=== PATIENT | male | born 1960 | race Caucasian/White ===

== ENCOUNTER 2019-07-23 13:27 | Outpatient (RCR) | payer OTHER, SELFPAY ==
[2019-04-24 11:05] LABS: INR 1.7; Prothrombin Time 19.6 Seconds (11.1-14.7)
[2019-05-30 12:41] LABS: INR 1.6; Prothrombin Time 18.6 Seconds (11.1-14.7)
[2019-06-26 16:49] LABS: INR 1.8
[2019-07-23 14:00] LABS: INR 1.6; Prothrombin Time 18.6 Seconds (11.1-14.7)
== END 2019-07-23 23:59 | disposition home or self-care (01) ==
LOC: ANHLAB 13:27
PROVIDERS: PCP Family Medicine; Visit Provider Internal Medicine Cardiovascular Disease
DX: I50.22 Chronic systolic (congestive) heart failure (principal); I35.9 Nonrheumatic aortic valve disorder, unspecified; R00.0 Tachycardia, unspecified; Z79.01 Long term (current) use of anticoagulants
CPT/HCPCS: 36415; 85610

== ENCOUNTER 2019-09-23 10:47 | Outpatient (RCR) | payer OTHER, SELFPAY ==
[2019-08-28 11:54] LABS: INR 1.9; Prothrombin Time 20.9 Seconds (11.1-14.7)
[2019-09-23 11:34] LABS: Prothrombin Time 22.1 Seconds (11.1-14.7)
== END 2019-11-26 23:59 | disposition home or self-care (01) ==
LOC: ANHLAB 10:47
PROVIDERS: PCP Family Medicine; Visit Provider Internal Medicine Cardiovascular Disease
DX: I50.22 Chronic systolic (congestive) heart failure (principal); I35.9 Nonrheumatic aortic valve disorder, unspecified; R00.0 Tachycardia, unspecified; Z79.01 Long term (current) use of anticoagulants
CPT/HCPCS: 36415; 85610

== ENCOUNTER 2019-11-24 14:33 | Outpatient (RCR) | payer OTHER, SELFPAY ==
[2019-10-22 15:15] LABS: INR 1.9; Prothrombin Time 21.6 Seconds (11.1-14.7)
[2019-11-24 14:59] LABS: INR 1.9; Prothrombin Time 21.4 Seconds (11.1-14.7)
== END 2020-01-20 23:59 | disposition home or self-care (01) ==
LOC: ANHLAB 14:33
PROVIDERS: PCP Family Medicine; Visit Provider Internal Medicine Cardiovascular Disease
DX: Z51.81 Encounter for therapeutic drug level monitoring (principal); Z95.2 Presence of prosthetic heart valve; Z79.01 Long term (current) use of anticoagulants
CPT/HCPCS: 36415; 85610

== ENCOUNTER 2019-12-12 01:58 | Outpatient (CLI) | payer OTHER, SELFPAY ==
[2019-12-14 11:26] LABS: SARS-CoV-2 RNA PCR Negative
== END 2019-12-12 01:59 | disposition home or self-care (01) ==
LOC: ANHCOVIDDT 01:58
PROVIDERS: PCP Family Medicine; Visit Provider Internal Medicine Cardiovascular Disease
DX: Z01.812 Encounter for preprocedural laboratory examination (principal); Z11.59 Encounter for screening for other viral diseases
CPT/HCPCS: 87635; C9803; U0003

== ENCOUNTER 2019-12-15 07:20 | Day surgery (SDC) | payer OTHER, SELFPAY ==
[2019-12-15] VITALS (19 sets, daily range): BP systolic 112–155; BP diastolic 62–80; PULSE 59–74; RESP 15–29; TEMP 37.6; O2SAT 94–100; BMI 36.3
[2019-12-15 08:27] LABS: INR 2.4; Prothrombin Time 25.3 Seconds (11.1-14.7)
--- NOTE | 2019-12-15 08:44 | WPDMODSED ---
Moderate Sedation Note-Pt Data Patient Data Diagnosis: Mechanical aortic valve malfunction, shortness of breath Present Complaint: fatigue history and physical update: Patient is a very pleasant 59-year-old male with a history of mitral valve repair with number 30 Jose-Choudhary physio 2 annuloplasty ring, 23 mm On X mechanical aortic valve replacement 03/14/2017, history of mild nonobstructive disease, fatty liver disease, obesity, obstructive sleep apnea on CPAP, GERD with complaints of progressive fatigue, tired more easily with recent surface echo which indicate increased velocities and mean gradient 30 mm Hg and a valve area 1.1 centimeters sq through the aortic valve referred for transesophageal echocardiogram for further clarification of mechanical prosthetic valve function. impression/plan: Mechanical aortic valve dysfunction fatigue and shortness of breath CAD SATHISH on CPAP HTN history of mitral valve repair recommendation: Transesophageal echocardiogram for further evaluation of structural integrity of mechanical aortic valve, function given symptoms and increase in aortic valve gradients. Further recommendations to follow. Procedure to be performed/Plan: transesophageal echocardiogram Allergies Allergy/AdvReac Type Severity Reaction Status Date / Time No Known Allergies Allergy Verified 11/26/16 09:41 Home Medications Medication Instructions Recorded Confirmed Type pantoprazole 40 mg tablet,delayed 40 mg PO QAM #90 tablet 03/25/19 12/15/19 Rx release bumetanide 2 mg PO DAILY 12/15/19 12/15/19 History diltiazem HCl [DILT-XR] 120 mg PO DAILY 12/15/19 12/15/19 History potassium chloride 10 meq PO DAILY 12/15/19 12/15/19 History warfarin 7.5 mg PO DAILY 12/15/19 12/15/19 History Current Medications: see medication list Sedation/Anesthesia: No previous sedation/anesthesia problems (including family history). COUNT INCLUDES THE [facility] Past Medical History Medical History CAD (coronary artery disease) Hypertension SATHISH (obstructive sleep apnea) Surgical History Surgical History H/O mechanical aortic valve replacement H/O mitral valve repair Family History Family History Sibling Family history of malignant neoplasm of breast Father Family history of congestive heart failure Hypertension Family history of cardiovascular disease Family history of coronary artery disease Other Asthma Cerebrovascular accident Diabetes mellitus Family history of mental disorder Social History Social History Smoking status: Never smoker Second hand tobacco smoke exposure: No Alcohol intake: never Mod Sed Physical Exam Physical Exam Pre Procedural Exam: Normal: Appearance, Eyes, Ears, Nose, Neck ( supple, normal range of motion), Throat ( posterior hypopharynx clear, nonerythematous), Airway ( normal anatomy, no obstruction), Lungs ( clear to auscultation bilaterally), Heart Size, Heart Rate, Heart Rhythm ( regular rate and rhythm, crisp mechanical S2), Neuro Exam, Abdomen ( obese), Liver, Kidneys and Skin and Variation: Extremities ( Trace bilateral lower extremity edema; healed median sternotomy scar) Hours since solid foods: 12 Hours since liquid intake: 12 Internal Medicine - PN: Obj Da Vital Signs Vital Signs: Vital Signs - 24 hr 12/15/19 07:34 12/15/19 07:45 12/15/19 08:30 Temperature 37.6 C Pulse Rate 66 66 67 Respiratory Rate 17 17 20 Blood Pressure 143/69 H 143/69 H 132/73 Pulse Oximetry 95 95 98 Labs Labs: Laboratory Results - last 24 hr 12/15/19 07:44 PT 25.3 H INR 2.4 ASA Classification/Sedation ASA Classification/Sedation ASA Class: III Emergent: No Risks: Risks, benefits and alternatives explained and patient/family accepted pl
--- NOTE | 2019-12-15 08:47 | WPDHPUPDATE1 ---
History and Physical Update Update Date/Time: 12/15/19 08:47 History and Physical has been reviewed, including an updated exam of the patient. There are NO changes in the patient's condition. Risks, benefits, and alternatives have been discussed and questions answered. Patient agrees to proceed with procedure.
--- NOTE | 2019-12-15 10:13 | WPDTEECHO ---
ABDIFATAH TransEsophageal Echocardiogram Date of procedure: 12/15/19 Procedure Type: Transesophageal echocardiogram Diagnosis: mechanical aortic valve dysfunction Indications: and chemical aortic valve dysfunction Image Quality: good Findings: Brief history present illness: Patient is a pleasant 59-year-old male with a history of mechanical mitral valve repair number 30 Jose-Choudhary physio 2 annuloplasty ring, 23 mm on X mechanical aortic valve replacement June 14, 2016, nonobstructive CAD, fatty liver disease, obstructive sleep apnea on CPAP, GERD, obesity with progressive fatigue, dyspnea found to have progressive mechanical aortic valve prosthetic stenosis with increasing gradients peak velocity 3.9 m/sec, mean gradient 30 mm Hg valve area 1.1 centimeters squared referred for transesophageal echocardiogram. By 2D echo mitral valve area 1.7 cm2 Mean gradient 11 mm Hg. Procedure in detail: After verbal and written informed consent was obtained the patient risks, benefits, and alternatives explained in detail the patient agreed to proceed with the plan of care as outlined above. The patient was evaluated at bedside in the [facility] procedure room. The posterior oropharynx, neck, and jaw angle all within normal limits on examination. Lungs were clear to auscultation. See pre-sedation note for further details The patient was then placed in the appropriate 30 to 45 degree angle supine position at a slight left lateral decubitus position. Patient was monitored throughout the study with telemetry, oxygen saturation, end-tidal CO2 monitoring, blood pressure, heart rate, and respirations. The posterior hypopharynx was then locally anesthetized using repeated administration of Hurricaine spray as well as gargled viscous lidocaine. After local anesthetic of the posterior hypopharynx was achieved and the oral bite block placed, moderate sedation was administered. After confirmation of adequate moderate sedation, the transesophageal echocardiogram probe was advanced through the oral bite block into the posterior hypopharynx and into the esophagus easily and without complication. Multiple, multiplanar echocardiographic images were obtained in multiple standard re- projections. Pulsed wave, continuous-wave, and color-flow Doppler were utilized in conjunction with this study. At the conclusion of the study, the transesophageal echocardiogram probe was removed easily and without complication. The patient tolerated the procedure well without difficulty. Patient was in sinus rhythm throughout the study. Moderate Sedation/Anesthesia administration: Patient reports no prior problems with sedation/anesthesia. Please see pre-sedation noted for physical examination documentation. As noted above, after adequate local anesthesia of the posterior hypopharynx was achieved, a total of 4.5 mg intravenous Versed and a total of 100 mcg intravenous Fentanyl in multiple divided doses was administered for moderate sedation. Sedation start time was 0858 and end time was 0932 for a total intra-service/procedure face-face time of 34 minutes. Sedation was administered by a qualified/certified observer Raudel Ramirez RN under my supervision with intra-procedure [id number] observation and management throughout the entirety of the procedure. There were no other issues or complications and patient tolerated the procedure well. See post-anesthesia documentation. Findings: Left ventricular size and systolic function within normal limits with ejection fraction of 60% with paradoxical septal wall motion. Unable to clearly visualize LV apex well so regional wall motion abnormalities limited, however, focal wall motion abnormalities could not be appreciated. Mild to moderate concentric left ventricular hypertrophy. Right ventricular size and systolic function within normal limits. [id number] left atrial enlargement normal right atrial size. Interatrial septum is anatomi
== END 2019-12-15 11:31 | disposition home or self-care (01) ==
PROVIDERS: PCP Family Medicine; Visit Provider Internal Medicine Cardiovascular Disease
PROC: (CPT 93312; principal; 2019-12-15 08:30)
DX: T82.09XA Other mechanical complication of heart valve prosthesis, initial encounter (principal); I35.0 Nonrheumatic aortic (valve) stenosis; Y83.8 Other surgical procedures as the cause of abnormal reaction of the patient, or of later complication, without mention of misadventure at the time of the procedure; Q21.1 Atrial septal defect; I25.10 Atherosclerotic heart disease of native coronary artery without angina pectoris; K76.0 Fatty (change of) liver, not elsewhere classified; G47.33 Obstructive sleep apnea (adult) (pediatric); K21.9 Gastro-esophageal reflux disease without esophagitis; E66.9 Obesity, unspecified; Z68.36 Body mass index [BMI] 36.0-36.9, adult
CPT/HCPCS: 36415; 85610; 93312; 93320; 93325; J2250; J3010; J7040

== ENCOUNTER 2019-12-25 02:59 | Outpatient (CLI) | payer OTHER, SELFPAY ==
[2019-12-26 13:48] LABS: SARS-CoV-2 RNA PCR Negative
== END 2019-12-25 03:00 | disposition home or self-care (01) ==
LOC: ANHCOVIDDT 02:59
PROVIDERS: PCP Family Medicine; Visit Provider Specialist
DX: Z01.812 Encounter for preprocedural laboratory examination (principal); Z11.59 Encounter for screening for other viral diseases
CPT/HCPCS: 87635; C9803; U0003

== ENCOUNTER 2019-12-28 05:21 | Day surgery (SDC) | payer OTHER, SELFPAY ==
[2019-12-25 14:39] VITALS: BMI 34.8
[2019-12-28] VITALS (9 sets, daily range): BP systolic 106–122; BP diastolic 64–73; PULSE 62–71; RESP 14–18; TEMP 37.4–37.7; O2SAT 93–95; BMI 34.8
[2019-12-28 07:41] LABS: Basophils Percent Auto 0.9 % (0.2-1.2); Eosinophils Absolute Auto 0.1 K/mm3 (0-0.3); Eosinophils Percent Auto 3.4 % (0-4.4); Hematocrit 39.5 % (42.0-52.0); Hemoglobin 12.8 g/dL (14.0-18.0); Immature Granulocyte Absolute 0.02 K/mm3 (0.00-0.031); Immature Granulocyte Percent A 0.6 % (0-0.5); Lymphocytes Absolute Auto 0.78 K/mm3 (0.9-3.2); Lymphocytes Percent Auto 24.1 % (18.3-44.2); Mean Corpuscular HGB Conc 32.4 g/dl (32-36); Mean Corpuscular Hemoglobin 26.4 pg (26-34); Mean Corpuscular Volume 81.6 fl (80-100); Mean Platelet Volume 10.3 fl (7.4-10.4); Monocytes Absolute Auto 0.4 K/mm3 (0.1-0.6); Monocytes Percent Auto 12.4 % (2.6-8.5); Neutrophils Absolute Auto 1.9 K/mm3 (1.3-6.7); Neutrophils Percent Auto 58.6 % (45.5-73.1); Platelet Count Result 91 k/mm3 (150-375); Red Blood Count 4.84 M/mm3 (4.6-6.20); Red Cell Distribution Width 15.9 % (11.5-14.5); White Blood Count 3.2 K/mm3 (4.5-10.0)
[2019-12-28 07:50] LABS: INR 1.5; Prothrombin Time 17.9 Seconds (11.1-14.7)
[2019-12-28 07:56] LABS: Anion Gap 7 mmol/L (8-16); Blood Urea Nitrogen 14 mg/dL (9-20); Calcium 9.1 mg/dL (8.4-10.2); Carbon Dioxide 24 mmol/L (22-30); Chloride 107 mmol/L (98-107); Estimated CRCL calculation 142 ml/min; Estimated Glomerular Filt Rate > 60; Glucose 117 mg/dL (75-110); Potassium 3.8 mmol/L (3.4-5.0); Sodium 138 mmol/L (137-145)
--- NOTE | 2019-12-28 09:19 | WPDMODSED ---
Moderate Sedation Note-Pt Data Patient Data Diagnosis: 59-year-old patient with a history of mechanical aortic valve replacement and mitral valve ring annuloplasty in 2017. Patient is reporting symptoms of exertional dyspnea and has a nuclear stress test demonstrating an ischemic defect. Previously coronary angiograms were remarkable for no significant coronary lesions. Present Complaint: Exertional dyspnea Procedure to be performed/Plan: coronary angiography Allergies Allergy/AdvReac Type Severity Reaction Status Date / Time No Known Allergies Allergy Verified 11/26/16 09:41 Home Medications Medication Instructions Recorded Confirmed Type pantoprazole 40 mg tablet,delayed 40 mg PO QAM #90 tablet 03/25/19 12/25/19 Rx release bumetanide 3 mg PO DAILY 12/15/19 12/25/19 History diltiazem HCl [DILT-XR] 120 mg PO DAILY 12/15/19 12/25/19 History potassium chloride 100 meq PO DAILY 12/15/19 12/28/19 History warfarin 7.5 mg PO DAILY 12/15/19 12/25/19 History fexofenadine [Danae Allergy] 180 mg PO DAILY 12/25/19 12/25/19 History fluticasone propionate [Flonase 1 spray INTRANASAL DAILY 12/25/19 12/25/19 History Allergy Relief] Current Medications: Active Medications Sodium Chloride (Normal Saline Iv) 500 mls @ 100 mls/hr IV CONT .Q5H SHARDA Sedation/Anesthesia: No previous sedation/anesthesia problems (including family history). [facility] Social History Social History Smoking status: Never smoker Second hand tobacco smoke exposure: No Alcohol intake: never Substance use: never Living arrangements: with family Spiritual care concerns: No Mod Sed Physical Exam Physical Exam Pre Procedural Exam: Normal: Appearance, Neck, Throat, Airway, Lungs, Heart Size ( normal crisp aortic valve closure sound noted), Heart Rate, Heart Rhythm, Neuro Exam and Extremities Hours since solid foods: 12 Hours since liquid intake: 12 Internal Medicine - PN: Obj Da Vital Signs Vital Signs: Vital Signs - 24 hr 12/28/19 08:00 Temperature 37.7 C H Pulse Rate 65 Blood Pressure 116/69 Pulse Oximetry 94 Meds/Results Medications: Active Medications Generic Name Dose Route Start Last Admin Trade Name Freq PRN Reason Stop Dose Admin Sodium Chloride 500 mls @ 100 mls/hr 12/28/19 07:00 Normal Saline Iv IV CONT .Q5H SHARDA Labs CBC & Chem 7: 12/28/19 07:25 12/28/19 07:25 Labs: Laboratory Results - last 24 hr 12/28/19 12/28/19 12/28/19 07:25 07:25 07:25 WBC 3.2 L RBC 4.84 Hgb 12.8 L Hct 39.5 L MCV 81.6 MCH 26.4 MCHC 32.4 RDW 15.9 H Plt Count 91 L MPV 10.3 Immature Gran % (Auto) 0.6 H Neut % (Auto) 58.6 Lymph % (Auto) 24.1 Parke % (Auto) 12.4 H Eos % (Auto) 3.4 Baso % (Auto) 0.9 Lymph # (Auto) 0.78 L Parke # (Auto) 0.4 Eos # (Auto) 0.1 Baso # (Auto) 0.0 Abs Immat Gran (auto) 0.02 Absolute Neuts (auto) 1.9 Absolute Nucleated RBC 0.0 Nucleated RBC % 0.0 PT 17.9 H INR 1.5 Sodium 138 Potassium 3.8 Chloride 107 Carbon Dioxide 24 Anion Gap 7 L BUN 14 Creatinine 0.60 L Estim Creat Clear Calc 142 Estimated GFR > 60 Glucose 117 H Calcium 9.1 ASA Classification/Sedation ASA Classification/Sedation ASA Class: III Emergent: No Risks: Risks, benefits and alternatives explained and patient/family accepted plan for sedation. Patient re-evaluated immediately prior to sedation.
--- NOTE | 2019-12-28 10:01 | P.PCNCC_ITS ---
Cardiac Cath Procedure Note Date of procedure:: 12/28/19 Performing physician:: Servando Yancey MD Indication:: history of aortic valve replacement, evidence of prosthetic subvalvular stenosis abnormal nuclear stress test raising concern regarding CAD. Coronary is were not diseased at the time of valve surgery Brief clinical history:: 59-year-old man with history of aortic valve disease who underwent an aortic valve replacement with a mechanical prosthesis in 2017. The operation also involved the mitral valve ring annuloplasty. Did not have any coronary disease at that time. Patient is reporting symptoms of dyspnea and has echocardiographic findings and recent ABDIFATAH indicating evidence of a subvalvular stenosis with pannus accumulation. In after this a Lexiscan nuclear study was done as an outpatient which was abnormal prompting recommendation for another coronary angiogram. The patient was taken off of Coumadin for this procedure last dose was 4 days ago and INR this morning is 1.5 Procedure Procedure performed:: diagnostic coronary angiography Angio-Seal to right femoral artery Sedation/Medication given:: fentanyl 50 mg Versed 2 mg case start time 9:44 a.m. case end time 9:56 a.m. sedation provided by Travis Chavez RN, trained observer Access site:: right femoral artery Estimated blood loss:: 15-20 cc Procedure note:: patient was brought to the catheterization lab in the postabsorptive state the right femoral triangle was prepared and draped in the usual fashion. Anesthesia was provided by 1% lidocaine infiltrated locally. Using modified Seldinger technique a 5 [place] vascular sheath was placed into the right common femoral artery. After this I have used a 5 [place] FL4 catheter to engage inject the left coronary artery in multiple projections. I then withdrew this catheter used a 5 [place] JR4 catheter to engage inject the right coronary artery in orthogonal projections. After this the cineangiograms were reviewed and the case was terminated. An angiogram was done of the femoral artery through the sheath after which an Angio-Seal device was deployed at the site of the arterial access with good hemostatic result. 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 Findings:: Central aortic pressure is 138/82 left main coronary artery is short but widely patent the left anterior descending is a moderate caliber artery with minimal luminal irregularities it is no significant disease and is patent down to the apex with AFTAB 3 flow. The circumflex is a moderate caliber artery giving rise to the marginal branches and a posterior branch. The circumflex system is non diseased angiographically right coronary artery is large in caliber dominant to the posterior circulation the RCA is angiographically unremarkable Conclusion:: 1. right coronary dominant circulation with no significant coronary disease angiographically 2. Angio-Seal to the right femoral artery for hemostasis with good result Servando Yancey MD [facility]
--- NOTE | 2019-12-28 13:59 | SUR.PHASEII ---
Discharge education reviewed with pt. and . Pt. and verbalize understanding. No new drainage noted to R groin site upon discharge. Site noted to be soft and nontender. Pt. transported to vehicle via wheelchair to be driven home by spouse.
== END 2019-12-28 14:03 | disposition home or self-care (01) ==
PROVIDERS: PCP Family Medicine; Visit Provider Specialist
PROC: (CPT 93454; 2019-12-28 08:30)
DX: R94.39 Abnormal result of other cardiovascular function study (principal); R06.09 Other forms of dyspnea; Z95.2 Presence of prosthetic heart valve; Z79.01 Long term (current) use of anticoagulants
CPT/HCPCS: 36415; 80048; 85025; 85610; 93454; C1760; C1887; C1894; G0269; J1644; J2250; J3010; J7040

== ENCOUNTER 2020-02-01 12:47 | Outpatient (CLI) | payer OTHER, SELFPAY ==
--- NOTE | 2020-02-02 13:05 | WPDPFTINT ---
PFT Interpretation PFT Interpretation: DOS: 02/01/2020 REQUESTING: Dr. Campos REASON FOR TESTING: shortness of breath with exertion PULMONARY FUNCTION TESTS Results are not reliable and reproducible. Patient was not able to exhale for 6 seconds. Spirometry: FEV1 97%, 3.23 L. FVC is 80%. The slow vital capacity is 94%, much higher than FVC, and this is consistent with dynamic air trapping. Normal FEV1%. No bronchodilator was given. Lung volumes: Total lung capacity 118%. Slow vital capacity is normal 94%. Increased residual volume 149% consistent with moderate air trapping. Increased RV/TLC ratio. Normal airway resistance. Diffusion: DLCO normal 81%. Flow volume loop: There is one normal flow volume loop; a patient should be able to reproduce this 3 times. IMPRESSION: Results are not reproducible; normal spirometry, moderate air trapping consistent with an obstructive process, slow vital capacity significantly higher than forced vital capacity which suggests dynamic air trapping. No bronchodilator was given. This patient May have reversible obstructive lung disease. Consider a trial of bronchodilator therapy. Zulema Figueroa MD
== END 2020-02-01 12:48 | disposition home or self-care (01) ==
PROVIDERS: PCP Family Medicine; Visit Provider Internal Medicine Cardiovascular Disease
DX: R06.00 Dyspnea, unspecified (principal); R94.2 Abnormal results of pulmonary function studies
CPT/HCPCS: 94375; 94726; 94729

== ENCOUNTER 2020-02-25 09:09 | Outpatient (CLI) | payer OTHER, SELFPAY ==
--- NOTE | ~2020-02-25 | XR_ITS ---
EXAMINATION: XR chest 2V EXAM DATE: 02/25/2020 09:32 INDICATION: Dyspnea. TECHNIQUE: Frontal and lateral projections of the chest obtained and reviewed. Comparison is made to prior examination from 09/23/2015. FINDINGS: Sternotomy wires are present without findings to suggest sternal dehiscence. Cardiac valve replacements. The lungs are clear. There are no pleural effusions. The cardiomediastinal silhouett e is upper limits of normal. There is no pneumothorax suspected. The bones and soft tissues are unr emarkable. There are cholecystectomy clips. IMPRESSION: No acute cardiopulmonary findings. Reviewed, dictated and finalized at location B.
== END 2020-02-25 09:10 | disposition home or self-care (01) ==
LOC: ANHIMG 09:18
PROVIDERS: PCP Family Medicine; Visit Provider Nurse Practitioner Family
DX: R06.00 Dyspnea, unspecified (principal)
CPT/HCPCS: 36415; 71046; 85610

== ENCOUNTER 2020-03-02 09:29 | Outpatient (CLI) | payer OTHER, SELFPAY ==
[2020-03-02 10:13] LABS: Alanine Aminotransferase 27 U/L (4-50); Albumin Level 4.1 g/dL (3.5-5.1); Alkaline Phosphatase 89 U/L (38-126); Anion Gap 8 mmol/L (8-16); Aspartate Amino Transferase 41 U/L (17-59); Bilirubin,Total 3.5 mg/dL (0.2-1.3); Blood Urea Nitrogen 12 mg/dL (9-20); Calcium 9.3 mg/dL (8.4-10.2); Carbon Dioxide 28 mmol/L (22-30); Chloride 105 mmol/L (98-107); Cholesterol 139 mg/dL (0-200); Estimated Glomerular Filt Rate > 60; Glucose 115 mg/dL (75-110); HDL Direct 35 mg/dL; Sodium 141 mmol/L (137-145); Triglycerides 51 mg/dL (<150)
[2020-03-02 10:19] LABS: LDL Cholesterol Direct 94 mg/dL
[2020-03-02 10:24] LABS: Potassium 4.1 mmol/L (3.4-5.0)
[2020-03-02 10:39] LABS: Prostate Specific Antigen 0.3 ng/mL (< OR = 4.0)
[2020-03-02 11:27] LABS: Vitamin D 25 Hydroxy 31.7 ng/mL
== END 2020-03-02 09:30 | disposition home or self-care (01) ==
PROVIDERS: PCP Family Medicine; Visit Provider Nurse Practitioner Family
DX: E80.4 Gilbert syndrome (principal); Z12.5 Encounter for screening for malignant neoplasm of prostate; Z13.220 Encounter for screening for lipoid disorders; I25.10 Atherosclerotic heart disease of native coronary artery without angina pectoris; Z13.29 Encounter for screening for other suspected endocrine disorder; R53.82 Chronic fatigue, unspecified
CPT/HCPCS: 36415; 80053; 80061; 82306; 84153; 84443; G0103

== ENCOUNTER 2020-03-23 09:00 | Outpatient (CLI) | payer OTHER, SELFPAY ==
--- NOTE | ~2020-03-23 | US_ITS ---
EXAMINATION: US abdomen complete EXAM DATE: 03/23/2020 09:39 INDICATION: E80.4 - Gilbert syndrome . TECHNIQUE: Multiple grayscale and Doppler images of the complete abdomen were obtained (by a technolo gist who performed the scan) and subsequently reviewed. Comparison is made to prior examination from 06/06/2017. FINDINGS: The abdominal aorta is normal in caliber. Visualized portion IVC is patent. The pancreatic head a nd body are normal in appearance. The pancreatic tail is not visualized. Liver has a normal contour. There is mildly heterogeneous liver echogenicity, a nonspecific finding. There is an 8 mm liver cyst. There is no evidence of intrahepatic biliary duct dilation. Portal ve nous flow was seen in the hepatopedal, normal direction and has normal Doppler waveform. Common bile duct measures 5 mm, which is normal. The gallbladder fossa is unremarkable. Right kidney: There is normal contour and echogenicity. It measures 11.7 x 5.8 x 6.5 centimeters. There are no focal renal lesions identified. There is no hydronephrosis. Left kidney: There is normal contour and echogenicity. It measures 12.6 x 4.9 x 5.8 centimeters. T here are no focal renal lesions identified. There is no hydronephrosis. The spleen measures 15.5 cm, mildly enlarged. There is homogeneous splenic echogenicity. IMPRESSION: 1. Mild clinically. 2. Mildly heterogeneous liver echogenicity, nonspecific finding. Reviewed, dictated and finalized at location B. 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
[2020-03-23 10:55] LABS: Glucose 111 mg/dL (75-110)
== END 2020-03-23 09:01 | disposition home or self-care (01) ==
LOC: ANHIMG 10:08
PROVIDERS: PCP Family Medicine; Visit Provider Nurse Practitioner Family
DX: R73.01 Impaired fasting glucose (principal); E80.4 Gilbert syndrome
CPT/HCPCS: 36415; 76700; 82947

== ENCOUNTER 2020-04-26 11:02 | Outpatient (RCR) | payer OTHER, SELFPAY ==
[2020-01-27 12:29] LABS: INR 2.1; Prothrombin Time 22.8 Seconds (11.1-14.7)
[2020-02-25 10:51] LABS: Prothrombin Time 21.9 Seconds (11.1-14.7)
[2020-03-23 11:10] LABS: INR 2.1
[2020-04-26 11:27] LABS: Prothrombin Time 23.4 Seconds (11.1-14.7)
== END 2020-04-26 23:59 | disposition home or self-care (01) ==
LOC: ANHLAB 11:02
PROVIDERS: PCP Family Medicine; Visit Provider Internal Medicine Cardiovascular Disease
DX: Z51.81 Encounter for therapeutic drug level monitoring (principal); Z95.2 Presence of prosthetic heart valve; Z79.01 Long term (current) use of anticoagulants
CPT/HCPCS: 36415; 85610

== ENCOUNTER 2020-08-17 14:30 | Outpatient (RCR) | payer OTHER, SELFPAY ==
[2020-05-26 12:19] LABS: INR 1.9; Prothrombin Time 22.3 Seconds (11.1-14.7)
[2020-06-30 10:30] LABS: INR 1.8; Prothrombin Time 21.7 Seconds (11.1-14.7)
[2020-07-20 12:22] LABS: INR 1.9; Prothrombin Time 22.1 Seconds (11.1-14.7)
[2020-08-17 15:11] LABS: INR 1.8; Prothrombin Time 21.5 Seconds (11.1-14.7)
== END 2020-08-24 23:59 | disposition home or self-care (01) ==
LOC: ANHLAB 14:30
PROVIDERS: PCP Family Medicine; Visit Provider Internal Medicine Cardiovascular Disease
DX: Z51.81 Encounter for therapeutic drug level monitoring (principal); Z95.2 Presence of prosthetic heart valve; Z79.01 Long term (current) use of anticoagulants
CPT/HCPCS: 36415; 85610

== ENCOUNTER 2020-09-23 08:00 | Outpatient (CLI) | payer OTHER, SELFPAY ==
[2020-09-23 08:42] LABS: Cholesterol 133 mg/dL (0-200); HDL Direct 38 mg/dL; Triglycerides 50 mg/dL (<150)
[2020-09-23 08:53] LABS: LDL Cholesterol Direct 82 mg/dL
[2020-09-23 09:12] LABS: Prostate Specific Antigen 0.2 ng/mL (< OR = 4.0)
== END 2020-09-23 08:01 | disposition home or self-care (01) ==
PROVIDERS: PCP Family Medicine; Visit Provider Nurse Practitioner Family
DX: E80.4 Gilbert syndrome (principal); Z12.5 Encounter for screening for malignant neoplasm of prostate
CPT/HCPCS: 36415; 80061; 84153; 85610; G0103

== ENCOUNTER 2020-11-23 14:18 | Outpatient (RCR) | payer OTHER, SELFPAY ==
[2020-09-02 15:02] LABS: INR 2.1
[2020-09-23 08:41] LABS: INR 2.1; Prothrombin Time 24.2 Seconds (11.1-14.7)
[2020-10-24 13:31] LABS: INR 2.4; Prothrombin Time 26.4 Seconds (11.1-14.7)
[2020-11-23 15:29] LABS: INR 2.2; Prothrombin Time 23.8 Seconds (11.1-14.7)
== END 2020-12-01 23:59 | disposition home or self-care (01) ==
LOC: ANHLAB 14:18
PROVIDERS: PCP Family Medicine; Visit Provider Internal Medicine Cardiovascular Disease
DX: Z51.81 Encounter for therapeutic drug level monitoring (principal); Z95.2 Presence of prosthetic heart valve; Z98.890 Other specified postprocedural states; Z79.01 Long term (current) use of anticoagulants
CPT/HCPCS: 36415; 85610

== ENCOUNTER 2020-12-17 05:20 | Observation (INO) | payer OTHER, SELFPAY ==
[2020-12-17] VITALS (35 sets, daily range): BP systolic 106–164; BP diastolic 58–100; PULSE 54–116; RESP 13–33; TEMP 36.1–36.8; O2SAT 92–100; BMI 36.6; BMI 36.8
--- NOTE | ~2020-12-17 | XR_ITS ---
EXAMINATION: XR chest 2V DATE: 12/17/2020 06:37 INDICATION: Shortness of breath TECHNIQUE: frontal view of the chest was obtained. COMPARISON: Chest radiograph dated 02/25/2020 FINDINGS: Mild increased interstitial pattern as well as a few scattered streaky/linear opacities in the bilate ral lower lung zones most likely combination of mild pulmonary edema and atelectasis. Small right ple ural effusion. No pneumothorax. Cardiomegaly. Median sternotomy wires and mediastinal surgical clips are seen, likely from prior coronary artery by pass grafting. Prosthetic aortic and mitral valves. Retained epicardial pacemaker leads. Cholecystect triston clips in the upper abdomen. IMPRESSION: 1. Mild interstitial and streaky opacities in the bilateral lower lung zones likely combination of mi ld pulmonary edema and atelectasis. 2. Small right pleural effusion. 3. Cardiomegaly. Reviewed, dictated and finalized at location A. IMPRESSION: 1. Mild interstitial and streaky opacities in the bilateral lower lung zones li linda combination of mild pulmonary edema and atelectasis. 2. Small right pleural effusion. 3. Cardiomegaly.
--- NOTE | 2020-12-17 05:24 | ECG_ITS ---
Measurements Intervals [place] Rate: 114 P: [place]: 0 QRS: 6 QRSD: 105 T: 75 QT: 345 QTc: 476 Interpretive Statements ATRIAL FLUTTER/TACHYCARDIA WITH RAPID VENTRICULAR RESPONSE INCOMPLETE RIGHT BUNDLE BRANCH BLOCK ABNORMAL ECG Electronically Signed On 12-17-2020 7:44:03 CDT by Bernardino Austin D.O.
[2020-12-17] MEDS: ASPIRIN 81 MG CHEWABLE TABLET 324 MG PO (05:32)
--- NOTE | 2020-12-17 05:37 | ED.CHESTPAIN ---
HPI - Chest Pain General Chief Complaint: Chest Pain Stated Complaint: chest pain Time Seen by Provider: 12/17/20 05:35 History of Present Illness HPI narrative: Intermittent chest pain since 11 AM yesterday. Moderate severity. Pressure in quality. No radiation. Associated with SOB. He has had similar pain in the past, but usually passes. He has h/o aortic valve replacement. he is on warfarin. Related Data Home Medications Medication Instructions Recorded Confirmed bumetanide 3 mg PO DAILY 12/15/19 09/19/20 diltiazem HCl [DILT-XR] 120 mg PO DAILY 12/15/19 09/19/20 potassium chloride 100 meq PO DAILY 12/15/19 09/19/20 warfarin 7.5 mg PO DAILY 12/15/19 09/19/20 fexofenadine [Danae Allergy] 180 mg PO DAILY 12/25/19 09/19/20 fluticasone propionate [Flonase 1 spray INTRANASAL DAILY 12/25/19 09/19/20 Allergy Relief] Allergies Allergy/AdvReac Type Severity Reaction Status Date / Time No Known Allergies Allergy Verified 09/19/20 10:31 Review of Systems Review of Systems: All systems reviewed & are unremarkable except as noted in HPI and below Constitutional: Constitutional: Denies chills and Denies fever(s) ENT: Denies sore throat Cardiovascular: Cardiovascular: Reports chest pain and Reports rapid heart rate Respiratory: Respiratory: Reports dyspnea Gastrointestinal: Gastrointestinal: Denies nausea Genitourinary: Genitourinary: Reports no additional male genitourinary complaints Musculoskeletal: Musculoskeletal: Denies back pain Neurologic: Denies weakness [facility] Past Medical History Medical History CAD (coronary artery disease) GERD (gastroesophageal reflux disease) Gilbert syndrome Hypertension SATHISH (obstructive sleep apnea) PONV (postoperative nausea and vomiting) PSVT (paroxysmal supraventricular tachycardia) Syncope Surgical History Surgical History H/O mechanical aortic valve replacement H/O mitral valve repair History of appendectomy History of cholecystectomy History of sinus surgery History of tonsillectomy Family History Family History Sibling Breast cancer Father Family history of congestive heart failure Hypertension Family history of cardiovascular disease Family history of coronary artery disease Mother Heart disease Son Heart disease Asthma Autism Other Cerebrovascular accident Diabetes mellitus Family history of mental disorder Social History Social History Smoking status: Never smoker Second hand tobacco smoke exposure: No Alcohol intake: never Substance use: never Spiritual care concerns: No Exam Const: General: healthy appearing, no acute distress and alert Orientation/consciousness: patient oriented x3 HENMT: Head: normal to inspection Neck: Neck: normal visual inspection and no lymphadenopathy Chest: Chest palpation & inspection: no tenderness Resp: Effort & Inspection: normal respiratory effort Auscultation: clear to auscultation bilaterally, no rales, no rhonchi and no wheezes Cardio: Jugular venous distension: no JVD Rate: tachycardic Rhythm: regular rhythm GI: Inspection: non-distended GI Palp: Yes Soft to palpation and No Tenderness to palpation present (GI) Skin: General skin exam: normal color Neuro: General: patient oriented x3 and moves all extremities Speech: normal speech Extrem: General: no edema Psych: Appearance: well kempt Affect: normal affect Course Vital Signs Vital signs: Vital Signs Pulse Rate 114 H 12/17/20 05:27 Respiratory Rate 22 H 12/17/20 05:27 Blood Pressure 164/100 H 12/17/20 05:27 Pulse Oximetry 100 12/17/20 05:27 Pulse Rate 105 H 12/17/20 06:08 Respiratory Rate 22 H 12/17/20 06:08 Blood Pressure 127/91 H 12/17/20 06:08 Pulse Oximetry
[2020-12-17 05:45] LABS: Eosinophils Absolute Auto 0.3 K/mm3 (0-0.3); Eosinophils Percent Auto 6.1 % (0-4.4); Hematocrit 38.7 % (42.0-52.0); Immature Granulocyte Absolute 0.02 K/mm3 (0.00-0.031); Immature Granulocyte Percent A 0.5 % (0-0.5); Lymphocytes Absolute Auto 0.99 K/mm3 (0.9-3.2); Lymphocytes Percent Auto 24.1 % (18.3-44.2); Mean Corpuscular Hemoglobin 24.8 pg (26-34); Mean Platelet Volume 9.4 fl (7.4-10.4); Monocytes Absolute Auto 0.5 K/mm3 (0.1-0.6); Monocytes Percent Auto 11.4 % (2.6-8.5); Neutrophils Absolute Auto 2.3 K/mm3 (1.3-6.7); Neutrophils Percent Auto 56.9 % (45.5-73.1); Platelet Count Result 87 k/mm3 (150-375); Red Blood Count 4.84 M/mm3 (4.6-6.20); Red Cell Distribution Width 16.1 % (11.5-14.5); White Blood Count 4.1 K/mm3 (4.5-10.0)
[2020-12-17 05:53] LABS: Anion Gap 10 mmol/L (8-16); Blood Urea Nitrogen 15 mg/dL (9-20); Calcium 9.1 mg/dL (8.4-10.2); Carbon Dioxide 23 mmol/L (22-30); Chloride 109 mmol/L (98-107); Estimated CRCL calculation 126 ml/min; Estimated Glomerular Filt Rate > 60; Glucose 119 mg/dL (65-110); Potassium 3.9 mmol/L (3.4-5.0); Sodium 142 mmol/L (137-145)
[2020-12-17] MEDS: dilTIAZem HCl INJ 25 MG/5 ML VIAL 10 MG IV PUSH (05:55)
[2020-12-17] MEDS: NITROGLYCERIN SL 0.4 MG TABLET SUBLINGUAL (05:55)
[2020-12-17 06:05] LABS: Troponin I < 0.012 ng/mL (0.000-0.034)
[2020-12-17 06:14] LABS: Prothrombin Time 22.4 Seconds (11.1-14.7)
[2020-12-17 06:15] LABS: Partial Thromboplastin Time 39.7 SECONDS (22.3-36.8)
[2020-12-17] MEDS: MORPHINE SULFATE (*CRX) 4 MG/ML INJ IV PUSH (07:10)
--- NOTE | 2020-12-17 07:57 | ADMGEN ---
This patient, Abelino Vargas, was admitted to IMU Room 201-01. Patient/family oriented to hospital policies and general routines including ID bracelet, bed and alarms, visiting hours, pain management, procedures, bathroom and other care routines, personal items, smoking policy, room service/diet, and visiting hours. Information on how to activate the Rapid Response Team has been discussed. Patient/Family are encouraged to report perceived risks to care and to ask questions if they do not understand what they are told or what they should do.
[2020-12-17 09:07] LABS: Troponin I < 0.012 ng/mL (0.000-0.034)
--- NOTE | 2020-12-17 09:36 | PM.IMHP ---
H&P: HPI History of Present Illness Date/Time: 12/17/20 09:36 Chief Complaint: chest pain Narrative: this is a very pleasant 60-year-old man with a history of valvular heart disease who follows with my partner, Dr. Campos. he came to the emergency room here at [facility] last evening because of some chest pain that started Saturday morning. He states that the pain began with normal household activities he was not exerting himself at all he describes it as a dull central aching sensation in the chest without any radiation or other associated symptomatology. He states that having some chest pain on occasion is not not unusual for him he will have episodes of some discomfort like this that seem to come and go in an unpredictable fashion but they typically only lasts 5-15 minutes at a time and when this lasted most of the day he became more concerned and appropriately came into the emergency room to be evaluated last evening. In the emergency department he was noted to be tachycardic his electrocardiogram demonstrated an atrial tachyarrhythmia with heart rate of about 140 beats per minute. My review of the ECG is most consistent with atypical atrial flutter. He was treated in the emergency room of course with intravenous diltiazem with improvement in his heart rate and he was admitted to the IMU for further evaluation and management. His ECG did not show any evidence of acute myocardial injury and his troponin levels x3 sets are negative. He appears to be relatively comfortable this morning in his room and offers no other complaints. His cardiac history is rather complicated regarding his valvular disease. He was found to have aortic stenosis and underwent aortic valve replacement in May of 2016 receiving a Number 23 Amilcar mechanical aortic valve as well as a mitral valve repair with a ring annuloplasty at [facility] by Dr. Harris. The patient at the time of surgery this was found to have no evidence of coronary artery disease and has been followed by Dr. lancaster and his surgeon since then. Since his operation he has had a variety of complaints and has been unhappy with the results mostly because he is still complaining of fatigue and shortness of breath. Extensive workup of this has been done and there has been some suggestive of pannus development around the sewing ring of his aortic valve prosthesis possibly resulting in a gradient. He has been referred to the cardiothoracic surgery department at [place] for further evaluation of this. That evaluation is underway he has an appointment with this physician there on Saturday of this week and plans are made according to the chart for a transesophageal echo at that institution to evaluate this. Because of the symptoms he did have another coronary angiogram here at this hospital last year which was performed at Dr. Campos's request by myself which to once again demonstrated that he does not have ischemic heart disease. He has had occasional episodes of in the office where he is complaining of tachypalpitations. Outpatient Holter and event monitors have not demonstrated any significant arrhythmias. Of course he is anticoagulated with warfarin because of his mechanical aortic valve his INR on admission is therapeutic at 2.0. 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 In any event he did have a upper endoscopy at [place] within the last couple of weeks that demonstrated the presence of some esophageal varices which he states have never bled. This exam was done because of the suspicion of the presence of varices prior to an esophageal echocardiogram. Review of Systems Constitutional: Constitutional: Reports fatigue and Reports lethargy Eyes: Eyes: Reports no additional eye complaints ENT: Reports system reviewed and
[2020-12-17] MEDS: BUMETANIDE 1 MG TABLET 3 MG PO (10:51)
[2020-12-17] MEDS: METOPROLOL SUCCINATE EXT REL 50 MG TABCR PO (10:51)
[2020-12-17] MEDS: PANTOPRAZOLE 40 MG TABLET PO (10:52)
[2020-12-17] MEDS: LORATADINE 10 MG TABLET PO (10:52)
[2020-12-17] MEDS: FLUTICASONE PROPIONATE 0.05% NA SPR 16 GM BTL (*BKC) 1 SPRAY NASAL (10:53)
[2020-12-17 12:02] LABS: Troponin I < 0.012 ng/mL (0.000-0.034)
[2020-12-17] MEDS: POTASSIUM CHLORIDE 20 MEQ TABLET.ER PO (12:46)
[2020-12-17] MEDS: POTASSIUM CHLORIDE 20 MEQ TABLET.ER 40 MEQ PO (18:23)
[2020-12-17] MEDS: WARFARIN (*PBKC) 7.5 MG TABLET PO (18:23)
--- NOTE | 2020-12-17 18:34 | ECG_ITS ---
Measurements Intervals [place] Rate: 73 P: 88 [place]: 249 QRS: 23 QRSD: 99 T: 82 QT: 457 QTc: 506 Interpretive Statements SINUS RHYTHM WITH FIRST DEGREE AV BLOCK INCOMPLETE RIGHT BUNDLE BRANCH BLOCK PROLONGED QT INTERVAL ABNORMAL ECG Electronically Signed On 12-18-2020 7:03:55 CDT by Bernardino Austin D.O.
[2020-12-17] MEDS: IBUPROFEN 400 MG TABLET PO (19:51)
[2020-12-18] VITALS (8 sets, daily range): BP systolic 110–120; BP diastolic 72–73; PULSE 54–89; RESP 16; TEMP 36.3–36.6; O2SAT 95
[2020-12-18 05:46] LABS: INR 2.3; Prothrombin Time 24.7 Seconds (11.1-14.7)
--- NOTE | 2020-12-18 08:26 | PM.DS ---
DS: Admitting Diagnosis Admitting Diagnosis atrial flutter DS: Summary Hospital Course Reason for hospitalization: atrial flutter Hospital Course: this 60-year-old man with a history of valvular heart disease. He underwent an aortic valve replacement with a mechanical prosthesis in the recent past and since then has been ext elects. Young symptoms of exertional dyspnea that are undergoing workup both here and at [facility] in [place]. The patient follows in our office here at [place] with Dr. Campos. he came to the emergency room with symptoms of chest pain which were atypical and noncardiac in nature. He is known not to have any coronary artery disease by virtue of 2- coronary angiograms in the last couple of years. As expected he ruled out for acute coronary syndrome but he was in atrial flutter with rapid ventricular response with heart rate was about 140. He was treated with diltiazem in the emergency room which improved his heart rate. He had recently been started on a low-dose of carvedilol by the his medical cost consultant at [facility]. I transitioned him from carvedilol to metoprolol and he converted to sinus rhythm and became asymptomatic. He already is systemically anticoagulated with warfarin because of his aortic valve prosthesis. Today he is stable asymptomatic and appears to be a good candidate for discharge. He has an appointment tomorrow at [facility] where he will be seen in follow-up and according to the records there are plans for an esophageal echocardiogram for further evaluation of his dyspnea and valvular heart disease. The patient was given a copy of his electrocardiogram to take to [facility] to present to his physician at the time of that appointment. Status at Discharge Functional status at discharge: independent ambulation Time Spent with Patient Time attestation: Total time spent providing and/or coordinating discharge services: Time spent: Less than 30 minutes Exam Const: General: comfortable and no acute distress Eyes: Sclera: sclerae normal Pupils: Equal, round and reactive pupils present Neck: Neck: supple and no JVD Resp: Effort & Inspection: normal respiratory effort Auscultation: clear to auscultation bilaterally Cardio: Rate: regular rate Rhythm: regular rhythm Other: Normal crisp aortic valve closure sound noted GI: GI Palp: Yes Soft to palpation Auscultation: normal bowel sounds Skin: General skin exam: normal color Extrem: General: normal to inspection DS: Data Data Completed and Pending Labs on day of discharge: Labs from last 24 hours 12/18/20 12/17/20 12/17/20 04:23 11:28 08:31 PT 24.7 H INR 2.3 Troponin I < 0.012 < 0.012 Discharge Plan Discharge Attending physician on discharge: Servando Yancey Discharging Clinician: Servando Yancey Anticipated Discharge Date/Time: 12/18/20 08:31 Patient Disposition: Home, Self-Care Activity: as tolerated Diet: heart healthy Patient Instructions: Antibiotic Form Stand Alone Forms: General Discharge Information Follow-up/Referrals: Stephan Love MD [Primary Care Provider] - Discharge Medications: New metoprolol succinate 50 mg Tablet Extended Release 24 Hr 50 mg PO QAM Qty: 30 RF: 5 Continued albuterol sulfate 90 mcg/actuation HFA aerosol inhaler 2 inhalation INHALATION Q4-6H PRN (Reason: shortness of breath or wheezing) Qty: 8.5 RF: 1 bumetanide 2 mg tablet 3 mg PO DAILY RF: 0 potassium chloride 10 mEq tablet extended release 100 meq PO DAILY RF: 0 warfarin 5 mg tablet 7.5 mg PO DAILY RF: 0 Hold Instructions: Resume on 12/30/19. Restart warfarin on December 30, 2019 diltiazem HCl [DILT-XR] 120 mg capsule,ext.rel 24h degradable 120 mg PO DAILY RF: 0 fexofenadine [Danae Allergy] 180 mg Tablet 180 mg PO DAILY RF: 0 fluticasone propionate [Flonase Allergy Relief] 50 mcg/actuation [place],Suspension 1 spray INTRANASAL BELLE
[2020-12-18] MEDS: POTASSIUM CHLORIDE 20 MEQ TABLET.ER 40 MEQ PO (08:51)
[2020-12-18] MEDS: BUMETANIDE 1 MG TABLET 3 MG PO (08:51)
[2020-12-18] MEDS: METOPROLOL SUCCINATE EXT REL 50 MG TABCR PO (08:52)
[2020-12-18] MEDS: PANTOPRAZOLE 40 MG TABLET PO (08:53)
--- NOTE | 2020-12-18 11:31 | PC.NURSE ---
Patient discharged to home today. Education was provided on new meds and follow-up visits. Patient had no further questions at this time.
== END 2020-12-18 10:30 | disposition home or self-care (01) ==
LOC: ANHED 06:55 → ANHIMU 12-18 08:32
PROVIDERS: Admitting Provider Internal Medicine Cardiovascular Disease; Emergency Provider Emergency Medicine; PCP Family Medicine; Visit Provider Specialist
DX: I48.92 Unspecified atrial flutter (principal); R07.9 Chest pain, unspecified; Z79.01 Long term (current) use of anticoagulants; I10 Essential (primary) hypertension; G47.33 Obstructive sleep apnea (adult) (pediatric); Z95.4 Presence of other heart-valve replacement
CPT/HCPCS: 36415; 71046; 80048; 84484; 85025; 85610; 85730; 93005; 96374; 96375; 99285; A9270; G0378; J2270

== ENCOUNTER 2021-01-11 16:24 | Outpatient (CLI) | payer OTHER, SELFPAY ==
[2021-01-11 17:31] LABS: Alanine Aminotransferase 23 U/L (4-50); Albumin Level 4.1 g/dL (3.5-5.1); Alkaline Phosphatase 98 U/L (38-126); Anion Gap 9 mmol/L (8-16); Aspartate Amino Transferase 43 U/L (17-59); Bilirubin,Total 3.7 mg/dL (0.2-1.3); Blood Urea Nitrogen 13 mg/dL (9-20); Calcium 9.1 mg/dL (8.4-10.2); Carbon Dioxide 25 mmol/L (22-30); Chloride 106 mmol/L (98-107); Estimated Glomerular Filt Rate > 60; Glucose 101 mg/dL (65-110); Magnesium 1.7 mg/dL (1.6-2.3); Potassium 3.8 mmol/L (3.4-5.0); Sodium 140 mmol/L (137-145)
== END 2021-01-11 16:25 | disposition home or self-care (01) ==
PROVIDERS: PCP Family Medicine; Visit Provider Internal Medicine Cardiovascular Disease
DX: R94.31 Abnormal electrocardiogram [ECG] [EKG] (principal)
CPT/HCPCS: 36415; 80053; 83735

== ENCOUNTER 2021-03-09 17:10 | Outpatient (RCR) | payer OTHER, SELFPAY ==
[2021-01-03 15:11] LABS: INR 2.4; Prothrombin Time 25.3 Seconds (11.1-14.7)
[2021-02-09 18:16] LABS: INR 2.6; Prothrombin Time 27.3 Seconds (11.1-14.7)
[2021-03-09 17:38] LABS: INR 2.6; Prothrombin Time 27.2 Seconds (11.1-14.7)
== END 2021-04-03 23:59 | disposition home or self-care (01) ==
LOC: ANHLAB 17:10
PROVIDERS: PCP Family Medicine; Visit Provider Internal Medicine Cardiovascular Disease
DX: Z51.81 Encounter for therapeutic drug level monitoring (principal); Z95.2 Presence of prosthetic heart valve; Z79.01 Long term (current) use of anticoagulants
CPT/HCPCS: 36415; 85610

== ENCOUNTER 2021-04-03 00:36 | Day surgery (SDC) | payer OTHER, SELFPAY ==
[2021-03-20 14:59] VITALS: BMI 35.6
--- NOTE | 2021-04-03 08:50 | WPDANESEPPF ---
Anes - Initial Pre Proc Eval Procedure: Operation Date: 04/03/21 11:30 Proposed Procedures p Screening Colonoscopy - Ryan Taylor MD Date/Time: 04/03/21 08:50 Surgeon: Ryan Taylor MD Pre Op Diagnosis: neoplasm screening Patient Data Age: 61 Gender: M Height: 1.8 m Weight: 116 kg Allergies Allergy/AdvReac Type Severity Reaction Status Date / Time No Known Allergies Allergy Verified 04/03/21 10:30 Home Medications Medication Instructions Recorded Confirmed Type bumetanide 3 mg PO DAILY 12/15/19 03/27/21 History diltiazem HCl [DILT-XR] 120 mg PO DAILY 12/15/19 03/27/21 History potassium chloride 100 meq PO DAILY 12/15/19 03/27/21 History warfarin 7.5 mg PO DAILY 12/15/19 03/27/21 History fexofenadine [Danae Allergy] 180 mg PO DAILY 12/25/19 03/27/21 History fluticasone propionate [Flonase 1 spray INTRANASAL DAILY 12/25/19 03/27/21 History Allergy Relief] albuterol sulfate 90 mcg/actuation 2 inhalation INHALATION Q4-6H PRN 02/17/20 03/27/21 Rx aerosol inhaler #8.5 gm metoprolol succinate 50 mg PO QAM #30 tablet 12/18/20 03/27/21 Rx pantoprazole 40 mg tablet,delayed 40 mg PO QAM #90 tablet 12/26/20 03/27/21 Rx release Patient hx anesthesia problems: none Family hx anesthesia problems: none Results Review: All pre-operative results and documents have been reviewed as part of the pre-operative evaluation. [facility] Past Medical History Medical History (Updated 04/03/21 @ 10:29 by Ryan Taylor MD) Arthritis of knee Atrial fibrillation CAD (coronary artery disease) BALBUENA (dyspnea on exertion) GERD (gastroesophageal reflux disease) Gilbert syndrome Hypertension Obesity (BMI 30-39.9) SATHISH (obstructive sleep apnea) PONV (postoperative nausea and vomiting) PSVT (paroxysmal supraventricular tachycardia) Pulmonary hypertension Syncope Surgical History Surgical History H/O mechanical aortic valve replacement H/O mitral valve repair History of appendectomy History of cholecystectomy History of sinus surgery History of tonsillectomy Family History Family History Sibling Breast cancer Father Family history of congestive heart failure Hypertension Family history of cardiovascular disease Family history of coronary artery disease Mother Heart disease Son Heart disease Asthma Autism Other Cerebrovascular accident Diabetes mellitus Family history of mental disorder Social History Social History Second hand tobacco smoke exposure: No Alcohol intake: never Substance use: never Living arrangements: alone Spiritual care concerns: No Anes - Eval Final PreProcedure Day of Procedure 04/03/21 08:50 Patient weight: obese Heart: regular rate and rhythm Lungs: clear to auscultation and normal air movement Airway: Mallampati scale Neurological: alert and oriented Last oral intake: >/= 8 hours ASA classification: IV Emergent: no Anesthetic plan: proceed Anesthesia type and monitoring: general GIVS Results Review: All pre-operative results and documents have been reviewed as part of the pre-operative evaluation. Informed Consent: The patient's anesthetic plan and its attendant risks and benefits were discussed with the patient/family/POA. Questions were solicited and answers provided to the satisfaction of the patient/family/POA.
[2021-04-03] MEDS: LACTATED RINGERS 1,000 ML 150 ML IV CONT (10:25)
--- NOTE | 2021-04-03 10:27 | WPDGICN ---
Assessment and Plan Assessment and plan (1) Screening for colon cancer: Code(s): Z12.11 - Encounter for screening for malignant neoplasm of colon Status: Acute Assessment and Plan: Patient presents for screening colonoscopy. Further recommendations will be given after endoscopy. (2) H/O mitral valve repair: Code(s): Z98.890 - Other specified postprocedural states Status: Chronic Assessment and Plan: Patient has a history of mitral valve repair. Appears to be stable after previous cardiac surgery 5 years ago. (3) Esophageal varices: Code(s): I85.00 - Esophageal varices without bleeding Status: Acute Assessment and Plan: Patient identified with esophageal varices several years ago. No known bleeding or complications. Apparently found incidentally. [place] to have cirrhosis of liver on uncertain etiology. Currently followed at [facility] where his workup continues he will follow up with general operator there. GI Consult Note Consult date/time: 04/03/21 10:27 HPI: Abelino Vargas is a 61 year old male Presents for screening colonoscopy. Patient has a distant history of a mucosal polyp 9 or 10 years ago. He states his current weight appetite bowel movements are normal. He presents today for screening colonoscopy. He denies any weight loss pain or bleeding. Family history is noncontributory. Patient's past medical history is significant that 5 years ago was required a heart valve replacement. He also reports that an EGD done prior to ABDIFATAH 3 years ago confirm the had grade 2 esophageal varices. He currently is being evaluated at [facility] for underlying cryptogenic cirrhosis. The etiology is unclear. Patient denies any bleeding or known consequences of cirrhosis. Review of Systems Review of Systems: All systems reviewed & are unremarkable except as noted in HPI and below [facility] Past Medical History Medical History (Updated 04/03/21 @ 10:29 by Ryan Taylor MD) Arthritis of knee Atrial fibrillation CAD (coronary artery disease) BALBUENA (dyspnea on exertion) GERD (gastroesophageal reflux disease) Gilbert syndrome Hypertension Obesity (BMI 30-39.9) SATHISH (obstructive sleep apnea) PONV (postoperative nausea and vomiting) PSVT (paroxysmal supraventricular tachycardia) Pulmonary hypertension Syncope Surgical History Surgical History H/O mechanical aortic valve replacement H/O mitral valve repair History of appendectomy History of cholecystectomy History of sinus surgery History of tonsillectomy Family History Family History Sibling Breast cancer Father Family history of congestive heart failure Hypertension Family history of cardiovascular disease Family history of coronary artery disease Mother Heart disease Son Heart disease Asthma Autism Other Cerebrovascular accident Diabetes mellitus Family history of mental disorder Social History Social History Second hand tobacco smoke exposure: No Alcohol intake: never Substance use: never Living arrangements: alone Spiritual care concerns: No Meds Home Medications and Allergies Home Medications Medication Instructions Recorded Confirmed Type bumetanide 3 mg PO DAILY 12/15/19 03/27/21 History diltiazem HCl [DILT-XR] 120 mg PO DAILY 12/15/19 03/27/21 History potassium chloride 100 meq PO DAILY 12/15/19 03/27/21 History warfarin 7.5 mg PO DAILY 12/15/19 03/27/21 History fexofenadine [Danae Allergy] 180 mg PO DAILY 12/25/19 03/27/21 History fluticasone propionate [Flonase 1 spray INTRANASAL DAILY 12/25/19 03/27/21 History Allergy Relief] albuterol sulfate 90 mcg/actuation 2 inhalation INHALATION Q4-6H PRN 02/17/20 03/27/21 Rx aerosol inhaler #8.5 gm metoprolol succinate 50 mg PO QAM #30 tablet 12/18/20 03/27/21 Rx p
[2021-04-03] MEDS: GENTAMICIN 80MG/SOD CHL 50 ML 80 MG/50 ML BAG 100 MG IVPB (10:29)
[2021-04-03 10:31] VITALS: BP 130/87; PULSE 61; RESP 22; TEMP 37.4; O2SAT 96; BMI 34.6
[2021-04-03 10:40] LABS: INR 1.7; Prothrombin Time 19.2 Seconds (11.1-14.7)
[2021-04-03] MEDS: AMPICILLIN 2 GM/NS 100 ML 2 GM/100 ML BAG IVPB (10:48)
[2021-04-03 11:07] VITALS: BP 123/92; PULSE 117; RESP 12; O2SAT 97
--- NOTE | 2021-04-03 11:08 | SUR.OPER ---
Dr. Taylor notified that specimen was not retrieved. Sophia Echeverria and Светлана Morales also in room when doctor was notified.
[2021-04-03 11:17] VITALS: BP 121/73; PULSE 109; RESP 12; O2SAT 95
[2021-04-03 11:27] VITALS: BP 114/84; PULSE 122; RESP 20; O2SAT 94
== END 2021-04-03 11:51 | disposition home or self-care (01) ==
PROVIDERS: PCP Family Medicine; Visit Provider Internal Medicine Gastroenterology
PROC: 0DJD8ZZ Inspection of Lower Intestinal Tract, Via Natural or Artificial Opening Endoscopic (ICD-10-PCS; CPT 45378; principal; 2021-04-03 11:30)
DX: Z12.11 Encounter for screening for malignant neoplasm of colon (principal); K62.1 Rectal polyp; K64.8 Other hemorrhoids; I85.00 Esophageal varices without bleeding; I48.91 Unspecified atrial fibrillation; I25.10 Atherosclerotic heart disease of native coronary artery without angina pectoris; K21.9 Gastro-esophageal reflux disease without esophagitis; E80.4 Gilbert syndrome; I10 Essential (primary) hypertension; G47.33 Obstructive sleep apnea (adult) (pediatric); I47.1 Supraventricular tachycardia; I27.20 Pulmonary hypertension, unspecified; E66.9 Obesity, unspecified; Z68.34 Body mass index [BMI] 34.0-34.9, adult; Z95.2 Presence of prosthetic heart valve; Z79.01 Long term (current) use of anticoagulants; Z79.51 Long term (current) use of inhaled steroids
CPT/HCPCS: 45385; 36415; 85610; J0290; J1580; J2001; J2704; J7120

== ENCOUNTER 2021-05-04 02:57 | Day surgery (SDC) | payer OTHER, SELFPAY ==
[2021-05-04] VITALS (12 sets, daily range): BP systolic 98–135; BP diastolic 59–89; PULSE 60–115; RESP 18–24; TEMP 36.9–37.2; O2SAT 93–98; BMI 34.8
--- NOTE | 2021-05-04 07:00 | ECG_ITS ---
Measurements Intervals [place] Rate: 65 P: 36 CO: 163 QRS: -3 QRSD: 102 T: 68 QT: 439 QTc: 457 Interpretive Statements SINUS RHYTHM ATRIAL PREMATURE COMPLEX NONSPECIFIC ST & T-WAVE ABNORMALITY- ANTERIOR LEADS BORDERLINE ECG Electronically Signed On 05-04-2021 12:04:18 AIRCRAFT CLEANING SUPERVISOR by Bernardino Austin D.O.
--- NOTE | 2021-05-04 07:00 | ECG_ITS ---
Measurements Intervals [place] Rate: 95 P: IA: 0 QRS: 12 QRSD: 96 T: 77 QT: 367 QTc: 463 Interpretive Statements ATRIAL FIBRILLATION ABNORMAL ECG Electronically Signed On 05-04-2021 10:57:45 PROMOTION PRODUCER by Bernardino Austin D.O.
--- NOTE | 2021-05-04 10:00 | WPDANESEPPF ---
Anes - Initial Pre Proc Eval Procedure: Operation Date: 05/04/21 11:00 Proposed Procedures p Trans Esophageal Echo - Tone Campos MD s Electrical Cardioversion - Tone Campos MD Date/Time: 05/04/21 10:00 Surgeon: Tone Campos MD Pre Op Diagnosis: atrial flutter Patient Data Age: 61 Gender: M Height: Weight: Allergies Allergy/AdvReac Type Severity Reaction Status Date / Time No Known Allergies Allergy Verified 05/04/21 10:01 Home Medications Medication Instructions Recorded Confirmed Type bumetanide 3 mg PO DAILY 12/15/19 05/04/21 History diltiazem HCl [DILT-XR] 120 mg PO DAILY 12/15/19 05/04/21 History potassium chloride 100 meq PO DAILY 12/15/19 05/04/21 History warfarin 7.5 mg PO HS 12/15/19 05/04/21 History fexofenadine [Danae Allergy] 180 mg PO DAILY 12/25/19 05/04/21 History fluticasone propionate [Flonase 1 spray INTRANASAL DAILY 12/25/19 05/04/21 History Allergy Relief] albuterol sulfate 90 mcg/actuation 2 inhalation INHALATION Q4-6H PRN 02/17/20 05/04/21 Rx aerosol inhaler #8.5 gm metoprolol succinate 50 mg PO QAM #30 tablet 12/18/20 05/04/21 Rx pantoprazole 40 mg tablet,delayed 40 mg PO QAM #90 tablet 12/26/20 05/04/21 Rx release Patient hx anesthesia problems: none Family hx anesthesia problems: none Results Review: All pre-operative results and documents have been reviewed as part of the pre-operative evaluation. [facility] Past Medical History Medical History Arthritis of knee Atrial fibrillation CAD (coronary artery disease) Chest pain Chronic fatigue BALBUENA (dyspnea on exertion) Elevated fasting glucose Esophageal varices GERD (gastroesophageal reflux disease) Gilbert syndrome Hypertension Left knee DJD Obesity (BMI 30-39.9) SATHISH (obstructive sleep apnea) PONV (postoperative nausea and vomiting) PSVT (paroxysmal supraventricular tachycardia) Pulmonary hypertension Right knee DJD Screening cholesterol level Screening for colon cancer Screening for malignant neoplasm of prostate Screening for prostate cancer Screening for thyroid disorder Syncope Surgical History Surgical History H/O mechanical aortic valve replacement H/O mitral valve repair History of appendectomy History of cholecystectomy History of sinus surgery History of tonsillectomy Family History Family History Sibling Breast cancer Father Family history of congestive heart failure Hypertension Family history of cardiovascular disease Family history of coronary artery disease Mother Heart disease Son Heart disease Asthma Autism Other Cerebrovascular accident Diabetes mellitus Family history of mental disorder Social History Social History Smoking status: Never smoker Second hand tobacco smoke exposure: No Alcohol intake: never Substance use: never Spiritual care concerns: No Anes - Eval Final PreProcedure Day of Procedure 05/04/21 10:00 Patient weight: obese Heart: regular rate and rhythm Lungs: clear to auscultation and normal air movement Airway: Mallampati scale class II Neurological: alert and oriented Last oral intake: >/= 8 hours ASA classification: IV Emergent: no Anesthetic plan: proceed Anesthesia type and monitoring: general GIVS and standard monitoring Results Review: All pre-operative results and documents have been reviewed as part of the pre-operative evaluation. Informed Consent: The patient's anesthetic plan and its attendant risks and benefits were discussed with the patient/family/POA. Questions were solicited and answers provided to the satisfaction of the patient/family/POA.
[2021-05-04 10:49] LABS: INR 2.7; Prothrombin Time 27.8 Seconds (11.1-14.7)
--- NOTE | 2021-05-04 10:49 | WPDHPUPDATE1 ---
History and Physical Update Update Date/Time: 05/04/21 10:49 History and Physical has been reviewed, including an updated exam of the patient. There are NO changes in the patient's condition. Risks, benefits, and alternatives have been discussed and questions answered. Patient agrees to proceed with procedure.
[2021-05-04 10:50] LABS: Anion Gap 6 mmol/L (8-16); Blood Urea Nitrogen 12 mg/dL (9-20); Calcium 9.2 mg/dL (8.4-10.2); Carbon Dioxide 21 mmol/L (22-30); Chloride 111 mmol/L (98-107); Estimated CRCL calculation 139 ml/min; Estimated Glomerular Filt Rate > 60; Glucose 106 mg/dL (65-110); Magnesium 1.7 mg/dL (1.6-2.3); Potassium 3.8 mmol/L (3.4-5.0); Sodium 138 mmol/L (137-145)
--- NOTE | 2021-05-04 10:50 | WPDTECDV ---
ABDIFATAH with Cardioversion Date of procedure: 05/04/21 Procedure Type: Transesophageal echocardiogram guided elective electrical cardioversion Diagnosis: Persistent atrial fibrillation Indications: Persistent atrial fibrillation Description of Procedure: Brief history present illness: Patient is a pleasant yet complicated 61-year-old male with a history of mitral valve repair with 30 mm Jose-Choudhary physio 2 annuloplasty ring, 23 mm On X mechanical aortic valve 06/14/2016, history of mild nonobstructive CAD, fatty liver disease and cirrhosis, obstructive sleep apnea on CPAP, GERD, paroxysmal atrial fibrillation, obesity, heart failure with preserved ejection fraction, history of atrial flutter intermittently control with medical therapy without need for cardioversion with more recent notation of persistent atrial fibrillation in which patient is symptomatic with complaints of worsening dyspnea and fatigue impacting quality of life referred for transesophageal echocardiogram-guided elective electrical cardioversion in attempt to restore sinus rhythm. Procedure in detail: After verbal and written informed consent was obtained the patient risks, benefits, and alternatives explained in detail the patient agreed to proceed with the plan of care as outlined above. Patient was evaluated at bedside in the endoscopy procedure room. On examination, neck was supple with normal range of motion, no restrictions to opening of the oral cavity, jaw angle and posterior hypopharynx was clear. Lungs were clear to auscultation. Patient was placed in appropriate 30 to 45 degree angle in a supine, slight left lateral decubitus position. Patient was monitored throughout the study with telemetry, oxygen saturation, end-tidal CO2 monitoring, blood pressure, heart rate, and respirations. Anterior and posterior defibrillator pads placed in the appropriate positions. The posterior hypopharynx was then locally anesthetized using repeated administration of Hurricaine spray as well as gargled viscous lidocaine. After local anesthetic of the posterior hypopharynx was achieved and the oral bite block placed. After adequate sedation administered by Anesthesiology the transesophageal echocardiogram probe was advanced through the oral bite block, into the posterior hypopharynx and into the esophagus easily and without complication. Multiple, multiplanar echocardiographic images were obtained in multiple standard re-projections. Pulsed wave, continuous-wave, and color-flow Doppler were utilized in conjunction with this study. At the conclusion of the study, the transesophageal echocardiogram probe was removed easily and without complication. Patient tolerated the procedure well without difficulty. Patient was in atrial fibrillation throughout the study. Sedation: Moderate Sedation/Anesthesia administration: Patient denied previous intolerance or complications with anesthesia/sedation. Please see Anesthesiology documentation for sedation administration detail and protocols. Findings: FINDINGS: LEFT VENTRICLE: Size and systolic function were within normal limits without wall motion abnormalities with ejection fraction of 55-60% with paradoxical septal wall motion. Mild left ventricular hypertrophy RIGHT VENTRICLE: Size and systolic function within normal limits. LEFT ATRIUM: Mild to moderate left atrial large. RIGHT ATRIUM: Severe right atrial enlargement. INTERATRIAL SEPTUM: Interatrial septum is anatomically normal with evidence of shunt with injection of agitated saline probable intracardiac with and without Valsalva at approximately 7 beats. MITRAL VALVE: Echogenicity of the mitral annulus consistent with mitral valve annuloplasty ring [id number] mitral regurgitation with at least 3 separate regurgitant jets identified with 1 smaller eccentric jet can not exclude perivalvular. Annuloplasty ring well seated without independent motion or mobile echodensities. AORTIC VALVE: Me
--- NOTE | 2021-05-04 11:36 | SUR.PHASEII ---
BEGIN PHASE II RECOVERY. REMAINS IN ENDO ROOM 3 POST SUCCESSFUL ABDIFATAH W/ CARDIOVERSION W/ DR. MANNING. WILL REMAIN HERE X 30 MINUTES POST LAST SEDATION GIVEN BY CASE MAKING MACHINE OPERATOR, GIVEN APPROX 1130 FOR MONITORING, THEN MOVED VIA BED TO [facility] 7 TO COMPLETE PHASE II RECOVERY. WILL CONTINUE TO MONITOR.
--- NOTE | 2021-05-04 11:40 | SUR.PHASEII ---
POST ABDIFATAH/CV EKG COMPLETED. SHOWS SR 65 W/ OCC PAC'S.
--- NOTE | 2021-05-04 12:05 | SUR.PHASEII ---
RETURNED TO [facility] VIA BED FROM ENDO ROOM 3 AT THIS TIME. FULLY AWAKE AND ALERT. DENIES PAIN OR SOB. DR. MANNING HAS SPOKEN TO IN ROOM. WILL CONTINUE TO MONITOR.
--- NOTE | 2021-05-04 12:40 | SUR.PHASEII ---
TAKING ICE CHIPS AND SIPS WITHOUT DIFFICULTY. REMAINS FULLY AWAKE AND ALERT. VSS.
--- NOTE | 2021-05-04 13:15 | SUR.PHASEII ---
VSS. REMAINS SR ON MONITOR. DENIES CP OR SOB. IV SITE DISCONTINUED. UP IN ROOM, VOIDED; DRESSING FOR DISCHARGE HOME. HAS TAKEN ORANGE JUICE WITHOUT DIFFICULTY. SWALLOWING WELL.
--- NOTE | 2021-05-04 13:25 | SUR.PHASEII ---
REVIEWED DISCHARGE INSTRUCTIONS W/ PT AND . QUESTIONS ANSWERED. VOICES UNDERSTANDING OF ALL. DISCHARGED HOME, OUT VIA WC TO 'S WAITING CAR, WITH ALL PERSONAL BELONGINGS AND DISCHARGE PACKET. VOICES NO C/O. NO DISTRESS NOTED.
== END 2021-05-04 13:25 | disposition home or self-care (01) ==
PROVIDERS: PCP Family Medicine; Visit Provider Internal Medicine Cardiovascular Disease
PROC: 5A2204Z Restoration of Cardiac Rhythm, Single (ICD-10-PCS; 2021-05-04 11:00)
PROC: (CPT 93312; 2021-05-04 11:00)
DX: I48.19 Other persistent atrial fibrillation (principal); I34.0 Nonrheumatic mitral (valve) insufficiency; I27.20 Pulmonary hypertension, unspecified; I25.10 Atherosclerotic heart disease of native coronary artery without angina pectoris; K76.0 Fatty (change of) liver, not elsewhere classified; Z95.2 Presence of prosthetic heart valve; K74.60 Unspecified cirrhosis of liver; G47.33 Obstructive sleep apnea (adult) (pediatric); K21.9 Gastro-esophageal reflux disease without esophagitis; I11.0 Hypertensive heart disease with heart failure; I50.32 Chronic diastolic (congestive) heart failure; E80.4 Gilbert syndrome; I47.1 Supraventricular tachycardia; Z79.01 Long term (current) use of anticoagulants; Z79.51 Long term (current) use of inhaled steroids
CPT/HCPCS: 36415; 80048; 83735; 85610; 92960; 93312; 93320; 93325; J2704; J7040

== ENCOUNTER 2021-06-13 08:55 | Outpatient (CLI) | payer OTHER, SELFPAY ==
--- NOTE | ~2021-06-13 | US_ITS ---
US abdomen limited INDICATION: Cirrhosis of the liver without ascites PROCEDURE: Realtime right upper abdominal ultrasound. COMPARISON: No prior studies for comparison. FINDINGS: The pancreas is normal without focal mass or pancreatic ductal dilation. Liver echotexture is increased, consistent with fatty infiltration. There is a 6 mm cyst of the left hepatic lobe. Th ere is normal directional flow in the portal vein. Gallbladder is surgically absent. Common bile duct measures 5 mm. No sonographic Corbett's sign. IMPRESSION: 1: Fatty infiltration of the liver. Reviewed, dictated and finalized at location B. ARIAL TECHNICIAN
== END 2021-06-13 08:56 | disposition home or self-care (01) ==
PROVIDERS: PCP Family Medicine; Visit Provider Internal Medicine Gastroenterology
DX: K76.0 Fatty (change of) liver, not elsewhere classified (principal)
CPT/HCPCS: 36415; 76705; 85610

== ENCOUNTER 2021-07-08 07:52 | Outpatient (RCR) | payer OTHER, SELFPAY ==
[2021-04-18 12:40] LABS: INR 2.9; Prothrombin Time 29.6 Seconds (11.1-14.7)
[2021-04-25 16:22] LABS: INR 2.6; Prothrombin Time 27.5 Seconds (11.1-14.7)
[2021-05-17 16:57] LABS: INR 2.7
[2021-06-13 09:58] LABS: Prothrombin Time 30.1 Seconds (11.1-14.7)
[2021-07-08 08:27] LABS: INR 2.7
[2021-07-10 11:19] LABS: Free T4 Free Thyroxine 1.34 ng/mL (0.78-2.19)
== END 2021-07-17 23:59 | disposition home or self-care (01) ==
LOC: ANHLAB 07:52
PROVIDERS: PCP Family Medicine; Visit Provider Internal Medicine Cardiovascular Disease
DX: Z51.81 Encounter for therapeutic drug level monitoring (principal); I48.92 Unspecified atrial flutter; I35.1 Nonrheumatic aortic (valve) insufficiency; Z95.2 Presence of prosthetic heart valve; Z79.01 Long term (current) use of anticoagulants
CPT/HCPCS: 36415; 84439; 84443; 85610

== ENCOUNTER 2021-07-08 07:55 | Outpatient (CLI) | payer OTHER, SELFPAY ==
[2021-07-08 08:19] LABS: Basophils Percent Auto 0.7 % (0.2-1.2); Eosinophils Absolute Auto 0.2 K/mm3 (0-0.3); Eosinophils Percent Auto 7.6 % (0-4.4); Hemoglobin 12.1 g/dL (14.0-18.0); Immature Granulocyte Absolute 0.01 K/mm3 (0.00-0.031); Immature Granulocyte Percent A 0.3 % (0-0.5); Lymphocytes Absolute Auto 0.79 K/mm3 (0.9-3.2); Lymphocytes Percent Auto 27.1 % (18.3-44.2); Mean Corpuscular HGB Conc 31.8 g/dl (32-36); Mean Corpuscular Hemoglobin 27.4 pg (26-34); Mean Platelet Volume 9.5 fl (7.4-10.4); Monocytes Absolute Auto 0.4 K/mm3 (0.1-0.6); Monocytes Percent Auto 14.1 % (2.6-8.5); Neutrophils Absolute Auto 1.5 K/mm3 (1.3-6.7); Neutrophils Percent Auto 50.2 % (45.5-73.1); Platelet Count Result 60 k/mm3 (150-375); Red Blood Count 4.42 M/mm3 (4.6-6.20); White Blood Count 2.9 K/mm3 (4.5-10.0)
[2021-07-08 10:49] LABS: Iron 57 ug/dL (49-181)
[2021-07-08 11:01] LABS: Percent Iron Saturation 15 % (20-50)
== END 2021-07-08 07:56 | disposition home or self-care (01) ==
LOC: ANHLAB 07:57
PROVIDERS: PCP Family Medicine; Visit Provider Nurse Practitioner Family
DX: R53.83 Other fatigue (principal); R06.02 Shortness of breath
CPT/HCPCS: 36415; 82607; 82728; 82746; 83540; 83550; 84439; 84443; 85025; 85610

== ENCOUNTER 2021-08-14 14:29 | Outpatient (CLI) | payer OTHER, SELFPAY ==
--- NOTE | 2021-08-14 15:54 | WPDPFTINT ---
PFT Procedure Performed PFT Procedure Performed Spirometry with Pre/Post Bronchodilator Plethysmography (Lung Vol) Diffusing Cap (DLCO) Flow Vol Loop PFT Interpretation This is a pulmonary function test with pre and post-bronchodilator spirometry, plethysmography and diffusing capacity. The test was performed and results interpreted in accordance with the 2019 and 2005 ATS/ERS Task Force guidelines respectively using the Global Lung Function Initiative-2012 reference equations. Patient demonstrated good effort and cooperation. Reproducibility criteria were met. The quality of the pre bronchodilator spirometry maneuver was Grade A and post bronchodilator spirometry maneuver was Grade A. Findings: Spirometry: The contour the inspiratory and expiratory flow tracing are normal. The pre bronchodilator FVC is 3.77 L, 86% predicted. The pre bronchodilator FEV1 is 3.23 L, 95% predicted. The FEV1: FVC ratio was 86%. The post bronchodilator FVC is 4.26 L, representing a 13% increase. The post bronchodilator FEV1 is 3.44 L, representing a 6% increase. The FEV1: FVC ratio is 81%. Plethysmography: The total lung capacity is 7.41 L, 109% predicted. Functional residual capacity is 4.06 L, 115% predicted. The residual volume is 3.33 L, 150% predicted. Diffusing capacity: The diffusing capacity unadjusted for hemoglobin and carboxyhemoglobin is 23.0, 83% predicted. The diffusing capacity adjusted for alveolar volume is 3.43, 81% predicted. In comparison to previous pulmonary function testing on 02/01/2020 in which only pre bronchodilator spirometry was performed the pre bronchodilator FVC is unchanged from 3.78 L to 3.77 L. The pre bronchodilator FEV1 is unchanged from 3.23 L to 3.23 L. The total lung capacity is unchanged from 8.10 L to 7.41 L. The functional residual capacity is unchanged from 4.24 L to 4.06 L. The residual volume is unchanged from 3.65 L to 3.33 L. The diffusing capacity unadjusted for hemoglobin and carboxyhemoglobin is unchanged from 23.1 to 23.0. The diffusing capacity adjusted for alveolar volume is unchanged from 3.60 to 3.43. Impression: The spirometry is normal without evidence of an obstructive abnormality. There is significant improvement after inhaling a single dose of albuterol. The total lung capacity is normal with an increased residual volume. This is an abnormal but nonspecific lung volume pattern. The diffusing capacity is normal. In comparison to previous pulmonary function test on 02/01/2020 there has been no change in the FVC, FEV1, total lung capacity, residual volume, functional residual capacity, or diffusing capacity. Clinical correlation is recommended. There are no prior studies for comparison
== END 2021-08-14 14:30 | disposition home or self-care (01) ==
PROVIDERS: PCP Family Medicine; Visit Provider Nurse Practitioner Family
DX: R06.02 Shortness of breath (principal)
CPT/HCPCS: 94060; 94726; 94729

== ENCOUNTER 2021-09-14 16:01 | Emergency (ER) | payer OTHER, SELFPAY ==
--- NOTE | ~2021-09-14 | US_ITS ---
EXAMINATION: US venous doppler LE RT DATE: 09/14/2021 18:42 INDICATION: Right lower limb pain and swelling TECHNIQUE: Durand scale images without and with compression and Doppler images of the right lower extre mity veins were obtained. COMPARISON: None FINDINGS: The right common femoral vein, profunda femoral vein, femoral vein, popliteal vein, peronea l trunk, posterior tibial veins, and greater saphenous vein are patent. IMPRESSION: 1. Patent right lower extremity veins. No evidence of deep venous thrombosis. Reviewed, dictated and finalized at location F.
[2021-09-14 16:38] VITALS: BP 123/73; PULSE 66; RESP 18; TEMP 37.3; O2SAT 95
[2021-09-14 18:11] LABS: Basophils Percent Auto 0.5 % (0.2-1.2); Eosinophils Absolute Auto 0.1 K/mm3 (0-0.3); Eosinophils Percent Auto 0.8 % (0-4.4); Hematocrit 38.8 % (42.0-52.0); Hemoglobin 12.8 g/dL (14.0-18.0); Immature Granulocyte Absolute 0.04 K/mm3 (0.00-0.031); Immature Granulocyte Percent A 0.5 % (0-0.5); Lymphocytes Absolute Auto 1.39 K/mm3 (0.9-3.2); Lymphocytes Percent Auto 17.4 % (18.3-44.2); Mean Corpuscular Hemoglobin 26.8 pg (26-34); Mean Corpuscular Volume 81.3 fl (80-100); Mean Platelet Volume 10.8 fl (7.4-10.4); Monocytes Absolute Auto 1.1 K/mm3 (0.1-0.6); Monocytes Percent Auto 13.8 % (2.6-8.5); Neutrophils Absolute Auto 5.4 K/mm3 (1.3-6.7); Platelet Count Result 84 k/mm3 (150-375); Red Blood Count 4.77 M/mm3 (4.6-6.20); Red Cell Distribution Width 15.5 % (11.5-14.5)
[2021-09-14 18:22] LABS: INR 1.8; Prothrombin Time 20.6 Seconds (11.1-14.7)
[2021-09-14 18:33] LABS: Anion Gap 10 mmol/L (8-16); Blood Urea Nitrogen 16 mg/dL (9-20); Calcium 8.7 mg/dL (8.4-10.2); Carbon Dioxide 20 mmol/L (22-30); Chloride 106 mmol/L (98-107); Estimated CRCL calculation 107 ml/min; Estimated Glomerular Filt Rate > 60; Glucose 114 mg/dL (65-110); Potassium 3.9 mmol/L (3.4-5.0); Sodium 136 mmol/L (137-145)
--- NOTE | 2021-09-14 19:10 | ED.LOWEXIN ---
HPI - Extremity Injury (Lower) General Chief Complaint: Extremity Injury, Lower Stated Complaint: swelling, discoloration and pain to leg Time Seen by Provider: 09/14/21 17:52 History of Present Illness HPI Narrative: Patient is a 61-year-old male who presents ER with swelling of his right leg. There is redness of the calf as well. Mild discomfort. Ongoing over the last 2 days. Endorses subjective fevers and chills. No chest pain or chest pressure or difficulty breathing. Takes Coumadin due to mechanical valve. Due to have his INR checked tomorrow and see his health plan specialist tomorrow as well. Related Data Home Medications Medication Instructions Recorded Confirmed bumetanide 3 mg PO DAILY 12/15/19 07/05/21 diltiazem HCl [DILT-XR] 120 mg PO DAILY 12/15/19 07/05/21 potassium chloride 100 meq PO DAILY 12/15/19 07/05/21 warfarin 7.5 mg PO HS 12/15/19 07/05/21 fexofenadine [Danae Allergy] 180 mg PO DAILY 12/25/19 07/05/21 fluticasone propionate [Flonase 1 spray INTRANASAL DAILY 12/25/19 07/05/21 Allergy Relief] Allergies Allergy/AdvReac Type Severity Reaction Status Date / Time No Known Allergies Allergy Verified 09/14/21 17:50 Review of Systems Review of Systems: All systems reviewed & are unremarkable except as noted in HPI and below Constitutional: Constitutional: Denies chills, Denies fever(s) and Denies weakness Cardiovascular: Cardiovascular: Denies chest pain, Denies rapid heart rate and Denies radiating jaw, neck or arm pain Respiratory: Respiratory: Denies cough, Denies dyspnea and Denies wheezing Gastrointestinal: Gastrointestinal: Denies abdominal pain, Denies nausea and Denies vomiting Musculoskeletal: Musculoskeletal: Denies arthralgias and Denies joint swelling Integumentary/Breasts: Skin/Breast: Denies pruritus, Reports rash and Denies skin ulcer PMFSH Past Medical History Medical History Arthritis of knee Atrial fibrillation CAD (coronary artery disease) Chest pain Chronic fatigue BALBUENA (dyspnea on exertion) Elevated fasting glucose Esophageal varices GERD (gastroesophageal reflux disease) Gilbert syndrome Hypertension Left knee DJD Obesity (BMI 30-39.9) SATHISH (obstructive sleep apnea) PONV (postoperative nausea and vomiting) PSVT (paroxysmal supraventricular tachycardia) Pulmonary hypertension Right knee DJD Screening cholesterol level Screening for colon cancer Screening for malignant neoplasm of prostate Screening for prostate cancer Screening for thyroid disorder Syncope Surgical History Surgical History H/O mechanical aortic valve replacement H/O mitral valve repair History of appendectomy History of cholecystectomy History of sinus surgery History of tonsillectomy Family History Family History Sibling Breast cancer Father Family history of congestive heart failure Hypertension Family history of cardiovascular disease Family history of coronary artery disease Mother Heart disease Son Heart disease Asthma Autism Other Cerebrovascular accident Diabetes mellitus Family history of mental disorder Social History Social History Smoking status: Never smoker Second hand tobacco smoke exposure: No Alcohol intake: never Substance use: never Spiritual care concerns: No Exam Narrative: GENERAL: Well-appearing, well-nourished, and in no acute distress. HEAD: Normocephalic, atraumatic. EYES: PERRL and EOMI. CHEST: Clear to auscultation. No respiratory distress. HEART: Regular rate and rhythm. Normal peripheral pulses. ABDOMEN: Soft, nontender, nondistended. EXTREMITIES: Normal range of motion. Edema of the right lower extremity. Negative Homans' sign. SKIN: Warm, dry, erythema of the right calf and petechia of the calf as well. NE
[2021-09-14 19:23] VITALS: BP 110/67; PULSE 62; RESP 18; O2SAT 97
[2021-09-14] MEDS: CEPHALEXIN 500 MG CAPSULE PO (19:26)
[2021-09-14] MEDS: ENOXAPARIN 120 MG/0.8 ML SYRINGE 115 MG SUB-Q (19:27)
== END 2021-09-14 19:41 | disposition home or self-care (01) ==
PROVIDERS: Emergency Provider Emergency Medicine; PCP Family Medicine
DX: L03.115 Cellulitis of right lower limb (principal); R79.1 Abnormal coagulation profile; I48.91 Unspecified atrial fibrillation; I25.10 Atherosclerotic heart disease of native coronary artery without angina pectoris; I10 Essential (primary) hypertension; K21.9 Gastro-esophageal reflux disease without esophagitis; E66.9 Obesity, unspecified; Z68.35 Body mass index [BMI] 35.0-35.9, adult; G47.33 Obstructive sleep apnea (adult) (pediatric); I27.20 Pulmonary hypertension, unspecified; M17.11 Unilateral primary osteoarthritis, right knee; Z95.2 Presence of prosthetic heart valve; Z79.01 Long term (current) use of anticoagulants
CPT/HCPCS: 36415; 80048; 85025; 85610; 85730; 93971; 96372; 99284; A9270; J1650

== ENCOUNTER 2021-11-08 16:38 | Outpatient (RCR) | payer OTHER, SELFPAY ==
[2021-08-14 14:58] LABS: INR 2.7; Prothrombin Time 27.7 Seconds (11.1-14.7)
[2021-09-15 12:04] LABS: INR 1.8; Prothrombin Time 20.4 Seconds (11.1-14.7)
[2021-09-23 11:43] LABS: INR 2.7; Prothrombin Time 27.8 Seconds (11.1-14.7)
[2021-10-17 16:19] LABS: INR 2.8; Prothrombin Time 28.7 Seconds (11.1-14.7)
[2021-11-08 17:28] LABS: INR 2.8
== END 2021-11-12 23:59 | disposition home or self-care (01) ==
LOC: ANHLAB 16:38
PROVIDERS: PCP Family Medicine; Visit Provider Internal Medicine Cardiovascular Disease
DX: Z51.81 Encounter for therapeutic drug level monitoring (principal); I48.91 Unspecified atrial fibrillation; I35.1 Nonrheumatic aortic (valve) insufficiency; Z95.2 Presence of prosthetic heart valve; Z79.01 Long term (current) use of anticoagulants
CPT/HCPCS: 36415; 85610

== ENCOUNTER 2021-11-08 16:40 | Outpatient (CLI) | payer OTHER, SELFPAY ==
[2021-11-08 17:48] LABS: Prostate Specific Antigen 0.2 ng/mL (< OR = 4.0)
== END 2021-11-08 16:41 | disposition home or self-care (01) ==
PROVIDERS: PCP Family Medicine; Referring Provider Internal Medicine Cardiovascular Disease; Visit Provider Nurse Practitioner Family
DX: Z12.5 Encounter for screening for malignant neoplasm of prostate (principal)
CPT/HCPCS: 36415; 84153; 85610; G0103

== ENCOUNTER → 2021-12-18 08:03 | Outpatient (CLI) | payer OTHER, SELFPAY ==
--- NOTE | ~2021-12-18 | US_ITS ---
US abdomen limited INDICATION: Cirrhosis PROCEDURE: Realtime right upper abdominal ultrasound. COMPARISON: No prior studies for comparison. FINDINGS: The pancreas is normal without focal mass or pancreatic ductal dilation. Liver echotexture is increased, consistent with fatty infiltration. There is a cyst in the left hepatic lobe measuring 9 mm. There is normal directional flow in the portal vein. Gallbladder is surgically absent. Common bile duct measures 6 mm. IMPRESSION: 1: Hepatic steatosis. Reviewed, dictated and finalized at location A. IMPRESSION: 1: Hepatic steatosis.
== END ==
PROVIDERS: PCP Internal Medicine Gastroenterology; Visit Provider Internal Medicine Gastroenterology
DX: K74.60 Unspecified cirrhosis of liver (principal); K76.0 Fatty (change of) liver, not elsewhere classified
CPT/HCPCS: 76705

== ENCOUNTER 2022-02-22 17:21 | Outpatient (RCR) | payer OTHER, SELFPAY ==
[2021-12-18 18:59] LABS: INR 2.9; Prothrombin Time 29.3 Seconds (11.1-14.7)
[2022-02-22 17:43] LABS: INR 3.1; Prothrombin Time 30.8 Seconds (11.1-14.7)
== END 2022-03-18 23:59 | disposition home or self-care (01) ==
LOC: ANHGOSHLAB 17:21
PROVIDERS: PCP Internal Medicine Gastroenterology; Visit Provider Internal Medicine Cardiovascular Disease
DX: Z51.81 Encounter for therapeutic drug level monitoring (principal); I48.92 Unspecified atrial flutter; I35.1 Nonrheumatic aortic (valve) insufficiency; Z95.2 Presence of prosthetic heart valve; Z79.01 Long term (current) use of anticoagulants
CPT/HCPCS: 36415; 85610

== ENCOUNTER 2022-03-14 11:47 | Outpatient (CLI) | payer OTHER, SELFPAY ==
[2022-03-14 12:28] LABS: Anion Gap 16 mmol/L (8-16); Blood Urea Nitrogen 18 mg/dL (9-20); Calcium 8.3 mg/dL (8.4-10.2); Carbon Dioxide 26 mmol/L (22-30); Chloride 101 mmol/L (98-107); Estimated Glomerular Filt Rate > 60; Glucose 185 mg/dL (65-110); Potassium 3.5 mmol/L (3.4-5.0); Sodium 143 mmol/L (137-145)
== END 2022-03-14 11:48 | disposition home or self-care (01) ==
LOC: ANHLAB 11:50
PROVIDERS: PCP Internal Medicine Gastroenterology; Visit Provider Internal Medicine Cardiovascular Disease
DX: I50.32 Chronic diastolic (congestive) heart failure (principal)
CPT/HCPCS: 36415; 80048

== ENCOUNTER 2022-03-27 11:44 | Outpatient (CLI) | payer OTHER, SELFPAY ==
[2022-03-27 12:12] LABS: Basophils Percent Auto 0.9 % (0.2-1.2); Eosinophils Absolute Auto 0.3 K/mm3 (0-0.3); Eosinophils Percent Auto 6.3 % (0-4.4); Hematocrit 39.7 % (42.0-52.0); Hemoglobin 12.9 g/dL (14.0-18.0); Immature Granulocyte Absolute 0.01 K/mm3 (0.00-0.031); Immature Granulocyte Percent A 0.2 % (0-0.5); Immature Platelet Fraction Pct 4.7 % (0.9-11.2); Lymphocytes Absolute Auto 1.15 K/mm3 (0.9-3.2); Lymphocytes Percent Auto 26.1 % (18.3-44.2); Mean Corpuscular HGB Conc 32.5 g/dl (32-36); Mean Corpuscular Hemoglobin 27.2 pg (26-34); Mean Corpuscular Volume 83.6 fl (80-100); Mean Platelet Volume 9.5 fl (7.4-10.4); Monocytes Absolute Auto 0.5 K/mm3 (0.1-0.6); Monocytes Percent Auto 10.2 % (2.6-8.5); Neutrophils Absolute Auto 2.5 K/mm3 (1.3-6.7); Neutrophils Percent Auto 56.3 % (45.5-73.1); Platelet Count Result 86 k/mm3 (150-375); Red Blood Count 4.75 M/mm3 (4.6-6.20); Red Cell Distribution Width 15.2 % (11.5-14.5); White Blood Count 4.4 K/mm3 (4.5-10.0)
[2022-03-27 12:20] LABS: INR 2.2; Prothrombin Time 23.9 Seconds (11.1-14.7)
[2022-03-27 12:21] LABS: Alanine Aminotransferase 29 U/L (6-50); Albumin Level 4.2 g/dL (3.5-5.1); Alkaline Phosphatase 108 U/L (38-126); Anion Gap 10 mmol/L (8-16); Aspartate Amino Transferase 44 U/L (17-59); Bilirubin,Total 4.4 mg/dL (0.2-1.3); Blood Urea Nitrogen 13 mg/dL (9-20); Calcium 8.4 mg/dL (8.4-10.2); Carbon Dioxide 27 mmol/L (22-30); Chloride 101 mmol/L (98-107); Estimated Glomerular Filt Rate > 60; Glucose 163 mg/dL (65-110); Potassium 3.2 mmol/L (3.4-5.0); Sodium 138 mmol/L (137-145)
[2022-03-27 12:31] LABS: NT Pro B Type Natriuretic Pept 233 pg/mL (5-100)
== END 2022-03-27 11:45 | disposition home or self-care (01) ==
PROVIDERS: PCP Internal Medicine Gastroenterology; Referring Provider Internal Medicine Cardiovascular Disease
DX: I27.20 Pulmonary hypertension, unspecified (principal)
CPT/HCPCS: 36415; 80053; 83880; 85025; 85055; 85610

== ENCOUNTER 2022-04-20 16:02 | Outpatient (CLI) | payer OTHER, SELFPAY ==
[2022-04-20 16:40] LABS: INR 2.8; Prothrombin Time 28.4 Seconds (11.1-14.7)
[2022-04-20 16:41] LABS: Anion Gap 10 mmol/L (8-16); Blood Urea Nitrogen 16 mg/dL (9-20); Calcium 8.9 mg/dL (8.4-10.2); Carbon Dioxide 25 mmol/L (22-30); Chloride 104 mmol/L (98-107); Estimated Glomerular Filt Rate > 60; Glucose 244 mg/dL (65-110); Magnesium 1.8 mg/dL (1.6-2.3); Potassium 3.5 mmol/L (3.4-5.0); Sodium 139 mmol/L (137-145)
== END 2022-04-20 16:03 | disposition home or self-care (01) ==
LOC: ANHLAB 16:05
PROVIDERS: PCP Internal Medicine Gastroenterology; Visit Provider Internal Medicine Cardiovascular Disease
DX: I50.32 Chronic diastolic (congestive) heart failure (principal); Z79.01 Long term (current) use of anticoagulants
CPT/HCPCS: 36415; 80048; 83735; 85610

== ENCOUNTER 2022-05-08 16:47 | Emergency (ER) | payer OTHER, SELFPAY ==
--- NOTE | ~2022-05-08 | XR_ITS ---
Clinical Indication: Cough PA and lateral views of the chest: Comparison: 12/17/2020 Findings: Small bilateral pleural effusions are present with minimal bibasilar pulmonary edema. Card iomediastinal silhouette is stable, status post median sternotomy and mitral valve replacement. Bones and soft tissues are unremarkable. Impression: Small bilateral pleural effusions with minimal bibasilar pulmonary edema. Stable cardiomegaly, status post mitral valve replacement. Reviewed, dictated and finalized at location . MENT DESIGN SPECIALIST Impression: Small bilateral pleural effusions with minimal bibasilar pulmonary edema. Stable cardiomegaly, status post mitral valve replacement.
[2022-05-08 17:01] VITALS: BP 136/58; PULSE 77; RESP 16; TEMP 37.6; O2SAT 96
--- NOTE | 2022-05-08 17:49 | ED.GENADULT ---
HPI - General Adult General Chief complaint: Upper Respiratory Infection Stated complaint: cough, congestion, headache,eye brusing Source: patient Mode of arrival: ambulatory Limitations: no limitations History of Present Illness HPI narrative: Patient presents for evaluation of bruising around both eyes and worsening shortness of breath. He has a history of pulmonary hypertension, nonalcoholic cirrhosis of the liver, SATHISH< congestive heart failure, thrombocytopenia and is currently anticoagulated with 7.5 mg of Coumadin daily. He states his last INR was a few weeks ago and was 2.8. Over the last week he has noted worsening shortness of breath from his baseline. He reports a productive cough of clear/ yellow sputum and slightly worse than baseline swelling in his lower extremities. He states that he feels extremely fatigued but denies any fever, chills, nausea, vomiting, diarrhea, chest pain. He underwent cardiac catheterization on 04/02/2022 and states he was told that he needs a liver transplant. He states pulmonology is adjusting his medications for pulmonary hypertension. He has a telemedicine visit with his net trainer tomorrow. He indicates he contacted them today regarding some bruising that he visualized beneath his eyes. He was advised to go to urgent care for further evaluation. Last night he had problems tolerating his CPAP. He states his bumex dose was increased sometime last month. His was experiencing respiratory symptoms last week. He had COVID in January of this year. He has received COVID vaccination and a flu shot this year. Related Data Home Medications Medication Instructions Recorded Confirmed diltiazem HCl 120 mg 120 mg PO DAILY 12/15/19 05/08/22 capsule,extended release 24 hr, controlled (DILT-XR) potassium chloride 10 mEq 100 meq PO DAILY 12/15/19 05/08/22 tablet,extended release warfarin 5 mg tablet 7.5 mg PO HS 12/15/19 05/08/22 fexofenadine 180 mg tablet 180 mg PO DAILY 12/25/19 05/08/22 (Danae Allergy) fluticasone propionate 50 1 spray intranasal DAILY 12/25/19 05/08/22 mcg/actuation nasal spray,suspension (Flonase Allergy Relief) atorvastatin 10 mg tablet 10 mg PO DAILY 10/10/21 05/08/22 bumetanide 2 mg tablet 5 mg PO DAILY 05/03/22 05/08/22 macitentan 10 mg tablet (Opsumit) 10 mg PO DAILY 05/03/22 05/08/22 sildenafil (pulm.hypertension) 20 20 mg PO TID 05/03/22 05/08/22 mg tablet Allergies Allergy/AdvReac Type Severity Reaction Status Date / Time No Known Allergies Allergy Verified 05/03/22 13:17 Review of Systems Review of Systems: CONSTITUTIONAL: reports fatigue. Denies fever, chills, or sweats. EYES: Denies visual changes, redness, or discharge. ENT: Denies rhinorrhea, congestion, sore throat, or otalgia. CARDIOVASCULAR: Reports chronic edema bilateral lower extremities, worse as of late. Denies chest pain or palpitations RESPIRATORY: Reports productive cough of clear/ yellow sputum with shortness of breath. Reports BALBUENA. GASTROINTESTINAL: Denies abdominal pain, nausea, vomiting, or diarrhea. GENITOURINARY: Denies dysuria or hematuria. SKIN: Reports bruising beneath both eyes. Denies rash or itching. MUSCULOSKELETAL: Denies back pain, joint pain, or myalgia. NEUROLOGIC: Denies headache, numbness, dizziness, or weakness. PSYCHIATRIC: Denies anxiety or depression. [facility] Past Medical History Medical History Arthritis of knee Atrial fibrillation CAD (coronary artery disease) Chest pain Chronic fatigue BALBUENA (dyspnea on exertion) Elevated fasting glucose Esophageal varices GERD (gastroesophageal reflux disease) Gilbert syndrome Hypertension Left knee DJD Obesity (BMI 30-39.9) SATHISH (obstructive sleep apnea) PONV (postoperative nausea and vomiting) PSVT (paroxysmal supraventricular tachycardia) Pulmonary hypertension Right knee DJD Screening cholesterol level Screening for colon ca
[2022-05-08 17:55] VITALS: PULSE 65; O2SAT 92
== END 2022-05-08 17:55 | disposition short-term general hospital (02) ==
PROVIDERS: Emergency Provider Nurse Practitioner; PCP Family Medicine
DX: R06.02 Shortness of breath (principal); I25.10 Atherosclerotic heart disease of native coronary artery without angina pectoris; K74.60 Unspecified cirrhosis of liver; I48.91 Unspecified atrial fibrillation; I27.20 Pulmonary hypertension, unspecified; I11.0 Hypertensive heart disease with heart failure; I50.9 Heart failure, unspecified; Z79.01 Long term (current) use of anticoagulants; Z20.822 Contact with and (suspected) exposure to COVID-19
CPT/HCPCS: 71046; 87426; 87804; 99213; C9803; G0463

== ENCOUNTER 2022-05-08 18:11 | Emergency (ER) | payer OTHER, SELFPAY ==
--- NOTE | 2022-05-08 18:16 | ECG_ITS ---
Measurements Intervals [place] Rate: 78 P: CA: 0 QRS: 7 QRSD: 121 T: 79 QT: 354 QTc: 403 Interpretive Statements SINUS RHYTHM WITH PREMATURE ATRIAL COMPLEXES NONSPECIFIC ST & T-WAVE ABNORMALITY ABNORMAL RHYTHM ECG COMPARED TO ECG 05/04/2021 11:40:13 NO SIGNIFICANT CHANGES Electronically Signed On 05-09-2022 17:50:55 DIETARY CLERK by Fady Hudson M.D.
[2022-05-08 18:38] LABS: Basophils Percent Auto 0.8 % (0.2-1.2); Eosinophils Absolute Auto 0.3 K/mm3 (0-0.3); Eosinophils Percent Auto 5.5 % (0-4.4); Hematocrit 36.3 % (42.0-52.0); Hemoglobin 11.8 g/dL (14.0-18.0); Immature Granulocyte Absolute 0.02 K/mm3 (0.00-0.031); Immature Granulocyte Percent A 0.4 % (0-0.5); Lymphocytes Absolute Auto 1.21 K/mm3 (0.9-3.2); Lymphocytes Percent Auto 24.5 % (18.3-44.2); Mean Corpuscular HGB Conc 32.5 g/dl (32-36); Mean Corpuscular Hemoglobin 27.3 pg (26-34); Mean Platelet Volume 10.1 fl (7.4-10.4); Monocytes Absolute Auto 0.7 K/mm3 (0.1-0.6); Monocytes Percent Auto 13.4 % (2.6-8.5); Neutrophils Absolute Auto 2.7 K/mm3 (1.3-6.7); Neutrophils Percent Auto 55.4 % (45.5-73.1); Platelet Count Result 103 k/mm3 (150-375); Red Blood Count 4.32 M/mm3 (4.6-6.20); Red Cell Distribution Width 16.1 % (11.5-14.5); White Blood Count 4.9 K/mm3 (4.5-10.0)
[2022-05-08 18:43] VITALS: BP 135/52; PULSE 102; RESP 20; TEMP 37.4; O2SAT 95
[2022-05-08 18:48] LABS: Alanine Aminotransferase 23 U/L (6-50); Alkaline Phosphatase 95 U/L (38-126); Anion Gap 10 mmol/L (8-16); Aspartate Amino Transferase 42 U/L (17-59); Bilirubin,Total 6.3 mg/dL (0.2-1.3); Blood Urea Nitrogen 15 mg/dL (9-20); Calcium 8.6 mg/dL (8.4-10.2); Carbon Dioxide 22 mmol/L (22-30); Chloride 102 mmol/L (98-107); Estimated CRCL calculation 97 ml/min; Estimated Glomerular Filt Rate > 60; Glucose 117 mg/dL (65-110); Potassium 3.1 mmol/L (3.4-5.0); Sodium 134 mmol/L (137-145)
[2022-05-08 19:11] LABS: INR 3.4; Prothrombin Time 33.3 Seconds (11.1-14.7)
[2022-05-08 19:12] LABS: Partial Thromboplastin Time 47.4 SECONDS (22.3-36.8)
[2022-05-08 19:59] LABS: NT Pro B Type Natriuretic Pept 759 pg/mL (5-100); Troponin I 0.017 ng/mL (0.000-0.034)
--- NOTE | 2022-05-08 20:32 | PC.NURSE ---
Pt came up to intake desk and stated that he wished to sign out at this time. Pt ambulatory out of ED lobby with at this time.
== END 2022-05-08 21:55 | disposition left against medical advice (07) ==
PROVIDERS: Emergency Medicine; Emergency Provider Emergency Medicine; PCP Family Medicine
DX: R05.9 Cough, unspecified (principal)
CPT/HCPCS: 36415; 80053; 83880; 84484; 85025; 85610; 85730; 93005; 99199

== ENCOUNTER 2022-05-18 12:19 | Inpatient (IN) | payer OTHER, SELFPAY ==
[2022-05-18] VITALS (28 sets, daily range): BP systolic 106–149; BP diastolic 49–92; PULSE 70–104; RESP 14–32; TEMP 37.1–37.5; O2SAT 91–98; BMI 36.3
--- NOTE | ~2022-05-18 | XR_ITS ---
Clinical Indication: Chest pain PA and lateral views of the chest: Comparison: 05/08/2022 Findings: Probable minimal pleural effusions are present. There is mild bibasilar pulmonary edema claudy aiden chronic interstitial disease. Cardiomediastinal silhouette is stable, status post valve replacem ent. Bones and soft tissues are unremarkable. Impression: Mild bibasilar pulmonary edema versus chronic interstitial disease. Minimal pleural effusions. Reviewed, dictated and finalized at location . [facility]WER Impression: Mild bibasilar pulmonary edema versus chronic interstitial disease. Minimal pleural effusions.
--- NOTE | ~2022-05-18 | XR_ITS ---
EXAMINATION: XR chest 1V portable DATE: 05/20/2022 08:18 INDICATION: Shortness of breath. TECHNIQUE: A single frontal view of the chest was obtained. COMPARISON: Chest 2 views 05/18/2022, CT abdomen 12/17/2017 FINDINGS: There are interstitial opacities in the lower lung zones. There are small pleural effusions . No pneumothorax. Cardiomegaly is noted. There are changes of heart valve replacements. IMPRESSION: 1. Interstitial opacities in the lower lung zones, consistent with mild atelectasis versus mild pulmo nary edema. 2. Small pleural effusions. 3. Cardiomegaly. Reviewed, dictated and finalized at location A. H UP PERSON IMPRESSION: 1. Interstitial opacities in the lower lung zones, consistent with mild atelect asis versus mild pulmonary edema. 2. Small pleural effusions. 3. Cardiomegaly.
--- NOTE | ~2022-05-18 | CT_ITS ---
EXAMINATION: CT chest abdomen pelvis wo con DATE: 05/20/2022 11:33 INDICATION: Shortness of breath. Abdominal distention. TECHNIQUE: Computed tomography (CT) of the chest, abdomen, and pelvis was performed without intraveno us contrast. Automated exposure control and iterative reconstruction technique were employed. The dos e-length product was 1768.82 mGy-cm. COMPARISON: CT abdomen 12/17/2017 FINDINGS: CHEST CT: There are small pleural effusions. There is dependent atelectasis bilaterally. There is a small groun dglass opacity in right upper lobe. There is septal thickening in the inferior lungs. A calcified lef t lung nodule and calcified left hilar and mediastinal lymph nodes are consistent with old granulomat ous disease. The central pulmonary arteries are enlarged, consistent with pulmonary arterial hyperten alexey. There is left atrial enlargement of the heart. There are aortic and mitral valve replacements. There are coronary artery calcifications. No pericardial effusion. There is mild mediastinal lymphade nopathy, likely reactive. There is mild thoracic spondylosis. ABDOMEN/PELVIS CT: The liver demonstrates surface nodularity, consistent with cirrhosis. There is an 8 mm cyst in the li claudy. There are changes of cholecystectomy. Calcifications in the spleen are consistent with old granu lomatous disease. There is moderate splenomegaly. There are periumbilical and splenorenal portocaval shunts. There is a right inguinal hernia containing fat. The appendix is normal. There is wall thicke wilton of the distal transverse colon and descending and sigmoid colon, likely interstitial edema. Ther e is an umbilical hernia containing fat. There are no pathologically enlarged lymph nodes. There is n o free intraperitoneal fluid. There is severe lumbar spondylosis. IMPRESSION: 1. Mild pulmonary edema. 2. Small pleural effusions. 3. Cirrhosis of the liver with portal venous hypertension. Reviewed, dictated and finalized at location A. ICER INSTALLER
--- NOTE | 2022-05-18 12:30 | ECG_ITS ---
Measurements Intervals [place] Rate: 90 P: [place]: 0 QRS: 14 QRSD: 110 T: 76 QT: 399 QTc: 490 Interpretive Statements SINUS RHYTHM WITH PACS INCOMPLETE RIGHT BUNDLE BRANCH BLOCK [90+ ms QRS DURATION, TERMINAL R IN V1/V2, 40+ ms S IN I/aVL/V4/V5/V6] PROLONGED QT INTERVAL ABNORMAL RHYTHM ECG COMPARED TO ECG 05/08/2022 18:28:17 NO SIGNIFICANT DIFFERENCE Electronically Signed On 05-18-2022 15:02:49 TRANSPORTATION DISPATCHER by Servando Yancey M.D.
[2022-05-18 12:41] LABS: Basophils Percent Auto 0.7 % (0.2-1.2); Eosinophils Absolute Auto 0.2 K/mm3 (0-0.3); Eosinophils Percent Auto 3.9 % (0-4.4); Hematocrit 32.9 % (42.0-52.0); Hemoglobin 10.9 g/dL (14.0-18.0); Immature Granulocyte Absolute 0.04 K/mm3 (0.00-0.031); Immature Granulocyte Percent A 0.9 % (0-0.5); Lymphocytes Absolute Auto 0.99 K/mm3 (0.9-3.2); Lymphocytes Percent Auto 21.7 % (18.3-44.2); Mean Corpuscular HGB Conc 33.1 g/dl (32-36); Mean Corpuscular Volume 81.6 fl (80-100); Monocytes Absolute Auto 0.7 K/mm3 (0.1-0.6); Monocytes Percent Auto 14.7 % (2.6-8.5); Neutrophils Absolute Auto 2.7 K/mm3 (1.3-6.7); Neutrophils Percent Auto 58.1 % (45.5-73.1); Platelet Count Result 103 k/mm3 (150-375); Red Blood Count 4.03 M/mm3 (4.6-6.20); Red Cell Distribution Width 15.5 % (11.5-14.5); White Blood Count 4.6 K/mm3 (4.5-10.0)
[2022-05-18 12:51] LABS: Partial Thromboplastin Time 40.5 SECONDS (22.3-36.8)
[2022-05-18 12:59] LABS: Alanine Aminotransferase 33 U/L (6-50); Albumin Level 3.7 g/dL (3.5-5.1); Alkaline Phosphatase 90 U/L (38-126); Anion Gap 6 mmol/L (8-16); Aspartate Amino Transferase 48 U/L (17-59); Bilirubin,Total 6.3 mg/dL (0.2-1.3); Blood Urea Nitrogen 17 mg/dL (9-20); Calcium 7.8 mg/dL (8.4-10.2); Carbon Dioxide 28 mmol/L (22-30); Chloride 102 mmol/L (98-107); Estimated CRCL calculation 121 ml/min; Estimated Glomerular Filt Rate > 60; Glucose 126 mg/dL (65-110); Lipase 257 U/L (23-300); Potassium 2.8 mmol/L (3.4-5.0); Sodium 136 mmol/L (137-145)
[2022-05-18 13:02] LABS: Troponin I 0.023 ng/mL (0.000-0.034)
--- NOTE | 2022-05-18 14:12 | ED.CHESTPAIN ---
HPI - Chest Pain General Chief Complaint: Chest Pain <Bell Ayon PA-C - Last Filed: 05/18/22 16:57> Stated Complaint: cp/afib <Bell Ayon PA-C - Last Filed: 05/18/22 16:57> Time Seen by Provider: 05/18/22 13:56 <Bell Ayon PA-C - Last Filed: 05/18/22 16:57> History of Present Illness HPI narrative: Patient is a 61-year-old male with history of atrial fibrillation, mechanical heart valve on Coumadin, CHF, DAUGHERTY on liver transplant list, gilbert's, here for evaluation of chest pain and shortness of breath over the past 10 days. Patient states that he has been working with his nursing techn adjusting his diuretic regimen for CHF given his complaints. He recently had chlorthalidone and bumetanide added, states that this improved his symptoms briefly but they returned about 2 days ago. Chest pain is new. Called his nursing techn today who recommended ED eval. His chest pain is described as a tightness in the center of his chest, not associate with exertion. Shortness of breath is worse on exertion and while he is lying down flat. Also notes leg swelling and a 10 pound weight gain over the past several days. No fevers, cough, congestion, sick contacts. Received 3 COVID shots. <Bell yAon PA-C - Last Filed: 05/18/22 16:57> Related Data Home Medications: Home Medications Medication Instructions Recorded Confirmed diltiazem HCl 120 mg 120 mg PO DAILY 12/15/19 05/08/22 capsule,extended release 24 hr, controlled (DILT-XR) potassium chloride 10 mEq 100 meq PO DAILY 12/15/19 05/08/22 tablet,extended release warfarin 5 mg tablet 7.5 mg PO HS 12/15/19 05/08/22 fexofenadine 180 mg tablet 180 mg PO DAILY 12/25/19 05/08/22 (Danae Allergy) fluticasone propionate 50 1 spray intranasal DAILY 12/25/19 05/08/22 mcg/actuation nasal spray,suspension (Flonase Allergy Relief) atorvastatin 10 mg tablet 10 mg PO DAILY 10/10/21 05/08/22 bumetanide 2 mg tablet 5 mg PO DAILY 05/03/22 05/08/22 macitentan 10 mg tablet (Opsumit) 10 mg PO DAILY 05/03/22 05/08/22 sildenafil (pulm.hypertension) 20 20 mg PO TID 05/03/22 05/08/22 mg tablet <Bell Ayon PA-C - Last Filed: 05/18/22 16:57> Allergies/Adverse Reactions: Allergies Allergy/AdvReac Type Severity Reaction Status Date / Time No Known Allergies Allergy Verified 05/03/22 13:17 <URSZULA Moreno Last Filed: 05/18/22 16:57> Review of Systems Review of Systems: Gen.: Denies fevers or chills Eyes: Denies eye pain or visual change ENT: Denies congestion Respiratory: Reports shortness of breath CV: Reports chest pain GI: Denies abdominal pain nausea, emesis or diarrhea denies burning, urgency, frequency or hematuria Musculoskeletal: Denies back pain or muscle pain Neuro: Denies numbness, tingling, weakness or focal weakness Skin: Denies rash Except as documented, all other systems reviewed and negative <URSZULA Moreno Last Filed: 05/18/22 16:57> [facility] Past Medical History Medical History: Medical History Arthritis of knee Atrial fibrillation CAD (coronary artery disease) Chest pain Chronic fatigue BALBUENA (dyspnea on exertion) Elevated fasting glucose Esophageal varices GERD (gastroesophageal reflux disease) Gilbert syndrome Hypertension Left knee DJD Obesity (BMI 30-39.9) SATHISH (obstructive sleep apnea) PONV (postoperative nausea and vomiting) PSVT (paroxysmal supraventricular tachycardia) Pulmonary hypertension Right knee DJD Screening cholesterol level Screening for colon cancer Screening for malignant neoplasm of prostate Screening for prostate cancer Screening for thyroid disorder Syncope <URSZULA Moreno Last Filed: 05/18/22 16:57> Surgical History Surgical History: Surgical History H/O mechanical aort
[2022-05-18 14:38] LABS: Magnesium 1.6 mg/dL (1.6-2.3)
[2022-05-18] MEDS: ASPIRIN 81 MG CHEWABLE TABLET 324 MG PO (14:45)
[2022-05-18] MEDS: POTASSIUM CHLORIDE 20 MEQ TABLET 40 MEQ PO (14:45)
[2022-05-18] MEDS: POTASSIUM CHLORIDE INJ 40 MEQ in SODIUM CHLORIDE 0.9% IV 500 ML 130 MEQ IVPB (14:47)
[2022-05-18 14:48] LABS: NT Pro B Type Natriuretic Pept 669 pg/mL (5-100)
[2022-05-18 15:09] LABS: Influenza A QL RT-PCR Negative (Negative); Influenza B QL RT-PCR Negative (Negative); SARS-CoV-2 RNA PCR Positive
[2022-05-18 16:19] LABS: Troponin I 0.025 ng/mL (0.000-0.034)
[2022-05-18 20:18] LABS: Troponin I 0.023 ng/mL (0.000-0.034)
--- NOTE | 2022-05-18 20:36 | PM.IMHP ---
H&P: HPI History of Present Illness Date/Time: 05/18/22 20:36 Chief Complaint: Chest pain Narrative: This is a 62-year-old male patient who has a history of atrial fibrillation and mitral valve replacement who is on Coumadin chronically. He also has CHF and DAUGHERTY disease listed on a liver transplant list. The patient came in with chest pain shortness breast for the last 10 days. The patient stated that his junior marketing associate has been working with changing his diuretic regimen for CHF complaints. The patient recently had chlorthalidone and Bumex added. He stated this did help improve his symptoms but he still continues to have this chest discomfort. Shortness of breath is worse with exertion and while lying flat. He notes that his leg swelling and a 10 lb weight gain over the last 10 days. H&H is 10.9 and 32.9. Platelets 103. Sodium 136 potassium 2.8. Troponins are nonreactive. The patient is found to be positive for COVID. Patient is not a candidate for antivirals. The patient is on room air. The patient was given an aspirin, potassium tablet and potassium supplement. Patient's magnesium was borderline at 1.6. Chest x-ray was read as mild bibasilar pulmonary edema versus chronic interstitial disease. Minimal pleural effusions. The patient is being admitted to observation status on the date of service of 05/18/2022 Review of Systems Review of Systems: See HPI All systems reviewed & are unremarkable except as noted in HPI and below Constitutional: Constitutional: Reports as per HPI and Reports no additional constitutional complaints Eyes: Eyes: Reports as per HPI and Reports no additional eye complaints ENT: Reports system reviewed and no additional complaints, except as documented and Reports Normal hearing present Cardiovascular: Cardiovascular: Reports no additional cardiovascular complaints Respiratory: Respiratory: Reports no additional respiratory complaints and Reports no additional respiratory complaints Gastrointestinal: Gastrointestinal: Reports as per HPI and Reports no additional gastrointestinal complaints Musculoskeletal: Musculoskeletal: Reports no additional musculoskeletal complaints Integumentary/Breasts: Skin/Breast: Reports system reviewed and no additional complaints, except as docu and Reports as per HPI Neurologic: Reports system reviewed and no additional complaints, except as documented, Reports as per HPI and Reports Normal hearing present Psychiatric: Psychiatric: Reports no additional psychiatric complaints and Reports as per HPI Endocrine: Endocrine: Reports no additional endocrine complaints Hematologic/Lymphatic: Hematologic/Lymphatic: Reports no additional hematologic/lymphatic complaints Allergic/Immunologic: Allergic/Immunologic: Reports no additional allergic/immunologic complaints [facility] Past Medical History Medical History (Updated 05/19/22 @ 00:03 by Sofia Brito NP) Arthritis of knee Atrial fibrillation CAD (coronary artery disease) Chest pain CHF (congestive heart failure), NYHA class I Chronic fatigue BALBUENA (dyspnea on exertion) Elevated fasting glucose Esophageal varices GERD (gastroesophageal reflux disease) Gilbert syndrome Hyperlipidemia Hypertension Left knee DJD Obesity (BMI 30-39.9) SATHISH (obstructive sleep apnea) PONV (postoperative nausea and vomiting) PSVT (paroxysmal supraventricular tachycardia) Pulmonary hypertension Right knee DJD Screening cholesterol level Screening for colon cancer Screening for malignant neoplasm of prostate Screening for prostate cancer Screening for thyroid disorder Syncope Surgical History Surgical History H/O mechanical aortic valve replacement H/O mitral valve repair History of cholecystectomy History of sinus surgery History of tonsillectomy Family History Family History Sibling Heart disease Breast cancer P
--- NOTE | 2022-05-18 22:45 | ADMGEN ---
This patient, Abelino Vargas, was admitted to [id number]. Patient/family oriented to hospital policies and general routines including ID bracelet, bed and alarms, visiting hours, pain management, procedures, bathroom and other care routines, personal items, smoking policy, room service/diet, and visiting hours. Information on how to activate the Rapid Response Team has been discussed. Patient/Family are encouraged to report perceived risks to care and to ask questions if they do not understand what they are told or what they should do.
[2022-05-18] MEDS: WARFARIN (*PBKC) 7.5 MG TABLET PO (23:42)
[2022-05-18] MEDS: AMOXICILLIN/CLAVULANATE K 875-125 MG TAB 1 TABLET PO (23:43)
[2022-05-18] MEDS: METOPROLOL SUCCINATE EXT REL 25 MG, METOPROLOL SUCCINATE EXT REL 50 MG 75 MG PO (23:43)
[2022-05-19] VITALS (10 sets, daily range): BP systolic 105–127; BP diastolic 54–58; PULSE 73–103; RESP 17–20; TEMP 36.8–37.2; O2SAT 90–98
[2022-05-19] MEDS: MAGNESIUM SULF 2 GM/WATER 50ML 2 GM/50 ML BAG IVPB (01:02)
[2022-05-19 06:02] LABS: Basophils Percent Auto 0.8 % (0.2-1.2); Eosinophils Absolute Auto 0.1 K/mm3 (0-0.3); Eosinophils Percent Auto 3.5 % (0-4.4); Hematocrit 29.8 % (42.0-52.0); Hemoglobin 9.8 g/dL (14.0-18.0); Immature Granulocyte Absolute 0.03 K/mm3 (0.00-0.031); Immature Granulocyte Percent A 0.8 % (0-0.5); Immature Platelet Fraction Pct 2.7 % (0.9-11.2); Lymphocytes Percent Auto 24.3 % (18.3-44.2); Mean Corpuscular HGB Conc 32.9 g/dl (32-36); Mean Corpuscular Hemoglobin 26.6 pg (26-34); Mean Corpuscular Volume 80.8 fl (80-100); Mean Platelet Volume 10.3 fl (7.4-10.4); Monocytes Absolute Auto 0.5 K/mm3 (0.1-0.6); Monocytes Percent Auto 14.3 % (2.6-8.5); Neutrophils Absolute Auto 2.1 K/mm3 (1.3-6.7); Neutrophils Percent Auto 56.3 % (45.5-73.1); Platelet Count Result 81 k/mm3 (150-375); Red Blood Count 3.69 M/mm3 (4.6-6.20); Red Cell Distribution Width 15.8 % (11.5-14.5); White Blood Count 3.7 K/mm3 (4.5-10.0)
[2022-05-19 06:07] LABS: Alanine Aminotransferase 29 U/L (6-50); Albumin Level 3.3 g/dL (3.5-5.1); Alkaline Phosphatase 75 U/L (38-126); Anion Gap 6 mmol/L (8-16); Aspartate Amino Transferase 41 U/L (17-59); Bilirubin,Total 5.9 mg/dL (0.2-1.3); Blood Urea Nitrogen 15 mg/dL (9-20); Calcium 7.9 mg/dL (8.4-10.2); Carbon Dioxide 27 mmol/L (22-30); Chloride 103 mmol/L (98-107); Estimated CRCL calculation 122 ml/min; Estimated Glomerular Filt Rate > 60; Glucose 138 mg/dL (65-110); Magnesium 2.1 mg/dL (1.6-2.3); Potassium 2.9 mmol/L (3.4-5.0); Sodium 136 mmol/L (137-145)
[2022-05-19 06:09] LABS: INR 2.8; Prothrombin Time 28.8 Seconds (11.1-14.7)
[2022-05-19] MEDS: BUMETANIDE 1 MG TABLET 3 MG PO (08:03)
[2022-05-19] MEDS: METOPROLOL SUCCINATE EXT REL 25 MG TABCR 75 MG PO (08:04)
[2022-05-19] MEDS: AMOXICILLIN/CLAVULANATE K 875-125 MG TAB 1 TABLET PO (08:04)
[2022-05-19] MEDS: PANTOPRAZOLE 40 MG TABLET PO (08:05)
[2022-05-19] MEDS: SILDENAFIL CITRATE 20 MG TABLET PO ×3 (08:06→18:27)
[2022-05-19] MEDS: ATORVASTATIN 10 MG TABLET PO (08:06)
[2022-05-19] MEDS: POTASSIUM CHLORIDE 20 MEQ TABLET 40 MEQ PO (10:36)
[2022-05-19] MEDS: POTASSIUM CHLORIDE 10 MEQ TABLET.ER 40 MEQ PO ×2 (13:20→18:27)
--- NOTE | 2022-05-19 14:43 | PM.IMPN ---
Progress Note: A&P Assessment and Plan (1) COVID-19: Code(s): U07.1 - COVID-19 Status: Acute Assessment and Plan: -the patient is not a candidate for any antivirals. -the patient stated that he had COVID back in January and was able to get through without difficulty. -the patient has been vaccinated for COVID. -continue with albuterol inhaler. Droplet and contact isolation has been initiated. -supportive care. (2) Acute hypokalemia: Code(s): E87.6 - Hypokalemia Status: Acute Assessment and Plan: -his potassium had been replaced. Increase potassium supplementation to 180 mg per day used to be on 120 mg pretty Magnesium replaced (3) Pulmonary hypertension: Code(s): I27.20 - Pulmonary hypertension, unspecified Status: Acute Assessment and Plan: -continue with sildenafil (4) Atrial fibrillation: Code(s): I48.91 - Unspecified atrial fibrillation Status: Acute Assessment and Plan: -the patient is currently in sinus rhythm with PACs. -the patient is on Coumadin for valve replacement which is therapeutic. -daily PT INR. -continue with metoprolol. 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 -the patient is not a candidate for any COVID antiviral treatment -the patient is on Opsumit which may be non formulary in the patient may need to bring his own. (6) SATHISH (obstructive sleep apnea): Code(s): G47.33 - Obstructive sleep apnea (adult) (pediatric) Status: Chronic Assessment and Plan: -the patient brought his own CPAP machine and he may use his own. (7) Hypertension: Code(s): I10 - Essential (primary) hypertension Status: Chronic Assessment and Plan: -the patient is on metoprolol -he is on diltiazem (8) H/O mechanical aortic valve replacement: Code(s): Z95.2 - Presence of prosthetic heart valve Status: Chronic Assessment and Plan: -the patient's INR is 3.0. The patient stated that his conveyor line bakery worker wants him to be between 2.5 and 3.5. -continue with daily PT INR. (9) Hyperlipidemia: Code(s): E78.5 - Hyperlipidemia, unspecified Status: Acute Assessment and Plan: -continue with atorvastatin (10) CHF (congestive heart failure), NYHA class I: Code(s): I50.9 - Heart failure, unspecified Status: Acute Assessment and Plan: Acute on chronic diastolic heart failure Oral Bumex is not working Will change to IV Bumex -patient's last echo was on 10/17/2021 which reads as a agreed to diastolic dysfunction. Ejection fraction 64%. Patient is taking sildenafil for pulmonary hypertension. Plan Known chronic anemia no signs of bleeding Recent sinusitis: Patient has 2 more doses of Augmentin for sinus infection. Which he will complete here Subjective Date/time seen: 05/19/22 14:43 Interval history: This is a 62-year-old male patient who has a history of atrial fibrillation and mitral valve replacement who is on Coumadin chronically.? He also has CHF and DAUGHERTY disease listed on a liver transplant list.? The patient came in with chest pain shortness breast for the last 10 days.? The patient stated that his conveyor line bakery worker has been working with changing his diuretic regimen for CHF complaints.? The patient recently had chlorthalidone and Bumex added.? He stated this did help improve his symptoms but he still continues to have this chest discomfort.? Shortness of breath is worse with exertion and while lying flat.? He notes that his leg swelling and a 10 lb weight gain over the last 10 days.? H&H is 10.9 and 32.9.? Platelets 103.? Sodium 136 potassium 2.8.? Troponins are nonreactive.? The patient is found to be positive for COVID.? Patient is not a candidate for antivirals.? The patient is on room air.? The patient was
[2022-05-19] MEDS: BUMETANIDE INJ 2.5 MG/10 ML VIAL 2 MG IV PUSH (16:20)
--- NOTE | 2022-05-19 17:09 | PHAR ---
HOME MED: Macitentan [Opsumit] 10 mg tablet; ONLY 1 TABLET BROUGHT IN. VERIFIED BY PHARMACY
[2022-05-19] MEDS: WARFARIN (*PBKC) 7.5 MG TABLET PO (21:48)
[2022-05-20] VITALS (10 sets, daily range): BP systolic 109–129; BP diastolic 60–65; PULSE 74–93; RESP 16–22; TEMP 36.7–36.9; O2SAT 90–96
[2022-05-20] MEDS: POTASSIUM CHLORIDE 10 MEQ TABLET.ER 40 MEQ PO ×5 (00:11→23:03)
[2022-05-20 05:41] LABS: INR 3.2; Prothrombin Time 31.6 Seconds (11.1-14.7)
[2022-05-20 05:46] LABS: Basophils Percent Auto 0.8 % (0.2-1.2); Eosinophils Absolute Auto 0.1 K/mm3 (0-0.3); Eosinophils Percent Auto 2.6 % (0-4.4); Hemoglobin 9.9 g/dL (14.0-18.0); Immature Granulocyte Absolute 0.03 K/mm3 (0.00-0.031); Immature Granulocyte Percent A 0.8 % (0-0.5); Immature Platelet Fraction Pct 2.7 % (0.9-11.2); Lymphocytes Absolute Auto 0.83 K/mm3 (0.9-3.2); Lymphocytes Percent Auto 21.8 % (18.3-44.2); Mean Corpuscular HGB Conc 31.9 g/dl (32-36); Mean Corpuscular Hemoglobin 26.8 pg (26-34); Mean Platelet Volume 10.6 fl (7.4-10.4); Monocytes Absolute Auto 0.5 K/mm3 (0.1-0.6); Monocytes Percent Auto 13.7 % (2.6-8.5); Neutrophils Absolute Auto 2.3 K/mm3 (1.3-6.7); Neutrophils Percent Auto 60.3 % (45.5-73.1); Platelet Count Result 86 k/mm3 (150-375); Red Blood Count 3.69 M/mm3 (4.6-6.20); Red Cell Distribution Width 16.2 % (11.5-14.5); White Blood Count 3.8 K/mm3 (4.5-10.0)
[2022-05-20 05:59] LABS: Alanine Aminotransferase 27 U/L (6-50); Blood Urea Nitrogen 13 mg/dL (9-20); Carbon Dioxide 25 mmol/L (22-30); Chloride 102 mmol/L (98-107); Estimated CRCL calculation 122 ml/min; Estimated Glomerular Filt Rate > 60
[2022-05-20 07:15] LABS: Albumin Level 3.3 g/dL (3.5-5.1); Alkaline Phosphatase 75 U/L (38-126); Anion Gap 5 mmol/L (8-16); Aspartate Amino Transferase 42 U/L (17-59); Bilirubin,Total 5.1 mg/dL (0.2-1.3); Calcium 7.7 mg/dL (8.4-10.2); Glucose 119 mg/dL (65-110); Magnesium 1.7 mg/dL (1.6-2.3); Potassium 3.4 mmol/L (3.4-5.0); Sodium 132 mmol/L (137-145)
[2022-05-20] MEDS: ATORVASTATIN 10 MG TABLET PO (07:47)
[2022-05-20] MEDS: BUMETANIDE INJ 2.5 MG/10 ML VIAL 2 MG IV PUSH ×2 (07:47→17:21)
[2022-05-20] MEDS: PANTOPRAZOLE 40 MG TABLET PO (07:48)
[2022-05-20] MEDS: FLUTICASONE PROPIONATE 0.05% NA SPR 16 GM BTL (*BKC) 1 SPRAY NASAL (07:48)
[2022-05-20] MEDS: SILDENAFIL CITRATE 20 MG TABLET PO ×3 (07:48→17:21)
[2022-05-20 08:37] LABS: Alveolar/Arterial O2 Gradient 165.9 mmHg; Fractional Inspired Oxygen 36 %; HCO3 ABG 22.1 mEq/l (22.0-26.0); Oxygen Content ABG 14.2 %vol (16.0-22.0); Oxygen Saturation ABG 93.1 % (95.0-100.0); Oxyhemoglobin 90.2 % THb (90.0-100.0); PCO2 ABG 28.1 mmHg (35.0-45.0); PO2 ABG 58.2 mmHg (80.0-100.0); PO2 FiO2 Ratio Arterial Blood 1.62 %; Total Hemoglobin 11.2 g/dL (12.0-18.0)
[2022-05-20 08:45] LABS: Device NASAL CANNULA; Modified Allen's Test Pass; Site Drawn RIGHT RADIAL; pH ABG 7.514 (7.350-7.450)
--- NOTE | 2022-05-20 09:10 | PC.NURSE ---
075 Patient found on RA after returning from bathroom, sat 80% placed on 4 liters and sat then came up to 90%. SOB with any exertion. Placed on cont pulse ox on tele and told pt to use oxygen when going to bathroom. Dr Walker notified of change in patient.
--- NOTE | 2022-05-20 10:42 | PM.IMPN ---
Progress Note: A&P Assessment and Plan (1) COVID-19: Code(s): U07.1 - COVID-19 Status: Acute Assessment and Plan: -the patient is not a candidate for any antivirals. -the patient stated that he had COVID back in January and was able to get through without difficulty. -the patient has been vaccinated for COVID. -continue with albuterol inhaler. Droplet and contact isolation has been initiated. -supportive care. Now hypoxic. Will start Decadron. (2) Acute hypokalemia: Code(s): E87.6 - Hypokalemia Status: Acute Assessment and Plan: -his potassium had been replaced. Increase potassium supplementation to 180 mg per day used to be on 120 mg pretty Magnesium replaced potassium level better today (3) Pulmonary hypertension: Code(s): I27.20 - Pulmonary hypertension, unspecified Status: Acute Assessment and Plan: -continue with sildenafil (4) Atrial fibrillation: Code(s): I48.91 - Unspecified atrial fibrillation Status: Acute Assessment and Plan: -the patient is currently in sinus rhythm with PACs. -the patient is on Coumadin for valve replacement which is therapeutic. -daily PT INR. -continue with metoprolol. 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 -the patient is not a candidate for any COVID antiviral treatment -the patient is on Opsumit which may be non formulary in the patient may need to bring his own. he brought this his own supply from home and has been restarted (6) SATHISH (obstructive sleep apnea): Code(s): G47.33 - Obstructive sleep apnea (adult) (pediatric) Status: Chronic Assessment and Plan: -the patient brought his own CPAP machine and he may use his own. (7) Hypertension: Code(s): I10 - Essential (primary) hypertension Status: Chronic Assessment and Plan: -the patient is on metoprolol -he is on diltiazem (8) H/O mechanical aortic valve replacement: Code(s): Z95.2 - Presence of prosthetic heart valve Status: Chronic Assessment and Plan: -the patient's INR is 3.0. The patient stated that his obstetrics and gynecology professor wants him to be between 2.5 and 3.5. -continue with daily PT INR. (9) Hyperlipidemia: Code(s): E78.5 - Hyperlipidemia, unspecified Status: Acute Assessment and Plan: -continue with atorvastatin (10) CHF (congestive heart failure), NYHA class I: Code(s): I50.9 - Heart failure, unspecified Status: Acute Assessment and Plan: Acute on chronic diastolic heart failure Oral Bumex is not working Will change to IV Bumex -patient's last echo was on 10/17/2021 which reads as a agreed to diastolic dysfunction. Ejection fraction 64%. Patient is taking sildenafil for pulmonary hypertension. If diuresis not achieved adequately might need to add metolazone Will also consult Cardiology for further help Since fully anticoagulated date unlikely to be PE related shortness of breath Will further evaluate with CT chest as well as abdomen to rule out ascites Plan Known chronic anemia no signs of bleeding Recent sinusitis: Patient has 2 more doses of Augmentin for sinus infection. Which he will complete here Subjective Date/time seen: 05/20/22 10:42 Interval history: This is a 62-year-old male patient who has a history of atrial fibrillation and mitral valve replacement who is on Coumadin chronically.? He also has CHF and DAUGHERTY disease listed on a liver transplant list.? The patient came in with chest pain shortness breast for the last 10 days.? The patient stated that his obstetrics and gynecology professor has been working with changing his diuretic regimen for CHF complaints.? The patient recently had chlorthalidone and Bumex added.? He stated this did help improve his symptoms but he still continues to have t
--- NOTE | 2022-05-20 13:04 | PM.CNCAR ---
Assessment and Plan Assessment and plan (1) H/O mechanical aortic valve replacement: Code(s): Z95.2 - Presence of prosthetic heart valve Status: Chronic (2) H/O mitral valve repair: Code(s): Z98.890 - Other specified postprocedural states Status: Chronic (3) Pulmonary hypertension: Code(s): I27.20 - Pulmonary hypertension, unspecified Status: Acute Plan this is an unfortunate 62-year-old man with severe pulmonary hypertension group 1. With portal pulmonary hypertension based on recent right/left heart catheterization data identified in the laboratory chemical assistant at [facility] in March. Does not have left heart failure his aortic and mitral valves are working well and his left-sided filling pressures were normal. he is on appropriate medical therapy for this. Complicating all of this is now he has a COVID infection. While he is on 4 L of nasal cannula oxygen he is saturating well. In summary this patient does not have congestive heart failure as we would generally think of it he has group 1 portal pulmonary hypertension with normal In fact high cardiac output and normal left-sided filling pressures. at this point there is no other cardiac workup to be done his workup has been extensively completed at [facility] a couple of months ago as I summarized above. I have left his cardiac catheterization notes on the patient's chart for review whether she may be interested in this data. He is on appropriate medical therapy for this he may require home oxygen supplementation given his severe pulmonary hypertension, hypoxemia and lack of pulmonary congestion. I do not believe aggressive diuresis is going to help his oxygenation in this situation. Obviously patient's prognosis for the long-term is very serious given the fact that like we will have to be considered a liver transplant recipient candidate Servando Yancey MD [facility] History of Present Illness History of Present Illness Consult date/time: 05/20/22 13:04 Reason For Visit: Hypokalemia/COVID/SOB Narrative: This is a 62-year-old man I am seeing at the request of the hospitalist with the stated reason for consultation is congestive heart failure. The patient has an exceedingly complex history and a long time was spent reviewing my partner's notes who no M well as well as notes from evaluation that has to been done recently at [facility]. The patient came to this hospital at the request of our office staff he says on Saturday of last week because he was experiencing more difficulty being short of breath and was directed to the emergency room. He was evaluated there and admitted. His chest x-ray does not really show any impressive amount of pulmonary congestion in my view he does have some very small bilateral pleural effusions that do not look any worse than they have on previous x-rays again by my estimation. He has a history of valvular heart disease and a history of atrial fibrillation which has been managed by my partner, Dr. Campos he also has a history of chronic liver disease with hepatic cirrhosis and a history of sleep apnea with CPAP being prescribed in the past as well. The patient for the last couple of years has been progressively having more difficulty being short of breath modest activity and workup in our office has not been able to pinpoint a diagnosis for this. His workup at [facility] which includes a right and left heart catheterization procedure that was done in March of 2022 leads to the diagnosis of portal pulmonary hypertension with normal left-sided filling pressures, high cardiac output but severe pulmonary hypertension and portal hypertension. He has been prescribed sildenafil as well as macitentan , has follow-up scheduled in the Heart failure/ Pulmonary hypertension Clinic at [facility] and is scheduled to see a physician in the liver transplant service later this month. The likelihood of liver transplantation if he is going to be able to survive this is the opi
--- NOTE | 2022-05-20 14:49 | PHAR ---
SPOKE WITH DR. ORTIZ ABOUT COUMADIN DOSE - ENTERED 7.5MG TABLET AND IN COMMENTS TAKE 1.5 TABLETS DAILY EXCEPT ON WEDNESDAYS TAKE 5MG - VERIFIED WITH EXTERNAL MED HISTORY THAT THIS SHOULD BE 7.5MG DAILY EXCEPT ON WEDNESDAYS PATIENT TAKES 5MG. DR. ORTIZ ADVISED TO LEAVE THE ORDER IS AT 7.5MG DAILY BECAUSE THE INR IS THERAPEUTIC WITH MECHANICAL HEART VALVE AND HE WILL DISCUSS WITH PATIENT AND CHANGE IF NECESSARY GOING FORWARD.
--- NOTE | 2022-05-20 17:11 | PHAR ---
HOME MED VERIFIED BY PHARMACY: OPSUMIT (MACITENTAN) TABLETS 10MG BROUGHT IN MORE TABLETS - VERIFIED BY PHARMACY
[2022-05-20] MEDS: WARFARIN (*PBKC) 7.5 MG TABLET PO (17:22)
[2022-05-20] MEDS: METOPROLOL SUCCINATE EXT REL 25 MG, METOPROLOL SUCCINATE EXT REL 50 MG 75 MG PO (17:23)
[2022-05-20] MEDS: traZODone HCL 50 MG TABLET PO (20:32)
[2022-05-21] VITALS (11 sets, daily range): BP systolic 108–126; BP diastolic 56–68; PULSE 65–77; RESP 16–20; TEMP 36.7–37.2; O2SAT 94–96
[2022-05-21] MEDS: POTASSIUM CHLORIDE 10 MEQ TABLET.ER 40 MEQ PO ×2 (05:26→23:23)
[2022-05-21 05:43] LABS: Alanine Aminotransferase 26 U/L (6-50); Albumin Level 3.4 g/dL (3.5-5.1); Alkaline Phosphatase 76 U/L (38-126); Anion Gap 7 mmol/L (8-16); Aspartate Amino Transferase 38 U/L (17-59); Bilirubin,Total 4.5 mg/dL (0.2-1.3); Blood Urea Nitrogen 15 mg/dL (9-20); Calcium 7.8 mg/dL (8.4-10.2); Carbon Dioxide 22 mmol/L (22-30); Chloride 106 mmol/L (98-107); Estimated CRCL calculation 108 ml/min; Estimated Glomerular Filt Rate > 60; Glucose 152 mg/dL (65-110); INR 3.5; Magnesium 1.8 mg/dL (1.6-2.3); Potassium 4.5 mmol/L (3.4-5.0); Prothrombin Time 34.3 Seconds (11.1-14.7); Sodium 135 mmol/L (137-145)
[2022-05-21 05:48] LABS: Basophils Percent Auto 0.2 % (0.2-1.2); Hematocrit 29.9 % (42.0-52.0); Hemoglobin 9.8 g/dL (14.0-18.0); Immature Granulocyte Absolute 0.04 K/mm3 (0.00-0.031); Immature Platelet Fraction Pct 3.7 % (0.9-11.2); Lymphocytes Absolute Auto 0.51 K/mm3 (0.9-3.2); Lymphocytes Percent Auto 12.1 % (18.3-44.2); Mean Corpuscular HGB Conc 32.8 g/dl (32-36); Mean Corpuscular Hemoglobin 27.6 pg (26-34); Mean Corpuscular Volume 84.2 fl (80-100); Mean Platelet Volume 10.3 fl (7.4-10.4); Monocytes Absolute Auto 0.4 K/mm3 (0.1-0.6); Monocytes Percent Auto 9.5 % (2.6-8.5); Neutrophils Absolute Auto 3.2 K/mm3 (1.3-6.7); Neutrophils Percent Auto 77.2 % (45.5-73.1); Platelet Count Result 83 k/mm3 (150-375); Red Blood Count 3.55 M/mm3 (4.6-6.20); Red Cell Distribution Width 15.8 % (11.5-14.5); White Blood Count 4.2 K/mm3 (4.5-10.0)
[2022-05-21 07:11] LABS: Platelet Estimate Decreased (Adequate); Poikilocytosis 1+ (NORMAL)
[2022-05-21 07:12] LABS: Anisocytosis 1+ (NORMAL); Burr Cells 1+ (NORMAL); Ovalocytes 1+ (NORMAL); Schistocytes Rare (NORMAL)
[2022-05-21] MEDS: ATORVASTATIN 10 MG TABLET PO (09:09)
[2022-05-21] MEDS: BUMETANIDE INJ 2.5 MG/10 ML VIAL 2 MG IV PUSH (09:10)
[2022-05-21] MEDS: PANTOPRAZOLE 40 MG TABLET PO (09:11)
[2022-05-21] MEDS: FLUTICASONE PROPIONATE 0.05% NA SPR 16 GM BTL (*BKC) 1 SPRAY NASAL (09:11)
[2022-05-21] MEDS: SILDENAFIL CITRATE 20 MG TABLET PO ×3 (09:12→17:17)
--- NOTE | 2022-05-21 13:33 | PM.PNCARD ---
Progress Note: A&P Assessment and Plan (1) Pulmonary hypertension: Code(s): I27.20 - Pulmonary hypertension, unspecified Status: Acute (2) H/O mechanical aortic valve replacement: Code(s): Z95.2 - Presence of prosthetic heart valve Status: Chronic (3) H/O mitral valve repair: Code(s): Z98.890 - Other specified postprocedural states Status: Chronic Plan 62-year-old man with valvular heart disease aortic valve replacement and mitral valve repair. Prior history of atrial fibrillation as well, currently in sinus rhythm. He has been having problematic edema that now has been completely evaluated in this related to his chronic cirrhotic liver disease and with portal pulmonary hypertension. This type of edema will respond poorly to loop diuretics in general as his LV filling pressures were normal as well as his cardiac output. I will go ahead and advanced his Bumex to 3 mg starting with this evening's dose. That may prompt more of a diuresis but other than that there is not much else to offer in terms of treatment of this edema as it is related to his chronic hepatic cirrhosis more than anything else. Servando Yancey MD [facility] Subjective Date/time seen: Date of service:05/21/22 13:33 Interval history: Follow-up visit in this 62-year-old man with: Portal pulmonary hypertension with significant edema and shortness of breath. Patient's cardiac history includes history of aortic valve replacement, mitral valve repair and prior history of atrial fibrillation. 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 Patient is anticipating appointment with transplant team to consider him as a candidate for liver transplantation in this setting. states that he is feeling better today he slept better last night. He does not think the Bumex is working to get much fluid off. Exam Const: General: comfortable and no acute distress HENMT: Mouth: Yes moist mucous membranes Eyes: Sclera: sclerae normal Neck: Neck: supple Other: Patient has about 2 cm of JVD Resp: Effort & Inspection: normal respiratory effort Auscultation: clear to auscultation bilaterally Cardio: Rate: regular rate Rhythm: regular rhythm GI: GI Palp: Yes Soft to palpation Auscultation: normal bowel sounds Skin: General skin exam: normal color Neuro: Other: alert and oriented x3 Extrem: Other: moderate bipedal edema slightly reduced from yesterday's exam Objective Data Vital Signs Vital Signs: Vital Signs - 24 hr 05/20/22 14:00 05/20/22 16:00 05/20/22 17:23 Temperature 36.7 C Pulse Rate 89 90 90 Respiratory Rate 18 Blood Pressure 129/65 Pulse Oximetry 96 Oxygen Delivery Oxygen Flow Rate 05/20/22 20:42 05/20/22 20:00 05/21/22 00:00 Temperature 36.9 C Pulse Rate 86 90 67 Respiratory Rate 16 Blood Pressure 109/63 Pulse Oximetry 93 Oxygen Delivery Oxygen Flow Rate 05/21/22 04:00 05/21/22 06:18 05/21/22 08:00 Temperature 36.7 C Pulse Rate 65 69 65 Respiratory Rate 16 Blood Pressure 108/60 Pulse Oximetry 94 Oxygen Delivery Oxygen Flow Rate 05/21/22 08:00 05/21/22 13:14 Temperature Pulse Rate Respiratory Rate Blood Pressure 126/65 Pulse Oximetry 94 Oxygen Delivery Nasal Cannula Oxygen Flow Rate 4 Intake/Output Intake/Output: Intake & Output 05/18/22 05/19/22 05/20/22 05/21/22 23:59 23:59 23:59 23:59 Intake Total 520 3040 1790 1030 Output Total 800 1700 1300 Balance 520 2240 90 -270 Meds/Results Medications: Active Medications Generic Name Dose Route Start Last Admin Trade Name Freq PRN Reason Stop Dose Admin Albuterol 2 puff 05/18/22 23:49 Albuterol Sulfate (*Sp) Aerosol 1 Puff INHALATION Q4-6H PRN SOB/wheezing Atorvastatin Calcium 10 mg 05/19/22 09:00 05/21/22 09:09
--- NOTE | 2022-05-21 14:59 | PM.IMPN ---
Progress Note: A&P Assessment and Plan (1) COVID-19: Code(s): U07.1 - COVID-19 Status: Acute Assessment and Plan: -the patient is not a candidate for any antivirals. -the patient stated that he had COVID back in January and was able to get through without difficulty. -the patient has been vaccinated for COVID. -continue with albuterol inhaler. Droplet and contact isolation has been initiated. -supportive care. Now hypoxic. started on decadron. not a candidate for remdesivir due to potential hepatotoxicity (2) Acute hypokalemia: Code(s): E87.6 - Hypokalemia Status: Acute Assessment and Plan: -his potassium had been replaced. Increase potassium supplementation to 180 mg per day used to be on 120 mg pretty Magnesium replaced potassium level better (3) Pulmonary hypertension: Code(s): I27.20 - Pulmonary hypertension, unspecified Status: Acute Assessment and Plan: -continue with sildenafil (4) Atrial fibrillation: Code(s): I48.91 - Unspecified atrial fibrillation Status: Acute Assessment and Plan: -the patient is currently in sinus rhythm with PACs. -the patient is on Coumadin for valve replacement which is therapeutic. -daily PT INR. -continue with metoprolol. 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 -the patient is not a candidate for any COVID antiviral treatment -the patient is on Opsumit which may be non formulary in the patient may need to bring his own. he brought this his own supply from home and has been restarted (6) SATHISH (obstructive sleep apnea): Code(s): G47.33 - Obstructive sleep apnea (adult) (pediatric) Status: Chronic Assessment and Plan: -the patient brought his own CPAP machine and he may use his own. (7) Hypertension: Code(s): I10 - Essential (primary) hypertension Status: Chronic Assessment and Plan: -the patient is on metoprolol -he is on diltiazem (8) H/O mechanical aortic valve replacement: Code(s): Z95.2 - Presence of prosthetic heart valve Status: Chronic Assessment and Plan: -the patient's INR is 3.0. The patient stated that his biology teacher wants him to be between 2.5 and 3.5. -continue with daily PT INR. (9) Hyperlipidemia: Code(s): E78.5 - Hyperlipidemia, unspecified Status: Acute Assessment and Plan: -continue with atorvastatin (10) CHF (congestive heart failure), NYHA class I: Code(s): I50.9 - Heart failure, unspecified Status: Acute Assessment and Plan: Acute on chronic diastolic heart failure Oral Bumex is not working Will change to IV Bumex -patient's last echo was on 10/17/2021 which reads as a agreed to diastolic dysfunction. Ejection fraction 64%. Patient is taking sildenafil for pulmonary hypertension. If diuresis not achieved adequately might need to add metolazone Will also consult Cardiology for further help Since fully anticoagulated date unlikely to be PE related shortness of breath ct chest with pulmonary edema, no ascites noted. acute hpyoxic resp failure needing oxygen supplementation. increased diuresis to 3 mg bumex twice daily Plan Known chronic anemia no signs of bleeding Recent sinusitis: Patient has 2 more doses of Augmentin for sinus infection. Which he will complete here Subjective Date/time seen: 05/21/22 14:59 Interval history: This is a 62-year-old male patient who has a history of atrial fibrillation and mitral valve replacement who is on Coumadin chronically.? He also has CHF and DAUGHERTY disease listed on a liver transplant list.? The patient came in with chest pain shortness breast for the last 10 days.? The patient stated that his biology teacher has been working with changing his diuretic regimen for CHF complaint
[2022-05-21] MEDS: BUMETANIDE INJ 2.5 MG/10 ML VIAL 3 MG IV PUSH (17:15)
[2022-05-21] MEDS: METOPROLOL SUCCINATE EXT REL 25 MG, METOPROLOL SUCCINATE EXT REL 50 MG 75 MG PO (17:16)
[2022-05-21] MEDS: WARFARIN (*PBKC) 7.5 MG TABLET PO (17:16)
[2022-05-21] MEDS: traZODone HCL 50 MG TABLET PO (20:35)
[2022-05-22] VITALS (10 sets, daily range): BP systolic 110–120; BP diastolic 56–61; PULSE 54–100; RESP 20–22; TEMP 36.4–36.8; O2SAT 94–98
[2022-05-22] MEDS: POTASSIUM CHLORIDE 10 MEQ TABLET.ER 40 MEQ PO ×4 (05:13→23:12)
[2022-05-22 05:46] LABS: INR 4.7
[2022-05-22 07:54] LABS: Basophils Percent Auto 0.1 % (0.2-1.2); Hematocrit 32.3 % (42.0-52.0); Hemoglobin 10.2 g/dL (14.0-18.0); Immature Granulocyte Absolute 0.06 K/mm3 (0.00-0.031); Immature Granulocyte Percent A 0.9 % (0-0.5); Immature Platelet Fraction Pct 4.1 % (0.9-11.2); Lymphocytes Absolute Auto 0.62 K/mm3 (0.9-3.2); Lymphocytes Percent Auto 9.2 % (18.3-44.2); Mean Corpuscular HGB Conc 31.6 g/dl (32-36); Mean Corpuscular Hemoglobin 27.2 pg (26-34); Mean Corpuscular Volume 86.1 fl (80-100); Mean Platelet Volume 10.2 fl (7.4-10.4); Monocytes Absolute Auto 0.5 K/mm3 (0.1-0.6); Monocytes Percent Auto 7.9 % (2.6-8.5); Neutrophils Absolute Auto 5.5 K/mm3 (1.3-6.7); Neutrophils Percent Auto 81.9 % (45.5-73.1); Platelet Count Result 100 k/mm3 (150-375); Red Blood Count 3.75 M/mm3 (4.6-6.20); Red Cell Distribution Width 16.2 % (11.5-14.5); White Blood Count 6.7 K/mm3 (4.5-10.0)
[2022-05-22] MEDS: BUMETANIDE INJ 2.5 MG/10 ML VIAL 3 MG IV PUSH ×2 (09:19→17:54)
[2022-05-22] MEDS: ATORVASTATIN 10 MG TABLET PO (09:19)
[2022-05-22] MEDS: SILDENAFIL CITRATE 20 MG TABLET PO ×3 (09:20→17:54)
[2022-05-22] MEDS: FLUTICASONE PROPIONATE 0.05% NA SPR 16 GM BTL (*BKC) 1 SPRAY NASAL (09:20)
[2022-05-22] MEDS: PANTOPRAZOLE 40 MG TABLET PO (09:20)
--- NOTE | 2022-05-22 11:57 | PC.NURSE ---
call to lab to inquire about pending chemistry panel from this morning, they will look in to it
[2022-05-22 12:19] LABS: Alanine Aminotransferase 27 U/L (6-50); Albumin Level 3.6 g/dL (3.5-5.1); Alkaline Phosphatase 71 U/L (38-126); Anion Gap 7 mmol/L (8-16); Aspartate Amino Transferase 36 U/L (17-59); Bilirubin,Total 3.3 mg/dL (0.2-1.3); Blood Urea Nitrogen 21 mg/dL (9-20); Calcium 8.3 mg/dL (8.4-10.2); Carbon Dioxide 23 mmol/L (22-30); Chloride 106 mmol/L (98-107); Estimated CRCL calculation 96 ml/min; Estimated Glomerular Filt Rate > 60; Glucose 159 mg/dL (65-110); Potassium 4.3 mmol/L (3.4-5.0); Sodium 136 mmol/L (137-145)
--- NOTE | 2022-05-22 13:16 | PM.PNCARD ---
Progress Note: A&P Assessment and Plan (1) Pulmonary hypertension: Code(s): I27.20 - Pulmonary hypertension, unspecified Status: Acute (2) H/O mechanical aortic valve replacement: Code(s): Z95.2 - Presence of prosthetic heart valve Status: Chronic (3) H/O mitral valve repair: Code(s): Z98.890 - Other specified postprocedural states Status: Chronic Plan 62-year-old man with valvular heart disease aortic valve replacement and mitral valve repair. Prior history of atrial fibrillation as well. He has been having problematic edema that now has been completely evaluated in this related to his chronic cirrhotic liver disease and with portal pulmonary hypertension. His edema is related to his chronic hepatic cirrhosis more than anything else. Bumex was increased to 3mg BID yesterday. Would continue with current dose. Subjective Date/time seen: 05/22/22 13:16 Interval history: Follow-up visit in this 62-year-old man with: Portal pulmonary hypertension with significant edema and shortness of breath. Patient's cardiac history includes history of aortic valve replacement, mitral valve repair and prior history of atrial fibrillation. 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 Patient is anticipating appointment with transplant team to consider him as a candidate for liver transplantation in this setting. Today he is feeling better. Able to lay flat without shortness of breath. Lower extremity edema improving. Review of Systems Review of Systems: 8-point ROS obtained. Negative, unless stated in HPI. Exam Const: General: comfortable and no acute distress HENMT: Mouth: Yes moist mucous membranes Eyes: Sclera: sclerae normal Neck: Neck: supple Other: Patient has about 2 cm of JVD Resp: Effort & Inspection: normal respiratory effort Auscultation: clear to auscultation bilaterally Cardio: Rate: regular rate Rhythm: regular rhythm GI: GI Palp: Yes Soft to palpation Auscultation: normal bowel sounds Skin: General skin exam: normal color Neuro: Other: alert and oriented x3 Extrem: Other: moderate bipedal edema slightly reduced from yesterday's exam Psych: Mental Status: mental status grossly normal Affect: normal affect Objective Data Vital Signs Vital Signs: Vital Signs - 24 hr 05/21/22 15:58 05/21/22 17:16 05/21/22 16:47 Temperature 37.2 C Pulse Rate 73 75 76 Respiratory Rate 18 Blood Pressure 121/56 L Pulse Oximetry 94 Oxygen Delivery Oxygen Flow Rate 05/21/22 20:23 05/21/22 21:55 05/21/22 20:00 Temperature 37.0 C Pulse Rate 69 77 Respiratory Rate 20 Blood Pressure 124/68 Pulse Oximetry 96 Oxygen Delivery CPAP Oxygen Flow Rate 05/22/22 00:00 05/22/22 04:00 05/22/22 04:29 Temperature 36.4 C Pulse Rate 60 56 L 100 Respiratory Rate 20 Blood Pressure 110/58 L Pulse Oximetry 94 Oxygen Delivery Oxygen Flow Rate 05/22/22 08:00 Temperature Pulse Rate 100 Respiratory Rate 20 Blood Pressure Pulse Oximetry 94 Oxygen Delivery Nasal Cannula Oxygen Flow Rate 3 Intake/Output Intake/Output: Intake & Output 05/19/22 05/20/22 05/21/22 05/22/22 23:59 23:59 23:59 23:59 Intake Total 3040 1790 2770 1420 Output Total 800 1700 1400 1450 Balance 2240 90 1370 -30 Meds/Results Medications: Active Medications Generic Name Dose Route Start Last Admin Trade Name Freq PRN Reason Stop Dose Admin Albuterol 2 puff 05/18/22 23:49 Albuterol Sulfate (*Sp) Aerosol 1 Puff INHALATION Q4-6H PRN SOB/wheezing Atorvastatin Calcium 10 mg 05/19/22 09:00 05/22/22 09:19 Atorvastatin 10 Mg Tablet PO 10 mg DAILY SHARDA Administration Bumetanide 3 mg 05/21/22 17:00 05/22/22 09:19 Bumetanide Inj 2.5 Mg/10 Ml Vial IV PUSH 3 mg BID SHARDA Administration Dexamethasone
--- NOTE | 2022-05-22 13:44 | PM.IMPN ---
Progress Note: A&P Assessment and Plan (1) COVID-19: Code(s): U07.1 - COVID-19 Status: Acute Assessment and Plan: -the patient is not a candidate for any antivirals. -the patient stated that he had COVID back in January and was able to get through without difficulty. -the patient has been vaccinated for COVID. -continue with albuterol inhaler. Droplet and contact isolation has been initiated. -supportive care. Now hypoxic. started on decadron. Continue on Decadron for COVID infection with hypoxia not a candidate for remdesivir due to potential hepatotoxicity (2) Acute hypokalemia: Code(s): E87.6 - Hypokalemia Status: Acute Assessment and Plan: -his potassium had been replaced. Increase potassium supplementation to 180 mg per day used to be on 120 mg per day Magnesium replaced potassium level better (3) Pulmonary hypertension: Code(s): I27.20 - Pulmonary hypertension, unspecified Status: Acute Assessment and Plan: -continue with sildenafil Recent right heart left heart catheterization findings reviewed. His left heart pressures were normal with elevated right heart pressure suspected portal pulmonary hypertension related to his liver cirrhosis. His liver cirrhosis is related to his DAUGHERTY (4) Atrial fibrillation: Code(s): I48.91 - Unspecified atrial fibrillation Status: Acute Assessment and Plan: -the patient is currently in sinus rhythm with PACs. -the patient is on Coumadin for valve replacement which is therapeutic. -daily PT INR. -continue with metoprolol. -continue with diltiazem Remains on sinus rhythm during the hospital stay. INR is elevated today at 4.7. Will hold his Coumadin. Recheck INR in a.m. for further dosing. 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 -the patient is not a candidate for any COVID antiviral treatment -the patient is on Opsumit which may be non formulary in the patient may need to bring his own. he brought this his own supply from home and has been restarted (6) SATHISH (obstructive sleep apnea): Code(s): G47.33 - Obstructive sleep apnea (adult) (pediatric) Status: Chronic Assessment and Plan: -the patient brought his own CPAP machine and he may use his own. (7) Hypertension: Code(s): I10 - Essential (primary) hypertension Status: Chronic Assessment and Plan: -the patient is on metoprolol -he is on diltiazem (8) H/O mechanical aortic valve replacement: Code(s): Z95.2 - Presence of prosthetic heart valve Status: Chronic Assessment and Plan: -the patient's INR is 3.0. 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 -continue with daily PT INR. (9) Hyperlipidemia: Code(s): E78.5 - Hyperlipidemia, unspecified Status: Acute Assessment and Plan: -continue with atorvastatin (10) CHF (congestive heart failure), NYHA class I: Code(s): I50.9 - Heart failure, unspecified Status: Acute Assessment and Plan: Acute on chronic diastolic heart failure Oral Bumex is not working Will change to IV Bumex -patient's last echo was on 10/17/2021 which reads as a agreed to diastolic dysfunction. Ejection fraction 64%. Patient is taking sildenafil for pulmonary hypertension. If diuresis not achieved adequately might need to add metolazone Will also consult Cardiology for further help Since fully anticoagulated date unlikely to be PE related shortness of breath ct chest with pulmonary edema, no ascites noted. acute hpyoxic resp failure needing oxygen supplementation. increased diuresis to 3 mg bumex twice daily with better urine output. Will also add spironolactone as tolerated Plan Known chronic anem
[2022-05-22] MEDS: SPIRONOLACTONE 25 MG TABLET PO (17:54)
[2022-05-22] MEDS: METOPROLOL SUCCINATE EXT REL 25 MG, METOPROLOL SUCCINATE EXT REL 50 MG 75 MG PO (17:55)
[2022-05-22] MEDS: traZODone HCL 50 MG TABLET PO (19:43)
[2022-05-22] MEDS: BENZONATATE 100 MG CAPSULE 200 MG PO (19:43)
[2022-05-23] VITALS (10 sets, daily range): BP systolic 105–140; BP diastolic 61–64; PULSE 55–72; RESP 18–20; TEMP 36.5–36.7; O2SAT 95–96
[2022-05-23] MEDS: POTASSIUM CHLORIDE 10 MEQ TABLET.ER 40 MEQ PO ×4 (05:06→23:53)
[2022-05-23 05:51] LABS: Basophils Percent Auto 0.2 % (0.2-1.2); Immature Granulocyte Absolute 0.04 K/mm3 (0.00-0.031); Immature Granulocyte Percent A 0.7 % (0-0.5); Immature Platelet Fraction Pct 3.2 % (0.9-11.2); Lymphocytes Absolute Auto 0.47 K/mm3 (0.9-3.2); Lymphocytes Percent Auto 7.7 % (18.3-44.2); Mean Corpuscular HGB Conc 32.3 g/dl (32-36); Mean Corpuscular Hemoglobin 26.9 pg (26-34); Mean Corpuscular Volume 83.3 fl (80-100); Mean Platelet Volume 9.8 fl (7.4-10.4); Monocytes Absolute Auto 0.4 K/mm3 (0.1-0.6); Neutrophils Absolute Auto 5.2 K/mm3 (1.3-6.7); Neutrophils Percent Auto 84.4 % (45.5-73.1); Platelet Count Result 92 k/mm3 (150-375); Red Blood Count 3.72 M/mm3 (4.6-6.20); White Blood Count 6.1 K/mm3 (4.5-10.0)
[2022-05-23 05:53] LABS: Prothrombin Time 46.4 Seconds (11.1-14.7)
[2022-05-23 05:54] LABS: Alanine Aminotransferase 29 U/L (6-50); Albumin Level 3.6 g/dL (3.5-5.1); Alkaline Phosphatase 74 U/L (38-126); Anion Gap 8 mmol/L (8-16); Aspartate Amino Transferase 35 U/L (17-59); Bilirubin,Total 3.2 mg/dL (0.2-1.3); Blood Urea Nitrogen 25 mg/dL (9-20); Calcium 8.3 mg/dL (8.4-10.2); Carbon Dioxide 22 mmol/L (22-30); Chloride 103 mmol/L (98-107); Estimated CRCL calculation 96 ml/min; Estimated Glomerular Filt Rate > 60; Glucose 153 mg/dL (65-110); Magnesium 1.9 mg/dL (1.6-2.3); Potassium 4.5 mmol/L (3.4-5.0); Sodium 133 mmol/L (137-145)
[2022-05-23 06:18] LABS: INR 5.2
[2022-05-23] MEDS: BENZONATATE 100 MG CAPSULE 200 MG PO ×3 (08:29→17:43)
[2022-05-23] MEDS: BUMETANIDE INJ 2.5 MG/10 ML VIAL 3 MG IV PUSH ×2 (08:29→17:43)
[2022-05-23] MEDS: ATORVASTATIN 10 MG TABLET PO (08:30)
[2022-05-23] MEDS: FLUTICASONE PROPIONATE 0.05% NA SPR 16 GM BTL (*BKC) 1 SPRAY NASAL (08:30)
[2022-05-23] MEDS: SILDENAFIL CITRATE 20 MG TABLET PO ×3 (08:30→17:45)
[2022-05-23] MEDS: PANTOPRAZOLE 40 MG TABLET PO (08:30)
[2022-05-23] MEDS: SPIRONOLACTONE 25 MG TABLET PO ×2 (08:31→17:45)
--- NOTE | 2022-05-23 14:40 | PM.IMPN ---
Progress Note: A&P Assessment and Plan (1) COVID-19: Code(s): U07.1 - COVID-19 Status: Acute Assessment and Plan: -the patient is not a candidate for any antivirals. -the patient stated that he had COVID back in January and was able to get through without difficulty. -the patient has been vaccinated for COVID. -continue with albuterol inhaler. Droplet and contact isolation has been initiated. -supportive care. Now hypoxic. started on decadron. Continue on Decadron for COVID infection with hypoxia not a candidate for remdesivir due to potential hepatotoxicity 05/23/2022 interval history patient states he does get short winded going to the bathroom and required oxygen, most likely multifactorial due to COVID-19 patient is on dexamethasone unable to give remdesivir due to DAUGHERTY, will continue diurese the patient and monitor as his symptoms improved will wean the patient off oxygen and plan for discharge (2) Acute hypokalemia: Code(s): E87.6 - Hypokalemia Status: Acute Assessment and Plan: -his potassium had been replaced. Increase potassium supplementation to 180 mg per day used to be on 120 mg per day Magnesium replaced potassium level better (3) Pulmonary hypertension: Code(s): I27.20 - Pulmonary hypertension, unspecified Status: Acute Assessment and Plan: -continue with sildenafil Recent right heart left heart catheterization findings reviewed. His left heart pressures were normal with elevated right heart pressure suspected portal pulmonary hypertension related to his liver cirrhosis. His liver cirrhosis is related to his DAUGHERTY (4) Atrial fibrillation: Code(s): I48.91 - Unspecified atrial fibrillation Status: Acute Assessment and Plan: -the patient is currently in sinus rhythm with PACs. -the patient is on Coumadin for valve replacement which is therapeutic. -daily PT INR. -continue with metoprolol. -continue with diltiazem Remains on sinus rhythm during the hospital stay. INR is elevated today at 4.7. Will hold his Coumadin. Recheck INR in a.m. for further dosing. 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 -the patient is not a candidate for any COVID antiviral treatment -the patient is on Opsumit which may be non formulary in the patient may need to bring his own. he brought this his own supply from home and has been restarted (6) SATHISH (obstructive sleep apnea): Code(s): G47.33 - Obstructive sleep apnea (adult) (pediatric) Status: Chronic Assessment and Plan: -the patient brought his own CPAP machine and he may use his own. (7) Hypertension: Code(s): I10 - Essential (primary) hypertension Status: Chronic Assessment and Plan: -the patient is on metoprolol -he is on diltiazem (8) H/O mechanical aortic valve replacement: Code(s): Z95.2 - Presence of prosthetic heart valve Status: Chronic Assessment and Plan: -the patient's INR is 3.0. The patient stated that his auto servicer wants him to be between 2.5 and 3.5. -continue with daily PT INR. (9) Hyperlipidemia: Code(s): E78.5 - Hyperlipidemia, unspecified Status: Acute Assessment and Plan: -continue with atorvastatin (10) CHF (congestive heart failure), NYHA class I: Code(s): I50.9 - Heart failure, unspecified Status: Acute Assessment and Plan: Acute on chronic diastolic heart failure Oral Bumex is not working Will change to IV Bumex -patient's last echo was on 10/17/2021 which reads as a agreed to diastolic dysfunction. Ejection fraction 64%. Patient is taking sildenafil for pulmonary hypertension. If diuresis not achieved adequately might need to add metolazone Will also consult Cardio
[2022-05-23] MEDS: METOPROLOL SUCCINATE EXT REL 25 MG, METOPROLOL SUCCINATE EXT REL 50 MG 75 MG PO (17:45)
[2022-05-23] MEDS: traZODone HCL 50 MG TABLET PO (20:38)
[2022-05-24] VITALS (7 sets, daily range): BP systolic 115; BP diastolic 62; PULSE 55–66; RESP 18; TEMP 37.1; O2SAT 94–95
[2022-05-24 05:54] LABS: INR 4.1; Prothrombin Time 38.4 Seconds (11.1-14.7)
[2022-05-24 05:59] LABS: Magnesium 1.9 mg/dL (1.6-2.3)
[2022-05-24] MEDS: POTASSIUM CHLORIDE 10 MEQ TABLET.ER 40 MEQ PO ×2 (07:21→12:31)
[2022-05-24] MEDS: BENZONATATE 100 MG CAPSULE 200 MG PO ×2 (09:05→12:31)
[2022-05-24] MEDS: BUMETANIDE INJ 2.5 MG/10 ML VIAL 3 MG IV PUSH (09:05)
[2022-05-24] MEDS: SILDENAFIL CITRATE 20 MG TABLET PO ×2 (09:05→12:31)
[2022-05-24] MEDS: ATORVASTATIN 10 MG TABLET PO (09:06)
[2022-05-24] MEDS: FLUTICASONE PROPIONATE 0.05% NA SPR 16 GM BTL (*BKC) 1 SPRAY NASAL (09:06)
[2022-05-24] MEDS: SPIRONOLACTONE 25 MG TABLET PO (09:06)
[2022-05-24] MEDS: PANTOPRAZOLE 40 MG TABLET PO (09:06)
--- NOTE | 2022-05-24 12:53 | PM.DS ---
DS: Admitting Diagnosis Discharge Date 05/24/2022 Admitting Diagnosis chest pain DS: Discharge Diagnosis Discharge Diagnosis (1) COVID-19: Code(s): U07.1 - COVID-19 Status: Acute Assessment and Plan: -the patient is not a candidate for any antivirals. -the patient stated that he had COVID back in January and was able to get through without difficulty. -the patient has been vaccinated for COVID. -continue with albuterol inhaler. Droplet and contact isolation has been initiated. -supportive care. Now hypoxic. started on decadron. Continue on Decadron for COVID infection with hypoxia not a candidate for remdesivir due to potential hepatotoxicity 05/23/2022 interval history patient states he does get short winded going to the bathroom and required oxygen, most likely multifactorial due to COVID-19 patient is on dexamethasone unable to give remdesivir due to DAUGHERTY, will continue diurese the patient and monitor as his symptoms improved will wean the patient off oxygen and plan for discharge (2) Acute hypokalemia: Code(s): E87.6 - Hypokalemia Status: Acute Assessment and Plan: -his potassium had been replaced. Increase potassium supplementation to 180 mg per day used to be on 120 mg per day Magnesium replaced potassium level better (3) Pulmonary hypertension: Code(s): I27.20 - Pulmonary hypertension, unspecified Status: Acute Assessment and Plan: -continue with sildenafil Recent right heart left heart catheterization findings reviewed. His left heart pressures were normal with elevated right heart pressure suspected portal pulmonary hypertension related to his liver cirrhosis. His liver cirrhosis is related to his DAUGHERTY (4) Atrial fibrillation: Code(s): I48.91 - Unspecified atrial fibrillation Status: Acute Assessment and Plan: -the patient is currently in sinus rhythm with PACs. -the patient is on Coumadin for valve replacement which is therapeutic. -daily PT INR. -continue with metoprolol. -continue with diltiazem Remains on sinus rhythm during the hospital stay. INR is elevated today at 4.7. Will hold his Coumadin. Recheck INR in a.m. for further dosing. 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 -the patient is not a candidate for any COVID antiviral treatment -the patient is on Opsumit which may be non formulary in the patient may need to bring his own. he brought this his own supply from home and has been restarted (6) SATHISH (obstructive sleep apnea): Code(s): G47.33 - Obstructive sleep apnea (adult) (pediatric) Status: Chronic Assessment and Plan: -the patient brought his own CPAP machine and he may use his own. (7) Hypertension: Code(s): I10 - Essential (primary) hypertension Status: Chronic Assessment and Plan: -the patient is on metoprolol -he is on diltiazem (8) H/O mechanical aortic valve replacement: Code(s): Z95.2 - Presence of prosthetic heart valve Status: Chronic Assessment and Plan: -the patient's INR is 3.0. 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 -continue with daily PT INR. (9) Hyperlipidemia: Code(s): E78.5 - Hyperlipidemia, unspecified Status: Acute Assessment and Plan: -continue with atorvastatin (10) CHF (congestive heart failure), NYHA class I: Code(s): I50.9 - Heart failure, unspecified Status: Acute Assessment and Plan: Acute on chronic diastolic heart failure Oral Bumex is not working Will change to IV Bumex -patient's last echo was on 10/17/2021 which reads as a agreed to diastolic dysfunction. Ejection fraction 64%. Patient is taking sildenafil for pulmonary hypertension
== END 2022-05-24 13:25 | disposition home or self-care (01) | DRG 177 ==
LOC: ANHED 16:33 → ANH3MEDSUR 18:30 → ANH2MED 21:31
PROVIDERS: Internal Medicine; Nurse Practitioner; Physician Assistant; Admitting Provider Chiropractor; Emergency Provider Family Medicine; PCP Family Medicine; Visit Provider Family Medicine
DX: U07.1 COVID-19 (principal); I50.33 Acute on chronic diastolic (congestive) heart failure; J96.01 Acute respiratory failure with hypoxia; I85.00 Esophageal varices without bleeding; D64.9 Anemia, unspecified; E66.01 Morbid (severe) obesity due to excess calories; E78.5 Hyperlipidemia, unspecified; E80.4 Gilbert syndrome; E87.6 Hypokalemia; G47.33 Obstructive sleep apnea (adult) (pediatric); I27.20 Pulmonary hypertension, unspecified; I25.10 Atherosclerotic heart disease of native coronary artery without angina pectoris; I48.91 Unspecified atrial fibrillation; I11.0 Hypertensive heart disease with heart failure; K21.9 Gastro-esophageal reflux disease without esophagitis; K75.81 Nonalcoholic steatohepatitis (NASH); M17.0 Bilateral primary osteoarthritis of knee; Z95.2 Presence of prosthetic heart valve; Z79.01 Long term (current) use of anticoagulants; Z68.36 Body mass index [BMI] 36.0-36.9, adult; Z99.89 Dependence on other enabling machines and devices; Z90.49 Acquired absence of other specified parts of digestive tract
CPT/HCPCS: 36415; 36600; 71045; 71046; 71250; 74176; 80053; 82805; 83690; 83735; 83880; 84484; 85025; 85055; 85610; 85730; 87636; 93005; 96365; 96366; 96374; 96375; 99285; A9270; G0378; J1100; J3475; J3480; J7040

== ENCOUNTER 2022-05-26 12:33 | Outpatient (CLI) | payer OTHER, SELFPAY ==
[2022-05-26 13:10] LABS: Alanine Aminotransferase 46 U/L (6-50); Albumin Level 3.8 g/dL (3.5-5.1); Alkaline Phosphatase 113 U/L (38-126); Anion Gap 7 mmol/L (8-16); Aspartate Amino Transferase 49 U/L (17-59); Bilirubin,Total 5.2 mg/dL (0.2-1.3); Blood Urea Nitrogen 25 mg/dL (9-20); Calcium 8.5 mg/dL (8.4-10.2); Carbon Dioxide 30 mmol/L (22-30); Chloride 100 mmol/L (98-107); Estimated Glomerular Filt Rate > 60; Glucose 189 mg/dL (65-110); Potassium 3.9 mmol/L (3.4-5.0); Sodium 137 mmol/L (137-145)
[2022-05-26 13:18] LABS: NT Pro B Type Natriuretic Pept 908 pg/mL (5-100)
== END 2022-05-26 12:34 | disposition home or self-care (01) ==
PROVIDERS: PCP Internal Medicine Cardiovascular Disease
DX: I27.20 Pulmonary hypertension, unspecified (principal)
CPT/HCPCS: 36415; 80053; 83880

== ENCOUNTER 2022-05-29 16:30 | Outpatient (RCR) | payer OTHER, SELFPAY ==
[2022-05-29 17:08] LABS: INR 3.2; Prothrombin Time 31.4 Seconds (11.1-14.7)
== END 2022-08-27 23:59 | disposition home or self-care (01) ==
LOC: ANHLAB 16:30
PROVIDERS: PCP Internal Medicine Cardiovascular Disease; Visit Provider Internal Medicine Cardiovascular Disease
DX: Z51.81 Encounter for therapeutic drug level monitoring (principal); I47.1 Supraventricular tachycardia; Z95.2 Presence of prosthetic heart valve; Z98.890 Other specified postprocedural states; Z79.01 Long term (current) use of anticoagulants
CPT/HCPCS: 36415; 85610

== ENCOUNTER 2022-06-04 11:41 | Outpatient (CLI) | payer OTHER, SELFPAY ==
[2022-06-04 12:20] LABS: Anion Gap 4 mmol/L (8-16); Blood Urea Nitrogen 28 mg/dL (9-20); Carbon Dioxide 32 mmol/L (22-30); Chloride 96 mmol/L (98-107); Estimated Glomerular Filt Rate > 60; Glucose 193 mg/dL (65-110); Potassium 3.1 mmol/L (3.4-5.0); Sodium 132 mmol/L (137-145)
[2022-06-04 12:57] LABS: NT Pro B Type Natriuretic Pept 313 pg/mL (19.9-100)
== END 2022-06-04 11:42 | disposition home or self-care (01) ==
LOC: ANHLAB 11:45
PROVIDERS: PCP Internal Medicine Cardiovascular Disease
DX: I27.20 Pulmonary hypertension, unspecified (principal)
CPT/HCPCS: 36415; 80048; 83880

== ENCOUNTER 2022-06-12 07:53 | Inpatient (IN) | payer OTHER, SELFPAY ==
[2022-06-12] VITALS (30 sets, daily range): BP systolic 102–139; BP diastolic 56–90; PULSE 67–108; RESP 14–36; TEMP 36.9–38.1; O2SAT 89–98; BMI 35.9
--- NOTE | ~2022-06-12 | CT_ITS ---
Noncontrast CT scan of the lumbar spine CLINICAL HISTORY: Back pain TECHNIQUE: Axial noncontrast imaging of the lumbar spine was performed. Sagittal and coronal reformat elham images were constructed. Dose reduction technique was used on this scan by utilizing automated ex posure control and iterative reconstruction technique. FINDINGS: There is minimal dextroscoliosis of lumbar spine. There is mild compression deformity invol ving the superior endplate of L1, probably acute. No other fracture identified. Minimal grade 1 retro listhesis of L2 over L3 present. There is advanced degenerative disc change at L2-L3, L3-L4, and L4-L 5. At L1-L2, there is central disc osteophyte complex. Probable mild central canal stenosis. No definite neural foraminal narrowing. At L2-L3, there is probable disc bulge and facet arthropathy, with probable mild to moderate central canal stenosis. There is mild to moderate bilateral neural foraminal narrowing. At L3-L4, there is central disc osteophyte complex/disc protrusion, which conjunction with mild facet arthropathy, contribute to probable at least moderate central canal stenosis/thecal sac compression. There is moderate to severe bilateral neural foraminal narrowing. At L4-L5, disc osteophyte complex and facet arthropathy result in severe right lateral recess stenosi s and probable moderate central canal stenosis overall. There is severe right neural foraminal narrow ing. Left neural foramen preserved. At L5-S1, there is no disc bulge or herniation. No spinal canal stenosis or neural foraminal narrowin g. Paravertebral soft tissues are unremarkable. IMPRESSION: Probable acute, mild compression deformity at the inferior endplate region of L1. Moderate degenerative spondylosis. There is multilevel thecal sac compression/central canal stenosis and neural foraminal narrowing, as detailed above. Findings are worst at L3-L4 and L4-L5. Reviewed, dictated and finalized at location . ATION SPECIALIST IMPRESSION: Probable acute, mild compression deformity at the inferior endplate region of L 1. Moderate degenerative spondylosis. There is multilevel thecal sac compression/c entral canal stenosis and neural foraminal narrowing, as detailed above. Findin gs are worst at L3-L4 and L4-L5.
--- NOTE | ~2022-06-12 | XR_ITS ---
Clinical Indication: Shortness of breath PA and lateral views of the chest: Comparison: 05/20/2022 Findings: There is patchy bibasilar pulmonary disease, right worse than left, with probable small rig ht pleural effusion. Cardiomediastinal silhouette is stable, status post probable mitral and aortic valve replacement. Bones and soft tissues are unremarkable. Impression: Small right pleural effusion with bibasilar pulmonary edema/atelectasis, versus possibly pneumonia. C orrelate clinically. Status post probable mitral and aortic valve replacement. Reviewed, dictated and finalized at location . [facility] NURSE Impression: Small right pleural effusion with bibasilar pulmonary edema/atelectasis, versus possibly pneumonia. Correlate clinically. Status post probable mitral and aortic valve replacement.
--- NOTE | ~2022-06-12 | US_ITS ---
EXAMINATION: US venous doppler [facility] DATE: 06/13/2022 12:29 INDICATION: Lower limb swelling and left lower limb pain TECHNIQUE: Grayscale ultrasound images without and with compression and Doppler ultrasound images of the bilateral lower extremity veins were obtained. COMPARISON: None. FINDINGS: The visualized portions of right common femoral vein, profunda (deep) femoral vein, femoral vein, pop liteal vein, posterior tibial veins, peroneal veins, gastrocnemius vein and greater saphenous vein ou tflow are patent. The visualized portions of left common femoral vein, profunda femoral vein, femoral vein, popliteal v ein, posterior tibial veins, peroneal veins, gastrocnemius vein and greater saphenous vein outflow ar e patent. IMPRESSION: 1. No deep venous thrombosis in either lower limb. Reviewed, dictated and finalized at location B. L MOLD DRESSER
--- NOTE | ~2022-06-12 | CT_ITS ---
Clinical Indication: Shortness of breath, hypoxia CT Scan of the Chest with Contrast: Technique: Contiguous sections were acquired throughout the chest after intravenous administration of 100 cc of Omnipaque 350. Dose reduction technique was used on this scan by utilizing automated expos ure control and iterative reconstruction technique. The dose-length product (DLP) was 870.47 mGy-cm. COMPARISON: 05/20/2022 Findings: Mildly enlarged superior mediastinal and right paratracheal stripe lymph nodes are stable from prior exam. Coronary artery calcifications are present. There is no filling defect in the pulmonary arteria l tree to suggest pulmonary embolus. There is no evidence of aortic dissection or aneurysm. No perica rdial effusion. Moderate right pleural effusion is present, with partial right lower lobe atelectasis. Small layering left pleural effusion is present. No suspicious pulmonary nodule. Images through the upper abdomen reveal no abnormalities. Impression: No evidence of pulmonary embolus, aortic dissection, or aortic aneurysm. Moderate right pleural effusion with partial right lower lobe atelectasis. Small left pleural effusion. Mildly prominent mediastinal lymph nodes are unchanged. Reviewed, dictated and finalized at [facility]. FIXER Impression: No evidence of pulmonary embolus, aortic dissection, or aortic aneurysm. Moderate right pleural effusion with partial right lower lobe atelectasis. Small left pleural effusion. Mildly prominent mediastinal lymph nodes are unchanged.
--- NOTE | 2022-06-12 07:59 | ECG_ITS ---
Measurements Intervals [place] Rate: 100 P: OR: 0 QRS: 24 QRSD: 97 T: 82 QT: 365 QTc: 473 Interpretive Statements SINUS OR ECTOPIC ATRIAL TACHYCARDIA ATRIAL PREMATURE COMPLEXES BORDERLINE ST-T WAVE ABNORMALITY- ANTEROLAT/HIGH LAT LEADS BASELINE ARTIFACT- I, II, III, AVL ABNORMAL ECG COMPARED TO ECG 05/18/2022 12:28:13 SINUS OR ECTOPIC ATRIAL TACHYCARDIA NOW PRESSENT ST (T WAVE) DEVIATION NOW PRESENT Electronically Signed On 06-12-2022 8:23:26 SERVICE TECH by Bernardino Austin D.O.
[2022-06-12 08:27] LABS: Basophils Percent Auto 0.6 % (0.2-1.2); Eosinophils Absolute Auto 0.2 K/mm3 (0-0.3); Eosinophils Percent Auto 4.2 % (0-4.4); Hematocrit 29.8 % (42.0-52.0); Hemoglobin 9.4 g/dL (14.0-18.0); Immature Granulocyte Absolute 0.02 K/mm3 (0.00-0.031); Immature Granulocyte Percent A 0.4 % (0-0.5); Lymphocytes Absolute Auto 0.68 K/mm3 (0.9-3.2); Lymphocytes Percent Auto 13.7 % (18.3-44.2); Mean Corpuscular HGB Conc 31.5 g/dl (32-36); Mean Corpuscular Hemoglobin 26.3 pg (26-34); Mean Corpuscular Volume 83.5 fl (80-100); Mean Platelet Volume 9.4 fl (7.4-10.4); Monocytes Absolute Auto 0.5 K/mm3 (0.1-0.6); Monocytes Percent Auto 9.9 % (2.6-8.5); Neutrophils Absolute Auto 3.5 K/mm3 (1.3-6.7); Neutrophils Percent Auto 71.2 % (45.5-73.1); Platelet Count Result 104 k/mm3 (150-375); Red Blood Count 3.57 M/mm3 (4.6-6.20); Red Cell Distribution Width 17.1 % (11.5-14.5)
[2022-06-12 08:36] LABS: Alanine Aminotransferase 25 U/L (6-50); Albumin Level 3.6 g/dL (3.5-5.1); Alkaline Phosphatase 115 U/L (38-126); Anion Gap 7 mmol/L (8-16); Aspartate Amino Transferase 38 U/L (17-59); Bilirubin,Total 4.5 mg/dL (0.2-1.3); Blood Urea Nitrogen 19 mg/dL (9-20); Calcium 8.4 mg/dL (8.4-10.2); Carbon Dioxide 22 mmol/L (22-30); Chloride 104 mmol/L (98-107); Estimated CRCL calculation 86 ml/min; Estimated Glomerular Filt Rate > 60; Glucose 185 mg/dL (65-110); Potassium 3.6 mmol/L (3.4-5.0); Sodium 133 mmol/L (137-145)
--- NOTE | 2022-06-12 09:56 | ED.SOB ---
HPI - SOB/Dyspnea General Chief Complaint: Shortness of Breath/Dyspnea <URSZULA Genao Last Filed: 06/12/22 17:24> Stated Complaint: SOB <URSZULA Genao Last Filed: 06/12/22 17:24> Time Seen by Provider: 06/12/22 08:57 <URSZULA Genao Last Filed: 06/12/22 17:24> Source: patient and old records reviewed <URSZULA Genao Last Filed: 06/12/22 17:24> Mode of arrival: ambulatory <URSZULA Genao Filed: 06/12/22 17:24> Limitations: no limitations <URSZULA Genao Filed: 06/12/22 17:24> History of Present Illness HPI Narrative: Patient is a 62-year-old male, with a past medical history of atrial fibrillation and mechanical heart valve replacement on warfarin (goal 2.5-3.5), pulmonary hypertension, liver cirrhosis 2/2 DAUGHERTY, who presents to the ED with c/o SOB. Per patient's records, he was admitted here from 05/18-05/24 for COVID 19, hypoxia, acute hypokalemia. Patient was placed on oxygen while inpatient, but at the time of discharge, was not requiring oxygen. He does not have oxygen at home. He has been doing well since then, but reported feeling increasingly short of breath yesterday into last night. Worse with any type of movement or exertion. He does see a fireproof door assembler, Dr. Zuniga, with [facility], and was scheduled to have a pulmonary function testing on to determine if he needed oxygen full-time. Patient also reports having a dry cough since COVID and lower extremity edema, denies fevers, congestion, chest pain, lower extremity pain. Patient reports he picked up a heavy box a few weeks ago and tweaked his lower back. He has been taking muscle relaxers for this with minimal relief. He denies any bowel or bladder incontinence, saddle anesthesia, lower extremity weakness or numbness. <URSZULA Genao Last Filed: 06/12/22 17:24> Related Data Home Medications: Home Medications Medication Instructions Recorded Confirmed diltiazem HCl 120 mg 120 mg PO DAILY 12/15/19 06/12/22 capsule,extended release 24 hr, controlled (DILT-XR) potassium chloride 10 mEq 140 meq PO DAILY 12/15/19 06/12/22 tablet,extended release warfarin 5 mg tablet 7.5 mg PO HS 12/15/19 06/12/22 fexofenadine 180 mg tablet 180 mg PO DAILY 12/25/19 06/12/22 (Danae Allergy) fluticasone propionate 50 1 spray intranasal BID 12/25/19 06/12/22 mcg/actuation nasal spray,suspension (Flonase Allergy Relief) atorvastatin 10 mg tablet 10 mg PO DAILY 10/10/21 06/12/22 macitentan 10 mg tablet (Opsumit) 10 mg PO DAILY 05/03/22 06/12/22 sildenafil (pulm.hypertension) 20 10 mg PO TID 05/03/22 06/12/22 mg tablet triamcinolone acetonide 0.025 % 2 applic topical WEEKLY PRN leg 05/18/22 06/12/22 topical ointment itching and dryness benzonatate 100 mg capsule 200 mg PO TID PRN Cough 06/12/22 06/12/22 <URSZULA Genao Last Filed: 06/12/22 17:24> Allergies/Adverse Reactions: Allergies Allergy/AdvReac Type Severity Reaction Status Date / Time No Known Allergies Allergy Verified 06/12/22 13:39 <URSZULA Genao Last Filed: 06/12/22 17:24> Review of Systems Review of Systems: CONSTITUTIONAL: Denies fever, chills, or sweats. ENT: Denies rhinorrhea, congestion, sore throat. CARDIOVASCULAR: See HPI. RESPIRATORY: See HPI. GASTROINTESTINAL: Denies abdominal pain, nausea, vomiting, or diarrhea. MUSCULOSKELETAL: See HPI. NEUROLOGIC: Denies headache, saddle anesthesia, numbness, or weakness. <URSZULA Genao Last Filed: 06/12/22 17:24> All systems reviewed & are unremarkable except as noted in HPI and below <URSZULA Genao Last Filed: 06/12/22 17:24> [facility] Past Medical History Medical History: Medical History Arthritis of knee Atrial fibrillation CAD (coronary artery disease) Chest pa
[2022-06-12 10:20] LABS: INR 3.2; Prothrombin Time 31.9 Seconds (11.1-14.7)
[2022-06-12 10:21] LABS: Partial Thromboplastin Time 46.1 SECONDS (22.3-36.8)
[2022-06-12 10:24] LABS: NT Pro B Type Natriuretic Pept 746 pg/mL (19.9-100); Troponin I < 0.012 ng/mL (0.000-0.034)
[2022-06-12 10:35] LABS: Alveolar/Arterial O2 Gradient 143.7 mmHg; Base Excess ABG -2.1 mEq/l (+/-2.0); Carboxyhemoglobin 0.9 % THb (0-2.0); Fractional Inspired Oxygen 32 %; HCO3 ABG 19.9 mEq/l (22.0-26.0); Methemoglobin ABG 0.2 %THb (0-1.5); Oxygen Content ABG 12.1 %vol (16.0-22.0); Oxygen Saturation ABG 91.8 % (95.0-100.0); PCO2 ABG 25.6 mmHg (35.0-45.0); PO2 ABG 54.5 mmHg (80.0-100.0); Reduced Hemoglobin 12.3 %THb (0-5.0); Total Hemoglobin 9.9 g/dL (12.0-18.0)
[2022-06-12 10:37] LABS: Modified Allen's Test Pass; Oxyhemoglobin 86.6 % THb (90.0-100.0); Site Drawn RIGHT RADIAL; pH ABG 7.509 (7.350-7.450)
[2022-06-12 10:38] LABS: Device NASAL CANNULA
[2022-06-12 11:43] LABS: Influenza A QL RT-PCR Negative (Negative); Influenza B QL RT-PCR Negative (Negative); SARS-CoV-2 RNA PCR Negative
[2022-06-12] MEDS: ONDANSETRON INJ 4 MG/2 ML VIAL IV PUSH (11:52)
[2022-06-12] MEDS: MORPHINE SULFATE (*CRX) 4 MG/ML INJ IV PUSH ×3 (11:52→21:06)
--- NOTE | 2022-06-12 13:38 | ADMGEN ---
This patient, Abelino Vargas, was admitted to [address] [place] [address] Room 314-02 on 06/12/22 @ 1315. Patient/family oriented to hospital policies and general/ routines including ID bracelet, bed and alarms, visiting hours, pain management, procedures, bathroom and other care routines,/ personal items, smoking policy, room service/diet, and visiting hours. Information on how to activate the Rapid Response Team has been discussed. Patient/Family are encouraged to report perceived risks to care and to ask questions if they do not understand what they are told or what they should do.
--- NOTE | 2022-06-12 16:34 | PM.IMHP ---
H&P: HPI History of Present Illness Date/Time: 06/12/22 16:34 Chief Complaint: Shortness of breath Narrative: This is a 62-year-old male patient with a history of atrial fibrillation and mechanical valve replacement and is on warfarin. He also has cirrhosis of the liver secondary to DAUGHERTY and is on a transplant list for liver. The patient was recently admitted here from 05 18-05 24 for COVID-19 hypoxia and hypokalemia. The patient was on oxygen while inpatient but was weaned off and does not use oxygen at home. The patient was doing well until last night. The patient had dyspnea upon exertion. The patient follows with Dr. Zuniga, retail product demo specialist and has been scheduled for pulmonary function test this next . The patient does have some edema to his lower extremities but stated this has improved from previous days. The patient stated that he was told that 1 of his medications for his liver [employer] was causing his edema. His retail product demo specialist can be paged at [phone] if there are any questions about medication. His hemoglobin is 9.4 with a baseline of 9.8-10.2. Hematocrit 29.8 with a baseline 29.8-36.3. The patient stated that he picked up a heavy box a few weeks ago while bending over to picker/puller the box read he has had muscle spasms since then. The patient has been taking muscle relaxers for this without any relief. The patient is not incontinent of bowel or bladder. He has no saddle anesthesia is he has no lower extremity weakness or numbness. Lumbar spine was read as probable acute cook, mild compression deformity at the inferior edge plate region of L1. Moderate degenerative spondylosis. There are multiple level thecal sac compression/central canal stenosis and neural foraminal narrowing. Findings are worse at L3-L4 and L4-L5. Neurosurgery has been consulted. Chest CTA was read as no evidence of pulmonary embolus aortic dissection or uterine aneurysm. Moderate right pleural effusion with partial right lower lobe atelectasis. Small left pleural effusion. Mildly prominent mediastinal lymph nodes are unchanged. Chest x-ray was read as small right pleural effusions with bibasilar pulmonary edema/atelectasis versus possibly pneumonia. Status post probable mitral and aortic valve replacement. The patient was given morphine and Zofran in the emergency room. The patient is being admitted to observation status on the date of service 06/12/2022. Review of Systems Review of Systems: See HPI All systems reviewed & are unremarkable except as noted in HPI and below Constitutional: Constitutional: Reports as per HPI and Reports no additional constitutional complaints Eyes: Eyes: Reports as per HPI and Reports no additional eye complaints ENT: Reports system reviewed and no additional complaints, except as documented and Reports Normal hearing present Cardiovascular: Cardiovascular: Reports no additional cardiovascular complaints Respiratory: Respiratory: Reports no additional respiratory complaints and Reports no additional respiratory complaints Gastrointestinal: Gastrointestinal: Reports as per HPI and Reports no additional gastrointestinal complaints Musculoskeletal: Musculoskeletal: Reports no additional musculoskeletal complaints Integumentary/Breasts: Skin/Breast: Reports system reviewed and no additional complaints, except as docu and Reports as per HPI Neurologic: Reports system reviewed and no additional complaints, except as documented, Reports as per HPI and Reports Normal hearing present Psychiatric: Psychiatric: Reports no additional psychiatric complaints and Reports as per HPI Endocrine: Endocrine: Reports no additional endocrine complaints Hematologic/Lymphatic: Hematologic/Lymphatic: Reports no additional hematologic/lymphatic complaints Allergic/Immunologic: Allergic/Immunologic: Reports no additional allergic/immunologic complaints [facility] Past Medical History Medical History (Updated 06/12/22 @ 20:26 by Sofia Dunn
[2022-06-12] MEDS: traZODone HCL 50 MG TABLET PO (21:05)
[2022-06-12] MEDS: METOPROLOL SUCCINATE EXT REL 25 MG TABCR 75 MG PO (21:06)
[2022-06-12] MEDS: WARFARIN (*PBKC) 7.5 MG TABLET PO (21:06)
--- NOTE | 2022-06-13 | ECHO_ITS ---
Patient Info Name: Abelino Vargas Age: 62 years : 1960 Gender: Male Ht: 71 in Wt: 257 lbs BSA: 2.46 m2 HR: 103 bpm BP: 123 / 62 mmHg Heart Rhythm: Atrial Fibrillation Technical Quality: Fair Exam Date: 06/13/2022 10:25 AM Exam Location: [facility] Patient Status: Outpatient Admit Date: 06/12/2022 Staff Ordering Physician: Sofia Brito NP Tube Winder Hand: Greta Riley RDCS Attending Provider: Sarah Forbes MD Referring Physician: Daryl RICHTER; Exam Type: CA echo dop color flow w con Study Info Indications - edema Complete two-dimensional, color flow and Doppler transthoracic echocardiogram is performed with contrast to opacify the left ventricle and to improve the deliniation of the left ventricle endocardial borders. Contrast/Agitated Saline Contrast/Ag. Saline: Definity Amount: 3.00 ml Administered By: Greta Riley RDCS Existing IV Access: Yes IV Access Condition: patent with no signs of infiltration Summary 1. Left ventricular chamber dimension is mildly enlarged. 2. There is mildly increased left ventricular wall thickness. 3. Left ventricular systolic function is hyperdynamic, estimated at >70%. 4. Right ventricular chamber dimension is mildly enlarged. 5. Right ventricular systolic function is reduced. 6. Left atrial chamber dimension is moderately enlarged. 7. Right atrial chamber dimension is moderately enlarged. 8. The prosthetic aortic valve is not well visualized. Aortic valve mean gradient of 20mmHg. ZACHARY 1.85cm2. 9. Annular region is thickened from prior annuloplasty. 10. The mitral valve has thickened leaflets. 11. There is mild mitral valve regurgitation. 12. There is moderate tricuspid valve regurgitation. 13. Dilated inferior vena cava with >50% collapse upon inspiration consistent with elevated right atrial pressure, 8 mmHg. Left Ventricle Left ventricular chamber dimension is mildly enlarged. Left ventricular systolic function is hyperdynamic, estimated at >70%. There is mildly increased left ventricular wall thickness. Right Ventricle Right ventricular chamber dimension is mildly enlarged. Right ventricular systolic function is reduced. Left Atria Left atrial chamber dimension is moderately enlarged. Right Atria Right atrial chamber dimension is moderately enlarged. Atrial Septum Intact interatrial septum visualized by color flow imaging. Aortic Valve The prosthetic aortic valve is not well visualized. Aortic valve mean gradient of 20mmHg. ZACHARY 1.85cm2. Pulmonic Valve The pulmonic valve is not well visualized. Mitral Valve Annular region is thickened from prior annuloplasty. The mitral valve has thickened leaflets. There is mild mitral valve regurgitation. Tricuspid Valve There is moderate tricuspid valve regurgitation. Pericardium/Pleural There is no pericardial effusion. Inferior Vena Cava Dilated inferior vena cava with >50% collapse upon inspiration consistent with elevated right atrial pressure, 8 mmHg. Aorta The aortic root size at the sinus of Valsalva is normal. Left Ventricular Outflow Tract Name Value Normal LVOT 2D LVOT Diameter 2.17 cm
[2022-06-13] MEDS: MORPHINE SULFATE (*CRX) 4 MG/ML INJ IV PUSH ×2 (01:37→16:29)
[2022-06-13] MEDS: CYCLOBENZAPRINE HCL 10 MG TABLET PO ×2 (05:24→20:47)
[2022-06-13] MEDS: traMADol HCL (*CRX) 25 MG TABLET PO ×3 (05:24→20:46)
[2022-06-13 06:25] LABS: Basophils Percent Auto 0.6 % (0.2-1.2); Eosinophils Absolute Auto 0.2 K/mm3 (0-0.3); Eosinophils Percent Auto 2.3 % (0-4.4); Hematocrit 28.7 % (42.0-52.0); Hemoglobin 8.9 g/dL (14.0-18.0); Immature Granulocyte Absolute 0.05 K/mm3 (0.00-0.031); Immature Granulocyte Percent A 0.8 % (0-0.5); Lymphocytes Absolute Auto 0.94 K/mm3 (0.9-3.2); Lymphocytes Percent Auto 14.1 % (18.3-44.2); Mean Corpuscular Hemoglobin 25.4 pg (26-34); Mean Corpuscular Volume 81.8 fl (80-100); Mean Platelet Volume 9.2 fl (7.4-10.4); Monocytes Absolute Auto 0.8 K/mm3 (0.1-0.6); Monocytes Percent Auto 11.4 % (2.6-8.5); Neutrophils Absolute Auto 4.7 K/mm3 (1.3-6.7); Neutrophils Percent Auto 70.8 % (45.5-73.1); Platelet Count Result 120 k/mm3 (150-375); Red Blood Count 3.51 M/mm3 (4.6-6.20); Red Cell Distribution Width 17.1 % (11.5-14.5); White Blood Count 6.7 K/mm3 (4.5-10.0)
[2022-06-13 06:29] VITALS: BP 123/62; PULSE 103; RESP 18; TEMP 36.6; O2SAT 92
[2022-06-13 06:32] LABS: Lactic Acid Reflex 2.1 mmol/L (0.7-2.0)
[2022-06-13 06:33] LABS: INR 3.1; Prothrombin Time 31.3 Seconds (11.1-14.7)
[2022-06-13 06:38] LABS: Alanine Aminotransferase 23 U/L (6-50); Albumin Level 3.3 g/dL (3.5-5.1); Alkaline Phosphatase 99 U/L (38-126); Anion Gap 8 mmol/L (8-16); Aspartate Amino Transferase 31 U/L (17-59); Bilirubin,Total 4.5 mg/dL (0.2-1.3); Blood Urea Nitrogen 16 mg/dL (9-20); Calcium 8.2 mg/dL (8.4-10.2); Carbon Dioxide 22 mmol/L (22-30); Chloride 104 mmol/L (98-107); Estimated CRCL calculation 87 ml/min; Estimated Glomerular Filt Rate > 60; Glucose 146 mg/dL (65-110); Magnesium 1.8 mg/dL (1.6-2.3); Phosphorus 3.6 mg/dL (2.5-4.5); Potassium 3.8 mmol/L (3.4-5.0); Sodium 134 mmol/L (137-145)
[2022-06-13 08:00] VITALS: O2SAT 92
[2022-06-13] MEDS: BUMETANIDE 1 MG TABLET 3 MG PO (08:18)
[2022-06-13] MEDS: ATORVASTATIN 10 MG TABLET PO (08:19)
[2022-06-13] MEDS: FLUTICASONE PROPIONATE 0.05% NA SPR 16 GM BTL (*BKC) 1 SPRAY NASAL ×2 (08:19→16:29)
[2022-06-13] MEDS: PANTOPRAZOLE 40 MG TABLET PO (08:19)
[2022-06-13] MEDS: POTASSIUM CHLORIDE 10 MEQ TABLET.ER 60 MEQ PO (08:19)
[2022-06-13] MEDS: LIDOCAINE 5% PATCH 1 PATCH TRANSDERM (08:19)
[2022-06-13] MEDS: LORATADINE 10 MG TABLET PO (09:08)
[2022-06-13 09:19] LABS: Reflex Lactic Acid Yes or No Add Lactic
[2022-06-13 09:49] LABS: Lactic Acid 1.4 mmol/L (0.7-2.0)
--- NOTE | 2022-06-13 10:23 | PM.IMPN ---
Progress Note: A&P Assessment and Plan (1) Acute on chronic respiratory failure with hypoxia: Code(s): J96.21 - Acute and chronic respiratory failure with hypoxia Status: Acute Assessment and Plan: Patient requiring 4 L supplemental oxygen and no prior home oxygen needs. Secondary to bilateral pleural effusions noted on chest CTA Thoracentesis ordered but pending at INR at 1.5. Current INR 3 and warfarin is on hold. Continue diuresis. Change oral Bumex to 3 mg IV Bumex t.i.d. ABG shows paO2 54, pH 7.5, paCO2 25- respiratory alkalosis with hypoxemia Monitor strict I's and O's Daily weights continue patient's sildenafil and diltiazem. Holding Opsumit per his Soup Person's recommendation, given his hypervolemia picture. I did discuss the patient's case with his supply and distribution manager Dr. Dawkins, who was in a in agreement with current plan. Patient's is pending a transfer bed at [facility] where his supply and distribution manager is (2) Pleural effusion, right: Code(s): J90 - Pleural effusion, not elsewhere classified Status: Acute Assessment and Plan: As above. Patient is pending a thoracentesis until INR is within range. Continue diuresis. Consider adding metolazone and or spironolactone if patient is recalcitrant to current diuretic therapy. Monitor respiratory status. Will repeat chest x-ray in 24-48 hours Transthoracic echocardiogram ordered and pending (3) Compression fracture of L1 vertebra: Qualifiers: Encounter type: initial encounter Qualified Code(s): S32.010A - Wedge compression fracture of first lumbar vertebra, initial encounter for closed fracture Code(s): S32.010A - Wedge compression fracture of first lumbar vertebra, initial encounter for closed fracture Status: Acute Assessment and Plan: Compression fractures noted on lumbar CT. Patient reports PICC picking up a heavy box and feeling a strain to his lower back. He reports persistent lower back spasms that are worse after lying flat. No saddle anesthesia, lower extremity paresthesia, or incontinence. He does endorse difficulty walking after onset of lower back spasms Neurosurgery consulted and appreciate recommendations Consult PT OT for evaluation Continue muscle relaxants, p.r.n. analgesics, and daily Lidoderm patch (4) CHF (congestive heart failure), NYHA class I: Code(s): I50.9 - Heart failure, unspecified Status: Chronic Assessment and Plan: Chronic, diastolic dysfunction with acute exacerbation as noted by increased shortness of breath, hypoxia, and bilateral pleural effusions. Effusions may also be secondary to liver cirrhosis, however Previous echocardiogram from September 2021 shows normal LV systolic function with EF 64% and pseudonormal diastolic dysfunction grade 2. BNP 748 Echocardiogram pending Continue diuresis as above continue diltiazem and metoprolol Monitor intake and output and daily weights (5) Pulmonary hypertension: Code(s): I27.20 - Pulmonary hypertension, unspecified Status: Chronic Assessment and Plan: Chronic, severe a pulmonary atrial hypertension. Continue diltiazem and sildenafil Hold opsumit due to pleural effusions (6) Atrial fibrillation: Code(s): I48.91 - Unspecified atrial fibrillation Status: Chronic Assessment and Plan: chronic paroxysmal atrial fibrillation. Continue metoprolol and diltiazem with hold parameters. Hold warfarin due to upcoming thoracentesis. Daily PT/INR (7) SATHISH (obstructive sleep apnea): Code(s): G47.33 - Obstructive sleep apnea (adult) (pediatric) Status: Chronic Assessment and Plan: Chronic, continue with home settings for CPAP. (8) Hypertension: Code(s): I10 - Essential (primary) hypertension Status: Chronic Assessment and Plan: Chronic, monitor with diuresis On diltiazem, metoprolol and bumex (9) CAD (coronary artery disease): Code(s): I25.10 - A
[2022-06-13] MEDS: PERFLUTREN LIPID MICROSPHERES 1.5 ML VIAL DILUTED TO 10 ML TOTAL VOLUME IV PUSH (11:18)
--- NOTE | 2022-06-13 11:18 | IVDEFINITY ---
Prior to administration of IV Definity the patient was educated on the risks and benefits of the imaging enhancing agent including potential adverse side effects. The patient verbalized understanding. Allergies were verified. No exclusion criteria were identified and at least one of the following inclusion criteria were met: 1) physician request, 2) patient technically difficult to image (per the [place] [employer]ch[employer] guidelines of two or more segments not discernable within the apical view), or 3) questionable left ventricular function. ?
--- NOTE | 2022-06-13 11:35 | PCPTNOTE ---
Attempted to see for physical therapy evaluation, per chart review pt is waiting for a neuro consult. Will wait for this prior to seeing for PT. Will continue to follow.
--- NOTE | 2022-06-13 11:37 | PCOTNOTE ---
Attempted to see for occupational therapy evaluation, per chart review pt is waiting for a neuro consult. Will wait for this prior to seeing for OT. Will continue to follow.
[2022-06-13] MEDS: POTASSIUM CHLORIDE 20 MEQ TABLET.ER 40 MEQ PO (12:05)
[2022-06-13] MEDS: BUMETANIDE INJ 2.5 MG/10 ML VIAL 3 MG IV PUSH ×2 (12:56→17:25)
[2022-06-13 17:24] VITALS: PULSE 54
[2022-06-13] MEDS: METOPROLOL SUCCINATE EXT REL 25 MG TABCR 75 MG PO (17:24)
[2022-06-13 20:00] VITALS: O2SAT 92
[2022-06-13] MEDS: POTASSIUM CHLORIDE 10 MEQ TABLET.ER 50 MEQ PO (20:45)
[2022-06-13] MEDS: traZODone HCL 50 MG TABLET PO (20:47)
--- NOTE | 2022-06-13 21:48 | WPDNEUROSGCN ---
Assessment and Plan Assessment and plan (1) Compression fracture: Status: Acute Plan Abelino is a 62-year-old gentleman within new inferior endplate L1 compression deformity which is mild. The mechanism of the injury is the most concerning. He does not appear to have suffered trauma. Perhaps his bone quality should be studied at some point. This, however, is not urgent and for now and will obtain a brace and treat him symptomatically until he can leave the hospital. If he fails to improve spontaneously in the short term we can arrange for him to see a pain medicine physician for consideration of a vertebroplasty. He may enjoy out of bed activity safely. Review of Systems Constitutional: Constitutional: Reports as per HPI, Reports body ache(s), Reports fatigue, Reports lethargy and Reports weakness Eyes: Eyes: Reports no additional eye complaints ENT: Reports Normal hearing present Cardiovascular: Cardiovascular: Reports leg edema Respiratory: Respiratory: Reports dyspnea Gastrointestinal: Gastrointestinal: Reports no additional gastrointestinal complaints Genitourinary: Genitourinary: Reports no additional male genitourinary complaints Musculoskeletal: Musculoskeletal: Reports back pain, Reports myalgias and Reports arthralgias Integumentary/Breasts: Skin/Breast: Reports system reviewed and no additional complaints, except as docu Neurologic: Reports system reviewed and no additional complaints, except as documented Psychiatric: Psychiatric: Reports no additional psychiatric complaints PMFSH Past Medical History Medical History Arthritis of knee Atrial fibrillation CAD (coronary artery disease) Chest pain CHF (congestive heart failure), NYHA class I Chronic fatigue Chronic liver failure BALBUENA (dyspnea on exertion) Elevated fasting glucose Esophageal varices GERD (gastroesophageal reflux disease) Gilbert syndrome Hyperlipidemia Hypertension Left knee DJD Obesity (BMI 30-39.9) SATHISH (obstructive sleep apnea) PONV (postoperative nausea and vomiting) PSVT (paroxysmal supraventricular tachycardia) Pulmonary hypertension Right knee DJD Screening cholesterol level Screening for colon cancer Screening for malignant neoplasm of prostate Screening for prostate cancer Screening for thyroid disorder Syncope Surgical History Surgical History H/O mechanical aortic valve replacement H/O mitral valve repair History of cholecystectomy History of sinus surgery History of tonsillectomy Family History Family History Sibling Heart disease Breast cancer Pacemaker Father Family history of cardiovascular disease Family history of coronary artery disease Family history of congestive heart failure Hypertension Cerebrovascular accident COPD (chronic obstructive pulmonary disease) Macular degeneration Mother Diabetes mellitus Heart failure Depression Heart disease Son Autism Heart disease Asthma Other Family history of mental disorder Social History Social History Social History: The patient lives with his and he has 2 children. He works for the [employer]. His is the durable power workers compensation attorney for healthcare. Code status full code Smoking status: Never smoker Second hand tobacco smoke exposure: No Alcohol intake: never Substance use: never Substance use type: does not use Lack of Transportation: No Lack of Food: Never True Current Housing: I Have Housing Concerned About Future Housing: No Difficulty Paying Gas/Electric Bills: No Difficulty Paying for Meds: No Currently Unemployed: No Education: Bachelor's Degree Difficulty w/ Childcare or Family Care: No Living arrangements: with
[2022-06-13 22:16] VITALS: BP 100/70; PULSE 100; RESP 18; TEMP 36.8; O2SAT 92
[2022-06-13 23:30] VITALS: PULSE 99; O2SAT 93
[2022-06-14 06:15] LABS: Basophils Percent Auto 0.8 % (0.2-1.2); Eosinophils Absolute Auto 0.2 K/mm3 (0-0.3); Eosinophils Percent Auto 4.3 % (0-4.4); Hematocrit 26.8 % (42.0-52.0); Hemoglobin 8.4 g/dL (14.0-18.0); Immature Granulocyte Absolute 0.01 K/mm3 (0.00-0.031); Immature Granulocyte Percent A 0.3 % (0-0.5); Immature Platelet Fraction Pct 2.5 % (0.9-11.2); Lymphocytes Absolute Auto 0.59 K/mm3 (0.9-3.2); Lymphocytes Percent Auto 15.1 % (18.3-44.2); Mean Corpuscular HGB Conc 31.3 g/dl (32-36); Mean Platelet Volume 9.2 fl (7.4-10.4); Monocytes Absolute Auto 0.5 K/mm3 (0.1-0.6); Monocytes Percent Auto 12.2 % (2.6-8.5); Neutrophils Absolute Auto 2.6 K/mm3 (1.3-6.7); Neutrophils Percent Auto 67.3 % (45.5-73.1); Platelet Count Result 103 k/mm3 (150-375); Red Blood Count 3.23 M/mm3 (4.6-6.20); Red Cell Distribution Width 16.7 % (11.5-14.5); White Blood Count 3.9 K/mm3 (4.5-10.0)
[2022-06-14 06:19] LABS: INR 3.6
[2022-06-14 06:20] LABS: Partial Thromboplastin Time 59.8 SECONDS (22.3-36.8)
[2022-06-14 06:26] LABS: Iron 16 ug/dL (49-181)
[2022-06-14 06:36] LABS: Percent Iron Saturation 4 % (20-50)
[2022-06-14 06:37] LABS: Alanine Aminotransferase 21 U/L (6-50); Albumin Level 3.1 g/dL (3.5-5.1); Alkaline Phosphatase 91 U/L (38-126); Anion Gap 8 mmol/L (8-16); Aspartate Amino Transferase 29 U/L (17-59); Bilirubin,Total 4.7 mg/dL (0.2-1.3); Blood Urea Nitrogen 15 mg/dL (9-20); Calcium 7.6 mg/dL (8.4-10.2); Carbon Dioxide 23 mmol/L (22-30); Chloride 102 mmol/L (98-107); Estimated CRCL calculation 107 ml/min; Estimated Glomerular Filt Rate > 60; Glucose 129 mg/dL (65-110); Magnesium 1.6 mg/dL (1.6-2.3); Potassium 3.7 mmol/L (3.4-5.0); Sodium 133 mmol/L (137-145)
[2022-06-14] MEDS: FLUTICASONE PROPIONATE 0.05% NA SPR 16 GM BTL (*BKC) 1 SPRAY NASAL ×2 (08:23→18:06)
[2022-06-14] MEDS: PANTOPRAZOLE 40 MG TABLET PO (08:23)
[2022-06-14] MEDS: ATORVASTATIN 10 MG TABLET PO (08:23)
[2022-06-14] MEDS: POTASSIUM CHLORIDE 10 MEQ TABLET.ER 50 MEQ PO ×2 (08:24→20:20)
[2022-06-14 08:25] VITALS: O2SAT 95
--- NOTE | 2022-06-14 08:27 | PCOTNOTE ---
Spoke with nurse, who is following up with neurosurgeon regarding ordering of brace. Will follow up with nurse when brace order clarified. Following.
[2022-06-14 08:44] LABS: Folic Acid 12.5 ng/mL (2.76->20)
[2022-06-14] MEDS: BUMETANIDE INJ 2.5 MG/10 ML VIAL 3 MG IV PUSH ×3 (10:41→18:06)
--- NOTE | 2022-06-14 10:41 | PCPTNOTE ---
Waiting on brace arrival to attempt PT evaluation, RN aware.
[2022-06-14] MEDS: CYCLOBENZAPRINE HCL 10 MG TABLET PO ×2 (10:43→23:36)
[2022-06-14] MEDS: MORPHINE SULFATE (*CRX) 4 MG/ML INJ 2 MG IV PUSH (10:43)
[2022-06-14] MEDS: LORATADINE 10 MG TABLET PO (11:46)
[2022-06-14] MEDS: POTASSIUM CHLORIDE 20 MEQ TABLET.ER 40 MEQ PO (11:47)
[2022-06-14] MEDS: traMADol HCL (*CRX) 25 MG TABLET PO (11:48)
--- NOTE | 2022-06-14 13:15 | P.PNIM_ITS ---
Progress Note: A&P Assessment and Plan (1) Acute on chronic respiratory failure with hypoxia: Code(s): J96.21 - Acute and chronic respiratory failure with hypoxia Status: Acute Assessment and Plan: Patient requiring 4 L supplemental oxygen and no prior home oxygen needs. Secondary to bilateral pleural effusions noted on chest CTA * Thoracentesis ordered but pending at INR at 1.5. Current INR 3.6 and warfarin is on hold since 06/13/22. * Continue diuresis with Bumex 3 mg IV t.i.d. * ABG shows paO2 54, pH 7.5, paCO2 25- respiratory alkalosis with hypoxemia * Monitor strict I's and O's * Daily weights * continue patient's sildenafil and diltiazem. Holding Opsumit per his Blanching Machine Operator's recommendation, given his hypervolemia picture. * 06/13/22 discussed the patient's case with his pump installation and servicer Dr. Dawkins, who was in a in agreement with current plan. Patient's is pending a transfer bed at [facility] where his pump installation and servicer is (2) Pleural effusion, right: Code(s): J90 - Pleural effusion, not elsewhere classified Status: Acute Assessment and Plan: As above. Patient is pending a thoracentesis until INR is within range. May be secondary to cirrhosis, CHF or both * Continue diuresis. Consider adding metolazone and or spironolactone if patient is recalcitrant to current diuretic therapy. * Monitor respiratory status. * Will repeat chest x-ray in 24-48 hours * Transthoracic echocardiogram shows reduced RV systolic function, mildly enlarged RV, RA/LA enlargement, hyperdynamic LVSF EF70%, and elevated right atrial pressure 8 mmHg (3) Compression fracture of L1 vertebra: Qualifiers: Encounter type: initial encounter Qualified Code(s): S32.010A - Wedge compression fracture of first lumbar vertebra, initial encounter for closed fracture Code(s): S32.010A - Wedge compression fracture of first lumbar vertebra, initial encounter for closed fracture Status: Acute Assessment and Plan: Compression fractures noted on lumbar CT. Patient reports picking up a heavy box and feeling a strain to his lower back. He reports persistent lower back spasms that are worse after lying flat. No saddle anesthesia, lower extremity paresthesia, or incontinence. He does endorse difficulty walking after onset of lower back spasms * Neurosurgery consulted and appreciate recommendations. Awaiting back brace. * Consult PT OT for evaluation * Continue muscle relaxants, p.r.n. analgesics, and daily Lidoderm patch. Increase tramadol 50 mg Q4 hours PRN. (4) CHF (congestive heart failure), NYHA class I: Code(s): I50.9 - Heart failure, unspecified Status: Chronic Assessment and Plan: Chronic, diastolic dysfunction with acute exacerbation as noted by increased shortness of breath, hypoxia, and bilateral pleural effusions. Previous echocardiogram from September 2021 shows normal LV systolic function with EF 64% and pseudonormal diastolic dysfunction grade 2. * BNP 748 on admission. * Echocardiogram as above showing right-sided heart failure * Continue diuresis as above * continue diltiazem and metoprolol * Monitor intake and output and daily weights - current weight unchanged 116 kg, I/O +2 pounds and appears inaccurate. Will add fluid restriction. (5) Pulmonary hypertension: Code(s): I27.20 - Pulmonary hypertension, unspecified Status: Chronic Assessment and Plan: Chronic, severe a pulmonary atrial hypertension. Continue diltiazem and sildenafil Hold opsumit due to pleural effusions (6) Atrial fibrillation: Code(s): I48.91 - Unspecified atrial fib
--- NOTE | 2022-06-14 13:15 | PM.IMPN ---
Progress Note: A&P Assessment and Plan (1) Acute on chronic respiratory failure with hypoxia: Code(s): J96.21 - Acute and chronic respiratory failure with hypoxia Status: Acute Assessment and Plan: Patient requiring 4 L supplemental oxygen and no prior home oxygen needs. Secondary to bilateral pleural effusions noted on chest CTA Thoracentesis ordered but pending at INR at 1.5. Current INR 3.6 and warfarin is on hold since 06/13/22. Continue diuresis with Bumex 3 mg IV t.i.d. ABG shows paO2 54, pH 7.5, paCO2 25- respiratory alkalosis with hypoxemia Monitor strict I's and O's Daily weights continue patient's sildenafil and diltiazem. Holding Opsumit per his Stockroom Clerk's recommendation, given his hypervolemia picture. 06/13/22 discussed the patient's case with his computer information systems professor Dr. Dawkins, who was in a in agreement with current plan. Patient's is pending a transfer bed at [facility] where his computer information systems professor is (2) Pleural effusion, right: Code(s): J90 - Pleural effusion, not elsewhere classified Status: Acute Assessment and Plan: As above. Patient is pending a thoracentesis until INR is within range. May be secondary to cirrhosis, CHF or both Continue diuresis. Consider adding metolazone and or spironolactone if patient is recalcitrant to current diuretic therapy. Monitor respiratory status. Will repeat chest x-ray in 24-48 hours Transthoracic echocardiogram shows reduced RV systolic function, mildly enlarged RV, RA/LA enlargement, hyperdynamic LVSF EF70%, and elevated right atrial pressure 8 mmHg (3) Compression fracture of L1 vertebra: Qualifiers: Encounter type: initial encounter Qualified Code(s): S32.010A - Wedge compression fracture of first lumbar vertebra, initial encounter for closed fracture Code(s): S32.010A - Wedge compression fracture of first lumbar vertebra, initial encounter for closed fracture Status: Acute Assessment and Plan: Compression fractures noted on lumbar CT. Patient reports picking up a heavy box and feeling a strain to his lower back. He reports persistent lower back spasms that are worse after lying flat. No saddle anesthesia, lower extremity paresthesia, or incontinence. He does endorse difficulty walking after onset of lower back spasms Neurosurgery consulted and appreciate recommendations. Awaiting back brace. Consult PT OT for evaluation Continue muscle relaxants, p.r.n. analgesics, and daily Lidoderm patch. Increase tramadol 50 mg Q4 hours PRN. (4) CHF (congestive heart failure), NYHA class I: Code(s): I50.9 - Heart failure, unspecified Status: Chronic Assessment and Plan: Chronic, diastolic dysfunction with acute exacerbation as noted by increased shortness of breath, hypoxia, and bilateral pleural effusions. Previous echocardiogram from September 2021 shows normal LV systolic function with EF 64% and pseudonormal diastolic dysfunction grade 2. BNP 748 on admission. Echocardiogram as above showing right-sided heart failure Continue diuresis as above continue diltiazem and metoprolol Monitor intake and output and daily weights - current weight unchanged 116 kg, I/O +2 pounds and appears inaccurate. Will add fluid restriction. (5) Pulmonary hypertension: Code(s): I27.20 - Pulmonary hypertension, unspecified Status: Chronic Assessment and Plan: Chronic, severe a pulmonary atrial hypertension. Continue diltiazem and sildenafil Hold opsumit due to pleural effusions (6) Atrial fibrillation: Code(s): I48.91 - Unspecified atrial fibrillation Status: Chronic Assessment and Plan: chronic paroxysmal atrial fibrillation. Continue metoprolol and diltiazem with hold parameters. Hold warfarin due to upcoming thoracentesis. Daily PT/INR (7) SATHISH (obstructive sleep apnea): Code(s): G47.33 - Obstructive sleep apnea (adult) (pediatric) Status: Chronic
[2022-06-14 14:06] VITALS: BP 111/68; PULSE 86; RESP 20; TEMP 36.5; O2SAT 94
[2022-06-14] MEDS: traMADol HCL (*CRX) 50 MG TABLET PO ×2 (16:32→23:36)
[2022-06-14 18:07] VITALS: PULSE 94
[2022-06-14] MEDS: SPIRONOLACTONE 12.5 MG TABLET PO (18:07)
[2022-06-14] MEDS: METOPROLOL SUCCINATE EXT REL 25 MG TABCR 75 MG PO (18:07)
--- NOTE | 2022-06-14 18:59 | PC.NURSE ---
inr 3.6, reported to LINDSAY Brito warfarin scheduled 7.5 mg, held, N.o given 7.0 mg tonight. Pt hx aortic valve repair and afib.
--- NOTE | 2022-06-14 19:39 | PC.NURSE ---
Jen ECHEVARRIA reported warfarin on hold, Pricila Mojica note states warfarin supposed to be on hold since 06/13/22, warfarin held this shift.
--- NOTE | 2022-06-14 19:41 | PC.NURSE ---
pt awaiting transport to [place]
[2022-06-14 20:00] VITALS: O2SAT 94
[2022-06-14 22:00] VITALS: BP 111/68; PULSE 75; RESP 19; TEMP 36.7; O2SAT 96
--- NOTE | 2022-06-14 22:21 | PC.NURSE ---
pt still awaiting transport to [place]
[2022-06-14 22:58] VITALS: O2SAT 92
--- NOTE | 2022-06-14 23:51 | PC.NURSE ---
informed Yeyo Fall at [place] pt in route soon, tramadol 50 mg prn q4hrs and flexirl prior to be transportd via [facility].
--- NOTE | 2022-06-15 17:46 | P.TS_ITS ---
Transfer Discharge Sum: Prov Provider Date of admission: 06/13/22 14:38 Primary care physician: Stephan Love MD Admitting clinician: Sarah Forbes MD Consults: 06/12/22 13:30 Consult to Physician Routine Comment: spoke to office @[phone] (,us) Consulting Provider: Fer Acevedo Reason for consultation: L1 compression fx Has provider been notified: Yes Attending physician on discharge: Bettina Garcia Discharging clinician: Pricila Sun Anticipated date of transfer: 05/15/22 Receiving physician/facility: [facility] DS: Admitting Diagnosis Discharge Date 06/15/22 0011 Admitting Diagnosis Acute on chronic respiratory failure with hypoxia Pleural effusion, right Compression fracture of L1 vertebra CHF (congestive heart failure), NYHA class I Pulmonary hypertension Atrial fibrillation H/O mechanical aortic valve replacement Chronic liver failure DS: Discharge Diagnosis Discharge Diagnosis (1) Acute on chronic respiratory failure with hypoxia: Code(s): J96.21 - Acute and chronic respiratory failure with hypoxia Status: Acute Assessment and Plan: Patient requiring 4 L supplemental oxygen and no prior home oxygen needs. Secondary to bilateral pleural effusions noted on chest CTA * Thoracentesis ordered but pending until at INR at 1.5. Current INR 3.6 and warfarin is on hold since last dose 06/12/22. * Continue diuresis with Bumex 3 mg IV t.i.d. * 06/14/22 added low dose spironolactone 12.5 mg BID * ABG shows paO2 54, pH 7.5, paCO2 25- acute respiratory alkalosis from hyperventilation with hypoxemia * Monitor strict I's and O's * Daily weights * continue patient's sildenafil and diltiazem. * Holding Opsumit per his Marine Farmer's recommendation, given his hypervolemia picture. 06/13/22 discussed the patient's case with his pipeline integrity engineer Dr. Dawkins, who was in a in agreement with current plan. Patient's is pending a transfer bed at [facility] where he can be evaluated by his pipeline integrity engineer (2) Pleural effusion, right: Code(s): J90 - Pleural effusion, not elsewhere classified Status: Acute Assessment and Plan: As above. Patient is pending a thoracentesis until INR is within range. May be secondary to cirrhosis, CHF or both * Continue diuresis as above. * Monitor respiratory status. * Will repeat chest x-ray in 24-48 hours * Transthoracic echocardiogram shows reduced RV systolic function, mildly enlarged RV, RA/LA enlargement, hyperdynamic LVSF EF70%, and elevated right atrial pressure 8 mmHg (3) Compression fracture of L1 vertebra: Qualifiers: Encounter type: initial encounter Qualified Code(s): S32.010A - Wedge compression fracture of first lumbar vertebra, initial encounter for closed fracture Code(s): S32.010A - Wedge compression fracture of first lumbar vertebra, initial encounter for closed fracture Status: Acute Assessment and Plan: Compression fractures noted on lumbar CT. Patient reports picking up a heavy box and feeling a strain to his lower back. He reports persistent lower back spasms that are worse after lying flat. No saddle anesthesia, lower extremity paresthesia, or incontinence. He does endorse difficulty walking after onset of lower back spasms * Neurosurgery consulted and appreciate recommendations. Awaiting back brace. * Consult PT OT for evaluation * Continue muscle relaxants, p.r.n. analgesics, and daily Lidoderm patch. Increased tramadol 50 mg
--- NOTE | 2022-06-15 17:46 | PM.TDS ---
Transfer Discharge Sum: Prov Provider Date of admission: 06/13/22 14:38 Primary care physician: Stephan Love MD Admitting clinician: Sarah Forbes MD Consults: 06/12/22 13:30 Consult to Physician Routine Comment: spoke to office @[phone] (,[place]) Consulting Provider: Fer Acevedo Reason for consultation: L1 compression fx Has provider been notified: Yes Attending physician on discharge: Bettina Garcia Discharging clinician: Pricila Sun Anticipated date of transfer: 05/15/22 Receiving physician/facility: [facility] DS: Admitting Diagnosis Discharge Date 06/15/22 0011 Admitting Diagnosis Acute on chronic respiratory failure with hypoxia Pleural effusion, right Compression fracture of L1 vertebra CHF (congestive heart failure), NYHA class I Pulmonary hypertension Atrial fibrillation H/O mechanical aortic valve replacement Chronic liver failure DS: Discharge Diagnosis Discharge Diagnosis (1) Acute on chronic respiratory failure with hypoxia: Code(s): J96.21 - Acute and chronic respiratory failure with hypoxia Status: Acute Assessment and Plan: Patient requiring 4 L supplemental oxygen and no prior home oxygen needs. Secondary to bilateral pleural effusions noted on chest CTA Thoracentesis ordered but pending until at INR at 1.5. Current INR 3.6 and warfarin is on hold since last dose 06/12/22. Continue diuresis with Bumex 3 mg IV t.i.d. 06/14/22 added low dose spironolactone 12.5 mg BID ABG shows paO2 54, pH 7.5, paCO2 25- acute respiratory alkalosis from hyperventilation with hypoxemia Monitor strict I's and O's Daily weights continue patient's sildenafil and diltiazem. Holding Opsumit per his Riverboat Captain's recommendation, given his hypervolemia picture. 06/13/22 discussed the patient's case with his bakelite molder Dr. Dawkins, who was in a in agreement with current plan. Patient's is pending a transfer bed at [facility] where he can be evaluated by his bakelite molder (2) Pleural effusion, right: Code(s): J90 - Pleural effusion, not elsewhere classified Status: Acute Assessment and Plan: As above. Patient is pending a thoracentesis until INR is within range. May be secondary to cirrhosis, CHF or both Continue diuresis as above. Monitor respiratory status. Will repeat chest x-ray in 24-48 hours Transthoracic echocardiogram shows reduced RV systolic function, mildly enlarged RV, RA/LA enlargement, hyperdynamic LVSF EF70%, and elevated right atrial pressure 8 mmHg (3) Compression fracture of L1 vertebra: Qualifiers: Encounter type: initial encounter Qualified Code(s): S32.010A - Wedge compression fracture of first lumbar vertebra, initial encounter for closed fracture Code(s): S32.010A - Wedge compression fracture of first lumbar vertebra, initial encounter for closed fracture Status: Acute Assessment and Plan: Compression fractures noted on lumbar CT. Patient reports picking up a heavy box and feeling a strain to his lower back. He reports persistent lower back spasms that are worse after lying flat. No saddle anesthesia, lower extremity paresthesia, or incontinence. He does endorse difficulty walking after onset of lower back spasms Neurosurgery consulted and appreciate recommendations. Awaiting back brace. Consult PT OT for evaluation Continue muscle relaxants, p.r.n. analgesics, and daily Lidoderm patch. Increased tramadol 50 mg Q4 hours PRN- monitor neuro status given liver disease. (4) CHF (congestive heart failure), NYHA class I: Code(s): I50.9 - Heart failure, unspecified Status: Chronic Assessment and Plan: Chronic, diastolic dysfunction with acute exacerbation as noted by increased shortness of breath, hypoxia, and bilateral pleural effusions. Previous echocardiogram from September 2021 shows normal LV systolic function with EF 64% and pseudonormal diastolic dysf
== END 2022-06-15 00:12 | disposition short-term general hospital (02) | DRG 189 ==
LOC: ANHED 11:13 → ANH3MEDSUR 12:58
PROVIDERS: Nurse Practitioner; Physician Assistant; Admitting Provider Family Medicine; Emergency Provider Emergency Medicine; PCP Family Medicine; Visit Provider Nurse Practitioner Family
DX: J96.21 Acute and chronic respiratory failure with hypoxia (principal); I50.33 Acute on chronic diastolic (congestive) heart failure; S32.010A Wedge compression fracture of first lumbar vertebra, initial encounter for closed fracture; J90 Pleural effusion, not elsewhere classified; I11.0 Hypertensive heart disease with heart failure; I27.20 Pulmonary hypertension, unspecified; I48.0 Paroxysmal atrial fibrillation; K75.81 Nonalcoholic steatohepatitis (NASH); K74.69 Other cirrhosis of liver; Z20.822 Contact with and (suspected) exposure to COVID-19; I25.10 Atherosclerotic heart disease of native coronary artery without angina pectoris; K21.9 Gastro-esophageal reflux disease without esophagitis; D50.9 Iron deficiency anemia, unspecified; K72.10 Chronic hepatic failure without coma; E78.5 Hyperlipidemia, unspecified; E80.4 Gilbert syndrome; E66.9 Obesity, unspecified; G47.33 Obstructive sleep apnea (adult) (pediatric); M17.0 Bilateral primary osteoarthritis of knee; Z95.2 Presence of prosthetic heart valve; Z86.16 Personal history of COVID-19; Z79.01 Long term (current) use of anticoagulants; Z68.35 Body mass index [BMI] 35.0-35.9, adult; Z90.49 Acquired absence of other specified parts of digestive tract
CPT/HCPCS: 36415; 36600; 71046; 71275; 72131; 80053; 82375; 82607; 82728; 82746; 82805; 83050; 83540; 83550; 83605; 83735; 83880; 84100; 84443; 84484; 85025; 85055; 85610; 85730; 87636; 93005; 93970; 96374; 96375; 96376; 99285; A9270; C8929; G0378; J2270; J2405; Q9957; Q9967

== ENCOUNTER 2022-07-10 08:55 | Inpatient (IN) | payer OTHER, SELFPAY ==
[2022-07-10] VITALS (29 sets, daily range): BP systolic 97–128; BP diastolic 47–114; PULSE 67–85; RESP 14–26; TEMP 36.4–36.7; O2SAT 94–100; BMI 30.5
--- NOTE | ~2022-07-10 | XR_ITS ---
Portable chest x-ray Comparison: 06/12/2022 Clinical History: Dyspnea Findings: Lungs are clear, without focal consolidation or pleural effusion. Cardiomediastinal silho uette is stable. Bones and soft tissues are unremarkable. Impression: Clear lungs. Reviewed, dictated and finalized at location . [facility] CHILD NURSE Impression: Clear lungs.
--- NOTE | 2022-07-10 09:26 | ECG_ITS ---
Measurements Intervals [place] Rate: 72 P: 84 PA: 155 QRS: 2 QRSD: 110 T: 77 QT: 425 QTc: 465 Interpretive Statements SINUS RHYTHM WITH MARKED SINUS ARRHYTHMIA INCOMPLETE RIGHT BUNDLE BRANCH BLOCK [90+ ms QRS DURATION, TERMINAL R IN V1/V2, 40+ ms S IN I/aVL/V4/V5/V6] NONSPECIFIC ST & T-WAVE ABNORMALITY ABNORMAL ECG COMPARED TO ECG 06/12/2022 08:14:54 SINUS RHYTHM NOW PRESENT SINUS ARRHYTHMIA NOW PRESENT INCOMPLETE RIGHT BUNDLE-BRANCH BLOCK NOW PRESENT T-WAVE ABNORMALITY NOW PRESENT Electronically Signed On 07-10-2022 14:14:14 FERMENTER OPERATOR by Baldo Holliday M.D.
[2022-07-10 09:51] LABS: Basophils Percent Auto 0.7 % (0.2-1.2); Eosinophils Absolute Auto 0.1 K/mm3 (0-0.3); Eosinophils Percent Auto 1.4 % (0-4.4); Hematocrit 28.2 % (42.0-52.0); Hemoglobin 8.9 g/dL (14.0-18.0); Immature Granulocyte Absolute 0.03 K/mm3 (0.00-0.031); Immature Granulocyte Percent A 0.7 % (0-0.5); Lymphocytes Absolute Auto 0.64 K/mm3 (0.9-3.2); Mean Corpuscular HGB Conc 31.6 g/dl (32-36); Mean Corpuscular Hemoglobin 23.8 pg (26-34); Mean Corpuscular Volume 75.4 fl (80-100); Mean Platelet Volume 8.7 fl (7.4-10.4); Monocytes Absolute Auto 0.6 K/mm3 (0.1-0.6); Neutrophils Absolute Auto 2.9 K/mm3 (1.3-6.7); Neutrophils Percent Auto 67.2 % (45.5-73.1); Platelet Count Result 112 k/mm3 (150-375); Red Blood Count 3.74 M/mm3 (4.6-6.20); Red Cell Distribution Width 16.3 % (11.5-14.5); White Blood Count 4.3 K/mm3 (4.5-10.0)
[2022-07-10 10:02] LABS: Alanine Aminotransferase 20 U/L (6-50); Albumin Level 3.9 g/dL (3.5-5.1); Alkaline Phosphatase 96 U/L (38-126); Anion Gap 13 mmol/L (8-16); Aspartate Amino Transferase 32 U/L (17-59); Bilirubin,Total 2.6 mg/dL (0.2-1.3); Blood Urea Nitrogen 47 mg/dL (9-20); Carbon Dioxide 27 mmol/L (22-30); Chloride 94 mmol/L (98-107); Estimated CRCL calculation 35 ml/min; Estimated Glomerular Filt Rate 32; Glucose 136 mg/dL (65-110); Potassium 3.6 mmol/L (3.4-5.0); Sodium 134 mmol/L (137-145)
[2022-07-10 10:11] LABS: Prothrombin Time 70.6 Seconds (11.1-14.7)
[2022-07-10] MEDS: SODIUM CHLORIDE 0.9% IV 1,000 ML 999 ML IV CONT (10:22)
[2022-07-10 10:25] LABS: INR 8.9
[2022-07-10 10:50] LABS: NT Pro B Type Natriuretic Pept 591 pg/mL (19.9-100)
--- NOTE | 2022-07-10 10:51 | ED.GENADULT ---
HPI - General Adult General Chief complaint: Recheck/Abnormal Lab/Rx Stated complaint: INR is elevated Time Seen by Provider: 07/10/22 09:08 History of Present Illness HPI narrative: This is a 62-year-old male with PMH of pulmonary hypertension, aortic mechanical valve, A-fib who presents for lab recheck of elevated INR. He had labs drawn yesterday that showed an INR of 8.2. When asked about bleeding he reports epistaxis episode that resolved yesterday evening on its own. He also notes some questionable bloody stools as his stools have been purple. Related Data Home Medications Medication Instructions Recorded Confirmed potassium chloride 10 mEq 40 meq PO BID 12/15/19 07/10/22 tablet,extended release warfarin 5 mg tablet 7.5 mg PO DAILY 12/15/19 07/10/22 fexofenadine 180 mg tablet 180 mg PO DAILY 12/25/19 07/10/22 (Danae Allergy) fluticasone propionate 50 2 spray intranasal DAILY 12/25/19 07/10/22 mcg/actuation nasal spray,suspension (Flonase Allergy Relief) atorvastatin 10 mg tablet 10 mg PO DAILY 10/10/21 07/10/22 sildenafil (pulm.hypertension) 20 40 mg PO TID 05/03/22 07/10/22 mg tablet albuterol sulfate 90 mcg/actuation 2 inhalation inhalation Q4H PRN 07/10/22 07/10/22 aerosol inhaler shortness of breath or wheezing bumetanide 2 mg tablet 2 mg PO BID 07/10/22 07/10/22 cyclobenzaprine 10 mg tablet 10 mg PO BID PRN Muscle Spasm 07/10/22 07/10/22 ergocalciferol (vitamin D2) 25,000 50,000 unit PO WEEKLY 07/10/22 07/10/22 unit capsule metolazone 2.5 mg tablet 2.5 mg PO 3XW 07/10/22 07/10/22 midodrine 10 mg tablet 10 mg PO TID 07/10/22 07/10/22 spironolactone 50 mg tablet 50 mg PO DAILY 07/10/22 07/10/22 Allergies Allergy/AdvReac Type Severity Reaction Status Date / Time No Known Allergies Allergy Verified 07/10/22 09:02 Review of Systems Review of Systems: CONSTITUTIONAL: Denies fever, chills, or sweats. EYES: Denies visual changes, redness, or discharge. ENT: Denies rhinorrhea, congestion, sore throat, or otalgia. Resolved epistaxis reported. CARDIOVASCULAR: Denies chest pain, palpitations, or edema. RESPIRATORY: Denies cough or dyspnea. GASTROINTESTINAL: Denies abdominal pain, nausea, vomiting, or diarrhea. Reports bloody stools. GENITOURINARY: Denies dysuria or hematuria. SKIN: Denies rash or itching. MUSCULOSKELETAL: Denies back pain, joint pain, or myalgia. NEUROLOGIC: Denies headache, numbness, dizziness, or weakness. Denies lightheadedness. PSYCHIATRIC: Denies anxiety or depression. [facility] Past Medical History Medical History Arthritis Chronic fatigue Compression fracture of L1 vertebra (05/2022) Status post vertebroplasty on 06/22/2022. Congestive heart failure Echo on 06/13/2022: Hyperdynamic LV systolic function with an estimated EF > 70%, mildly enlarged RV chamber with reduced RV systolic function, moderate biatrial enlargement, PASP 70 mmHg. 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 Duffy at [place]. Obstructive sleep apnea Paroxysmal atrial fibrillation Pulmonary hypertension Patient of Dr. Shruthi Zuniga at [place]. Syncope Surgical History Surgical History History of arthroscopy of both knees (2012) History of cholecystectomy (06/2011) History of mechanical aortic valve replacement (05/2016) On-X valve, done at [facility]. History of mitral valve repair (05/2016) History of sinus surgery (2013) History of tonsillectomy History of vertebroplasty (06/2022) Family History Family History Sibling Heart disease Breast cancer Pacemaker Father Family history of cardiovascular disease Family history of co
--- NOTE | 2022-07-10 11:28 | PC.NURSE ---
1st encounter, pt report received from Keli RN, pt resting comfortably on stretcher, no acute distress or SOB, airway patent, breathing even/unlabored. pt A&Ox4. pt has no complaints at this time. pt awaiting re-eval from and kelly.
[2022-07-10 12:35] LABS: Influenza A QL RT-PCR Negative (Negative); Influenza B QL RT-PCR Negative (Negative); SARS-CoV-2 RNA PCR Negative
--- NOTE | 2022-07-10 13:32 | ADMGEN ---
This patient, Abelino Vargas, was admitted to 2 Medical Room 259-. Patient/family oriented to hospital policies and general routines including ID bracelet, bed and alarms, visiting hours, pain management, procedures, bathroom and other care routines, personal items, smoking policy, room service/diet, and visiting hours. Information on how to activate the Rapid Response Team has been discussed. Patient/Family are encouraged to report perceived risks to care and to ask questions if they do not understand what they are told or what they should do.
--- NOTE | 2022-07-10 15:02 | PM.CNCAR ---
Assessment and Plan Assessment and plan (1) Supratherapeutic INR: Code(s): R79.1 - Abnormal coagulation profile Status: Acute Assessment and Plan: INR 8.9 on admission. Hold Warfarin. Obtain daily INRs. (2) Guaiac + stool: Code(s): R19.5 - Other fecal abnormalities Status: Acute (3) Acute kidney injury: Code(s): N17.9 - Acute kidney failure, unspecified Status: Acute Assessment and Plan: His Scr today is 2.10. He had a BMP done 07/09/2022 which showed SCr was 1.9. Two weeks ago, his Scr was 1.67. Holding diuretics. (4) Congestive heart failure: Code(s): I50.9 - Heart failure, unspecified Status: Acute Assessment and Plan: EF preserved, reduced RVSF Holding all diuretics for now. Of note, he was contacted by Dr. Zuniga at [place] earlier today, and due to his weight loss, he was instructed to hold diuretics today and tomorrow, and then change Bumex to 0.5mg BID and decrease Spironolactone to 25mg QD. Continue to hold all Metolazone doses. (5) Pulmonary hypertension: Code(s): I27.20 - Pulmonary hypertension, unspecified Status: Chronic Assessment and Plan: Continue Sildenafil. Of note, he was contacted by Dr. Zuniga at [place] earlier today, and due to his weight loss, he was instructed to hold diuretics today and tomorrow, and then change Bumex to 0.5mg BID and decrease Spironolactone to 25mg QD. Continue to hold all Metolazone doses. (6) H/O mechanical aortic valve replacement: Code(s): Z95.2 - Presence of prosthetic heart valve Status: Chronic Assessment and Plan: Holding Warfarin due to supratherapeutic INR. (7) Atrial fibrillation: Code(s): I48.91 - Unspecified atrial fibrillation Status: Chronic Assessment and Plan: Holding Warfarin due to supratherapeutic INR. Continue Metoprolol History of Present Illness History of Present Illness Consult date/time: 07/10/22 15:02 Requesting physician: Leonel Lynn PA-C Consult reason: Other (Elevated INR) Reason For Visit: Acute Kidney Injury/Elevated Inr/Guaiac + Stool Narrative: We are consulted for elevated INR. This is a 62-year-old male who is known to us. He has a history of DAUGHERTY cirrhosis, history of COVID, mechanical aortic valve replacement, mitral valve repair, pulmonary hypertension, atrial fibrillation, Gilbert's who presented to the ER for elevated INR. Patient was recently discharged from [place] on 06/23/2022 after being admitted with acute hypoxic respiratory failure. He was discharged on: Bumex 2mg BID Metolazone 2.5mg MWF Spironolactone 25mg QD Sildenafil 40mg TID Midodrine 10mg TID Potassium 40mEq BID Metoprolol 75mg QD He has been on Warfarin 7.5mg QD, which has been his dose for a while now. However, patient has lost a significant amount of weight recently. He was contacted by Dr. Zuniga at [place] earlier today, and due to his weight loss, he was instructed to hold diuretics today and tomorrow, and then change Bumex to 0.5mg BID and decrease Spironolactone to 25mg QD. Continue to hold all Metolazone doses. Labs today show acute on chronic anemia. INR of 8.9. His Scr today is 2.10. He had a BMP done yesterday which showed SCr was 1.9. Two weeks ago, his Scr was 1.67. Review of Systems Review of Systems: 12 point ROS obtained. Negative, unless stated in HPI. [facility] Past Medical History Medical History Arthritis Chronic fatigue Compression fracture of L1 vertebra (05/2022) Status post vertebroplasty on 06/22/2022. Congestive heart failure Echo on 06/13/2022: Hyperdynamic LV systolic function with an estimated EF > 70%, mildly enlarged RV chamber with reduced RV systolic function, moderate biatrial enlargement, PASP 70 mmHg. Coronary artery disease Esophageal varices Gastroesophageal reflux disease Gilbert syndrome Hyperlipidemia Hypertension Insomnia Liver
--- NOTE | 2022-07-10 15:30 | PM.IMHP ---
H&P: HPI History of Present Illness Date/Time: 07/10/22 15:30 Chief Complaint: Elevated INR. Narrative: This is a very pleasant 62-year-old male with valvular heart disease status post On-X mechanical aortic valve replacement and mitral valve repair in 2017 on chronic warfarin anticoagulation, pulmonary hypertension, right-sided heart failure with preserved ejection fraction, paroxysmal atrial fibrillation, hyperlipidemia, sleep apnea, DAUGHERTY cirrhosis, and Gilbert's disease who presented to the emergency department for evaluation of an elevated INR. Patient provides the following history. He was recently hospitalized at this facility 06/12/2022 through 06/15/2022 for hypoxia and right-sided pleural effusion after presenting with shortness of breath. He was transferred to [place] for consultation with his specialists given his complex medical history. It is my understanding that he was started on macitentan and sildenafil in 04/2022 and he has gained quite a bit of weight since that time. There were concerns that the pleural effusion may be related to the initiation of the macitentan with a differential to include hepatic hydrothorax and decompensated heart failure. Macitentan was discontinued he was aggressively diuresed to a dry rate of 243 lb per discharge summary. He was discharged home with a diuresis regimen to include Bumex 2 mg b.i.d., metolazone 2.5 mg 3 times weekly, and spironolactone 50 mg daily with 80 mEq KCL supplementation. His sildenafil was increased to 40 mg t.i.d. with midodrine 10 mg t.i.d.. Also of note he had vertebroplasty for an L1 compression fracture done during that stay and he continues to have some mild back discomfort. In any event he had a routine lab draw yesterday to check his INR and was told that it was significantly elevated and he was directed to the emergency department. His INR today was 8.9 and he attributes this to poor oral intake which he blames on altered taste since he had COVID in late 04/2022. Labs done today were also significant for an acute kidney injury with a BUN and creatinine of 47 and 2.10 respectively. With further questioning he has experienced some nose bleeds and reports having pretty significant epistaxis last evening. He has not noticed any blood in the stools though he reports that they appeared dark yesterday when he had loose stools after taking a laxative. He has not noticed any significant change in urine output. Review of Systems Review of Systems: Twelve systems were reviewed. He reports being fatigued. He has chills frequently which he blames on anticoagulation. No fever or sweats. No cold or flu symptoms. Occasional nonproductive cough which is unchanged. No orthopnea. No calf pain. He has not had any chest pain or pleuritic pain. No syncope or near syncope. He denies nausea and vomiting. He has not noticed any significant change in urine output. Except as documented, all other systems were reviewed and are negative. [facility] Past Medical History Medical History Arthritis Chronic fatigue Compression fracture of L1 vertebra (05/2022) Status post vertebroplasty on 06/22/2022. Congestive heart failure Echo on 06/13/2022: Hyperdynamic LV systolic function with an estimated EF > 70%, mildly enlarged RV chamber with reduced RV systolic function, moderate biatrial enlargement, PASP 70 mmHg. 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 Duffy at [place]. Obstructive sleep apnea Paroxysmal atrial fibrillation Pulmonary hypertension Patient of Dr. Shruthi Zuniga at [place]. Syncope Surgical History Surgical History History of arthroscopy of both knees (2012) History of cholecystectomy (06/2011) History of mechan
[2022-07-10 15:41] LABS: Hematocrit 27.4 % (42.0-52.0); Hemoglobin 8.7 g/dL (14.0-18.0); Immature Reticulocyte Fraction 24.8 % (3.0-15.9); Reticulocyte Hemoglobin Conten 23.7 pg (28.2-35.7); Reticulocyte Percent 2.32 % (0.7-4.3); Reticulocytes Absolute 0.08 B/L (32.2-175.7)
[2022-07-10 17:35] LABS: Iron 16 ug/dL (49-181)
[2022-07-10 17:37] LABS: Anion Gap 10 mmol/L (8-16); Blood Urea Nitrogen 43 mg/dL (9-20); Calcium 8.7 mg/dL (8.4-10.2); Carbon Dioxide 27 mmol/L (22-30); Chloride 98 mmol/L (98-107); Creatine Kinase 27 U/L (55-170); Estimated CRCL calculation 46 ml/min; Estimated Glomerular Filt Rate 38; Glucose 201 mg/dL (65-110); Magnesium 1.5 mg/dL (1.6-2.3); Potassium 3.5 mmol/L (3.4-5.0); Sodium 135 mmol/L (137-145)
[2022-07-10 17:45] LABS: Percent Iron Saturation 4 % (20-50)
[2022-07-10] MEDS: MIDODRINE HCL 10 MG TABLET PO (17:56)
[2022-07-10] MEDS: SILDENAFIL CITRATE 20 MG TABLET 40 MG PO (17:56)
[2022-07-10 18:44] LABS: Folic Acid 12.5 ng/mL (2.76->20)
[2022-07-10] MEDS: CYCLOBENZAPRINE HCL 10 MG TABLET PO (20:49)
[2022-07-10] MEDS: MAGNESIUM SULF 2 GM/WATER 50ML 2 GM/50 ML BAG IVPB (22:11)
[2022-07-11] VITALS (13 sets, daily range): BP systolic 96–110; BP diastolic 53–64; PULSE 67–92; RESP 14–18; TEMP 36.6–36.9; O2SAT 96–99; BMI 31.4
[2022-07-11 02:02] LABS: IFOB Positive Control Positive; Immunochemical Fecal Occult Bl Positive (N)
[2022-07-11 06:01] LABS: Hematocrit 23.3 % (42.0-52.0); Hemoglobin 7.3 g/dL (14.0-18.0); Immature Platelet Fraction Pct 1.4 % (0.9-11.2); Mean Corpuscular HGB Conc 31.3 g/dl (32-36); Mean Corpuscular Hemoglobin 23.6 pg (26-34); Mean Corpuscular Volume 75.4 fl (80-100); Mean Platelet Volume 8.8 fl (7.4-10.4); Platelet Count Result 101 k/mm3 (150-375); Red Blood Count 3.09 M/mm3 (4.6-6.20); Red Cell Distribution Width 16.1 % (11.5-14.5); White Blood Count 3.3 K/mm3 (4.5-10.0)
[2022-07-11 06:07] LABS: Hemoglobin A1C 6.5 % (<5.7)
[2022-07-11 06:11] LABS: Alanine Aminotransferase 18 U/L (6-50); Albumin Level 3.2 g/dL (3.5-5.1); Alkaline Phosphatase 90 U/L (38-126); Anion Gap 4 mmol/L (8-16); Aspartate Amino Transferase 29 U/L (17-59); Blood Urea Nitrogen 34 mg/dL (9-20); Calcium 8.5 mg/dL (8.4-10.2); Carbon Dioxide 28 mmol/L (22-30); Chloride 99 mmol/L (98-107); Estimated CRCL calculation 63 ml/min; Estimated Glomerular Filt Rate 56; Glucose 111 mg/dL (65-110); Magnesium 1.9 mg/dL (1.6-2.3); Potassium 3.7 mmol/L (3.4-5.0); Sodium 131 mmol/L (137-145)
[2022-07-11] MEDS: LORATADINE 10 MG TABLET PO (08:24)
[2022-07-11] MEDS: ATORVASTATIN 10 MG TABLET PO (08:24)
[2022-07-11] MEDS: MIDODRINE HCL 10 MG TABLET PO ×3 (08:25→17:15)
[2022-07-11] MEDS: PANTOPRAZOLE 40 MG TABLET PO (08:25)
[2022-07-11] MEDS: SILDENAFIL CITRATE 20 MG TABLET 40 MG PO ×3 (08:25→17:16)
[2022-07-11] MEDS: METOPROLOL SUCCINATE EXT REL 25 MG TABCR 75 MG PO (08:26)
[2022-07-11 08:39] LABS: Partial Thromboplastin Time 55.7 SECONDS (22.3-36.8); Prothrombin Time 78.8 Seconds (11.1-14.7)
[2022-07-11 10:01] LABS: INR 10.2
[2022-07-11] MEDS: CYCLOBENZAPRINE HCL 10 MG TABLET PO ×2 (10:20→20:41)
[2022-07-11] MEDS: PHYTONADIONE ADULT INJ 10 MG in DEXTROSE 5% IN WATER 50 ML 100 MG IVPB (10:33)
--- NOTE | 2022-07-11 10:45 | P.PNIM_ITS ---
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 * GI consulted * Occult blood positive * INR up to 10.2 * Continue trend labs * Transfuse if hemoglobin less than 7 (3) Supratherapeutic INR: Code(s): R79.1 - Abnormal coagulation profile Status: Acute Assessment and Plan: * INR trending up 10.2 * Vitamin K ordered at this time * Could be related to diet changes * Continue to trend labs * Stop warafarin for now * INR goal 2.5-3.5 (4) Pulmonary hypertension: Code(s): I27.20 - Pulmonary hypertension, unspecified Status: Chronic Assessment and Plan: * Continue sildenafil * Echo from 06/13/22 showed EF of >70% with a a PA pressure of 8, and some degree of diastolic dysfunction (5) Paroxysmal atrial fibrillation: Code(s): I48.0 - Paroxysmal atrial fibrillation Status: Acute Assessment and Plan: * HR controlled at 67 * Warfarin on hold as detailed above * Continue metoprolol. * Trend HR (6) Hyperglycemia: Code(s): R73.9 - Hyperglycemia, unspecified Status: Acute Assessment and Plan: * Glucose 111 * A1c 6.5 * ISS * Hold oral antidiabetic * trend labs * Hypoglycemia protocol * adjust therapy as indicated (7) Obstructive sleep apnea: Code(s): G47.33 - Obstructive sleep apnea (adult) (pediatric) Status: Acute Assessment and Plan: * CPAP from home * trend respiratory status (8) GI bleed: Code(s): K92.2 - Gastrointestinal hemorrhage, unspecified Status: Acute Assessment and Plan: * Patient reports bloody stools * H&H trending down currently 7.3/23.3 * Anemia labs indicated iron deficiency anemia along with acute blood loss anemia * Continue to trend H&H frequently, however, will need to be cautious since his INR is supertherapeutic * GI consulted * Not sure that invasive procedures are able to be done since INR is >10 * Start Protonix BID Time Spent With Patient Time: 56 minutes Time with patient: Greater than 35 minutes Subjective Date/time seen: 07/11/22 1045 Interval history: 07/11/22 1045 Patient is coming in the bathroom and I walked in. Currently his arm is bleeding along with his nose. INR had went up currently at 10.2. Vitamin K given. Patient also stated he still having significant amount diarrhea that is bloody. He denies any chest
--- NOTE | 2022-07-11 10:45 | PM.IMPN ---
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 GI consulted Occult blood positive INR up to 10.2 Continue trend labs Transfuse if hemoglobin less than 7 (3) Supratherapeutic INR: Code(s): R79.1 - Abnormal coagulation profile Status: Acute Assessment and Plan: INR trending up 10.2 Vitamin K ordered at this time Could be related to diet changes Continue to trend labs Stop warafarin for now INR goal 2.5-3.5 (4) Pulmonary hypertension: Code(s): I27.20 - Pulmonary hypertension, unspecified Status: Chronic Assessment and Plan: Continue sildenafil Echo from 06/13/22 showed EF of >70% with a a PA pressure of 8, and some degree of diastolic dysfunction (5) Paroxysmal atrial fibrillation: Code(s): I48.0 - Paroxysmal atrial fibrillation Status: Acute Assessment and Plan: HR controlled at 67 Warfarin on hold as detailed above Continue metoprolol. Trend HR (6) Hyperglycemia: Code(s): R73.9 - Hyperglycemia, unspecified Status: Acute Assessment and Plan: Glucose 111 A1c 6.5 ISS Hold oral antidiabetic trend labs Hypoglycemia protocol adjust therapy as indicated (7) Obstructive sleep apnea: Code(s): G47.33 - Obstructive sleep apnea (adult) (pediatric) Status: Acute Assessment and Plan: CPAP from home trend respiratory status (8) GI bleed: Code(s): K92.2 - Gastrointestinal hemorrhage, unspecified Status: Acute Assessment and Plan: Patient reports bloody stools H&H trending down currently 7.3/23.3 Anemia labs indicated iron deficiency anemia along with acute blood loss anemia Continue to trend H&H frequently, however, will need to be cautious since his INR is supertherapeutic GI consulted Not sure that invasive procedures are able to be done since INR is >10 Start Protonix BID Time Spent With Patient Time: 56 minutes Time with patient: Greater than 35 minutes Subjective Date/time seen: 07/11/22 1045 Interval history: 07/11/22 104 Patient is coming in the bathroom and I walked in. Currently his arm is bleeding along with his nose. INR had went up currently at 10.2. Vitamin K given. Patient also stated he still having significant amount diarrhea that is bloody. He denies any chest pain, shortness of breath, nausea, vomiting, diarrhea or constipation. He did state that he was tolerating food. He also stated that he did sleep very well last night. Currently H&H is stable 7.3/23.3. Will trend H&H for now. 07/10/22? 15:30 This is a very pleasant 62-year-old male with valvular heart disease status post On-X mechanical aortic valve replacement and mitral valve repair in 2017 on chronic warfarin anticoagulation, pulmonary hypertension, right-sided heart failure with preserved ejection fraction, paroxysmal atrial fibrillation, hyperlipidemia, sleep apnea, DAUGHERTY cirrhosis, and Gilbert's disease who presented to the emergency department for evaluation of an elevated INR. Patient provides the following history. He
--- NOTE | 2022-07-11 12:02 | PM.PNCARD ---
Progress Note: A&P Assessment and Plan (1) Supratherapeutic INR: Code(s): R79.1 - Abnormal coagulation profile Status: Acute Assessment and Plan: INR 8.9 on admission. Holding Warfarin. Obtain daily INRs. INR 07/11: 10.2. IV Vitamin K 10mg given. (2) Guaiac + stool: Code(s): R19.5 - Other fecal abnormalities Status: Acute Assessment and Plan: GI consulted. (3) JORY (acute kidney injury): Code(s): N17.9 - Acute kidney failure, unspecified Status: Acute Assessment and Plan: His Scr on admission is 2.10. He had a BMP done 07/09/2022 which showed SCr was 1.9. Two weeks ago, his Scr was 1.67. Likely due to overdiuresis. Holding diuretics. SCr improved to 1.3 07/11. Continue to monitor renal function. (4) Congestive heart failure: Code(s): I50.9 - Heart failure, unspecified Status: Acute Assessment and Plan: EF preserved, reduced RVSF Holding all diuretics for now. Of note, he was contacted by Dr. Zuniga at [place] 07/10, and due to his weight loss, he was instructed to hold diuretics 07/10 and 07/11, and then change Bumex to 0.5mg BID and decrease Spironolactone to 25mg QD. Continue to hold all Metolazone doses. (5) Pulmonary hypertension: Code(s): I27.20 - Pulmonary hypertension, unspecified Status: Chronic Assessment and Plan: Continue Sildenafil. Of note, he was contacted by Dr. Zuniga at [place] 07/10, and due to his weight loss, he was instructed to hold diuretics 07/10 and 07/11, and then change Bumex to 0.5mg BID and decrease Spironolactone to 25mg QD. Continue to hold all Metolazone doses. (6) H/O mechanical aortic valve replacement: Code(s): Z95.2 - Presence of prosthetic heart valve Status: Chronic Assessment and Plan: Holding Warfarin due to supratherapeutic INR. (7) Atrial fibrillation: Code(s): I48.91 - Unspecified atrial fibrillation Status: Chronic Assessment and Plan: Holding Warfarin due to supratherapeutic INR. Continue Metoprolol Subjective Date/time seen: 07/11/22 12:02 Interval history: Reason for visit: Elevated INR, history of mechanical aortic valve HPI: We are consulted for elevated INR. This is a 62-year-old male who is known to us. He has a history of DAUGHERTY cirrhosis, history of COVID, mechanical aortic valve replacement, mitral valve repair, pulmonary hypertension, atrial fibrillation, Gilbert's who presented to the ER for elevated INR. Patient was recently discharged from [place] on 06/23/2022 after being admitted with acute hypoxic respiratory failure. He was discharged on: Bumex 2mg BID Metolazone 2.5mg MWF Spironolactone 25mg QD Sildenafil 40mg TID Midodrine 10mg TID Potassium 40mEq BID Metoprolol 75mg QD He has been on Warfarin 7.5mg QD, which has been his dose for a while now. However, patient has lost a significant amount of weight recently. He was contacted by Dr. Zuniga at [place] earlier today, and due to his weight loss, he was instructed to hold diuretics today and tomorrow, and then change Bumex to 0.5mg BID and decrease Spironolactone to 25mg QD. Continue to hold all Metolazone doses. Labs today show acute on chronic anemia. INR of 8.9. His Scr today is 2.10. He had a BMP done yesterday which showed SCr was 1.9. Two weeks ago, his Scr was 1.67. Date of service 07/11/2022: Doing okay today. No bleeding issues. INR up to 10 today. Vitamin K given this morning. Patient states he did not sleep well last night. Has back pain. Otherwise, okay. Review of Systems Review of Systems: 8 point ROS obtained. Negative, unless stated in HPI. Exam Const: General: comfortable and no acute distress HENMT: Mouth: Yes moist mucous membranes Eyes: General: appearance normal, both eyes and all related structures Sclera: sclerae normal Neck: Neck: supple Resp: Effort & Inspection: normal respiratory effort Auscultation: clear to auscultation bilaterally Cardio:
--- NOTE | 2022-07-11 13:02 | PC.NURSE ---
On 07/11/22, the student, [Carmel Madsen], provided care and completed [facility] documentation on this patient. I have reviewed the student's documentation and agree with the findings.
[2022-07-11 17:08] LABS: Hemoglobin 7.6 g/dL (14.0-18.0)
[2022-07-11 17:18] LABS: INR 3.8; Prothrombin Time 36.1 Seconds (11.1-14.7)
[2022-07-11] MEDS: WATER FOR IRRIGATION, STERILE 1,000 ML BOTTLE 1000 ML (20:41)
[2022-07-11] MEDS: PANTOPRAZOLE SODIUM IV 40 MG VIAL IV PUSH (20:41)
[2022-07-12] VITALS (15 sets, daily range): BP systolic 91–117; BP diastolic 43–66; PULSE 68–98; RESP 16–18; TEMP 36.2–37.1; O2SAT 97–99
[2022-07-12] MEDS: CYCLOBENZAPRINE HCL 10 MG TABLET PO (03:39)
[2022-07-12 06:05] LABS: Eosinophils Absolute Auto 0.1 K/mm3 (0-0.3); Eosinophils Percent Auto 4.2 % (0-4.4); Hematocrit 21.7 % (42.0-52.0); Immature Granulocyte Absolute 0.02 K/mm3 (0.00-0.031); Immature Granulocyte Percent A 0.6 % (0-0.5); Immature Platelet Fraction Pct 1.3 % (0.9-11.2); Lymphocytes Absolute Auto 0.75 K/mm3 (0.9-3.2); Lymphocytes Percent Auto 24.3 % (18.3-44.2); Mean Corpuscular HGB Conc 31.3 g/dl (32-36); Mean Corpuscular Hemoglobin 23.5 pg (26-34); Mean Corpuscular Volume 75.1 fl (80-100); Mean Platelet Volume 9.2 fl (7.4-10.4); Monocytes Absolute Auto 0.4 K/mm3 (0.1-0.6); Monocytes Percent Auto 12.3 % (2.6-8.5); Neutrophils Absolute Auto 1.8 K/mm3 (1.3-6.7); Neutrophils Percent Auto 57.6 % (45.5-73.1); Platelet Count Result 96 k/mm3 (150-375); Red Blood Count 2.89 M/mm3 (4.6-6.20); Red Cell Distribution Width 16.3 % (11.5-14.5); White Blood Count 3.1 K/mm3 (4.5-10.0)
[2022-07-12 06:10] LABS: Alanine Aminotransferase 18 U/L (6-50); Albumin Level 3.2 g/dL (3.5-5.1); Alkaline Phosphatase 92 U/L (38-126); Anion Gap 5 mmol/L (8-16); Aspartate Amino Transferase 32 U/L (17-59); Bilirubin,Total 2.4 mg/dL (0.2-1.3); Blood Urea Nitrogen 26 mg/dL (9-20); Calcium 8.5 mg/dL (8.4-10.2); Carbon Dioxide 26 mmol/L (22-30); Chloride 101 mmol/L (98-107); Estimated CRCL calculation 74 ml/min; Estimated Glomerular Filt Rate > 60; Glucose 106 mg/dL (65-110); Magnesium 1.7 mg/dL (1.6-2.3); Potassium 3.3 mmol/L (3.4-5.0); Sodium 132 mmol/L (137-145)
[2022-07-12 06:19] LABS: INR 2.2; Prothrombin Time 23.2 Seconds (11.1-14.7)
[2022-07-12 06:20] LABS: Partial Thromboplastin Time 37.9 SECONDS (22.3-36.8)
[2022-07-12 06:31] LABS: Hemoglobin 6.8 g/dL (14.0-18.0)
[2022-07-12] MEDS: LORATADINE 10 MG TABLET PO (08:34)
[2022-07-12] MEDS: ATORVASTATIN 10 MG TABLET PO (08:35)
[2022-07-12] MEDS: METOPROLOL SUCCINATE EXT REL 25 MG TABCR 75 MG PO (08:35)
[2022-07-12] MEDS: MIDODRINE HCL 10 MG TABLET PO ×3 (08:36→16:57)
[2022-07-12] MEDS: SILDENAFIL CITRATE 20 MG TABLET 40 MG PO ×3 (08:37→16:57)
[2022-07-12] MEDS: PANTOPRAZOLE SODIUM IV 40 MG VIAL IV PUSH ×2 (08:38→20:13)
[2022-07-12] MEDS: MAGNESIUM SULF 2 GM/WATER 50ML 2 GM/50 ML BAG IVPB (08:52)
--- NOTE | 2022-07-12 10:10 | PM.PNCARD ---
Progress Note: A&P Assessment and Plan (1) Supratherapeutic INR: Code(s): R79.1 - Abnormal coagulation profile Status: Acute Assessment and Plan: INR 8.9 on admission. Holding Warfarin. Obtain daily INRs. INR 07/11: 10.2. IV Vitamin K 10mg given. INR 07/12: INR now at goal of 2.2 (Goal INR is 2-3). Hgb 6.8, so patient is getting blood transfusion. If Hgb remains stable tomorrow, plan to restart Warfarin at a lower dose tomorrow. (2) Guaiac + stool: Code(s): R19.5 - Other fecal abnormalities Status: Acute Assessment and Plan: GI consulted. Per hospitalist, no plans for scope from GI at this time as patient had a recently normal colonoscopy. (3) JORY (acute kidney injury): Code(s): N17.9 - Acute kidney failure, unspecified Status: Acute Assessment and Plan: His Scr on admission is 2.10. He had a BMP done 07/09/2022 which showed SCr was 1.9. Two weeks ago, his Scr was 1.67. Likely due to overdiuresis. Holding diuretics. SCr improved to 1.3 07/11 and now 1.1 07/12. Continue to monitor renal function. (4) Congestive heart failure: Code(s): I50.9 - Heart failure, unspecified Status: Acute Assessment and Plan: EF preserved, reduced RVSF Holding all diuretics for now. Likely will resume diuretics tomorrow. Of note, he was contacted by Dr. Zuniga at [place] 07/10, and due to his weight loss, he was instructed to hold diuretics 07/10 and 07/11, and then change Bumex to 0.5mg BID and decrease Spironolactone to 25mg QD. Continue to hold all Metolazone doses. (5) Pulmonary hypertension: Code(s): I27.20 - Pulmonary hypertension, unspecified Status: Chronic Assessment and Plan: Continue Sildenafil. Of note, he was contacted by Dr. Zuniga at [place] 07/10, and due to his weight loss, he was instructed to hold diuretics 07/10 and 07/11, and then change Bumex to 0.5mg BID and decrease Spironolactone to 25mg QD. Continue to hold all Metolazone doses. (6) H/O mechanical aortic valve replacement: Code(s): Z95.2 - Presence of prosthetic heart valve Status: Chronic Assessment and Plan: Holding Warfarin due to supratherapeutic INR. INR now 2.2. Goal INR is 2-3 for a mechanical aortic valve. If Hgb remains stable tomorrow, plan to resume Warfarin tomorrow. (7) Atrial fibrillation: Code(s): I48.91 - Unspecified atrial fibrillation Status: Chronic Assessment and Plan: Holding Warfarin due to supratherapeutic INR. Continue Metoprolol Subjective Date/time seen: 07/12/22 10:10 Interval history: Reason for visit: Elevated INR, history of mechanical aortic valve HPI: We are consulted for elevated INR. This is a 62-year-old male who is known to us. He has a history of DAUGHERTY cirrhosis, history of COVID, mechanical aortic valve replacement, mitral valve repair, pulmonary hypertension, atrial fibrillation, Gilbert's who presented to the ER for elevated INR. Patient was recently discharged from [place] on 06/23/2022 after being admitted with acute hypoxic respiratory failure. He was discharged on: Bumex 2mg BID Metolazone 2.5mg MWF Spironolactone 25mg QD Sildenafil 40mg TID Midodrine 10mg TID Potassium 40mEq BID Metoprolol 75mg QD He has been on Warfarin 7.5mg QD, which has been his dose for a while now. However, patient has lost a significant amount of weight recently. He was contacted by Dr. Zuniga at [place] earlier today, and due to his weight loss, he was instructed to hold diuretics today and tomorrow, and then change Bumex to 0.5mg BID and decrease Spironolactone to 25mg QD. Continue to hold all Metolazone doses. Labs today show acute on chronic anemia. INR of 8.9. His Scr today is 2.10. He had a BMP done yesterday which showed SCr was 1.9. Two weeks ago, his Scr was 1.67. Date of service 07/11/2022: Doing okay today. No bleeding issues. INR up to 10 today. Vitamin K given this morning. Patient states he did not sleep well las
[2022-07-12] MEDS: SODIUM CHLORIDE 0.9% IV 250 ML 30 ML IV CONT (11:15)
--- NOTE | 2022-07-12 11:15 | P.PNIM_ITS ---
Progress Note: A&P Assessment and Plan (1) Acute kidney injury: Code(s): N17.9 - Acute kidney failure, unspecified Status: Acute Assessment and Plan: * BUN/Cr 47/2.10 * Currently trending down at 26/1.10 * Continue to trend * Probably related to overdiuresis of 2mg bumex BID, 2.5mg Metolazone 3x per week, and spironolactone 50mg Daily * His ink technician is titrating medications * Hold diuretics for now * Avoid nephrotoxic medications * Trend labs * Consider UA, an urine electrolytes if renal function worsens (2) Microcytic anemia: Code(s): D50.9 - Iron deficiency anemia, unspecified Status: Acute Assessment and Plan: * Current H/H 6.8/21.7 * Anemia labs iron 16, TIBC 449, % saturation 4, ferritin 19.30, B12 593, folate 12.5 * Start iron 325 b.i.d. * Transfuse 1 unit PRBC 07/12/22 * GI consulted * Occult blood positive * INR peaked at 10.2, currently 2.2 * Continue trend labs * Transfuse if hemoglobin less than 7 (3) Supratherapeutic INR: Code(s): R79.1 - Abnormal coagulation profile Status: Acute Assessment and Plan: * INR peaked at 10.2, currently 2.2 * Vitamin K given on 07/11/22 * Could be related to diet changes * Continue to trend labs * Stop warfarin for now * INR goal 2.0-3.0 (4) Pulmonary hypertension: Code(s): I27.20 - Pulmonary hypertension, unspecified Status: Chronic Assessment and Plan: * Continue sildenafil * Echo from 06/13/22 showed EF of >70% with a a PA pressure of 8, and some degree of diastolic dysfunction (5) Paroxysmal atrial fibrillation: Code(s): I48.0 - Paroxysmal atrial fibrillation Status: Acute Assessment and Plan: * HR controlled at 70 * Warfarin on hold as detailed above * Continue metoprolol. * Trend HR (6) Hyperglycemia: Code(s): R73.9 - Hyperglycemia, unspecified Status: Acute Assessment and Plan: * Glucose 106 * A1c 6.5 * ISS * Hold oral antidiabetic * trend labs * Hypoglycemia protocol * adjust therapy as indicated (7) Obstructive sleep apnea: Code(s): G47.33 - Obstructive sleep apnea (adult) (pediatric) Status: Acute Assessment and Plan: * CPAP from home * trend respiratory status (8) GI bleed: Code(s): K92.2 - Gastrointestinal hemorrhage, unspecified Status: Acute Assessment and Plan: * Patient reports bloody stools * H&H trending down currently 6.8/21.7 * Anemia labs indicated iron deficiency anemia along with acute blood loss anemia * Continue to trend H&H frequently, however, will need to be cautious since his INR is supertherapeutic * GI consulted * Not sure that invasive procedures are able to be done since INR is >10 * Give one unit of PRBC 07/12/22 * Start Protonix BID Time Spent With Patient Time: 54 minutes Time with patient: Greater than 35 minutes Subjective Date/time seen: 07/12/22 111 Interval history: 07/12/221114 Patient is doing well today. He denies any chest pain, shortness of breath, nausea, vomiting, diarrhea, constipation. He appears to be feeling well today. H/H
--- NOTE | 2022-07-12 11:15 | PM.IMPN ---
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 Transfuse 1 unit PRBC 07/12/22 GI consulted Occult blood positive INR peaked at 10.2, currently 2.2 Continue trend labs Transfuse if hemoglobin less than 7 (3) Supratherapeutic INR: Code(s): R79.1 - Abnormal coagulation profile Status: Acute Assessment and Plan: INR peaked at 10.2, currently 2.2 Vitamin K given on 07/11/22 Could be related to diet changes Continue to trend labs Stop warfarin for now INR goal 2.0-3.0 (4) Pulmonary hypertension: Code(s): I27.20 - Pulmonary hypertension, unspecified Status: Chronic Assessment and Plan: Continue sildenafil Echo from 06/13/22 showed EF of >70% with a a PA pressure of 8, and some degree of diastolic dysfunction (5) Paroxysmal atrial fibrillation: Code(s): I48.0 - Paroxysmal atrial fibrillation Status: Acute Assessment and Plan: HR controlled at 70 Warfarin on hold as detailed above Continue metoprolol. Trend HR (6) Hyperglycemia: Code(s): R73.9 - Hyperglycemia, unspecified Status: Acute Assessment and Plan: Glucose 106 A1c 6.5 ISS Hold oral antidiabetic trend labs Hypoglycemia protocol adjust therapy as indicated (7) Obstructive sleep apnea: Code(s): G47.33 - Obstructive sleep apnea (adult) (pediatric) Status: Acute Assessment and Plan: CPAP from home trend respiratory status (8) GI bleed: Code(s): K92.2 - Gastrointestinal hemorrhage, unspecified Status: Acute Assessment and Plan: Patient reports bloody stools H&H trending down currently 6.8/21.7 Anemia labs indicated iron deficiency anemia along with acute blood loss anemia Continue to trend H&H frequently, however, will need to be cautious since his INR is supertherapeutic GI consulted Not sure that invasive procedures are able to be done since INR is >10 Give one unit of PRBC 07/12/22 Start Protonix BID Time Spent With Patient Time: 54 minutes Time with patient: Greater than 35 minutes Subjective Date/time seen: 07/12/22 111 Interval history: 07/12/22 111 Patient is doing well today. He denies any chest pain, shortness of breath, nausea, vomiting, diarrhea, constipation. He appears to be feeling well today. H/H is a bit low, 1 unit of PRBCs given. is present. Concerned about the diuretics. Spoke with cardiology and will wait till tomorrow to restart diuretics and warfarin, if counts are stable. 07/11/22 1045 Patient is coming in the bathroom and I walked in. Currently his arm is bleeding along with his nose. INR had went up currently at 10.2. Vitamin K given. Patient also stated he still having significant amount diarrhea that is bloody. He denies any chest pain, shortness of breath, nausea, vomiting, diarrhea or constipation. He did state that he was tolerating food. He also stated that he did sleep very well last night. Currently H&H is stable 7.3/23.3. Will trend H&H for now. 07/10/22? 15:30 This is a very pleasant 62
[2022-07-12] MEDS: HYDROcodone/acetaminophen (*CRX) 5-325 MG TABLET 1 TAB PO ×2 (13:47→20:13)
--- NOTE | 2022-07-12 15:13 | WPDGICN ---
Assessment and Plan Assessment and plan (1) Coumadin toxicity: Code(s): T45.511A - Poisoning by anticoagulants, accidental (unintentional), initial encounter Status: Acute Assessment and Plan: inr has been corrected and coumadin on hold no more signs of bleeding now that lower his INR (2) GI bleed: Code(s): K92.2 - Gastrointestinal hemorrhage, unspecified Status: Acute Assessment and Plan: from coumadin toxicity had colonoscopy last year, no need to repeat (3) Acute blood loss anemia: Code(s): D62 - Acute posthemorrhagic anemia Status: Acute Assessment and Plan: bleeding from prolonged inr, required blood products stable now and no more bleeding (4) Pulmonary hypertension: Code(s): I27.20 - Pulmonary hypertension, unspecified Status: Chronic Assessment and Plan: he will follow up with his doctor at [facility] (5) Acute kidney injury: Code(s): N17.9 - Acute kidney failure, unspecified Status: Acute Assessment and Plan: monitor (6) Liver cirrhosis secondary to nonalcoholic steatohepatitis (DAUGHERTY): Code(s): K75.81 - Nonalcoholic steatohepatitis (DAUGHERTY); K74.60 - Unspecified cirrhosis of liver Status: Acute Assessment and Plan: no issues he is seeing hepatology at [facility] GI Consult Note Consult date/time: 07/12/22 15:13 Reason for consult: gib, coumadin toxicity HPI: Abelino Vargas is a 62 year old male with history of valvular heart disease status post mechanical aortic valve replacement and mitral valve repair in 2017 on chronic warfarin anticoagulation, pulmonary hypertension, paroxysmal atrial fibrillation, hyperlipidemia, sleep apnea, DAUGHERTY who is admitted after noted epistaxis and GIB consistent of brbpr after noted his IRN was high. He had a recent hospitalization here 06/12/2022 through 06/15/2022 for hypoxia and right-sided pleural effusion after presenting with shortness of breath and then transferred to [place] given other comorbidities, given treatment for his pulmonary HTN, then given diuretics because fluid retention after adjusting some of his medications. He also had lab draw day of admission and INR was high then told to come to ER. INR up to 10, also had acute kidney injury with a BUN and creatinine of 47 and 2.10 respectively. Coumadin toxicity treated with vit K, no more report of bleeding, also found to be anemic. He says that had colonoscopy last year. He is feeling better now that INR 2 range. Review of Systems Constitutional: Constitutional: Reports fatigue Eyes: Eyes: Denies blurry vision ENT: Reports Normal hearing present and Reports epistaxis Cardiovascular: Cardiovascular: Denies chest pain Respiratory: Respiratory: Denies cough Gastrointestinal: Gastrointestinal: Reports hematochezia Genitourinary: Genitourinary: Denies hematuria Musculoskeletal: Musculoskeletal: Reports back pain Integumentary/Breasts: Skin/Breast: Denies rash Neurologic: Denies Abnormal speech present Psychiatric: Psychiatric: Denies anxiety [facility] Past Medical History Medical History (Updated 07/12/22 @ 15:21 by Venkat Joshi MD) Acute blood loss anemia Arthritis Chronic fatigue Compression fracture of L1 vertebra (05/2022) Status post vertebroplasty on 06/22/2022. Congestive heart failure Echo on 06/13/2022: Hyperdynamic LV systolic function with an estimated EF > 70%, mildly enlarged RV chamber with reduced RV systolic function, moderate biatrial enlargement, PASP 70 mmHg. Coronary artery disease Coumadin toxicity Esophageal varices Gastroesophageal reflux disease Gilbert syndrome Hyperlipidemia Hypertension Insomnia Liver cirrhosis secondary to nonalcoholic steatohepatitis (DAUGHERTY) Patient of Dr. Duffy at [place]. Obstructive sleep apnea Paroxysmal atrial fibrillation Pulmonary hypertension Patient of Dr. Shruthi Zuniga at [place]. Syncope Surgical History Surgical History (R
[2022-07-13] VITALS (10 sets, daily range): BP systolic 102–111; BP diastolic 49–50; PULSE 69–82; RESP 16–18; TEMP 36.2–36.8; O2SAT 94–98
[2022-07-13 05:11] LABS: Eosinophils Absolute Auto 0.2 K/mm3 (0-0.3); Eosinophils Percent Auto 5.2 % (0-4.4); Hemoglobin 7.3 g/dL (14.0-18.0); Immature Granulocyte Absolute 0.03 K/mm3 (0.00-0.031); Immature Platelet Fraction Pct 1.8 % (0.9-11.2); Lymphocytes Absolute Auto 0.77 K/mm3 (0.9-3.2); Lymphocytes Percent Auto 25.1 % (18.3-44.2); Mean Corpuscular HGB Conc 31.7 g/dl (32-36); Mean Corpuscular Hemoglobin 24.7 pg (26-34); Mean Corpuscular Volume 77.7 fl (80-100); Mean Platelet Volume 9.5 fl (7.4-10.4); Monocytes Absolute Auto 0.3 K/mm3 (0.1-0.6); Monocytes Percent Auto 9.8 % (2.6-8.5); Neutrophils Absolute Auto 1.8 K/mm3 (1.3-6.7); Neutrophils Percent Auto 57.9 % (45.5-73.1); Platelet Count Result 92 k/mm3 (150-375); Red Blood Count 2.96 M/mm3 (4.6-6.20); Red Cell Distribution Width 16.3 % (11.5-14.5); White Blood Count 3.1 K/mm3 (4.5-10.0)
[2022-07-13 05:17] LABS: Alanine Aminotransferase 18 U/L (6-50); Alkaline Phosphatase 92 U/L (38-126); Anion Gap 6 mmol/L (8-16); Aspartate Amino Transferase 27 U/L (17-59); Bilirubin,Total 2.7 mg/dL (0.2-1.3); Blood Urea Nitrogen 18 mg/dL (9-20); Calcium 8.1 mg/dL (8.4-10.2); Carbon Dioxide 26 mmol/L (22-30); Chloride 105 mmol/L (98-107); Estimated CRCL calculation 75 ml/min; Estimated Glomerular Filt Rate > 60; Glucose 108 mg/dL (65-110); Magnesium 1.8 mg/dL (1.6-2.3); Potassium 3.1 mmol/L (3.4-5.0); Sodium 137 mmol/L (137-145)
[2022-07-13 05:21] LABS: INR 1.7; Prothrombin Time 19.6 Seconds (11.1-14.7)
[2022-07-13] MEDS: METOPROLOL SUCCINATE EXT REL 25 MG TABCR 75 MG PO (08:29)
[2022-07-13] MEDS: MIDODRINE HCL 10 MG TABLET PO ×3 (08:29→17:10)
[2022-07-13] MEDS: SILDENAFIL CITRATE 20 MG TABLET 40 MG PO ×3 (08:29→17:10)
[2022-07-13] MEDS: POTASSIUM CHLORIDE 20 MEQ TABLET 80 MEQ PO (08:29)
[2022-07-13] MEDS: LORATADINE 10 MG TABLET PO (08:29)
[2022-07-13] MEDS: ATORVASTATIN 10 MG TABLET PO (08:29)
[2022-07-13] MEDS: POTASSIUM CHLORIDE INJ 40 MEQ in SODIUM CHLORIDE 0.9% IV 500 ML 130 MEQ IVPB (08:31)
[2022-07-13] MEDS: PANTOPRAZOLE SODIUM IV 40 MG VIAL IV PUSH ×2 (08:31→21:16)
--- NOTE | 2022-07-13 08:56 | PM.PNCARD ---
Progress Note: A&P Assessment and Plan (1) Supratherapeutic INR: Code(s): R79.1 - Abnormal coagulation profile Status: Acute Assessment and Plan: INR 8.9 on admission. Holding Warfarin. Obtain daily INRs. INR 07/11: 10.2. IV Vitamin K 10mg given. INR 07/12: INR now at goal of 2.2 (Goal INR is 2-3). Hgb 6.8, so patient is getting blood transfusion. If Hgb remains stable tomorrow, plan to restart Warfarin at a lower dose tomorrow. 07/13: Hgb 7.3, INR 1.7. Will bridge with lovenox and restart coumain for INR goal 2.0 - 3.0. Continue with daily INR's (2) Guaiac + stool: Code(s): R19.5 - Other fecal abnormalities Status: Acute Assessment and Plan: GI consulted, no plans for scope from GI at this time as patient had a recently normal colonoscopy. (3) JORY (acute kidney injury): Code(s): N17.9 - Acute kidney failure, unspecified Status: Acute Assessment and Plan: His Scr on admission is 2.10. He had a BMP done 07/09/2022 which showed SCr was 1.9. Two weeks ago, his Scr was 1.67. Likely due to overdiuresis. Had been holding diuretics since admission. SCr improved to 1.3 07/11 and now 1.1 07/13. Will restart diuretics today at lower doses. Continue to monitor renal function. (4) Congestive heart failure: Code(s): I50.9 - Heart failure, unspecified Status: Acute Assessment and Plan: EF preserved, reduced RVSF As above, resume spironolactone 25mg daily and bumex 1mg p.o. daily for now. Do not restart metolazone. (5) Pulmonary hypertension: Code(s): I27.20 - Pulmonary hypertension, unspecified Status: Chronic Assessment and Plan: Continue Sildenafil. (6) H/O mechanical aortic valve replacement: Code(s): Z95.2 - Presence of prosthetic heart valve Status: Chronic Assessment and Plan: INE 1.7 today. Bridge to therapeutic INR with lovenox, resume warfarin. (7) Atrial fibrillation: Code(s): I48.91 - Unspecified atrial fibrillation Status: Chronic Assessment and Plan: Anticoagulation resumed today Continue Metoprolol Subjective Date/time seen: 07/13/22 08:56 Interval history: Reason for visit: Elevated INR, history of mechanical aortic valve HPI: We are consulted for elevated INR. This is a 62-year-old male who is known to us. He has a history of DAUGHERTY cirrhosis, history of COVID, mechanical aortic valve replacement, mitral valve repair, pulmonary hypertension, atrial fibrillation, Gilbert's who presented to the ER for elevated INR. Patient was recently discharged from [place] on 06/23/2022 after being admitted with acute hypoxic respiratory failure. He was discharged on: Bumex 2mg BID Metolazone 2.5mg MWF Spironolactone 25mg QD Sildenafil 40mg TID Midodrine 10mg TID Potassium 40mEq BID Metoprolol 75mg QD He has been on Warfarin 7.5mg QD, which has been his dose for a while now. However, patient has lost a significant amount of weight recently. He was contacted by Dr. Zuniga at [place] earlier today, and due to his weight loss, he was instructed to hold diuretics today and tomorrow, and then change Bumex to 0.5mg BID and decrease Spironolactone to 25mg QD. Continue to hold all Metolazone doses. Labs today show acute on chronic anemia. INR of 8.9. His Scr today is 2.10. He had a BMP done yesterday which showed SCr was 1.9. Two weeks ago, his Scr was 1.67. Date of service 07/11/2022: Doing okay today. No bleeding issues. INR up to 10 today. Vitamin K given this morning. Patient states he did not sleep well last night. Has back pain. Otherwise, okay. Date of service 07/12/2022: Hgb down to 6.8. Blood transfusion ordered. INR is now at 2.2 Date of service 07/13/2022: Feeling okay today. Rec'd blood transfusion yesterday. Denies any shortness of breath, chest painm, palpitations. He did have some bright red blood in stool last night. INR 1.7 today. Review of Systems Review of Systems: All systems rev
[2022-07-13] MEDS: SPIRONOLACTONE 25 MG TABLET PO (09:44)
[2022-07-13] MEDS: BUMETANIDE 1 MG TABLET PO (09:44)
[2022-07-13] MEDS: ENOXAPARIN 100 MG/ML SYRINGE SUB-Q ×2 (09:44→21:16)
[2022-07-13 13:51] LABS: Potassium 3.7 mmol/L (3.4-5.0)
--- NOTE | 2022-07-13 14:00 | P.PNIM_ITS ---
Progress Note: A&P Assessment and Plan (1) Acute kidney injury: Code(s): N17.9 - Acute kidney failure, unspecified Status: Acute Assessment and Plan: * BUN/Cr 47/2.10 * Currently trending down at 18/1.10 * Continue to trend * Probably related to overdiuresis of 2mg bumex BID, 2.5mg Metolazone 3x per week, and spironolactone 50mg Daily * His ecmo specialist is titrating medications * Restarted diuretics at half dose * Avoid nephrotoxic medications * Trend labs * Consider UA, an urine electrolytes if renal function worsens (2) Microcytic anemia: Code(s): D50.9 - Iron deficiency anemia, unspecified Status: Acute Assessment and Plan: * Current H/H 7.3/23.0 * Anemia labs iron 16, TIBC 449, % saturation 4, ferritin 19.30, B12 593, folate 12.5 * Start iron 325 b.i.d. * Transfuse 1 unit PRBC 07/12/22 * GI consulted * Occult blood positive * INR peaked at 10.2, currently 1.7 * Continue trend labs * Transfuse if hemoglobin less than 7 (3) Supratherapeutic INR: Code(s): R79.1 - Abnormal coagulation profile Status: Acute Assessment and Plan: * INR peaked at 10.2, currently 1.7 * Vitamin K given on 07/11/22 * Could be related to diet changes * Continue to trend labs * Restart warfarin * INR goal 2.0-3.0 (4) Pulmonary hypertension: Code(s): I27.20 - Pulmonary hypertension, unspecified Status: Chronic Assessment and Plan: * Continue sildenafil * Echo from 06/13/22 showed EF of >70% with a a PA pressure of 8, and some degree of diastolic dysfunction (5) Paroxysmal atrial fibrillation: Code(s): I48.0 - Paroxysmal atrial fibrillation Status: Acute Assessment and Plan: * HR controlled at 70 * Warfarin on hold as detailed above * Continue metoprolol. * Trend HR (6) Hyperglycemia: Code(s): R73.9 - Hyperglycemia, unspecified Status: Acute Assessment and Plan: * Glucose 108 * A1c 6.5 * ISS * Hold oral antidiabetic * trend labs * Hypoglycemia protocol * adjust therapy as indicated (7) Obstructive sleep apnea: Code(s): G47.33 - Obstructive sleep apnea (adult) (pediatric) Status: Acute Assessment and Plan: * CPAP from home * trend respiratory status (8) GI bleed: Code(s): K92.2 - Gastrointestinal hemorrhage, unspecified Status: Acute Assessment and Plan: * Patient reports bloody stools * H&H trending down currently 7.3/23.0 * Anemia labs indicated iron deficiency anemia along with acute blood loss anemia * Continue to trend H&H frequently, however, will need to be cautious since his INR is supertherapeutic * GI consulted * Not sure that invasive procedures are able to be done since INR is >10 * Give one unit of PRBC 07/12/22 * Start Protonix BID Time Spent With Patient Time: 52 minutes Subjective Date/time seen: 07/13/22 1400 Interval history: 07/13/22 1400 Patient is doing ok. Restarted diuretics and warfarin. He is feeling better. He does have some edema bilaterally. He is also concerned of a small spot on the side of the right ankle. He stated that
--- NOTE | 2022-07-13 14:00 | PM.IMPN ---
Progress Note: A&P Assessment and Plan (1) Acute kidney injury: Code(s): N17.9 - Acute kidney failure, unspecified Status: Acute Assessment and Plan: BUN/Cr 47/2.10 Currently trending down at 18/1.10 Continue to trend Probably related to overdiuresis of 2mg bumex BID, 2.5mg Metolazone 3x per week, and spironolactone 50mg Daily His web marketing strategist is titrating medications Restarted diuretics at half dose Avoid nephrotoxic medications Trend labs Consider UA, an urine electrolytes if renal function worsens (2) Microcytic anemia: Code(s): D50.9 - Iron deficiency anemia, unspecified Status: Acute Assessment and Plan: Current H/H 7.3/23.0 Anemia labs iron 16, TIBC 449, % saturation 4, ferritin 19.30, B12 593, folate 12.5 Start iron 325 b.i.d. Transfuse 1 unit PRBC 07/12/22 GI consulted Occult blood positive INR peaked at 10.2, currently 1.7 Continue trend labs Transfuse if hemoglobin less than 7 (3) Supratherapeutic INR: Code(s): R79.1 - Abnormal coagulation profile Status: Acute Assessment and Plan: INR peaked at 10.2, currently 1.7 Vitamin K given on 07/11/22 Could be related to diet changes Continue to trend labs Restart warfarin INR goal 2.0-3.0 (4) Pulmonary hypertension: Code(s): I27.20 - Pulmonary hypertension, unspecified Status: Chronic Assessment and Plan: Continue sildenafil Echo from 06/13/22 showed EF of >70% with a a PA pressure of 8, and some degree of diastolic dysfunction (5) Paroxysmal atrial fibrillation: Code(s): I48.0 - Paroxysmal atrial fibrillation Status: Acute Assessment and Plan: HR controlled at 70 Warfarin on hold as detailed above Continue metoprolol. Trend HR (6) Hyperglycemia: Code(s): R73.9 - Hyperglycemia, unspecified Status: Acute Assessment and Plan: Glucose 108 A1c 6.5 ISS Hold oral antidiabetic trend labs Hypoglycemia protocol adjust therapy as indicated (7) Obstructive sleep apnea: Code(s): G47.33 - Obstructive sleep apnea (adult) (pediatric) Status: Acute Assessment and Plan: CPAP from home trend respiratory status (8) GI bleed: Code(s): K92.2 - Gastrointestinal hemorrhage, unspecified Status: Acute Assessment and Plan: Patient reports bloody stools H&H trending down currently 7.3/23.0 Anemia labs indicated iron deficiency anemia along with acute blood loss anemia Continue to trend H&H frequently, however, will need to be cautious since his INR is supertherapeutic GI consulted Not sure that invasive procedures are able to be done since INR is >10 Give one unit of PRBC 07/12/22 Start Protonix BID Time Spent With Patient Time: 52 minutes Subjective Date/time seen: 07/13/22 1400 Interval history: 07/13/22 1400 Patient is doing ok. Restarted diuretics and warfarin. He is feeling better. He does have some edema bilaterally. He is also concerned of a small spot on the side of the right ankle. He stated that it is itching. Currently he denies any chest pain, nausea, vomiting, diarrhea, constipation. 07/12/22 1115 Patient is doing well today. He denies any chest pain, shortness of breath, nausea, vomiting, diarrhea, constipation. He appears to be feeling well today. H/H is a bit low, 1 unit of PRBCs given. is present. Concerned about the diuretics. Spoke with cardiology and will wait till tomorrow to restart diuretics and warfarin, if counts are stable. 07/11/22 1045 Patient is coming in the bathroom and I walked in. Currently his arm is bleeding along with his nose. INR had went up currently at 10.2. Vitamin K given. Patient also stated he still having significant amount diarrhea that is bloody. He denies any ch
[2022-07-13] MEDS: WARFARIN (*PBKC) 7.5 MG TABLET PO (17:10)
[2022-07-13] MEDS: HYDROcodone/acetaminophen (*CRX) 5-325 MG TABLET 1 TAB PO (18:36)
[2022-07-14] VITALS (12 sets, daily range): BP systolic 101–111; BP diastolic 47–56; PULSE 69–91; RESP 16–18; TEMP 36.7–37.1; O2SAT 95–98
[2022-07-14] MEDS: HYDROcodone/acetaminophen (*CRX) 5-325 MG TABLET 1 TAB PO ×3 (01:24→20:05)
[2022-07-14 05:43] LABS: Basophils Percent Auto 0.6 % (0.2-1.2); Eosinophils Absolute Auto 0.2 K/mm3 (0-0.3); Eosinophils Percent Auto 5.8 % (0-4.4); Hematocrit 23.9 % (42.0-52.0); Hemoglobin 7.3 g/dL (14.0-18.0); Immature Granulocyte Absolute 0.03 K/mm3 (0.00-0.031); Immature Granulocyte Percent A 0.9 % (0-0.5); Immature Platelet Fraction Pct 1.6 % (0.9-11.2); Lymphocytes Percent Auto 27.5 % (18.3-44.2); Mean Corpuscular HGB Conc 30.5 g/dl (32-36); Mean Corpuscular Hemoglobin 24.2 pg (26-34); Mean Corpuscular Volume 79.1 fl (80-100); Mean Platelet Volume 9.1 fl (7.4-10.4); Monocytes Absolute Auto 0.3 K/mm3 (0.1-0.6); Monocytes Percent Auto 9.5 % (2.6-8.5); Neutrophils Absolute Auto 1.8 K/mm3 (1.3-6.7); Neutrophils Percent Auto 55.7 % (45.5-73.1); Platelet Count Result 96 k/mm3 (150-375); Red Blood Count 3.02 M/mm3 (4.6-6.20); Red Cell Distribution Width 16.6 % (11.5-14.5); White Blood Count 3.3 K/mm3 (4.5-10.0)
[2022-07-14 05:44] LABS: INR 1.6; Prothrombin Time 18.6 Seconds (11.1-14.7)
[2022-07-14 05:46] LABS: Potassium 3.9 mmol/L (3.4-5.0)
[2022-07-14 05:57] LABS: Alanine Aminotransferase 18 U/L (6-50); Alkaline Phosphatase 91 U/L (38-126); Anion Gap 4 mmol/L (8-16); Aspartate Amino Transferase 29 U/L (17-59); Bilirubin,Total 2.6 mg/dL (0.2-1.3); Blood Urea Nitrogen 15 mg/dL (9-20); Calcium 8.1 mg/dL (8.4-10.2); Carbon Dioxide 25 mmol/L (22-30); Chloride 108 mmol/L (98-107); Estimated CRCL calculation 82 ml/min; Estimated Glomerular Filt Rate > 60; Glucose 95 mg/dL (65-110); Magnesium 1.5 mg/dL (1.6-2.3); Sodium 137 mmol/L (137-145)
[2022-07-14] MEDS: MAGNESIUM SULF 4 GM/WATER100ML 4 GM/100 ML BAG IVPB (09:15)
[2022-07-14] MEDS: PANTOPRAZOLE SODIUM IV 40 MG VIAL IV PUSH ×2 (09:16→20:05)
[2022-07-14] MEDS: ATORVASTATIN 10 MG TABLET PO (09:16)
[2022-07-14] MEDS: MIDODRINE HCL 10 MG TABLET PO ×3 (09:17→16:58)
[2022-07-14] MEDS: METOPROLOL SUCCINATE EXT REL 25 MG TABCR 75 MG PO (09:17)
[2022-07-14] MEDS: BUMETANIDE 1 MG TABLET PO ×2 (09:17→16:58)
[2022-07-14] MEDS: LORATADINE 10 MG TABLET PO (09:17)
[2022-07-14] MEDS: SPIRONOLACTONE 25 MG TABLET 50 MG PO (09:18)
[2022-07-14] MEDS: SILDENAFIL CITRATE 20 MG TABLET 40 MG PO ×3 (09:18→16:59)
[2022-07-14] MEDS: ENOXAPARIN 100 MG/ML SYRINGE SUB-Q ×2 (09:18→20:05)
--- NOTE | 2022-07-14 09:45 | PM.IMPN ---
Progress Note: A&P Assessment and Plan (1) Acute kidney injury: Code(s): N17.9 - Acute kidney failure, unspecified Status: Acute Assessment and Plan: BUN/Cr 47/2.10 Currently trending down at 15/1.00 Continue to trend Probably related to overdiuresis of 2mg bumex BID, 2.5mg Metolazone 3x per week, and spironolactone 50mg Daily His assembler brazer is titrating medications Increased diurectics to 1mg Bumex BID, and 50mg Spironolactone Daily Avoid nephrotoxic medications Trend labs Consider UA, an urine electrolytes if renal function worsens (2) Microcytic anemia: Code(s): D50.9 - Iron deficiency anemia, unspecified Status: Acute Assessment and Plan: Current H/H 7.3/23.9 Anemia labs iron 16, TIBC 449, % saturation 4, ferritin 19.30, B12 593, folate 12.5 Start iron 325 b.i.d. Transfuse 1 unit PRBC 07/12/22 GI consulted Occult blood positive INR peaked at 10.2, currently 1.7 Continue trend labs Transfuse if hemoglobin less than 7 (3) Supratherapeutic INR: Code(s): R79.1 - Abnormal coagulation profile Status: Acute Assessment and Plan: INR peaked at 10.2, currently 1.6 Vitamin K given on 07/11/22 Could be related to diet changes Continue to trend labs Increase warfarin to 10mg today INR goal 2.0-3.0 (4) Pulmonary hypertension: Code(s): I27.20 - Pulmonary hypertension, unspecified Status: Chronic Assessment and Plan: Continue sildenafil Echo from 06/13/22 showed EF of >70% with a a PA pressure of 8, and some degree of diastolic dysfunction (5) Paroxysmal atrial fibrillation: Code(s): I48.0 - Paroxysmal atrial fibrillation Status: Acute Assessment and Plan: HR controlled at 70 Warfarin restarted and titrated to achieve goal INR Continue metoprolol. Trend HR (6) Hyperglycemia: Code(s): R73.9 - Hyperglycemia, unspecified Status: Acute Assessment and Plan: Glucose 95 A1c 6.5 ISS Hold oral antidiabetic trend labs Hypoglycemia protocol adjust therapy as indicated (7) Obstructive sleep apnea: Code(s): G47.33 - Obstructive sleep apnea (adult) (pediatric) Status: Acute Assessment and Plan: CPAP from home trend respiratory status (8) GI bleed: Code(s): K92.2 - Gastrointestinal hemorrhage, unspecified Status: Acute Assessment and Plan: Patient reports bloody stools H&H stable currently 7.3.9 Anemia labs indicated iron deficiency anemia along with acute blood loss anemia Continue to trend H&H frequently, however, will need to be cautious since his INR is supertherapeutic GI consulted Not sure that invasive procedures are able to be done since INR is >10 Give one unit of PRBC 07/12/22 Start Protonix BID Time Spent With Patient Time: 48 minutes Time with patient: Greater than 35 minutes Subjective Date/time seen: 07/14/22944 Interval history: 07/14/22944 Patient is doing ok. He denies any chest pain, shortness of breath, nausea, vomiting, diarrhea, or constipation. He stated that he was tired. He is concerned about his feet swelling. He also stated that he is eating ok. He is doing well will continue to titrate his medications, and would like to see his INR increase prior to discharge. 07/13/22 1400 Patient is doing ok. Restarted diuretics and warfarin. He is feeling better. He does have some edema bilaterally. He is also concerned of a small spot on the side of the right ankle. He stated that it is itching. Currently he denies any chest pain, nausea, vomiting, diarrhea, constipation. 07/12/22 1115 Patient is doing well today. He denies any chest pain, shortness of breath, nausea, vomiting, diarrhea, constipation. He appears to be feeling well today. H/H is a b
--- NOTE | 2022-07-14 09:45 | P.PNIM_ITS ---
Progress Note: A&P Assessment and Plan (1) Acute kidney injury: Code(s): N17.9 - Acute kidney failure, unspecified Status: Acute Assessment and Plan: * BUN/Cr 47/2.10 * Currently trending down at 15/1.00 * Continue to trend * Probably related to overdiuresis of 2mg bumex BID, 2.5mg Metolazone 3x per week, and spironolactone 50mg Daily * His director of counseling is titrating medications * Increased diurectics to 1mg Bumex BID, and 50mg Spironolactone Daily * Avoid nephrotoxic medications * Trend labs * Consider UA, an urine electrolytes if renal function worsens (2) Microcytic anemia: Code(s): D50.9 - Iron deficiency anemia, unspecified Status: Acute Assessment and Plan: * Current H/H 7.3/23.9 * Anemia labs iron 16, TIBC 449, % saturation 4, ferritin 19.30, B12 593, folate 12.5 * Start iron 325 b.i.d. * Transfuse 1 unit PRBC 07/12/22 * GI consulted * Occult blood positive * INR peaked at 10.2, currently 1.7 * Continue trend labs * Transfuse if hemoglobin less than 7 (3) Supratherapeutic INR: Code(s): R79.1 - Abnormal coagulation profile Status: Acute Assessment and Plan: * INR peaked at 10.2, currently 1.6 * Vitamin K given on 07/11/22 * Could be related to diet changes * Continue to trend labs * Increase warfarin to 10mg today * INR goal 2.0-3.0 (4) Pulmonary hypertension: Code(s): I27.20 - Pulmonary hypertension, unspecified Status: Chronic Assessment and Plan: * Continue sildenafil * Echo from 06/13/22 showed EF of >70% with a a PA pressure of 8, and some degree of diastolic dysfunction (5) Paroxysmal atrial fibrillation: Code(s): I48.0 - Paroxysmal atrial fibrillation Status: Acute Assessment and Plan: * HR controlled at 70 * Warfarin restarted and titrated to achieve goal INR * Continue metoprolol. * Trend HR (6) Hyperglycemia: Code(s): R73.9 - Hyperglycemia, unspecified Status: Acute Assessment and Plan: * Glucose 95 * A1c 6.5 * ISS * Hold oral antidiabetic * trend labs * Hypoglycemia protocol * adjust therapy as indicated (7) Obstructive sleep apnea: Code(s): G47.33 - Obstructive sleep apnea (adult) (pediatric) Status: Acute Assessment and Plan: * CPAP from home * trend respiratory status (8) GI bleed: Code(s): K92.2 - Gastrointestinal hemorrhage, unspecified Status: Acute Assessment and Plan: * Patient reports bloody stools * H&H stable currently 7.3/.9 * Anemia labs indicated iron deficiency anemia along with acute blood loss anemia * Continue to trend H&H frequently, however, will need to be cautious since his INR is supertherapeutic * GI consulted * Not sure that invasive procedures are able to be done since INR is >10 * Give one unit of PRBC 07/12/22 * Start Protonix BID Time Spent With Patient Time: 48 minutes Time with patient: Greater than 35 minutes Subjective Date/time seen: 07/14/22944 Interval history: 07/14/22944 Patient is doing ok. He denies any chest pain, shortness of breath, nausea, vomiting, diarrhea, or
[2022-07-14] MEDS: WARFARIN (*PBKC) 10 MG TABLET PO (16:59)
[2022-07-15] VITALS: PULSE 74
[2022-07-15 04:00] VITALS: PULSE 71
[2022-07-15 06:00] VITALS: BP 108/42; PULSE 76; RESP 16; TEMP 36.7; O2SAT 94
[2022-07-15 06:03] LABS: INR 1.8; Prothrombin Time 20.1 Seconds (11.1-14.7)
[2022-07-15] MEDS: WATER FOR IRRIGATION, STERILE 1,000 ML BOTTLE 1000 ML (07:24)
[2022-07-15] MEDS: ENOXAPARIN 100 MG/ML SYRINGE SUB-Q (09:09)
[2022-07-15] MEDS: BUMETANIDE 1 MG TABLET PO (09:12)
[2022-07-15 09:13] VITALS: PULSE 101
[2022-07-15] MEDS: METOPROLOL SUCCINATE EXT REL 25 MG TABCR 75 MG PO (09:13)
[2022-07-15] MEDS: SILDENAFIL CITRATE 20 MG TABLET 40 MG PO (09:13)
[2022-07-15] MEDS: MIDODRINE HCL 10 MG TABLET PO (09:13)
[2022-07-15] MEDS: SPIRONOLACTONE 25 MG TABLET 50 MG PO (09:13)
[2022-07-15] MEDS: LORATADINE 10 MG TABLET PO (09:14)
[2022-07-15] MEDS: ATORVASTATIN 10 MG TABLET PO (09:14)
[2022-07-15] MEDS: PANTOPRAZOLE SODIUM IV 40 MG VIAL IV PUSH (09:14)
--- NOTE | 2022-07-15 09:15 | P.DS_ITS ---
DS: Admitting Diagnosis Discharge Date 07/15/2215 Admitting Diagnosis JORY, Supratherapeutic INR, GI Bleed DS: Discharge Diagnosis Discharge Diagnosis (1) Acute kidney injury: Code(s): N17.9 - Acute kidney failure, unspecified Status: Acute Assessment and Plan: * BUN/Cr 47/2.10 * Currently trending down at 15/1.00 * Continue to trend * Probably related to overdiuresis of 2mg bumex BID, 2.5mg Metolazone 3x per week, and spironolactone 50mg Daily * His book or script editor is titrating medications * Increased diurectics to 1mg Bumex BID, and 50mg Spironolactone Daily * Avoid nephrotoxic medications * Trend labs * Consider UA, an urine electrolytes if renal function worsens (2) Microcytic anemia: Code(s): D50.9 - Iron deficiency anemia, unspecified Status: Acute Assessment and Plan: * Current H/H 7.3/23.9 * Anemia labs iron 16, TIBC 449, % saturation 4, ferritin 19.30, B12 593, folate 12.5 * Start iron 325 b.i.d. * Transfuse 1 unit PRBC 07/12/22 * GI consulted * Occult blood positive * INR peaked at 10.2, currently 1.7 * Continue trend labs * Transfuse if hemoglobin less than 7 (3) Supratherapeutic INR: Code(s): R79.1 - Abnormal coagulation profile Status: Acute Assessment and Plan: * INR peaked at 10.2, currently 1.6 * Vitamin K given on 07/11/22 * Could be related to diet changes * Continue to trend labs * Increase warfarin to 10mg today * INR goal 2.0-3.0 (4) Pulmonary hypertension: Code(s): I27.20 - Pulmonary hypertension, unspecified Status: Chronic Assessment and Plan: * Continue sildenafil * Echo from 06/13/22 showed EF of >70% with a a PA pressure of 8, and some degree of diastolic dysfunction (5) Paroxysmal atrial fibrillation: Code(s): I48.0 - Paroxysmal atrial fibrillation Status: Acute Assessment and Plan: * HR controlled at 70 * Warfarin restarted and titrated to achieve goal INR * Continue metoprolol. * Trend HR (6) Hyperglycemia: Code(s): R73.9 - Hyperglycemia, unspecified Status: Acute Assessment and Plan: * Glucose 95 * A1c 6.5 * ISS * Hold oral antidiabetic * trend labs * Hypoglycemia protocol * adjust therapy as indicated (7) Obstructive sleep apnea: Code(s): G47.33 - Obstructive sleep apnea (adult) (pediatric) Status: Acute Assessment and Plan: * CPAP from home * trend respiratory status (8) GI bleed: Code(s): K92.2 - Gastrointestinal hemorrhage, unspecified Status: Acute Assessment and Plan: * Patient reports bloody stools * H&H stable currently 7.3/.9 * Anemia labs indicated iron deficiency anemia along with acute blood loss anemia * Continue to trend H&H frequently, however, will need to be cautious since his INR is supertherapeutic * GI consulted * Not sure that invasive procedures are able to be done since INR is >10 * Give one unit of PRBC 07/12/22 * Start Protonix BID DS: Summary Hospital Course Hospital Course: Patient is 62-year-old male with a past medical history of valvular heart disease status post mechanical are ao
--- NOTE | 2022-07-15 09:15 | PM.DS ---
DS: Admitting Diagnosis Discharge Date 07/15/2215 Admitting Diagnosis JORY, Supratherapeutic INR, GI Bleed DS: Discharge Diagnosis Discharge Diagnosis (1) Acute kidney injury: Code(s): N17.9 - Acute kidney failure, unspecified Status: Acute Assessment and Plan: BUN/Cr 47/2.10 Currently trending down at 15/1.00 Continue to trend Probably related to overdiuresis of 2mg bumex BID, 2.5mg Metolazone 3x per week, and spironolactone 50mg Daily His contact acid plant operator helper is titrating medications Increased diurectics to 1mg Bumex BID, and 50mg Spironolactone Daily Avoid nephrotoxic medications Trend labs Consider UA, an urine electrolytes if renal function worsens (2) Microcytic anemia: Code(s): D50.9 - Iron deficiency anemia, unspecified Status: Acute Assessment and Plan: Current H/H 7.3/23.9 Anemia labs iron 16, TIBC 449, % saturation 4, ferritin 19.30, B12 593, folate 12.5 Start iron 325 b.i.d. Transfuse 1 unit PRBC 07/12/22 GI consulted Occult blood positive INR peaked at 10.2, currently 1.7 Continue trend labs Transfuse if hemoglobin less than 7 (3) Supratherapeutic INR: Code(s): R79.1 - Abnormal coagulation profile Status: Acute Assessment and Plan: INR peaked at 10.2, currently 1.6 Vitamin K given on 07/11/22 Could be related to diet changes Continue to trend labs Increase warfarin to 10mg today INR goal 2.0-3.0 (4) Pulmonary hypertension: Code(s): I27.20 - Pulmonary hypertension, unspecified Status: Chronic Assessment and Plan: Continue sildenafil Echo from 06/13/22 showed EF of >70% with a a PA pressure of 8, and some degree of diastolic dysfunction (5) Paroxysmal atrial fibrillation: Code(s): I48.0 - Paroxysmal atrial fibrillation Status: Acute Assessment and Plan: HR controlled at 70 Warfarin restarted and titrated to achieve goal INR Continue metoprolol. Trend HR (6) Hyperglycemia: Code(s): R73.9 - Hyperglycemia, unspecified Status: Acute Assessment and Plan: Glucose 95 A1c 6.5 ISS Hold oral antidiabetic trend labs Hypoglycemia protocol adjust therapy as indicated (7) Obstructive sleep apnea: Code(s): G47.33 - Obstructive sleep apnea (adult) (pediatric) Status: Acute Assessment and Plan: CPAP from home trend respiratory status (8) GI bleed: Code(s): K92.2 - Gastrointestinal hemorrhage, unspecified Status: Acute Assessment and Plan: Patient reports bloody stools H&H stable currently 7.3/23.9 Anemia labs indicated iron deficiency anemia along with acute blood loss anemia Continue to trend H&H frequently, however, will need to be cautious since his INR is supertherapeutic GI consulted Not sure that invasive procedures are able to be done since INR is >10 Give one unit of PRBC 07/12/22 Start Protonix BID DS: Summary Hospital Course Hospital Course: Patient is 62-year-old male with a past medical history of valvular heart disease status post mechanical are aortic valve replacement, pulmonary hypertension, right-sided heart failure, AFib, hyperlipidemia, sleep apnea, [place] who presented to the ED with complaints of elevated INR. Patient was recently discharged and was transferred to [place]. At that time his diuretics had been changed. Upon arrival patient was noted to be have an JORY with a BUN creatinine of 47/2.10. Diuretics have been reduced. Upon arrival INR was noted to be 8.9. Patient was having significant epistaxis, bleeding from past IV sites and bleeding from the rectum. Patient was given vitamin K after the INR patent 10.2. Warfarin was placed on hold. Cardiology was consulted at that time as well. Warfarin was restarted after the INR had continue trend down. GI blee
== END 2022-07-15 10:39 | disposition home or self-care (01) | DRG 683 ==
LOC: ANHED 11:20 → ANH2MED 12:51
PROVIDERS: Internal Medicine Cardiovascular Disease; Physician Assistant; Admitting Provider Internal Medicine; Emergency Provider Physician Assistant; PCP Family Medicine; Visit Provider Nurse Practitioner
DX: N17.9 Acute kidney failure, unspecified (principal); D62 Acute posthemorrhagic anemia; K92.2 Gastrointestinal hemorrhage, unspecified; R79.1 Abnormal coagulation profile; T45.515A Adverse effect of anticoagulants, initial encounter; Z79.01 Long term (current) use of anticoagulants; I50.9 Heart failure, unspecified; D50.9 Iron deficiency anemia, unspecified; I27.20 Pulmonary hypertension, unspecified; I48.0 Paroxysmal atrial fibrillation; Z20.822 Contact with and (suspected) exposure to COVID-19; R73.9 Hyperglycemia, unspecified; G47.33 Obstructive sleep apnea (adult) (pediatric); E78.5 Hyperlipidemia, unspecified; M19.90 Unspecified osteoarthritis, unspecified site; I25.10 Atherosclerotic heart disease of native coronary artery without angina pectoris; K21.9 Gastro-esophageal reflux disease without esophagitis; K75.81 Nonalcoholic steatohepatitis (NASH); E80.4 Gilbert syndrome; K74.60 Unspecified cirrhosis of liver; Z95.2 Presence of prosthetic heart valve; Z90.49 Acquired absence of other specified parts of digestive tract; Z86.16 Personal history of COVID-19
CPT/HCPCS: 36415; 36430; 71045; 80048; 80053; 82274; 82550; 82607; 82728; 82746; 83036; 83540; 83550; 83735; 83880; 84132; 85014; 85018; 85025; 85027; 85046; 85055; 85610; 85730; 86850; 86900; 86901; 86923; 87636; 93005; 96361; 96374; 99285; A9270; C9113; G0378; J1650; J3430; J3475; J3480; J7030; J7040; J7050; P9016

== ENCOUNTER 2022-12-05 10:00 | Outpatient (RCR) | payer OTHER, SELFPAY ==
--- NOTE | 2022-09-12 11:03 | PTOPEVAL1 ---
Assessment and note entered by Tu Curran, PT Evaluation Information Assessment Status Evaluation Diagnosis L1 complression fx with kyphoplasty Onset 06/22/22 Subjective Information Patient reports having a bad back for a long time, currently unable to do job. Did get the kyphoplasty in June of this year but elected to hold off on therapy to see if everything would feel better on its on. Patient reports remarkable results especially with functional transfers including getting in and out of car, in and out of bed, and up and down from a seated position. The patient' main complaint is stiffness and trouble with slight bending of the back while cooking or washing dishes. No radiating symptoms Assessment PT Clinical Summary Abelino is a 62 year old male coming into the clinic for physical therapy after a kyphoplasty. Patient has weakness in his core and hips along with tightness throughout his body putting him out of proper alignment in shoulder, back and legs. Physical therapy will work on posture, stretching, and core and lower extremity strengthening. Modalities and manual therapy as needed for pain. Patient does have multiple medical comorbidities which will slow progress. Plan of Care Interventions Electrical Stimulation,Gait Training,Hot Pack/Cold Pack,Manual Therapy,Neuro Re-education,Patient/ Caregiver Education,Therapeutic Activities, Therapeutic Exercise,Ultrasound Other Interventions cupping, taping, IASTM. PT Services Indicated Yes Treatment Frequency and 1-2x/wk for 4 weeks Duration These treatments will address the objective and functional deficits as defined above. The patient will be advanced safely and appropriately in order for the patient to progress towards his/her prior level of function. Additional exercises will be introduced and as well as a comprehensive home exercise program upon discharge, if needed, ?to ensure carryover of functional gains achieved in the clinic. This treatment plan has been reviewed and agreement upon by the patient.
--- NOTE | 2022-09-21 12:04 | PCPTNOTE ---
Pt arrived for his appt that he thought was 11 when informed his appt time was 11:30 he stated he could not stay and left.
--- NOTE | 2022-10-09 13:27 | PTOPPROG ---
Assessment and note entered by Tu Curran, PT Evaluation Information Assessment Status Progress Diagnosis Compression fracture L1 vertebra Onset 06/22/22 Subjective Information Patient reports not being consistent with his exercises at home, but does like them when he does them especially the stretching. Patient's pain is still about the same, not much change especially with prolonged standing with slight flexion like cooking and doing dishes. Will be starting respiratory rehab in the next few months. Will be getting an MRI after removing a wire. Assessment PT Clinical Summary Abelino is a 62 year old male coming into the clinic with a diagnosis of Compression fracture at L1 with subsequent kyphoplasty. The patient was evaluated on 09/11/22 and has attended 5 sessions with one cancelation. Patient has met goals for his calf flexibility and core recruitment. Did not meet goals for hip flexors and hamstrings flexibility along with pain. Secondary to medical comorbidities we knew patient's progress was probably going to be slower. Recommend continued therapy. Plan of Care Interventions Electrical Stimulation,Gait Training,Hot Pack/Cold Pack,Manual Therapy,Neuro Re-education,Patient/ Caregiver Education,Therapeutic Activities, Therapeutic Exercise,Ultrasound Other Interventions cupping, taping, IASTM PT Services Indicated Yes Treatment Frequency and 1-2x/wk for 4 weeks Duration These treatments will address the objective and functional deficits as defined above. The patient will be advanced safely and appropriately in order for the patient to progress towards his/her prior level of function. Additional exercises will be introduced and as well as a comprehensive home exercise program upon discharge, if needed, ?to ensure carryover of functional gains achieved in the clinic. This treatment plan has been reviewed and agreement upon by the patient.
--- NOTE | 2022-11-01 13:08 | PCPTNOTE ---
Pt cancelled due to appointment with back doctor.
--- NOTE | 2022-11-07 14:05 | PTOPPROG ---
Assessment and note entered by Tu Curran, PT Evaluation Information Assessment Status Progress Diagnosis Compression Fx of L1 vertebra Onset 06/22/22 Subjective Information Patient reports still having pain, 4/10 at baseline. Getting injections next Saturday in the back and if that does not work having what sounds like an ablation procedure. The patient besides physical therapy is doing cardiopulmonary rehab. Reports he tries to do his HEP as much as possible , but is still hit or miss depending on how tired out he is. Assessment PT Clinical Summary Abelino is a 62 year old male coming into the clinic with a diagnosis of Compression fracture L1 vertebra. Patient was evaluated on 09/11/22 and has attended 11 visits. Patient has partially met his muscle flexibility goals. Has not met his pain goal. Hopeful injections will help in this aspect and allow patient to participate more. Planning on reducing frequency to once a week so he is not so tired out and can do his HEP. Plan of Care Interventions Electrical Stimulation,Gait Training,Hot Pack/Cold Pack,Manual Therapy,Mechanical Traction,Paraffin Bath,Prosthetic Training,Therapeutic Activities, Therapeutic Exercise,Ultrasound Other Interventions cupping, taping, IASTM. PT Services Indicated Yes Treatment Frequency and 1x/wk for 4 weeks Duration These treatments will address the objective and functional deficits as defined above. The patient will be advanced safely and appropriately in order for the patient to progress towards his/her prior level of function. Additional exercises will be introduced and as well as a comprehensive home exercise program upon discharge, if needed, ?to ensure carryover of functional gains achieved in the clinic. This treatment plan has been reviewed and agreement upon by the patient.
--- NOTE | 2022-12-05 12:54 | PTOPDC ---
Assessment and note entered by Tu Curran, PT Evaluation Information Assessment Status Discharge Diagnosis compression fx L1 vertebra. Onset 06/08/22 Subjective Information Patient reports pain is usually around 1-2/10 in the AM and will get up to about 4/10 at the end of the day and not really matter what he does. Has still been dealing with medical comorbidities issues. Currently also going to cardiopulmonary rehab. Patient is planning to see his back doctor again in December. Reported Pain Level Pain Score 2: Self Report Additional Pain Score Comments Patient's pain goes between 1-4/10 Assessment PT Clinical Summary Abelino is a 62 year old male coming into the clinic with a diagnosis of Compression fx of L1 vertebra. Patient was evaluated on 09/11/22 and has attended 15 sessions of physical therapy. Patient has met his flexibility and original strengthening goal. Unfortunately no change in pain. Patient reports he is very inconsistent with his HEP, although he will remark each visit as he is doing exercises the back feels better after doing them. Recommend being discharged from skilled physical therapy with HEP and going back to see back doctor as patient is wanting to look into less conservative treatment options. Plan of Care PT Services Indicated No
== END 2022-12-07 10:13 | disposition home or self-care (01) ==
LOC: ANHPT 10:00
PROVIDERS: PCP Family Medicine
DX: S32.010D Wedge compression fracture of first lumbar vertebra, subsequent encounter for fracture with routine healing (principal)
CPT/HCPCS: 97110; 97112; 97161; 97530

== ENCOUNTER 2023-01-08 13:30 | Outpatient (RCR) | payer OTHER, SELFPAY ==
[2022-10-12 11:12] VITALS: PULSE 70
== END 2023-01-17 17:05 | disposition home or self-care (01) ==
LOC: ANHCPREHAB 13:30
PROVIDERS: PCP Family Medicine
DX: J98.4 Other disorders of lung (principal)
CPT/HCPCS: 94625; G0239

== ENCOUNTER 2023-01-16 08:25 | Inpatient (IN) | payer OTHER, SELFPAY ==
[2023-01-16] VITALS (25 sets, daily range): BP systolic 94–126; BP diastolic 46–79; PULSE 66–101; RESP 14–27; TEMP 36.8–37.1; O2SAT 90–97; BMI 32.8
--- NOTE | ~2023-01-16 | US_ITS ---
EXAMINATION: US venous doppler [facility] DATE: 01/21/2023 12:38 INDICATION: Left lower limb swelling TECHNIQUE: Durand scale images without and with compression and Doppler images of the left lower extrem ity veins were obtained. COMPARISON: 06/13/2022 FINDINGS: The left common femoral vein, profunda femoral vein, femoral vein, popliteal vein, peroneal trunk, posterior tibial veins, and greater saphenous vein are patent. IMPRESSION: 1. Patent left lower extremity veins. No evidence of deep venous thrombosis. Reviewed, dictated and finalized at location A.
--- NOTE | ~2023-01-16 | XR_ITS ---
EXAMINATION: XR hip LT 2V w AP pelvis DATE: 01/16/2023 09:05 INDICATION: Pelvic trauma TECHNIQUE: Anteroposterior view of the pelvis and anteroposterior and cross-table lateral views of th e left hip were obtained. COMPARISON: None. FINDINGS: Minimally displaced intertrochanteric fracture the proximal left femur which remains in near-anatomic alignment. No other fractures identified. Mild osteoarthritis at the bilateral hip and sacroiliac marilee ints. Moderate lower lumbar spondylosis. Surgical clip in the central pelvis. IMPRESSION: 1. Displaced intertrochanteric fracture the proximal left femur. Reviewed, dictated and finalized at location A.
--- NOTE | ~2023-01-16 | CT_ITS ---
EXAMINATION: CT brain wo con DATE: 01/16/2023 10:43 INDICATION: Fall today. Head injury. TECHNIQUE: Computed tomography (CT) of the head was performed without intravenous contrast. The mA wa s adjusted according to patient size. Iterative reconstruction technique was employed. Exam dose: 68 1.00 mGy-cm total exam DLP. COMPARISON: None FINDINGS: No intracranial mass lesion or hemorrhage or cerebrovascular accident, midline shift or mas s effect is detected. Bilateral carotid siphon internal carotid artery calcifications. There is nonspecific diminished atte nuation of the cerebral white matter, likely due to chronic small vessel ischemic changes. No subdural or epidural hematoma is detected. The paranasal sinuses and mastoid air cells are normally developed and aerated. No fracture or bone destruction of the cranial vault. IMPRESSION: Cerebral atherosclerosis and chronic small vessel ischemic changes of the cerebral white matter No skull fracture or acute intracranial finding Reviewed, dictated and finalized at [facility]. Reviewed, dictated and finalized at location B.
--- NOTE | ~2023-01-16 | XR_ITS ---
EXAMINATION: XR surgery orthopedic DATE: 01/18/2023 14:21 INDICATION: Left intertrochanteric nailing of an intratrochanteric fracture of the proximal left femu r TECHNIQUE: 4 fluoroscopic images of the left hip and proximal femur were obtained during procedure pe rformed by Dr. Peter. Radiologist was not present for the imaging or procedure. The amount of fluorosc opy time used during this procedure was 0.5 minutes. COMPARISON: None. FINDINGS: Interval reduction and internal fixation of an intertrochanteric fracture the proximal left femur wit h an antegrade intramedullary kaykay with femoral neck dynamic compression screw and distal interlocking screw fixation. Alignment is near-anatomic. Expected small amount of postoperative gas in the surrou nding soft tissues. IMPRESSION: 1. Near-anatomic alignment post reduction and internal fixation of an intratrochanteric fracture of t he proximal left femur. Reviewed, dictated and finalized at location A. IMPRESSION: 1. Near-anatomic alignment post reduction and internal fixation of an intratroc hanteric fracture of the proximal left femur.
--- NOTE | ~2023-01-16 | XR_ITS ---
Portable chest x-ray Comparison: 07/10/2022 Clinical History: Trauma Findings: Possible minimal central congestive change. No consolidation or pleural effusion evident. No pneumothorax. Cardiomediastinal silhouette is stable, status post median sternotomy. Bones and so ft tissues are unremarkable. Impression: Possible minimal central congestive changes. Reviewed, dictated and finalized at location . Impression: Possible minimal central congestive changes.
--- NOTE | ~2023-01-16 | XR_ITS ---
Right Shoulder Technique: AP and scapular Y views were obtained. Clinical History: Pain Findings: No fracture or dislocation is seen. Osseous alignment is anatomic. The glenohumeral and acr omioclavicular joint spaces are preserved. Soft tissues are unremarkable. Impression: Unremarkable right shoulder radiographs. Reviewed, dictated and finalized at [facility]. Impression: Unremarkable right shoulder radiographs.
--- NOTE | 2023-01-16 08:41 | ECG_ITS ---
Measurements Intervals [place] Rate: 102 P: [place]: 0 QRS: 18 QRSD: 106 T: 90 QT: 374 QTc: 489 Interpretive Statements PROBABLE SINUS TACHYCARDIA WITH PREMATURE VENTRICULAR COMPLEXES INCOMPLETE RIGHT BUNDLE BRANCH BLOCK [90+ ms QRS DURATION, TERMINAL R IN V1/V2, 40+ ms S IN I/aVL/V4/V5/V6] ABNORMAL ECG Electronically Signed On 01-16-2023 12:13:02 CDT by Baldo Holliday M.D.
[2023-01-16] MEDS: HYDROmorphone HCL INJ (*CRX) 1 MG/ML SYR 0.5 MG IV PUSH (08:47)
[2023-01-16 08:53] LABS: Basophils Percent Auto 0.7 % (0.2-1.2); Eosinophils Absolute Auto 0.1 K/mm3 (0-0.3); Eosinophils Percent Auto 3.3 % (0-4.4); Hematocrit 38.4 % (42.0-52.0); Immature Granulocyte Absolute 0.03 K/mm3 (0.00-0.031); Immature Granulocyte Percent A 0.7 % (0-0.5); Immature Platelet Fraction Pct 1.9 % (0.9-11.2); Lymphocytes Absolute Auto 0.83 K/mm3 (0.9-3.2); Lymphocytes Percent Auto 19.8 % (18.3-44.2); Mean Corpuscular HGB Conc 31.3 g/dl (32-36); Mean Corpuscular Hemoglobin 25.2 pg (26-34); Mean Corpuscular Volume 80.7 fl (80-100); Mean Platelet Volume 10.3 fl (7.4-10.4); Monocytes Absolute Auto 0.5 K/mm3 (0.1-0.6); Neutrophils Absolute Auto 2.7 K/mm3 (1.3-6.7); Neutrophils Percent Auto 64.5 % (45.5-73.1); Platelet Count Result 93 k/mm3 (150-375); Red Blood Count 4.76 M/mm3 (4.6-6.20); Red Cell Distribution Width 21.5 % (11.5-14.5); White Blood Count 4.2 K/mm3 (4.5-10.0)
[2023-01-16 09:03] LABS: Alanine Aminotransferase 22 U/L (6-50); Albumin Level 4.4 g/dL (3.5-5.1); Alkaline Phosphatase 103 U/L (38-126); Anion Gap 11 mmol/L (8-16); Aspartate Amino Transferase 33 U/L (17-59); Bilirubin,Total 4.4 mg/dL (0.2-1.3); Blood Urea Nitrogen 15 mg/dL (9-20); Calcium 9.4 mg/dL (8.4-10.2); Carbon Dioxide 21 mmol/L (22-30); Chloride 102 mmol/L (98-107); Estimated CRCL calculation 111 ml/min; Estimated Glomerular Filt Rate > 60; Glucose 128 mg/dL (65-110); Potassium 3.8 mmol/L (3.4-5.0); Sodium 134 mmol/L (137-145)
[2023-01-16 09:04] LABS: INR 1.7
[2023-01-16 09:05] LABS: Partial Thromboplastin Time 34.9 SECONDS (22.3-36.8)
--- NOTE | 2023-01-16 09:18 | ED.FALL ---
HPI - Fall General Chief Complaint: Fall Stated Complaint: left hip pain Time Seen by Provider: 01/16/23 08:37 History of Present Illness HPI Narrative: Patient is a 63-year-old male who presents ER with left hip pain. Reports he was walking when he tripped over a dog crate and fell onto his left hip. He did not strike his head or lose consciousness. He had sudden onset pain to the left hip and is unable to perform range of motion. Came in by EMS. He did not receive any pain medication. Patient is anticoagulated on Coumadin as he has history of mechanical heart valve. No additional areas of injury or pain. No numbness or tingling to the affected lower extremity. Patient also has history of atrial fibrillation. Related Data Home Medications Medication Instructions Recorded Confirmed potassium chloride 10 mEq 40 meq PO BID 12/15/19 01/16/23 tablet,extended release warfarin 5 mg tablet 7.5 mg PO DAILY 12/15/19 01/16/23 fexofenadine 180 mg tablet 180 mg PO DAILY 12/25/19 01/16/23 (Danae Allergy) fluticasone propionate 50 2 spray intranasal DAILY 12/25/19 01/16/23 mcg/actuation nasal spray,suspension (Flonase Allergy Relief) atorvastatin 10 mg tablet 10 mg PO DAILY 10/10/21 01/16/23 sildenafil (pulm.hypertension) 20 40 mg PO TID 05/03/22 01/16/23 mg tablet albuterol sulfate 90 mcg/actuation 2 inhalation inhalation Q4H PRN 07/10/22 01/16/23 aerosol inhaler shortness of breath or wheezing midodrine 10 mg tablet 10 mg PO TID 07/10/22 08/02/22 spironolactone 50 mg tablet 50 mg PO DAILY 07/10/22 01/16/23 bumetanide 0.5 mg tablet 0.5 mg PO .QD 08/02/22 01/16/23 Allergies Allergy/AdvReac Type Severity Reaction Status Date / Time No Known Allergies Allergy Verified 01/16/23 08:32 Review of Systems Review of Systems: All systems reviewed & are unremarkable except as noted in HPI and below Constitutional: Constitutional: Denies chills, Denies fatigue and Denies fever(s) ENT: Denies nasal congestion and Denies sore throat Cardiovascular: Cardiovascular: Denies chest pain, Denies rapid heart rate and Denies radiating jaw, neck or arm pain Respiratory: Respiratory: Denies cough and Denies dyspnea Gastrointestinal: Gastrointestinal: Denies abdominal pain, Denies nausea and Denies vomiting Musculoskeletal: Musculoskeletal: Denies back pain, Reports arthralgias and Denies joint swelling Neurologic: Denies syncope, Denies focal weakness and Denies numbness PMFSH Past Medical History Medical History (Updated 01/16/23 @ 18:27 by Mauro Barnard MD) Acute blood loss anemia Arthritis BMI greater than 30 Chronic fatigue Compression fracture of L1 vertebra (05/2022) Status post vertebroplasty on 06/22/2022. Congestive heart failure Echo on 06/13/2022: Hyperdynamic LV systolic function with an estimated EF > 70%, mildly enlarged RV chamber with reduced RV systolic function, moderate biatrial enlargement, PASP 70 mmHg. Coronary artery disease Coumadin toxicity Esophageal varices Gastroesophageal reflux disease Gilbert syndrome Hyperlipidemia Hypertension Insomnia Intertrochanteric fracture of left femur Liver cirrhosis secondary to nonalcoholic steatohepatitis (DAUGHERTY) Patient of Dr. Duffy at [facility]. Obstructive sleep apnea Paroxysmal atrial fibrillation Pulmonary hypertension Patient of Dr. Shruthi Zuniga at [facility]. Syncope Surgical History Surgical History History of arthroscopy of both knees (2012) History of cholecystectomy (06/2011) History of mechanical aortic valve replacement (05/2016) On-X valve, done at [facility]. History of mitral valve repair (05/2016) History of sinus surgery (2013) History of tonsillectomy History of vertebroplasty (06/2022) Family History Family History Sibling Heart disease Breast cancer Pacemaker Father Family history of cardiovasc
[2023-01-16] MEDS: HEPARIN SOD/D5W 100 UNITS/ML 25,000 UNITS/250 ML BAG 15 UNITS IV CONT (10:58)
[2023-01-16] MEDS: HEPARIN SODIUM 5,000 UNITS/ML VIAL 7000 UNITS IV PUSH (10:58)
[2023-01-16] MEDS: HYDROcodone/acetaminophen (*CRX) 5-325 MG TABLET 1 TAB PO ×3 (12:40→23:55)
--- NOTE | 2023-01-16 12:48 | ADMGEN ---
This patient, Abelino Vargas, was admitted to [facility] Surg Room 316-01. Patient/family oriented to hospital policies and general routines including ID bracelet, bed and alarms, visiting hours, pain management, procedures, bathroom and other care routines, personal items, smoking policy, room service/diet, and visiting hours. Information on how to activate the Rapid Response Team has been discussed. Patient/Family are encouraged to report perceived risks to care and to ask questions if they do not understand what they are told or what they should do.
--- NOTE | 2023-01-16 13:42 | PM.IMHP ---
H&P: HPI History of Present Illness Date/Time: 01/16/23 13:42 Chief Complaint: left hip pain Narrative: Patient is a 63-year-old male with past medical history mechanical heart valve on Coumadin, paroxysmal atrial fibrillation, pulmonary HTN, hyperlipidemia, GERD, SATHISH on CPAP presents to the ED by EMS for left hip pain after a fall. He was walking and tripped over a crate and landed on his left hip. He denies any dizziness, shortness of breath, loss of consciousness, head trauma. After falling he had significant pain in his left leg was unable to ambulate or move. Came to the ED by EMS. He has no acute medical concerns. No adjustments to his medications. No pattern of falling. Of note he had L1 compression fracture 05/2022 and vertebroplasty 06/22/22, plan is for outpatient f/u this coming Saturday. He also has a ABDIFATAH scheduled for next week for routine monitoring. In the ED: Patient is found to have a displaced intratrochanteric fracture of proximal left femur. His was subtherapeutic at 1.7 his goal is 2.5-3.5 with his mechanical heart valve, was started on heparin drip the ED. Plan is for surgery tomorrow [address] Peter. Patient being admitted for left hip fracture. Review of Systems Review of Systems: Constitutional: No Fever, No Chills, No Night Sweats, No Fatigue, No Malaise ENT/Mouth: No Hearing Changes, No Ear Pain, No Nasal Congestion, No Sinus Pain, No Hoarseness, No sore throat, No Rhinorrhea, No Swallowing Difficulty Eyes: No Eye Pain, No Redness, No Vision Changes Cardiovascular: No Chest Pain, No Palpitations, No Dyspnea on Exertion, No Orthopnea, No Claudication, No Edema Respiratory: No Cough, No Sputum, No Wheezing, No Shortness of Breath Gastrointestinal: No Nausea, No Vomiting, No Diarrhea, No Constipation, No Abdominal Pain, No Heartburn, No Hematochezia, No Melena Genitourinary: No Dysuria, No Urinary Frequency, No Hematuria, No Urinary Incontinence, No Urgency Musculoskeletal: Endorses left hip pain and chronic back pain Skin: No Skin Lesions, No Pruritis, No Hair Changes Neuro: No Weakness, No Numbness, No Paresthesias, No Loss of Consciousness, No Syncope, No Dizziness, No Headache Psych: No Anxiety/Panic, No Depression, No Insomnia Heme: No Bruising, No Bleeding Lymph: No Adenopathy Endocrine: No Polyuria, No Polydipsia, No Temperature Intolerance [facility] Past Medical History Medical History Acute blood loss anemia Arthritis BMI greater than 30 Chronic fatigue Compression fracture of L1 vertebra (05/2022) Status post vertebroplasty on 06/22/2022. Congestive heart failure Echo on 06/13/2022: Hyperdynamic LV systolic function with an estimated EF > 70%, mildly enlarged RV chamber with reduced RV systolic function, moderate biatrial enlargement, PASP 70 mmHg. Coronary artery disease Coumadin toxicity Esophageal varices Gastroesophageal reflux disease Gilbert syndrome Hyperlipidemia Hypertension Insomnia Liver cirrhosis secondary to nonalcoholic steatohepatitis ([place]UGHERTY) Patient of Dr. Duffy at [facility]. Obstructive sleep apnea Paroxysmal atrial fibrillation Pulmonary hypertension Patient of Dr. Shruthi Zuniga at [facility]. Syncope Surgical History Surgical History History of arthroscopy of both knees (2012) History of cholecystectomy (06/2011) History of mechanical aortic valve replacement (05/2016) On-X valve, done at [facility]. History of mitral valve repair (05/2016) History of sinus surgery (2013) History of tonsillectomy History of vertebroplasty (06/2022) Family History Family History Sibling Heart disease Breast cancer Pacemaker Father Family history of cardiovascular disease Family history of coronary artery disease Family history of congestive heart failure Hypertension Cereb
[2023-01-16] MEDS: MORPHINE SULFATE (*CRX) 4 MG/ML INJ IV PUSH (15:38)
--- NOTE | 2023-01-16 15:58 | PM.CNOR ---
Assessment and Plan Assessment and plan (1) Intertrochanteric fracture of left femur: Qualifiers: Encounter type: initial encounter Fracture type: closed Fracture alignment: displaced Qualified Code(s): S72.142A - Displaced intertrochanteric fracture of left femur, initial encounter for closed fracture Code(s): S72.142A - Displaced intertrochanteric fracture of left femur, initial encounter for closed fracture Status: Acute Assessment and Plan: 63-year-old male with a displaced left intertrochanteric hip fracture. I discussed with him the rationale for surgical stabilization. Pending medical clearance we will proceed tomorrow with open reduction internal fixation left IT hip fracture. Risks and potential complications were discussed in detail and questions answered. History of Present Illness HPI Consult date: 01/16/23 Chief complaint: hip fractuure,subtherapeitic inr Narrative: 63-year-old male who fell at home earlier today suffering a left intertrochanteric hip fracture. He was brought to the emergency room, admitted for further evaluation and management. Review of Systems Constitutional: Constitutional: Denies anorexia Eyes: Eyes: Denies irritation and Denies loss of vision ENT: Reports Normal hearing present Cardiovascular: Cardiovascular: Denies chest pain and Reports dyspnea ( Cardiomyopathy) Respiratory: Respiratory: Denies cough and Reports dyspnea on exertion Gastrointestinal: Gastrointestinal: Denies abdominal pain and Denies bloating Genitourinary: Genitourinary: Denies dysuria Musculoskeletal: Musculoskeletal: Denies arthralgias Integumentary/Breasts: Skin/Breast: Denies skin ulcer Neurologic: Reports Normal hearing present and Denies loss of vision Hematologic/Lymphatic: Hematologic/Lymphatic: Reports easy bleeding ( chronically on Coumadin) [facility] Past Medical History Medical History (Updated 01/16/23 @ 16:03 by Ra Peter MD) Acute blood loss anemia Arthritis BMI greater than 30 Chronic fatigue Compression fracture of L1 vertebra (05/2022) Status post vertebroplasty on 06/22/2022. Congestive heart failure Echo on 06/13/2022: Hyperdynamic LV systolic function with an estimated EF > 70%, mildly enlarged RV chamber with reduced RV systolic function, moderate biatrial enlargement, PASP 70 mmHg. Coronary artery disease Coumadin toxicity Esophageal varices Gastroesophageal reflux disease Gilbert syndrome Hyperlipidemia Hypertension Insomnia Intertrochanteric fracture of left femur Liver cirrhosis secondary to nonalcoholic steatohepatitis ([place]UGH[place]) Patient of Dr. Duffy at [facility]. Obstructive sleep apnea Paroxysmal atrial fibrillation Pulmonary hypertension Patient of Dr. Shruthi Zuniga at [facility]. Syncope Surgical History Surgical History History of arthroscopy of both knees (2012) History of cholecystectomy (06/2011) History of mechanical aortic valve replacement (05/2016) On-X valve, done at [facility]. History of mitral valve repair (05/2016) History of sinus surgery (2013) History of tonsillectomy History of vertebroplasty (06/2022) Family History Family History Sibling Heart disease Breast cancer Pacemaker Father Family history of cardiovascular disease Family history of coronary artery disease Family history of congestive heart failure Hypertension Cerebrovascular accident COPD (chronic obstructive pulmonary disease) Macular degeneration Mother Diabetes mellitus Heart failure Depression Heart disease Son Autism Heart disease Asthma Other Family history of mental disorder Social History Social History Social History: Surrogate medical decision maker: Shaista Vargas, spouse. Code status: Full code. Smoking status: Jeremie
[2023-01-16] MEDS: METOPROLOL SUCCINATE EXT REL 25 MG TABCR 75 MG PO (17:07)
[2023-01-16] MEDS: POTASSIUM CHLORIDE 20 MEQ ER TABLET 40 MEQ PO (17:07)
[2023-01-16] MEDS: SILDENAFIL CITRATE 20 MG TABLET 40 MG PO (17:09)
[2023-01-16 17:58] LABS: Partial Thromboplastin Time 75.6 SECONDS (22.3-36.8)
[2023-01-16] MEDS: WATER FOR IRRIGATION, STERILE 1,000 ML BOTTLE 1000 ML (23:02)
[2023-01-16 23:30] LABS: Partial Thromboplastin Time 118.5 SECONDS (22.3-36.8)
[2023-01-17 04:42] VITALS: BP 120/73; PULSE 75; RESP 18; TEMP 36.7; O2SAT 96
--- NOTE | 2023-01-17 04:57 | PC.NURSE ---
Pt's heparin stopped at this time, per Dr Peter's orders.
[2023-01-17 06:41] LABS: Basophils Percent Auto 0.8 % (0.2-1.2); Eosinophils Absolute Auto 0.3 K/mm3 (0-0.3); Hematocrit 33.6 % (42.0-52.0); Hemoglobin 10.5 g/dL (14.0-18.0); Immature Granulocyte Absolute 0.02 K/mm3 (0.00-0.031); Immature Granulocyte Percent A 0.4 % (0-0.5); Immature Platelet Fraction Pct 2.3 % (0.9-11.2); Lymphocytes Absolute Auto 0.72 K/mm3 (0.9-3.2); Lymphocytes Percent Auto 13.6 % (18.3-44.2); Mean Corpuscular HGB Conc 31.3 g/dl (32-36); Mean Corpuscular Hemoglobin 25.5 pg (26-34); Mean Corpuscular Volume 81.6 fl (80-100); Mean Platelet Volume 9.5 fl (7.4-10.4); Monocytes Absolute Auto 0.7 K/mm3 (0.1-0.6); Monocytes Percent Auto 12.7 % (2.6-8.5); Neutrophils Absolute Auto 3.5 K/mm3 (1.3-6.7); Neutrophils Percent Auto 66.5 % (45.5-73.1); Platelet Count Result 78 k/mm3 (150-375); Red Blood Count 4.12 M/mm3 (4.6-6.20); Red Cell Distribution Width 20.8 % (11.5-14.5); White Blood Count 5.3 K/mm3 (4.5-10.0)
[2023-01-17 06:49] LABS: Partial Thromboplastin Time 50.2 SECONDS (22.3-36.8)
[2023-01-17 08:07] LABS: INR 1.9; Prothrombin Time 22.8 Seconds (11.1-14.7)
[2023-01-17 08:25] VITALS: O2SAT 92
[2023-01-17] MEDS: HYDROcodone/acetaminophen (*CRX) 5-325 MG TABLET 1 TAB PO ×3 (09:06→18:16)
--- NOTE | 2023-01-17 11:17 | PM.IMPN ---
Progress Note: A&P Assessment and Plan (1) Intertrochanteric fracture of left femur: Qualifiers: Encounter type: initial encounter Fracture alignment: displaced Fracture type: closed Qualified Code(s): S72.142A - Displaced intertrochanteric fracture of left femur, initial encounter for closed fracture Code(s): S72.142A - Displaced intertrochanteric fracture of left femur, initial encounter for closed fracture Status: Acute Assessment and Plan: Patient had a mechanical fall resulting in left IT fracture. Patient denies syncope, seizure, LOC or any concerning history prior to the fall. Xray consistent with displaced left intertrochanteric fracture. Spoke with Cardiology who felt patient is okay for surgery but recommended treat patient for possible aortic stenosis. Spoke with Anesthesiology personally and relayed this information. Orthopedic physician also was made aware. INR today is now 1.9. Spoke with orthopedic surgeon who wishes to postpone the surgery today. Patient will be placed back on the heparin drip. Will resume diet. Will continue heparin at previous rate and hold off on bolus since INR is almost therapeutic. -plan for surgery tomorrow [address] Rome moctezuma -pain control: PRN tylenol, norco, morphine -antiemetics zofran -NPO at midnight (2) Subtherapeutic anticoagulation: Code(s): Z51.81 - Encounter for therapeutic drug level monitoring; Z79.01 - research instructor (current) use of anticoagulants Status: Acute Assessment and Plan: INR 1.7 on admission. Patient states he is INR is usually therapeutic. As above. (3) Atrial fibrillation: Code(s): I48.91 - Unspecified atrial fibrillation Status: Chronic Assessment and Plan: Patient has a history of atrial fibrillation. EKG showing sinus tachycardia with PVCs and incomplete right bundle-branch block. He is on anticoagulation for his mechanical aortic valve. He is on metoprolol for rate control which has been resumed. Heparin gtt resumed. Restart Coumadin post-op when okay with ortho. (4) H/O mechanical aortic valve replacement: Code(s): Z95.2 - Presence of prosthetic heart valve Status: Chronic Assessment and Plan: Patient has a history of mechanical aortic valve. He has also had a mitral valve repair. Patient states he is due for a ABDIFATAH due to concerns about the mitral valve. However speaking to the water engineer, the ABDIFATAH is actually to review the aortic valve since the most recent surface echo showed increased velocities across the aortic valve consistent with stenosis. This is a new finding which will be evaluated by ABDIFATAH. Charge Weigher recommended patient be treated as if he has aortic stenosis. Anesthesiology was notified. Charge Weigher did feel the patient could proceed with this non cardiovascular surgery safely without any further testing. (5) Liver cirrhosis secondary to nonalcoholic steatohepatitis ([place]UGHERTY): Code(s): K75.81 - Nonalcoholic steatohepatitis (DAUGHERTY); K74.60 - Unspecified cirrhosis of liver Status: Acute Assessment and Plan: Patient has known cirrhosis from DAUGHERTY. LFTs within normal limits except for total bilirubin 4.4. This is chronic finding for him. He also has thrombocytopenia which is also chronic finding for him related to the cirrhosis. He does not have a meld score that qualifies him for liver transplant. Plan Pulmonary HTN - stable. Sildanifil resumed SATHISH - continue BiPAP Diet: Cardiac, NPO midnight for surgery DVT prophylaxis: Heparin drip, will need to start warfarin postop Code status: Full code Disposition: Surgery tomorrow Subjective Date/time seen: 01/17/23 11:17 Interval history: 63yo male with mechanical AV, pAFib, SATHISH, cirrhosis and HTN here for hip pain after fall and found to have left hip fracture. Pain was reasonably well controlled overnight. He did not sleep well last night. He has chest pain this m
[2023-01-17] MEDS: HEPARIN SOD/D5W 100 UNITS/ML 25,000 UNITS/250 ML BAG 13 UNITS IV CONT (11:56)
[2023-01-17] MEDS: ATORVASTATIN 10 MG TABLET PO (12:02)
[2023-01-17] MEDS: SILDENAFIL CITRATE 20 MG TABLET 40 MG PO (12:02)
[2023-01-17] MEDS: PANTOPRAZOLE 40 MG TABLET PO (12:03)
[2023-01-17] MEDS: LORATADINE 10 MG TABLET PO (12:03)
[2023-01-17] MEDS: BUMETANIDE 0.5 MG TABLET PO (12:03)
[2023-01-17] MEDS: SPIRONOLACTONE 50 MG TABLET PO (12:03)
--- NOTE | 2023-01-17 12:03 | PM.PNORT ---
Progress Note: A&P Assessment and Plan (1) Closed intertrochanteric fracture of left hip: Qualifiers: Encounter type: subsequent encounter Fracture alignment: displaced Fracture healing: with routine healing Qualified Code(s): S72.142D - Displaced intertrochanteric fracture of left femur, subsequent encounter for closed fracture with routine healing Code(s): S72.142A - Displaced intertrochanteric fracture of left femur, initial encounter for closed fracture Status: Acute Assessment and Plan: Left IT hip fracture. Plan surgery tomorrow. Will be getting FFP. Check portable right shoulder x-ray today. NPO after midnight tonight. Heparin drip will be stopped a few hours before surgery tomorrow morning. Discussed with the patient and his spouse. Subjective Subjective Date/Time Seen: 01/17/23 12:03 Principal diagnosis: Left IT hip fracture Interval history: 63-year-old male with multiple medical issues. Has left IJ hip fracture. INR went up to 1.9. Surgery will be postponed until tomorrow. Exam Const: General: cooperative and uncomfortable (Primarily left hip and thigh pain) Extrem: Other: Pain with movement of left hip. Some right shoulder anterior soreness noted. Objective Data Vital Signs Vital Signs: Vital Signs - 24 hr 01/16/23 12:44 01/16/23 17:07 01/16/23 21:06 Temperature 98.2 F 98.8 F Pulse Rate 99 96 89 Respiratory Rate 16 17 Blood Pressure 121/72 120/79 Pulse Oximetry 97 93 Oxygen Delivery 01/16/23 20:00 01/17/23 04:42 01/17/23 08:25 Temperature 98.0 F Pulse Rate 75 Respiratory Rate 18 Blood Pressure 120/73 Pulse Oximetry 96 92 Oxygen Delivery Room Air Room Air Intake/Output Intake/Output: Intake & Output 01/14/23 01/15/23 01/16/23 01/17/23 23:59 23:59 23:59 23:59 Intake Total 720 / 720 250 / 250 Output Total 350 / 350 325 / 325 Balance 370 / 370 -75 / -75 Meds/Results Medications: Active Medications Generic Name Dose Route Start Last Admin Trade Name Freq PRN Reason Stop Dose Admin Acetaminophen 650 mg 01/16/23 10:41 Acetaminophen 325 Mg Tablet PO Q4H PRN Mild Pain (1-3) or Fever Hydrocodone Bitart/Acetaminophen 1 tab 01/16/23 10:41 01/17/23 09:06 Hydrocodone/Acetaminophen (*Crx) 5-325 Mg Tablet PO 1 tab Q4H PRN Administration Pain Rated 4-6 Albuterol 2 puff 01/16/23 14:07 Albuterol Sulfate (*Sp) Aerosol 1 Puff INHALATION Q4H PRN shortness of breath or wheezing Atorvastatin Calcium 10 mg 01/17/23 09:00 Atorvastatin 10 Mg Tablet PO DAILY [facility] Benzonatate 200 mg 01/16/23 14:07 Benzonatate 100 Mg Capsule PO TID PRN cough Bumetanide 0.5 mg 01/17/23 09:00 Bumetanide 0.5 Mg Tablet PO DAILY [facility] Fluticasone Propionate 2 spray 01/17/23 09:00 Fluticasone Propionate 0.05% Na Spr 16 Gm Btl (*Bkc) NASAL DAILY [facility] Heparin Sodium (Porcine) 7,000 units 01/16/23 10:21 Heparin Sodium 5,000 Units/Ml Vial IV PUSH PRN PRN aPTT less than 55 seconds Heparin Sodium (Porcine) 3,500 units 01/16/23 10:21 Heparin Sodium 5,000 Units/Ml Vial IV PUSH PRN PRN aPTT 55 - 70 seconds Heparin Sodium/Dextrose 25,000 units in 250 mls @ 13 mls/hr 01/16/23 10:25 01/17/23 11:56 Heparin Sodium/D5w 100 Units/Ml IV CONT 1,300 units/hr .[id number] SHARDA 13 mls/hr Administration Protocol 1,300 UNITS/HR Cefazolin Sodium 2 gm in 50 mls @ 100 mls/hr 01/17/23 13:00 Ancef 2 Gm/D5w 50 Ml IVPB 01/17/23 13:29 ONCE ONE Loratadine 10 mg 01/17/23 09:00 Loratadine 10 Mg Tablet PO QAM [facility] Metoprolol Succinate 75 mg 01/16/23 18:00 01/16/23 17:07 Metoprolol Succinate Ext Rel 25 Mg Tabcr PO 75 mg QPM SHARDA Administration Morphine Sulfate 4 mg 01/16/23 10:41 01/16/23 15:38 Morphine Sulfate (*Crx) 4 Mg/Ml Inj IV PUSH 4 mg Q2H PRN Administration Pain Rated 7-10
[2023-01-17] MEDS: POTASSIUM CHLORIDE 20 MEQ ER TABLET 40 MEQ PO ×2 (12:05→18:06)
[2023-01-17 14:25] VITALS: BP 108/61; PULSE 85; RESP 17; TEMP 36.8; O2SAT 93
[2023-01-17 17:20] VITALS: PULSE 95
[2023-01-17] MEDS: METOPROLOL SUCCINATE EXT REL 25 MG TABCR 75 MG PO (17:20)
[2023-01-17 18:06] VITALS: BP 102/64; PULSE 93
[2023-01-17 18:37] LABS: Partial Thromboplastin Time 76.9 SECONDS (22.3-36.8)
[2023-01-17 18:57] LABS: INR 1.8; Prothrombin Time 21.5 Seconds (11.1-14.7)
[2023-01-17 20:50] VITALS: BP 115/74; PULSE 96; RESP 18; TEMP 36.8; O2SAT 95
[2023-01-18] VITALS (20 sets, daily range): BP systolic 104–138; BP diastolic 60–88; PULSE 82–96; RESP 12–23; TEMP 36.4–38.2; O2SAT 92–99
[2023-01-18 01:01] LABS: Partial Thromboplastin Time 110.8 SECONDS (22.3-36.8)
[2023-01-18] MEDS: HYDROcodone/acetaminophen (*CRX) 5-325 MG TABLET 1 TAB PO (05:04)
[2023-01-18] MEDS: HEPARIN SOD/D5W 100 UNITS/ML 25,000 UNITS/250 ML BAG 11 UNITS IV CONT ×2 (05:20→21:19)
[2023-01-18 06:48] LABS: Basophils Percent Auto 0.4 % (0.2-1.2); Eosinophils Absolute Auto 0.2 K/mm3 (0-0.3); Eosinophils Percent Auto 4.6 % (0-4.4); Hematocrit 32.9 % (42.0-52.0); Hemoglobin 10.5 g/dL (14.0-18.0); Immature Granulocyte Absolute 0.03 K/mm3 (0.00-0.031); Immature Granulocyte Percent A 0.7 % (0-0.5); Immature Platelet Fraction Pct 2.2 % (0.9-11.2); Lymphocytes Absolute Auto 0.67 K/mm3 (0.9-3.2); Lymphocytes Percent Auto 14.8 % (18.3-44.2); Mean Corpuscular HGB Conc 31.9 g/dl (32-36); Mean Corpuscular Hemoglobin 25.5 pg (26-34); Mean Platelet Volume 8.9 fl (7.4-10.4); Monocytes Absolute Auto 0.7 K/mm3 (0.1-0.6); Monocytes Percent Auto 15.5 % (2.6-8.5); Neutrophils Absolute Auto 2.9 K/mm3 (1.3-6.7); Platelet Count Result 76 k/mm3 (150-375); Red Blood Count 4.11 M/mm3 (4.6-6.20); Red Cell Distribution Width 20.8 % (11.5-14.5); White Blood Count 4.5 K/mm3 (4.5-10.0)
[2023-01-18 06:54] LABS: Alanine Aminotransferase 19 U/L (6-50); Albumin Level 3.6 g/dL (3.5-5.1); Alkaline Phosphatase 61 U/L (38-126); Anion Gap 6 mmol/L (8-16); Aspartate Amino Transferase 28 U/L (17-59); Bilirubin,Total 4.8 mg/dL (0.2-1.3); Blood Urea Nitrogen 12 mg/dL (9-20); Calcium 8.5 mg/dL (8.4-10.2); Carbon Dioxide 23 mmol/L (22-30); Chloride 102 mmol/L (98-107); Estimated CRCL calculation 124 ml/min; Estimated Glomerular Filt Rate > 60; Glucose 122 mg/dL (65-110); Potassium 4.1 mmol/L (3.4-5.0); Sodium 131 mmol/L (137-145)
[2023-01-18 06:56] LABS: INR 1.5; Partial Thromboplastin Time 73.9 SECONDS (22.3-36.8); Prothrombin Time 19.4 Seconds (11.1-14.7)
--- NOTE | 2023-01-18 09:13 | PM.IMPN ---
Progress Note: A&P Assessment and Plan (1) Intertrochanteric fracture of left femur: Qualifiers: Encounter type: initial encounter Fracture type: closed Fracture alignment: displaced Qualified Code(s): S72.142A - Displaced intertrochanteric fracture of left femur, initial encounter for closed fracture Code(s): S72.142A - Displaced intertrochanteric fracture of left femur, initial encounter for closed fracture Status: Acute Assessment and Plan: Patient had a mechanical fall resulting in left IT fracture. Patient denies syncope, seizure, LOC or any concerning history prior to the fall. Xray consistent with displaced left intertrochanteric fracture. Spoke with Cardiology who felt patient is okay for surgery but recommended treat patient for possible aortic stenosis. Spoke with Anesthesiology personally and relayed this information. Orthopedic physician also was made aware. INR today is now 1.5. Patient currently on the heparin drip. 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 Patient states he is INR is usually therapeutic. As above. (3) Atrial fibrillation: Code(s): I48.91 - Unspecified atrial fibrillation Status: Chronic Assessment and Plan: Patient has a history of atrial fibrillation. EKG showing sinus tachycardia with PVCs and incomplete right bundle-branch block. He is on anticoagulation for his mechanical aortic valve. He is on metoprolol for rate control which has been resumed. Heparin gtt. Restart Coumadin post-op when okay with ortho. (4) H/O mechanical aortic valve replacement: Code(s): Z95.2 - Presence of prosthetic heart valve Status: Chronic Assessment and Plan: Patient has a history of mechanical aortic valve. He has also had a mitral valve repair. Patient states he is due for a ABDIFATAH due to concerns about the mitral valve. However speaking to the telehealth nurse, the ABDIFATAH is actually to review the aortic valve since the most recent surface echo showed increased velocities across the aortic valve consistent with stenosis. This is a new finding which will be evaluated by ABDIFATAH. Garnishment Specialist recommended patient be treated as if he has aortic stenosis. Anesthesiology was notified. Garnishment Specialist did feel the patient could proceed with this non cardiovascular surgery safely without any further testing. (5) Liver cirrhosis secondary to nonalcoholic steatohepatitis (DAUGHERTY): Code(s): K75.81 - Nonalcoholic steatohepatitis (DAUGHERTY); K74.60 - Unspecified cirrhosis of liver Status: Acute Assessment and Plan: Patient has known cirrhosis from DAUGHERTY. LFTs within normal limits except for total bilirubin 4.4. This is chronic finding for him. He also has thrombocytopenia which is also chronic finding for him related to the cirrhosis. He does not have a meld score that qualifies him for liver transplant. Plan Pulmonary HTN - stable. Sildanifil resumed SATHISH - continue BiPAP Diet: Cardiac, NPO for surgery DVT prophylaxis: Heparin drip, will need to start warfarin postop Code status: Full code Disposition: Surgery today Subjective Date/time seen: 01/18/23 09:13 Interval history: 63yo male with mechanical AV, pAFib, SATHISH, cirrhosis and HTN here for hip pain after fall and found to have left hip fracture. Slept well last night. Hip pain tolerable. No n/v. No CP. Tolerated the NIV last night Exam Narrative: AF 97.8 123/66 87 16 93% ra Gen - NARD Chest - clear anteriorly and in the flanks. nml RR CV - RRR with mechani
[2023-01-18] MEDS: LACTATED RINGERS 1,000 ML 30 ML IV CONT (12:15)
--- NOTE | 2023-01-18 12:28 | WPDANESEPPF ---
Anes - Initial Pre Proc Eval Procedure: Operation Date: 01/18/23 13:30 Proposed Procedures p Left Intertrochanteric Nail - Ra Peter MD Date/Time: 01/18/23 12:28 Surgeon: Sesar Rojas MD Pre Op Diagnosis: hip fractuure,subtherapeitic inr Patient Data Age: 63 Gender: M Height: 1.75 m Weight: 101 kg Last Vital Signs Temp 38.2 C H 01/18/23 12:16 Pulse 88 01/18/23 12:16 Resp 16 01/18/23 12:16 BP 117/63 01/18/23 12:16 Pulse Ox 95 01/18/23 12:16 O2 Del Method Room Air 01/18/23 12:16 Allergies Allergy/AdvReac Type Severity Reaction Status Date / Time No Known Allergies Allergy Verified 01/16/23 08:32 Home Medications Medication Instructions Recorded Confirmed Type potassium chloride 10 mEq 40 meq PO BID 12/15/19 01/16/23 History tablet,extended release warfarin 5 mg tablet 7.5 mg PO DAILY 12/15/19 01/16/23 History fexofenadine 180 mg tablet 180 mg PO DAILY 12/25/19 01/16/23 History (Danae Allergy) fluticasone propionate 50 2 spray intranasal DAILY 12/25/19 01/16/23 History mcg/actuation nasal spray,suspension (Flonase Allergy Relief) atorvastatin 10 mg tablet 10 mg PO DAILY 10/10/21 01/16/23 History sildenafil (pulm.hypertension) 20 40 mg PO TID 05/03/22 01/16/23 History mg tablet metoprolol succinate 25 mg 75 mg PO QPM #90 tabs 05/24/22 01/16/23 Rx tablet,extended release 24 hr (Toprol XL) albuterol sulfate 90 mcg/actuation 2 inhalation inhalation Q4H PRN 07/10/22 01/16/23 History aerosol inhaler shortness of breath or wheezing midodrine 10 mg tablet 10 mg PO TID 07/10/22 08/02/22 History spironolactone 50 mg tablet 50 mg PO DAILY 07/10/22 01/16/23 History benzonatate 100 mg capsule 200 mg PO TID PRN cough #60 caps 08/02/22 01/16/23 Rx bumetanide 0.5 mg tablet 0.5 mg PO .QD 08/02/22 01/16/23 History pantoprazole 40 mg tablet,delayed 40 mg PO QAM #90 tabs 09/12/22 01/16/23 Rx release Laboratory Tests 01/17/23 01/18/23 01/18/23 18:06 00:34 06:29 WBC 4.5 K/mm3 (4.5-10.0) RBC 4.11 L M/mm3 (4.6-6.20) Hgb 10.5 L g/dL (14.0-18.0) Hct 32.9 L % (42.0-52.0) MCV 80.0 fl (80-100) MCH 25.5 L pg (26-34) MCHC 31.9 L g/dl (32-36) RDW 20.8 H % (11.5-14.5) Plt Count 76 L k/mm3 (150-375) MPV 8.9 fl (7.4-10.4) Immature Gran % (Auto) 0.7 H % (0-0.5) Neut % (Auto) 64.0 % (45.5-73.1) Lymph % (Auto) 14.8 L % (18.3-44.2) [place] % (Auto) 15.5 H % (2.6-8.5) Eos % (Auto) 4.6 H % (0-4.4) Baso % (Auto) 0.4 % (0.2-1.2) Lymph # (Auto) 0.67 L K/mm3 (0.9-3.2) [place] # (Auto) 0.7 H K/mm3 (0.1-0.6) Eos # (Auto) 0.2 K/mm3 (0-0.3) Baso # (Auto) 0.0 K/mm3 (0.0-0.1) Abs Immat Gran (auto) 0.03 K/mm3 (0.00-0.031) Absolute Neuts (auto) 2.9 K/mm3 (1.3-6.7) Absolute Nucleated RBC 0.0 K/mm3 (0.0-0.012) Nucleated RBC % 0.0 % (0.0-0.2) % Immature Plt Fraction 2.2 % (0.9-11.2) PT 21.5 H Seconds Cancelled (11.1-14.7) INR 1.8 APTT 76.9 H SECONDS 110.8 H SECONDS (22.3-36.8) (22.3-36.8) Sodium Potassium Chloride Carbon Dioxide Anion Gap BUN Creatinine Estim Creat Clear Calc Estimated GFR Glucose Calcium Total Bilirubin AST ALT Alkaline Phosphatase Total Protein Albumin 01/18/23 01/18/23 06:29 06:29 WBC RBC Hgb Hct MCV MCH MCHC RDW Plt Count MPV Immature Gran % (Auto) Neut % (Auto) Lymph % (Auto) [place] % (Auto
--- NOTE | 2023-01-18 12:50 | WPDHPUPDATE1 ---
History and Physical Update Update Date/Time: 01/18/23 12:50 History and Physical has been reviewed, including an updated exam of the patient. There are NO changes in the patient's condition. Risks, benefits, and alternatives have been discussed and questions answered. Patient agrees to proceed with procedure.
--- NOTE | 2023-01-18 14:33 | PC.NURSE ---
Addendum entered by Starr Alexis RN 01/18/23 19:01: Pt tolerated surgery well. Pt back to room and has reported 5/10 pain. Pt denies any other needs at this time. Pt has been monitored for any changes in status. Original Note: Pt down for surgery today. Pt was taken at approximately 1200. Pt surgery scheduled for 1330. Pt heparin drip was stopped at 0930. Pt medication held due to NPO status pre-op.
--- NOTE | 2023-01-18 14:36 | SUR.OPER ---
ANCEF 2 GM GIVEN 13:11 IN OR. EBL 200ML
--- NOTE | 2023-01-18 14:38 | SUR.PHASEI ---
1426-temperature of PACU arrival 100.3-Ren Ruiz CRNA and Freida Muhammad RN state Dr. Peter aware of elevated temperature.
--- NOTE | 2023-01-18 14:46 | P.OP_ITS ---
Procedure Note - Detailed Date of Procedure 01/18/23 Pre-op Diagnosis Left IT hip fracture Post-op Diagnosis Same Procedure Performed ORIF left IT hip fracture with trochanteric nail device using fluoroscopic assistance Surgeon Ra Peter MD Immersion Metal Cleaner Laura Smith Anesthesia General Description of Procedure The patient was identified and proper site identified, then was taken to the operating room and after general anesthetic induction and intubation was transferred to the [place] table positioning supine taking care to properly pad position the torso and extremities. A provisional reduction was able to be obtained with fluoroscopic assistance. The left hip and thigh was then prepped and draped in the usual sterile fashion. A short incision was made proximal to the tip of the greater trochanter. Subcutaneous tissue was sharply dissected down to the gluteus fascia which was incised over the tip of the greater trochanter. An awl was used to create a starting hole through which a guide kaykay was inserted into the femoral canal verifying its position fluoroscopically. The one-step Reamer was used to prepare the entry point for the kaykay. A 125 degree, 11 millimeter short nail was then inserted to the appropriate level using the targeting device. Through a 2nd more distal incision under fluoroscopic visualization a 100 mm lag screw was inserted over a guidewire into the femoral neck and head securing it with the set screw. Through a 3rd more distal incision, using the targeting device, a distal interlocking screw was placed. The overall construct was assessed fluoroscopically on the AP and lateral views, and was noted to be satisfactory. The targeting device was removed. The wounds were irrigated with sterile antibiotic solution. The fascia was reapproximated with 0 Vicryl as was the deeper layers of the subcu. Skin edges were reapproximated with 3-0 Monocryl and mitali.. Sterile dressing was applied. The procedure was well tolerated. There were no known intraoperative complications. Perioperative antibiotics were administered. Estimated Blood Loss 200 Urine Output 200 Drains No Packing No Pathology None sent Complications No immediate complications Condition Stable Disposition PACU [facility] Billing Surgery - Charge Forward: Surgery Billing ([id number], [id number])
[2023-01-18] MEDS: fentaNYL CITRATE INJ (*CRX) 100 MCG/2 ML VIAL 25 MCG IV PUSH ×7 (14:49→15:23)
[2023-01-18] MEDS: HYDROmorphone HCL INJ (*CRX) 1 MG/ML SYR 0.25 MG IV PUSH ×2 (15:42→15:53)
[2023-01-18] MEDS: HYDROcodone/acetaminophen (*CRX) 7.5-325 MG TABLET 1 TAB PO ×2 (18:10→22:44)
[2023-01-18] MEDS: POTASSIUM CHLORIDE 20 MEQ ER TABLET 40 MEQ PO (18:11)
[2023-01-18] MEDS: WARFARIN (*PBKC) 7.5 MG TABLET PO (18:22)
[2023-01-18] MEDS: KCL 20MEQ/0.9% SOD CHL 1,000 ML 125 ML IV CONT (18:22)
[2023-01-18] MEDS: METOPROLOL SUCCINATE EXT REL 25 MG TABCR 75 MG PO (18:23)
[2023-01-18] MEDS: SILDENAFIL CITRATE 20 MG TABLET 40 MG PO (18:25)
[2023-01-18 19:30] LABS: Basophils Percent Auto 0.2 % (0.2-1.2); Eosinophils Percent Auto 0.2 % (0-4.4); Hematocrit 33.8 % (42.0-52.0); Hemoglobin 10.6 g/dL (14.0-18.0); Immature Granulocyte Absolute 0.06 K/mm3 (0.00-0.031); Immature Platelet Fraction Pct 2.6 % (0.9-11.2); Lymphocytes Absolute Auto 0.26 K/mm3 (0.9-3.2); Lymphocytes Percent Auto 4.2 % (18.3-44.2); Mean Corpuscular HGB Conc 31.4 g/dl (32-36); Mean Corpuscular Hemoglobin 25.5 pg (26-34); Mean Corpuscular Volume 81.4 fl (80-100); Mean Platelet Volume 9.9 fl (7.4-10.4); Monocytes Absolute Auto 0.5 K/mm3 (0.1-0.6); Monocytes Percent Auto 8.4 % (2.6-8.5); Neutrophils Absolute Auto 5.3 K/mm3 (1.3-6.7); Platelet Count Result 78 k/mm3 (150-375); Red Blood Count 4.15 M/mm3 (4.6-6.20); Red Cell Distribution Width 20.3 % (11.5-14.5); White Blood Count 6.2 K/mm3 (4.5-10.0)
[2023-01-18 19:41] LABS: INR 1.5; Partial Thromboplastin Time 32.5 SECONDS (22.3-36.8); Prothrombin Time 18.7 Seconds (11.1-14.7)
[2023-01-18] MEDS: FAMOTIDINE 20 MG TABLET PO (20:44)
[2023-01-18] MEDS: ceFAZolin 2 GM/D5W 50 ML 2 GM/50 ML BAG IVPB (20:49)
[2023-01-18 20:56] LABS: Glucose Point of Care 187 mg/dl (65-105)
[2023-01-19] VITALS (9 sets, daily range): BP systolic 96–112; BP diastolic 60–72; PULSE 64–83; RESP 13–18; TEMP 36.1–37.1; O2SAT 92–97
[2023-01-19] MEDS: HYDROcodone/acetaminophen (*CRX) 7.5-325 MG TABLET 1 TAB PO ×3 (02:16→20:25)
[2023-01-19 03:19] LABS: Basophils Percent Auto 0.1 % (0.2-1.2); Hematocrit 32.8 % (42.0-52.0); Hemoglobin 10.4 g/dL (14.0-18.0); Immature Granulocyte Absolute 0.05 K/mm3 (0.00-0.031); Immature Granulocyte Percent A 0.7 % (0-0.5); Immature Platelet Fraction Pct 2.9 % (0.9-11.2); Lymphocytes Absolute Auto 0.48 K/mm3 (0.9-3.2); Lymphocytes Percent Auto 6.9 % (18.3-44.2); Mean Corpuscular HGB Conc 31.7 g/dl (32-36); Mean Corpuscular Hemoglobin 25.6 pg (26-34); Mean Corpuscular Volume 80.6 fl (80-100); Mean Platelet Volume 9.7 fl (7.4-10.4); Monocytes Percent Auto 14.3 % (2.6-8.5); Neutrophils Absolute Auto 5.4 K/mm3 (1.3-6.7); Platelet Count Result 90 k/mm3 (150-375); Red Blood Count 4.07 M/mm3 (4.6-6.20); White Blood Count 6.9 K/mm3 (4.5-10.0)
[2023-01-19 03:34] LABS: INR 1.5; Prothrombin Time 18.7 Seconds (11.1-14.7)
[2023-01-19 03:35] LABS: Partial Thromboplastin Time 68.3 SECONDS (22.3-36.8)
[2023-01-19 03:39] LABS: Anion Gap 7 mmol/L (8-16); Blood Urea Nitrogen 13 mg/dL (9-20); Calcium 8.6 mg/dL (8.4-10.2); Carbon Dioxide 22 mmol/L (22-30); Chloride 104 mmol/L (98-107); Estimated CRCL calculation 124 ml/min; Estimated Glomerular Filt Rate > 60; Glucose 127 mg/dL (65-110); Potassium 4.8 mmol/L (3.4-5.0); Sodium 133 mmol/L (137-145)
[2023-01-19] MEDS: HEPARIN SODIUM 5,000 UNITS/ML VIAL 3500 UNITS IV PUSH (03:49)
[2023-01-19] MEDS: ceFAZolin 2 GM/D5W 50 ML 2 GM/50 ML BAG IVPB ×2 (04:06→11:44)
[2023-01-19 04:16] LABS: Anisocytosis 1+ (NORMAL); Platelet Estimate Decreased (Adequate); Poikilocytosis 1+ (NORMAL)
[2023-01-19 04:17] LABS: Schistocytes None Seen (NORMAL)
[2023-01-19] MEDS: polyethylene glycoL 3350 17 GM POWD.PACK PO (08:15)
[2023-01-19] MEDS: PANTOPRAZOLE 40 MG TABLET PO (08:16)
[2023-01-19] MEDS: SPIRONOLACTONE 50 MG TABLET PO (08:16)
[2023-01-19] MEDS: ATORVASTATIN 10 MG TABLET PO (08:16)
[2023-01-19] MEDS: POTASSIUM CHLORIDE 20 MEQ ER TABLET 40 MEQ PO ×2 (08:17→16:37)
[2023-01-19] MEDS: SILDENAFIL CITRATE 20 MG TABLET 40 MG PO ×3 (08:17→16:36)
[2023-01-19] MEDS: LORATADINE 10 MG TABLET PO (08:17)
[2023-01-19] MEDS: BUMETANIDE 0.5 MG TABLET PO (08:17)
[2023-01-19] MEDS: SENNA/DOCUSATE SODIUM TABLET 2 TAB PO ×2 (08:17→16:36)
[2023-01-19] MEDS: FAMOTIDINE 20 MG TABLET PO ×2 (08:18→20:25)
[2023-01-19 09:56] LABS: Partial Thromboplastin Time 98.6 SECONDS (22.3-36.8)
--- NOTE | 2023-01-19 14:56 | WPDANESPN ---
Anes - Prog Note Post-Op Date/Time: 01/19/23 14:56 Cardiovascular status: normal Respiratory status: normal Airway patency: baseline Mental status: baseline Post-Op hydration status: normal Vital Signs: Last Vital Signs Temp 36.3 C L 01/19/23 08:00 Pulse 69 01/19/23 08:00 Resp 18 01/19/23 08:00 BP 96/61 L 01/19/23 08:00 Pulse Ox 93 01/19/23 08:27 O2 Del Method Room Air 01/19/23 09:26 O2 Flow Rate 2 01/19/23 08:27 Pain Score (VAS): 08/27 I/O: Intake & Output 01/18/23 01/19/23 01/19/23 23:59 07:59 15:59 Intake Total 766 624 4565 Output Total 500 1000 Balance 350 -250 1010 Laboratory Tests 01/19/23 03:08 01/19/23 03:08 01/18/23 01/18/23 01/18/23 19:18 19:19 20:32 WBC 6.2 RBC 4.15 L Hgb 10.6 L Hct 33.8 L MCV 81.4 MCH 25.5 L MCHC 31.4 L RDW 20.3 H Plt Count 78 L MPV 9.9 Immature Gran % (Auto) 1.0 H Neut % (Auto) 86.0 H Lymph % (Auto) 4.2 L [place] % (Auto) 8.4 Eos % (Auto) 0.2 Baso % (Auto) 0.2 Lymph # (Auto) 0.26 L [place] # (Auto) 0.5 Eos # (Auto) 0.0 Baso # (Auto) 0.0 Abs Immat Gran (auto) 0.06 H Absolute Neuts (auto) 5.3 Absolute Nucleated RBC 0.0 Nucleated RBC % 0.0 Platelet Estimate % Immature Plt Fraction 2.6 Poikilocytosis Anisocytosis Schistocytes PT 18.7 H INR 1.5 APTT 32.5 Sodium Potassium Chloride Carbon Dioxide Anion Gap BUN Creatinine Estim Creat Clear Calc Estimated GFR Glucose POC Capillary Glucose 187 H Calcium 01/19/23 01/19/23 03:08 09:26 WBC 6.9 RBC 4.07 L Hgb 10.4 L Hct 32.8 L MCV 80.6 MCH 25.6 L MCHC 31.7 L RDW 20.0 H Plt Count 90 L MPV 9.7 Immature Gran % (Auto) 0.7 H Neut % (Auto) 78.0 H Lymph % (Auto) 6.9 L [place] % (Auto) 14.3 H Eos % (Auto) 0.0 Baso % (Auto) 0.1 L Lymph # (Auto) 0.48 L [place] # (Auto) 1.0 H Eos # (Auto) 0.0 Baso # (Auto) 0.0 Abs Immat Gran (auto) 0.05 H Absolute Neuts (auto) 5.4 Absolute Nucleated RBC 0.0 Nucleated RBC % 0.0 Platelet Estimate Decreased % Immature Plt Fraction 2.9 Poikilocytosis 1+ Anisocytosis 1+ Schistocytes None seen PT 18.7 H INR 1.5 APTT 68.3 H 98.6 H Sodium 133 L Potassium 4.8 Chloride 104 Carbon Dioxide 22 Anion Gap 7 L BUN 13 Creatinine 0.60 L Estim Creat Clear Calc 124 Estimated GFR > 60 Glucose 127 H POC Capillary Glucose Calcium 8.6 Post-procedural complaints: none Patient Feedback: Patient satisfied with anesthetic care.
--- NOTE | 2023-01-19 15:09 | PM.PNORT ---
Progress Note: A&P Assessment and Plan (1) Closed intertrochanteric fracture of left hip: Qualifiers: Encounter type: subsequent encounter Fracture alignment: displaced Fracture healing: with routine healing Qualified Code(s): S72.142D - Displaced intertrochanteric fracture of left femur, subsequent encounter for closed fracture with routine healing Code(s): S72.142A - Displaced intertrochanteric fracture of left femur, initial encounter for closed fracture Status: Acute Plan 63-year-old male postop day one ORIF left IT hip fracture. Therapy begun. Will most likely need rehab. See how he does over the next few days and then decide. He is back on his Coumadin. Surgery discussed with him in detail. Subjective Subjective Date/Time Seen: 01/19/23 15:09 Post Op day: 1 Interval history: Postop day one status post ORIF left IT hip fracture. Pain better controlled today. Exam Const: General: cooperative, no acute distress and uncomfortable (Mildly so) GI: Inspection: non-distended Extrem: Other: Has got swelling in the left hip and thigh region. The dressing does have a little bit of drainage over the central incision. Neurovascular status intact left lower extremity. Radiology Reports: Comments: EXAMINATION: XR surgery orthopedic DATE: 01/18/2023 14:21 INDICATION: Left intertrochanteric nailing of an intratrochanteric fracture of the proximal left femur TECHNIQUE: 4 fluoroscopic images of the left hip and proximal femur were obtained during procedure performed by Dr. Peter. Radiologist was not present for the imaging or procedure. The amount of fluoroscopy time used during this procedure was 0.5 minutes.? COMPARISON: None. FINDINGS: Interval reduction and internal fixation of an intertrochanteric fracture the proximal left femur with an antegrade intramedullary kaykay with femoral neck dynamic compression screw and distal interlocking screw fixation. Alignment is near-anatomic. Expected small amount of postoperative gas in the surrounding soft tissues. IMPRESSION: 1. Near-anatomic alignment post reduction and internal fixation of an intratrochanteric fracture of the proximal left femur. Reviewed, dictated and finalized at location A. Objective Data Vital Signs Vital Signs: Vital Signs - 24 hr 01/18/23 15:10 01/18/23 15:25 01/18/23 15:40 Temperature Pulse Rate 91 93 88 Respiratory Rate 23 H 22 H 20 Blood Pressure 135/68 136/88 126/71 Pulse Oximetry 96 95 93 Oxygen Delivery Room Air Room Air Room Air Oxygen Flow Rate 01/18/23 15:55 01/18/23 16:15 01/18/23 16:30 Temperature 98.3 F 97.8 F Pulse Rate 91 92 89 Respiratory Rate 22 H 16 17 Blood Pressure 135/77 117/80 124/75 Pulse Oximetry 93 93 92 Oxygen Delivery Room Air Oxygen Flow Rate 01/18/23 17:00 01/18/23 17:55 01/18/23 18:23 Temperature 97.6 F 98.2 F Pulse Rate 88 93 96 Respiratory Rate 16 17 Blood Pressure 127/78 132/74 Pulse Oximetry 95 96 Oxygen Delivery Oxygen Flow Rate 01/18/23 18:45 01/18/23 21:31 01/18/23 19:50 Temperature 97.6 F Pulse Rate 82 82 Respiratory Rate 14 14 Blood Pressure 104/60 Pulse Oximetry 94 94 94 Oxygen Delivery Nasal Cannula Nasal Cannula Oxygen Flow Rate 2 2 01/18/23 23:00 01/19/23 01:05 01/19/23 05:26 Temperature 98.7 F 98.5 F Pulse Rate 74 72 Respiratory Rate 14 13 Blood Pressure 104/60 110/62 Pulse Oximetry 95 97 94 Oxygen Delivery Nasal Cannula Oxygen Flow Rate 2 01/19/23 08:00 01/19/23 08:27 01/19/23 08:00 Temperature 97.4 F L Pulse Rate 69 Respiratory Rate 18 Blood Pressure 96/61 L Pulse Oximetry 92 93 Oxygen Delivery Nasal Cannula Room Air Oxygen Flow Rate 2 01/19/23 09:26 Temperature Pulse Rate Respiratory Rate Blood Pressure Pulse Oximetry Oxygen Delivery Ro
[2023-01-19 16:14] LABS: Partial Thromboplastin Time 80.9 SECONDS (22.3-36.8)
[2023-01-19] MEDS: HEPARIN SOD/D5W 100 UNITS/ML 25,000 UNITS/250 ML BAG 13 UNITS IV CONT (16:26)
[2023-01-19] MEDS: WARFARIN (*PBKC) 7.5 MG TABLET PO (16:36)
[2023-01-19] MEDS: METOPROLOL SUCCINATE EXT REL 25 MG TABCR 75 MG PO (16:36)
--- NOTE | 2023-01-19 18:13 | PM.IMPN ---
Progress Note: A&P Assessment and Plan (1) Intertrochanteric fracture of left femur: Qualifiers: Encounter type: initial encounter Fracture alignment: displaced Fracture type: closed Qualified Code(s): S72.142A - Displaced intertrochanteric fracture of left femur, initial encounter for closed fracture Code(s): S72.142A - Displaced intertrochanteric fracture of left femur, initial encounter for closed fracture Status: Acute Assessment and Plan: Patient had a mechanical fall resulting in left IT fracture. Patient denies syncope, seizure, LOC or any concerning history prior to the fall. Xray consistent with displaced left intertrochanteric fracture. Spoke with Cardiology who felt patient is okay for surgery. Patient underwent ORIF left IT hip fracture with trochanteric nail 01/18/23 Heparin started post-operatively. Coumadin also resumed INR today is now 1.5. 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 Patient states he is INR is usually therapeutic. As above. (3) Atrial fibrillation: Code(s): I48.91 - Unspecified atrial fibrillation Status: Chronic Assessment and Plan: Patient has a history of atrial fibrillation. EKG showing sinus tachycardia with PVCs and incomplete right bundle-branch block. He is on anticoagulation for his mechanical aortic valve. He is on metoprolol for rate control which has been resumed. Heparin gtt. Coumadin restarted (4) H/O mechanical aortic valve replacement: Code(s): Z95.2 - Presence of prosthetic heart valve Status: Chronic Assessment and Plan: Patient has a history of mechanical aortic valve. He has also had a mitral valve repair. Patient states he is due for a ABDIFATAH due to concerns about the mitral valve. However speaking to the fashion model, the ABDIFATAH is actually to review the aortic valve since the most recent surface echo showed increased velocities across the aortic valve consistent with stenosis. This is a new finding which will be evaluated by ABDIFATAH. Baseball Inspector And Repairer recommended patient be treated as if he has aortic stenosis. Anesthesiology was notified. Baseball Inspector And Repairer did feel the patient could proceed with this non cardiovascular surgery safely without any further testing. -Coumadin resumed. Home dose 7.5mg daily except 5mg on Saturday and Saturday. (5) Liver cirrhosis secondary to nonalcoholic steatohepatitis ([place]UGH[place]): Code(s): K75.81 - Nonalcoholic steatohepatitis ([place]); K74.60 - Unspecified cirrhosis of liver Status: Acute Assessment and Plan: Patient has known cirrhosis from [place]. LFTs within normal limits except for total bilirubin 4.4. This is chronic finding for him. He also has thrombocytopenia which is also chronic finding for him related to the cirrhosis. He does not have a meld score that qualifies him for liver transplant. -Plt count better at 90K Plan Pulmonary HTN - stable. Sildanifil resumed SATHISH - continue BiPAP Diet: heart healthy DVT prophylaxis: Heparin drip Code status: Full code Disposition: PT/OT, may need SNF or Acute rehab Subjective Date/time seen: 01/19/23 18:13 Interval history: 63yo male with mechanical AV, pAFib, SATHISH, cirrhosis and HTN here for hip pain after fall and found to have left hip fracture. Patient states he had increasing pain postoperatively yesterday until they were able to bring it under control with narcotics. Pain is better controlled today. He has been up to the chair. Eating okay. Exam Narrative: Tm 100.8 96.9 101/61 83 18 96% ra Gen - NARD Chest - decreased BS in right base o/w clear CV - RRR with mechanical S2 and 2/6 systolic murmur loudest at the apex. Abd - Soft, NT/ND, Positive BS Ext
--- NOTE | 2023-01-19 21:58 | PC.NURSE ---
was informed in shift report by day shift RN that pt is on daily PTT's due to heparin drip being therapeutic
--- NOTE | 2023-01-20 01:13 | PC.NURSE ---
informed charge loader Keli and house supervision Luz about pt order for hip spica dressing unsure how to perform and unable to find instruction. Informed to have day shift RN find instruction to change dressing on day shift and contact MD Peter for further instructions.
[2023-01-20] MEDS: HYDROcodone/acetaminophen (*CRX) 7.5-325 MG TABLET 1 TAB PO ×5 (02:33→20:58)
[2023-01-20 05:45] VITALS: BP 101/67; PULSE 62; RESP 14; TEMP 36.1; O2SAT 96
[2023-01-20 07:10] LABS: Basophils Percent Auto 0.5 % (0.2-1.2); Eosinophils Absolute Auto 0.2 K/mm3 (0-0.3); Eosinophils Percent Auto 3.5 % (0-4.4); Hemoglobin 9.9 g/dL (14.0-18.0); Immature Granulocyte Absolute 0.09 K/mm3 (0.00-0.031); Immature Granulocyte Percent A 1.4 % (0-0.5); Immature Platelet Fraction Pct 3.3 % (0.9-11.2); Lymphocytes Absolute Auto 1.21 K/mm3 (0.9-3.2); Lymphocytes Percent Auto 18.3 % (18.3-44.2); Mean Corpuscular HGB Conc 30.9 g/dl (32-36); Mean Corpuscular Hemoglobin 25.6 pg (26-34); Mean Corpuscular Volume 82.7 fl (80-100); Mean Platelet Volume 9.6 fl (7.4-10.4); Monocytes Absolute Auto 0.9 K/mm3 (0.1-0.6); Monocytes Percent Auto 13.9 % (2.6-8.5); Neutrophils Absolute Auto 4.1 K/mm3 (1.3-6.7); Neutrophils Percent Auto 62.4 % (45.5-73.1); Platelet Count Result 99 k/mm3 (150-375); Red Blood Count 3.87 M/mm3 (4.6-6.20); Red Cell Distribution Width 20.5 % (11.5-14.5); White Blood Count 6.6 K/mm3 (4.5-10.0)
[2023-01-20 07:18] LABS: INR 1.8; Prothrombin Time 21.8 Seconds (11.1-14.7)
[2023-01-20 07:19] LABS: Alanine Aminotransferase 17 U/L (6-50); Albumin Level 3.4 g/dL (3.5-5.1); Alkaline Phosphatase 60 U/L (38-126); Anion Gap 8 mmol/L (8-16); Aspartate Amino Transferase 28 U/L (17-59); Bilirubin,Total 3.5 mg/dL (0.2-1.3); Blood Urea Nitrogen 19 mg/dL (9-20); Calcium 8.5 mg/dL (8.4-10.2); Carbon Dioxide 22 mmol/L (22-30); Chloride 101 mmol/L (98-107); Estimated CRCL calculation 108 ml/min; Estimated Glomerular Filt Rate > 60; Glucose 104 mg/dL (65-110); Potassium 4.4 mmol/L (3.4-5.0); Sodium 131 mmol/L (137-145)
[2023-01-20 07:20] LABS: Partial Thromboplastin Time 72.5 SECONDS (22.3-36.8)
[2023-01-20 08:02] LABS: Anisocytosis 1+ (NORMAL); Microcytosis 1+ (NORMAL); Platelet Estimate Decreased (Adequate)
[2023-01-20 08:03] LABS: Poikilocytosis 1+ (NORMAL); Schistocytes None Seen (NORMAL)
[2023-01-20] MEDS: ATORVASTATIN 10 MG TABLET PO (08:05)
[2023-01-20] MEDS: polyethylene glycoL 3350 17 GM POWD.PACK PO (08:05)
[2023-01-20] MEDS: SPIRONOLACTONE 50 MG TABLET PO (08:05)
[2023-01-20] MEDS: SENNA/DOCUSATE SODIUM TABLET 2 TAB PO ×2 (08:05→17:13)
[2023-01-20] MEDS: LORATADINE 10 MG TABLET PO (08:06)
[2023-01-20] MEDS: SILDENAFIL CITRATE 20 MG TABLET 40 MG PO ×3 (08:06→17:13)
[2023-01-20] MEDS: BUMETANIDE 0.5 MG TABLET PO (08:06)
[2023-01-20] MEDS: POTASSIUM CHLORIDE 20 MEQ ER TABLET 40 MEQ PO ×2 (08:06→17:13)
[2023-01-20] MEDS: FAMOTIDINE 20 MG TABLET PO ×2 (08:06→20:58)
[2023-01-20] MEDS: PANTOPRAZOLE 40 MG TABLET PO (08:06)
--- NOTE | 2023-01-20 08:26 | PM.PNORT ---
Progress Note: A&P Assessment and Plan (1) Closed intertrochanteric fracture of left hip: Qualifiers: Encounter type: subsequent encounter Fracture alignment: displaced Fracture healing: with routine healing Qualified Code(s): S72.142D - Displaced intertrochanteric fracture of left femur, subsequent encounter for closed fracture with routine healing Code(s): S72.142A - Displaced intertrochanteric fracture of left femur, initial encounter for closed fracture Status: Acute Plan Postop day two left hip trochanteric nail for intertrochanteric fracture. Doing well. Continue therapy. Will assess tomorrow and see whether not he is able to go home versus needing rehab. We will really depend on how well he does with therapy over the next 24-48 hours. Currently on Coumadin and using SCDs. INR not quite therapeutic yet. Subjective Subjective Date/Time Seen: 01/20/23 08:26 Post Op day: 2 Interval history: 63-year-old male postop day two status post ORIF left IT hip fracture. Much more comfortable this morning. Was able to tolerate therapy out of bed yesterday. Although still has pain in left hip and thigh, it has diminished. No other pain complaints. Review of Systems Review of Systems: ROS unobtainable: Yes other (No change) Exam Const: General: cooperative, comfortable and no acute distress GI: Inspection: non-distended Extrem: Other: Exam of the left hip and thigh reveals some swelling, no bruising and small spot of blood centrally on the dressing is unchanged. Grossly neurovascular status intact both lower extremities. Calves negative. Objective Data Vital Signs Vital Signs: Vital Signs - 24 hr 01/19/23 08:27 01/19/23 09:26 01/19/23 14:00 Temperature 96.9 F L Pulse Rate 64 Respiratory Rate 18 Blood Pressure 101/61 Pulse Oximetry 93 96 Oxygen Delivery Nasal Cannula Room Air Oxygen Flow Rate 2 01/19/23 16:36 01/19/23 21:07 01/19/23 20:00 Temperature Pulse Rate 83 83 Respiratory Rate 18 Blood Pressure 112/72 Pulse Oximetry 96 Oxygen Delivery Room Air Oxygen Flow Rate 01/19/23 22:00 01/20/23 05:45 Temperature 98.8 F 96.9 F L Pulse Rate 79 62 Respiratory Rate 14 14 Blood Pressure 112/72 101/67 Pulse Oximetry 94 96 Oxygen Delivery Oxygen Flow Rate Intake/Output Intake/Output: Intake & Output 01/17/23 01/18/23 01/19/23 01/20/23 23:59 23:59 23:59 23:59 Intake Total 970 / 970 1300 / 1300 2230 / 2230 500 / 500 Output Total 1475 / 1475 1999 / 1999 1500 / 1500 900 / 900 Balance -505 / -505 -700 / -700 730 / 730 -400 / -400 Meds/Results Medications: Active Medications Generic Name Dose Route Start Last Admin Trade Name Freq PRN Reason Stop Dose Admin Acetaminophen 650 mg 01/18/23 16:02 Acetaminophen 325 Mg Tablet PO Q6H PRN Mild Pain (1-3) or Fever Hydrocodone Bitart/Acetaminophen 1 tab 01/18/23 16:02 01/20/23 05:23 Hydrocodone/Acetaminophen (*Crx) 7.5-325 Mg Tablet PO 1 tab Q3H PRN Administration Pain Rated 4-6 Hydrocodone Bitart/Acetaminophen 2 tab 01/18/23 16:02 Hydrocodone/Acetaminophen (*Crx) 7.5-325 Mg Tablet PO Q6H PRN Pain Rated 7-10 Albuterol 2 puff 01/16/23 14:07 Albuterol Sulfate (*Sp) Aerosol 1 Puff INHALATION Q4H PRN shortness of breath or wheezing Atorvastatin Calcium 10 mg 01/17/23 09:00 01/20/23 08:05 Atorvastatin 10 Mg Tablet PO 10 mg DAILY SHARDA Administration Benzonatate 200 mg 01/16/23 14:07 Benzonatate 100 Mg Capsule PO TID PRN cough Bumetanide 0.5 mg 01/17/23 09:00 01/20/23 08:06 Bumetanide 0.5 Mg Tablet PO 0.5 mg DAILY SHARDA Administration Famotidine 20 mg 01/18/23 21:00 01/20/23 08:06 Famotidine 20 Mg Tablet PO 20 mg Q12HR SHARDA Administration Fluticasone Propionate 2 spray 01/17/23 09:00 01/20/23 08:06 Fluticasone Propionate 0.05% Na Spr 16 Gm Btl (*Bkc) NASAL Not Given
[2023-01-20 09:13] VITALS: O2SAT 94
[2023-01-20] MEDS: HEPARIN SOD/D5W 100 UNITS/ML 25,000 UNITS/250 ML BAG 13 UNITS IV CONT (10:41)
--- NOTE | 2023-01-20 11:20 | PM.IMPN ---
Progress Note: A&P Assessment and Plan (1) Intertrochanteric fracture of left femur: Qualifiers: Encounter type: initial encounter Fracture type: closed Fracture alignment: displaced Qualified Code(s): S72.142A - Displaced intertrochanteric fracture of left femur, initial encounter for closed fracture Code(s): S72.142A - Displaced intertrochanteric fracture of left femur, initial encounter for closed fracture Status: Acute Assessment and Plan: Patient had a mechanical fall resulting in left IT fracture. Patient denies syncope, seizure, LOC or any concerning history prior to the fall. Xray consistent with displaced left intertrochanteric fracture. Spoke with Cardiology who felt patient is okay for surgery. Patient underwent ORIF left IT hip fracture with trochanteric nail 01/18/23 Heparin started post-operatively. Coumadin also resumed INR today is now 1.8 -continue Heparin drip -pain better controlled; continue current pain management as written -PT/OT (2) Subtherapeutic anticoagulation: Code(s): Z51.81 - Encounter for therapeutic drug level monitoring; Z79.01 - correction (current) use of anticoagulants Status: Acute Assessment and Plan: INR 1.7 on admission. Patient states he is INR is usually therapeutic. As above. (3) Atrial fibrillation: Code(s): I48.91 - Unspecified atrial fibrillation Status: Chronic Assessment and Plan: Patient has a history of atrial fibrillation. EKG showing sinus tachycardia with PVCs and incomplete right bundle-branch block. He is on anticoagulation for his mechanical aortic valve. He is on metoprolol for rate control which has been resumed. Heparin gtt. INR still subtherapeutic. Continue Coumadin (4) H/O mechanical aortic valve replacement: Code(s): Z95.2 - Presence of prosthetic heart valve Status: Chronic Assessment and Plan: Patient has a history of mechanical aortic valve. He has also had a mitral valve repair. Patient states he is due for a ABDIFATAH due to concerns about the mitral valve. However speaking to the end worker, the ABDIFATAH is actually to review the aortic valve since the most recent surface echo showed increased velocities across the aortic valve consistent with stenosis. This is a new finding which will be evaluated by ABDIFATAH. Director Of Home Economics recommended patient be treated as if he has aortic stenosis. Anesthesiology was notified. Director Of Home Economics did feel the patient could proceed with this non cardiovascular surgery safely without any further testing. He has tolerated the surgery well. -Coumadin resumed. Home dose 7.5mg daily except 5mg on Saturday and Saturday. (5) Liver cirrhosis secondary to nonalcoholic steatohepatitis (DAUGHERTY): Code(s): K75.81 - Nonalcoholic steatohepatitis (DAUGHERTY); K74.60 - Unspecified cirrhosis of liver Status: Acute Assessment and Plan: Patient has known cirrhosis from DAUGHERTY. LFTs within normal limits except for total bilirubin 4.4. This is chronic finding for him. He also has thrombocytopenia which is also chronic finding for him related to the cirrhosis. He does not have a meld score that qualifies him for liver transplant. -Plt count better at 99K Plan Pulmonary HTN - stable. Sildanifil resumed SATHISH - continue BiPAP Diet: heart healthy DVT prophylaxis: Heparin drip Code status: Full code Disposition: PT/OT, SNF vs home Subjective Date/time seen: 01/20/23 11:20 Interval history: 63yo male with mechanical AV, pAFib, SATHISH, cirrhosis and HTN here for hip pain after fall and found to have left hip fracture. Pain better controlled. He rates it 4-5/10. No chest pain or shortness of breath. Eating okay. No complaints of feeling confused. Exam Narrative: AF 96.9 101/67 62 14 94% ra Gen - NARD Chest -few scattered rhonchi otherwise clear. CV - RRR with mechanical S2 and 2/6 systolic murmur loudest at the apex. Abd - Soft, NT/ND, Positive
[2023-01-20 14:00] VITALS: BP 118/72; PULSE 93; RESP 14; TEMP 38.1; O2SAT 93
[2023-01-20 17:13] VITALS: PULSE 90
[2023-01-20] MEDS: WARFARIN (*PBKC) 7.5 MG TABLET PO (17:13)
[2023-01-20] MEDS: METOPROLOL SUCCINATE EXT REL 25 MG TABCR 75 MG PO (17:13)
--- NOTE | 2023-01-20 18:54 | PC.NURSE ---
pt continue on daily PTT draws have been therapeutic x3.
--- NOTE | 2023-01-20 19:38 | PC.NURSE ---
Pt continues to get heparin drip. Pt reports pain and has been treated with pain medication. Pt given items to perform self hygiene. Pt worked with therapy today. Pt dressing change was done. Pt was monitored for any changes in status.
[2023-01-20 20:00] VITALS: O2SAT 94
[2023-01-20 20:42] VITALS: BP 112/58; PULSE 85; RESP 16; TEMP 36.3; O2SAT 94
[2023-01-21] MEDS: HYDROcodone/acetaminophen (*CRX) 7.5-325 MG TABLET 1 TAB PO ×5 (03:48→20:35)
[2023-01-21 04:15] VITALS: BP 110/57; PULSE 75; RESP 16; TEMP 36.3; O2SAT 95
[2023-01-21] MEDS: HEPARIN SOD/D5W 100 UNITS/ML 25,000 UNITS/250 ML BAG 13 UNITS IV CONT (06:02)
[2023-01-21 07:18] LABS: INR 1.8; Prothrombin Time 21.6 Seconds (11.1-14.7)
[2023-01-21 07:20] LABS: Alanine Aminotransferase 17 U/L (6-50); Albumin Level 3.5 g/dL (3.5-5.1); Alkaline Phosphatase 67 U/L (38-126); Anion Gap 7 mmol/L (8-16); Aspartate Amino Transferase 29 U/L (17-59); Basophils Percent Auto 0.7 % (0.2-1.2); Bilirubin,Total 4.4 mg/dL (0.2-1.3); Blood Urea Nitrogen 18 mg/dL (9-20); Calcium 8.7 mg/dL (8.4-10.2); Carbon Dioxide 24 mmol/L (22-30); Chloride 98 mmol/L (98-107); Eosinophils Absolute Auto 0.2 K/mm3 (0-0.3); Estimated CRCL calculation 108 ml/min; Estimated Glomerular Filt Rate > 60; Glucose 106 mg/dL (65-110); Hemoglobin 9.9 g/dL (14.0-18.0); Immature Granulocyte Percent A 1.7 % (0-0.5); Lymphocytes Absolute Auto 1.18 K/mm3 (0.9-3.2); Lymphocytes Percent Auto 20.5 % (18.3-44.2); Mean Corpuscular HGB Conc 30.9 g/dl (32-36); Mean Corpuscular Hemoglobin 25.1 pg (26-34); Mean Platelet Volume 9.8 fl (7.4-10.4); Neutrophils Absolute Auto 3.2 K/mm3 (1.3-6.7); Neutrophils Percent Auto 56.1 % (45.5-73.1); Partial Thromboplastin Time 88.6 SECONDS (22.3-36.8); Platelet Count Result 107 k/mm3 (150-375); Potassium 4.4 mmol/L (3.4-5.0); Red Blood Count 3.95 M/mm3 (4.6-6.20); Red Cell Distribution Width 20.1 % (11.5-14.5); Sodium 129 mmol/L (137-145); White Blood Count 5.8 K/mm3 (4.5-10.0)
[2023-01-21 08:31] LABS: Creatinine Urine 67.4 mg/dL
[2023-01-21 08:32] LABS: Sodium Urine Random 100 meq/L
[2023-01-21] MEDS: SILDENAFIL CITRATE 20 MG TABLET 40 MG PO ×3 (10:21→16:52)
[2023-01-21] MEDS: PANTOPRAZOLE 40 MG TABLET PO (10:21)
[2023-01-21] MEDS: WARFARIN (*PBKC) 4 MG TABLET PO (10:21)
[2023-01-21] MEDS: LORATADINE 10 MG TABLET PO (10:21)
[2023-01-21] MEDS: POTASSIUM CHLORIDE 20 MEQ ER TABLET 40 MEQ PO ×2 (10:21→16:51)
[2023-01-21] MEDS: FAMOTIDINE 20 MG TABLET PO ×2 (10:21→20:36)
[2023-01-21] MEDS: ATORVASTATIN 10 MG TABLET PO (10:21)
[2023-01-21] MEDS: SENNA/DOCUSATE SODIUM TABLET 2 TAB PO ×2 (10:21→16:52)
[2023-01-21] MEDS: SPIRONOLACTONE 50 MG TABLET PO (10:21)
[2023-01-21] MEDS: BUMETANIDE 0.5 MG TABLET PO (10:21)
[2023-01-21] MEDS: polyethylene glycoL 3350 17 GM POWD.PACK PO (10:22)
--- NOTE | 2023-01-21 11:19 | PM.PNORT ---
Progress Note: A&P Assessment and Plan (1) Closed intertrochanteric fracture of left hip: Qualifiers: Encounter type: subsequent encounter Fracture alignment: displaced Fracture healing: with routine healing Qualified Code(s): S72.142D - Displaced intertrochanteric fracture of left femur, subsequent encounter for closed fracture with routine healing Code(s): S72.142A - Displaced intertrochanteric fracture of left femur, initial encounter for closed fracture Status: Acute Plan Continue with PT and OT. Will definitely need rehab. Discussed with the patient and his today. Continue hip spica with daily change. Currently on Coumadin. Waiting for INR to become therapeutic. Following. Subjective Subjective Date/Time Seen: 01/21/23 11:19 Post Op day: 3 Interval history: Postop day three ORIF left IT hip fracture with trochanteric nail device Review of Systems Review of Systems: ROS unobtainable: Yes other (Unchanged) Exam Const: General: cooperative and uncomfortable (Left thigh pain) GI: Inspection: non-distended Extrem: Other: Left thigh swollen. Scant serosanguineous drainage from middle incision. Hip spica reapplied. Neurovascular status grossly intact left lower extremity. Psych: Mental Status: mental status grossly normal Objective Data Vital Signs Vital Signs: Vital Signs - 24 hr 01/20/23 14:00 01/20/23 17:13 01/20/23 20:42 Temperature 100.5 F H 97.3 F L Pulse Rate 93 90 85 Respiratory Rate 14 16 Blood Pressure 118/72 112/58 L Pulse Oximetry 93 94 Oxygen Delivery 01/20/23 20:00 01/21/23 04:15 Temperature 97.4 F L Pulse Rate 75 Respiratory Rate 16 Blood Pressure 110/57 L Pulse Oximetry 94 95 Oxygen Delivery Room Air Intake/Output Intake/Output: Intake & Output 01/18/23 01/19/23 01/20/23 01/21/23 23:59 23:59 23:59 23:59 Intake Total 1300 / 1300 2230 / 2230 2190 / 2190 1586 / 1586 Output Total 1999 / 1999 1500 / 1500 2100 / 2100 2800 / 2800 Balance -700 / -700 730 / 730 90 / 90 -1214 / -1214 Meds/Results Medications: Active Medications Generic Name Dose Route Start Last Admin Trade Name Freq PRN Reason Stop Dose Admin Acetaminophen 650 mg 01/18/23 16:02 Acetaminophen 325 Mg Tablet PO Q6H PRN Mild Pain (1-3) or Fever Hydrocodone Bitart/Acetaminophen 1 tab 01/18/23 16:02 01/21/23 06:21 Hydrocodone/Acetaminophen (*Crx) 7.5-325 Mg Tablet PO 1 tab Q3H PRN Administration Pain Rated 4-6 Hydrocodone Bitart/Acetaminophen 2 tab 01/18/23 16:02 Hydrocodone/Acetaminophen (*Crx) 7.5-325 Mg Tablet PO Q6H PRN Pain Rated 7-10 Albuterol 2 puff 01/16/23 14:07 Albuterol Sulfate (*Sp) Aerosol 1 Puff INHALATION Q4H PRN shortness of breath or wheezing Atorvastatin Calcium 10 mg 01/17/23 09:00 01/21/23 10:21 Atorvastatin 10 Mg Tablet PO 10 mg DAILY SHARDA Administration Benzonatate 200 mg 01/16/23 14:07 Benzonatate 100 Mg Capsule PO TID PRN cough Bumetanide 0.5 mg 01/17/23 09:00 01/21/23 10:21 Bumetanide 0.5 Mg Tablet PO 0.5 mg DAILY SHARDA Administration Famotidine 20 mg 01/18/23 21:00 01/21/23 10:21 Famotidine 20 Mg Tablet PO 20 mg Q12HR [facility] Administration Fluticasone Propionate 2 spray 01/17/23 09:00 01/21/23 10:22 Fluticasone Propionate 0.05% Na Spr 16 Gm Btl (*Bkc) NASAL Not Given DAILY [facility] Heparin Sodium (Porcine) 3,500 units 01/18/23 18:55 01/19/23 03:49 Heparin Sodium 5,000 Units/Ml Vial IV PUSH 3,500 units PRN PRN Administration aPTT 55 - 70 seconds Heparin Sodium (Porcine) 6,500 units 01/18/23 18:55 Heparin Sodium 5,000 Units/Ml Vial IV PUSH PRN PRN aPTT less than 55 seconds Heparin Sodium/Dextrose 25,000 units in 250 mls @ 13 mls/hr 01/18/23 18:55 01/21/23 06:02 Heparin Sodium/D5w 100 Units/Ml IV CONT 1,300 units/hr .[id number] SHARDA 13 mls/hr Administration Pr
--- NOTE | 2023-01-21 12:50 | PC.NURSE ---
Addendum entered by Starr Alexis RN 01/21/23 17:06: Pt has gotten cleaned up with . Pt tolerated well. Pt up in chair to eat dinner. Pt compliant with care. Will continue to monitor pt. Original Note: Pt has worked with physical therapy today. Pt has reported pain that was treated with medication. Pt states he would like to get cleaned up later. Pt family to come visit later. Pt resting now. Pt having good urine output. Pt dressing changed by Dr. Peter this AM. Pt tolerated well. Will continue to monitor pt for any changes in status.
--- NOTE | 2023-01-21 13:09 | PM.IMPN ---
Progress Note: A&P Assessment and Plan (1) Intertrochanteric fracture of left femur: Qualifiers: Encounter type: initial encounter Fracture alignment: displaced Fracture type: closed Qualified Code(s): S72.142A - Displaced intertrochanteric fracture of left femur, initial encounter for closed fracture Code(s): S72.142A - Displaced intertrochanteric fracture of left femur, initial encounter for closed fracture Status: Acute Assessment and Plan: Patient had a mechanical fall resulting in left IT fracture. Patient denies syncope, seizure, LOC or any concerning history prior to the fall. Xray consistent with displaced left intertrochanteric fracture. Spoke with Cardiology who felt patient is okay for surgery. Patient underwent ORIF left IT hip fracture with trochanteric nail 01/18/23 Heparin restarted post-operatively. Coumadin also resumed Left leg edema noted. Doppler negative. INR today is again 1.8 -continue Heparin drip -extra coumadin today -pain better controlled; continue current pain management as written -PT/OT (2) Subtherapeutic anticoagulation: Code(s): Z51.81 - Encounter for therapeutic drug level monitoring; Z79.01 - bed bug exterminator (current) use of anticoagulants Status: Acute Assessment and Plan: INR 1.7 on admission. Patient states he is INR is usually therapeutic. As above. (3) Atrial fibrillation: Code(s): I48.91 - Unspecified atrial fibrillation Status: Chronic Assessment and Plan: Patient has a history of atrial fibrillation. EKG showing sinus tachycardia with PVCs and incomplete right bundle-branch block. He is on anticoagulation for his mechanical aortic valve. He is on metoprolol for rate control which has been resumed. Continue Heparin gtt until INR therapeutic. INR still subtherapeutic. Continue Coumadin (4) H/O mechanical aortic valve replacement: Code(s): Z95.2 - Presence of prosthetic heart valve Status: Chronic Assessment and Plan: Patient has a history of mechanical aortic valve. He has also had a mitral valve repair. Patient states he is due for a ABDIFATAH due to concerns about the mitral valve. However speaking to the adjusto writer operator, the ABDIFATAH is actually to review the aortic valve since the most recent surface echo showed increased velocities across the aortic valve consistent with stenosis. This is a new finding which will be evaluated by ABDIFATAH. Billet Inspector recommended patient be treated as if he has aortic stenosis. Anesthesiology was notified. Billet Inspector did feel the patient could proceed with this non cardiovascular surgery safely without any further testing. He has tolerated the surgery well. -Coumadin resumed. Home dose 7.5mg daily except 5mg on Saturday and Saturday. -Extra coumadin today -probably home with coumadin 7.5mg daily. (5) Liver cirrhosis secondary to nonalcoholic steatohepatitis ([place]UGHERTY): Code(s): K75.81 - Nonalcoholic steatohepatitis ([place]); K74.60 - Unspecified cirrhosis of liver Status: Acute Assessment and Plan: Patient has known cirrhosis from [place]UGHERTY. LFTs within normal limits except for total bilirubin 4.4. This is chronic finding for him. He also has thrombocytopenia which is also chronic finding for him related to the cirrhosis. He does not have a meld score that qualifies him for liver transplant. -Plt count better at 107K Plan Hyponatremia - Na dropped to 129. Patietn drinking excess free water. He was advised to stop this. Jeremias 100. Fluid restrict Pulmonary HTN - stable. Sildanifil resumed SATHISH - continue BiPAP Diet: heart healthy DVT prophylaxis: Heparin drip Code status: Full code Disposition: PT/OT, SNF vs home Subjective Date/time seen: 01/21/23 13:09 Interval history: 63yo male with mechanical AV, pAFib, SATHISH, cirrhosis and HTN here for hip pain after fall and found to have left hip fracture. Doing well with therapy. Walking to the door. More oozing
[2023-01-21 14:00] VITALS: BP 105/62; PULSE 91; RESP 22; TEMP 36.9; O2SAT 92
[2023-01-21 16:51] VITALS: PULSE 84
[2023-01-21] MEDS: METOPROLOL SUCCINATE EXT REL 25 MG TABCR 75 MG PO (16:51)
[2023-01-21] MEDS: WARFARIN (*PBKC) 7.5 MG TABLET PO (16:52)
[2023-01-21 19:57] VITALS: O2SAT 92
--- NOTE | 2023-01-21 20:09 | PC.NURSE ---
heparin drip continued at 13ml/hr daily PTT continued. Goal INR 2.0-3.0.
[2023-01-21 21:56] VITALS: BP 114/58; PULSE 90; RESP 18; TEMP 36.8; O2SAT 95
[2023-01-21 22:45] VITALS: PULSE 83; O2SAT 94
[2023-01-22] MEDS: HEPARIN SOD/D5W 100 UNITS/ML 25,000 UNITS/250 ML BAG 13 UNITS IV CONT (00:46)
[2023-01-22 04:54] VITALS: BP 104/57; PULSE 81; RESP 20; TEMP 35.8; O2SAT 94
[2023-01-22] MEDS: HYDROcodone/acetaminophen (*CRX) 7.5-325 MG TABLET 1 TAB PO ×2 (05:18→16:41)
[2023-01-22 06:33] LABS: Basophils Absolute Auto 0.1 K/mm3 (0.0-0.1); Basophils Percent Auto 0.9 % (0.2-1.2); Eosinophils Absolute Auto 0.1 K/mm3 (0-0.3); Eosinophils Percent Auto 2.4 % (0-4.4); Hematocrit 32.2 % (42.0-52.0); Hemoglobin 10.1 g/dL (14.0-18.0); Immature Granulocyte Percent A 1.8 % (0-0.5); Immature Platelet Fraction Pct 2.1 % (0.9-11.2); Lymphocytes Absolute Auto 0.78 K/mm3 (0.9-3.2); Lymphocytes Percent Auto 14.2 % (18.3-44.2); Mean Corpuscular HGB Conc 31.4 g/dl (32-36); Mean Corpuscular Hemoglobin 25.3 pg (26-34); Mean Corpuscular Volume 80.5 fl (80-100); Mean Platelet Volume 9.3 fl (7.4-10.4); Monocytes Absolute Auto 1.1 K/mm3 (0.1-0.6); Neutrophils Absolute Auto 3.3 K/mm3 (1.3-6.7); Neutrophils Percent Auto 60.7 % (45.5-73.1); Platelet Count Result 107 k/mm3 (150-375); Red Cell Distribution Width 19.9 % (11.5-14.5); White Blood Count 5.5 K/mm3 (4.5-10.0)
[2023-01-22 06:39] LABS: Prothrombin Time 24.4 Seconds (11.1-14.7)
[2023-01-22 06:41] LABS: Partial Thromboplastin Time 130.9 SECONDS (22.3-36.8)
[2023-01-22 06:48] LABS: Anion Gap 5 mmol/L (8-16); Blood Urea Nitrogen 19 mg/dL (9-20); Calcium 8.9 mg/dL (8.4-10.2); Carbon Dioxide 26 mmol/L (22-30); Chloride 98 mmol/L (98-107); Estimated CRCL calculation 95 ml/min; Estimated Glomerular Filt Rate > 60; Glucose 120 mg/dL (65-110); Potassium 4.7 mmol/L (3.4-5.0); Sodium 129 mmol/L (137-145)
[2023-01-22] MEDS: POTASSIUM CHLORIDE 20 MEQ ER TABLET 40 MEQ PO ×2 (10:13→16:39)
[2023-01-22] MEDS: FAMOTIDINE 20 MG TABLET PO ×2 (10:13→20:29)
[2023-01-22] MEDS: SENNA/DOCUSATE SODIUM TABLET 2 TAB PO ×2 (10:13→16:39)
[2023-01-22] MEDS: SILDENAFIL CITRATE 20 MG TABLET 40 MG PO ×3 (10:14→16:39)
[2023-01-22] MEDS: BUMETANIDE 0.5 MG TABLET PO (10:14)
[2023-01-22] MEDS: SPIRONOLACTONE 50 MG TABLET PO (10:14)
[2023-01-22] MEDS: ATORVASTATIN 10 MG TABLET PO (10:14)
[2023-01-22] MEDS: LORATADINE 10 MG TABLET PO (10:15)
[2023-01-22] MEDS: PANTOPRAZOLE 40 MG TABLET PO (10:15)
[2023-01-22] MEDS: polyethylene glycoL 3350 17 GM POWD.PACK PO (10:25)
--- NOTE | 2023-01-22 11:52 | PM.PNORT ---
Progress Note: A&P Assessment and Plan (1) Closed intertrochanteric fracture of left hip: Qualifiers: Encounter type: subsequent encounter Fracture alignment: displaced Fracture healing: with routine healing Qualified Code(s): S72.142D - Displaced intertrochanteric fracture of left femur, subsequent encounter for closed fracture with routine healing Code(s): S72.142A - Displaced intertrochanteric fracture of left femur, initial encounter for closed fracture Status: Acute Plan Continue to mobilize with PT and OT. Discharge to [facility] would be in his best interest. Continue with hip spica and daily change while he is there. Currently on Coumadin. INR is 2.0 today. From an orthopedic standpoint, he can be discharged whenever his bed is available. He is to have the mitali out on January 31, 2023. This was reviewed with him. If he is still admitted to the rehab facility, this can be done while he is there. If he is not still at rehab, he will have a follow-up appointment in our office at that time. He is to call our office with any further orthopedic questions or concerns. Following. Subjective Subjective Date/Time Seen: 01/22/23 11:52 Post Op day: 4 Interval history: Postop day 4 ORIF left IT hip fracture with trochanteric nail device. Overall doing well and is maintaining his weight-bearing status. Review of Systems Constitutional: Constitutional: Denies chills, Denies fever(s) and Denies night sweats Eyes: Eyes: Denies change in vision ENT: Reports Normal hearing present Cardiovascular: Cardiovascular: Denies chest pain, Denies lightheadedness and Denies dyspnea on exertion Respiratory: Respiratory: Denies dyspnea on exertion Gastrointestinal: Gastrointestinal: Denies abdominal pain Genitourinary: Genitourinary: Denies dysuria Musculoskeletal: Musculoskeletal: Reports no additional musculoskeletal complaints and Reports as per HPI Integumentary/Breasts: Skin/Breast: Denies lesions Neurologic: Reports Normal hearing present, Denies confusion, Denies dizziness and Denies weakness Psychiatric: Psychiatric: Denies confusion and Denies paranoia Exam Const: General: cooperative, no acute distress and uncomfortable (Left thigh pain) Resp: Effort & Inspection: normal respiratory effort GI: Inspection: non-distended Neuro: Speech: normal speech Sensory Exam: normal sensation Extrem: Other: Left thigh and LLE swollen. Calf negative. Scant serosanguineous drainage from middle incision. Hip spica in place. Neurovascular status grossly intact left lower extremity. Psych: Mental Status: mental status grossly normal Objective Data Vital Signs Vital Signs: Vital Signs - 24 hr 01/21/23 12:00 01/21/23 14:00 01/21/23 16:51 Temperature 98.5 F Pulse Rate 91 84 Respiratory Rate 22 H Blood Pressure 105/62 Pulse Oximetry 92 Oxygen Delivery Room Air 01/21/23 19:57 01/21/23 21:56 01/21/23 22:45 Temperature 98.3 F Pulse Rate 90 83 Respiratory Rate 18 Blood Pressure 114/58 L Pulse Oximetry 92 95 94 Oxygen Delivery Room Air 01/22/23 04:54 01/22/23 10:10 Temperature 96.4 F L Pulse Rate 81 Respiratory Rate 20 Blood Pressure 104/57 L Pulse Oximetry 94 Oxygen Delivery Room Air Intake/Output Intake/Output: Intake & Output 01/19/23 01/20/23 01/21/23 01/22/23 23:59 23:59 23:59 23:59 Intake Total 2230 2190 2148 468 Output Total 1500 2100 5150 1350 Balance 730 55 -9537 -982 Meds/Results Medications: Active Medications Generic Name Dose Route Start Last Admin Trade Name Freq PRN Reason Stop Dose Admin Acetaminophen 650 mg 01/18/23 16:02 Acetaminophen 325 Mg Tablet PO Q6H PRN Mild Pain (1-3) or Fever Hydrocodone Bitart/Acetaminophen 1 tab 01/18/23 16:02 01/22/23 05:18 Hydrocodone/Acetaminophen (*Crx) 7.5-325 Mg Tablet PO 1 tab Q3H PRN Administration Pain Rated 4-6 Hydrocodone B
[2023-01-22] MEDS: HYDROcodone/acetaminophen (*CRX) 7.5-325 MG TABLET 2 TAB PO (11:53)
--- NOTE | 2023-01-22 12:16 | PM.IMPN ---
Progress Note: A&P Assessment and Plan (1) Intertrochanteric fracture of left femur: Qualifiers: Encounter type: initial encounter Fracture alignment: displaced Fracture type: closed Qualified Code(s): S72.142A - Displaced intertrochanteric fracture of left femur, initial encounter for closed fracture Code(s): S72.142A - Displaced intertrochanteric fracture of left femur, initial encounter for closed fracture Status: Acute Assessment and Plan: Patient had a mechanical fall resulting in left IT fracture. Patient denies syncope, seizure, LOC or any concerning history prior to the fall. Xray consistent with displaced left intertrochanteric fracture. Spoke with Cardiology who felt patient is okay for surgery. Patient underwent ORIF left IT hip fracture with trochanteric nail 01/18/23 Heparin restarted post-operatively. Coumadin also resumed Left leg edema noted. Doppler negative. Wound has been oozing so will not plan to overlap heparin for a day. INR today is 2.0. -stop Heparin drip -continue Coumadin -pain better controlled; continue current pain management as written -PT/OT (2) Subtherapeutic anticoagulation: Code(s): Z51.81 - Encounter for therapeutic drug level monitoring; Z79.01 - computer terminal operator (current) use of anticoagulants Status: Acute Assessment and Plan: INR 1.7 on admission. Patient states he is INR is usually therapeutic. As above. (3) Atrial fibrillation: Code(s): I48.91 - Unspecified atrial fibrillation Status: Chronic Assessment and Plan: Patient has a history of atrial fibrillation. EKG showing sinus tachycardia with PVCs and incomplete right bundle-branch block. He is on anticoagulation for his mechanical aortic valve. He is on metoprolol for rate control which has been resumed. INR therapeutic. Continue Coumadin (4) H/O mechanical aortic valve replacement: Code(s): Z95.2 - Presence of prosthetic heart valve Status: Chronic Assessment and Plan: Patient has a history of mechanical aortic valve. He has also had a mitral valve repair. Patient states he is due for a ABDIFATAH due to concerns about the mitral valve. However speaking to the pattern attendant, the ABDIFATAH is actually to review the aortic valve since the most recent surface echo showed increased velocities across the aortic valve consistent with stenosis. This is a new finding which will be evaluated by ABDIFATAH. Pancake Professional recommended patient be treated as if he has aortic stenosis. Anesthesiology was notified. Pancake Professional did feel the patient could proceed with this non cardiovascular surgery safely without any further testing. He has tolerated the surgery well. -Coumadin resumed. Home dose 7.5mg daily except 5mg on Saturday and Saturday. -INR therapeutic -Continue Coumadin -plan discharge with Coumadin 7.5mg daily. (5) Liver cirrhosis secondary to nonalcoholic steatohepatitis (DAUGHERTY): Code(s): K75.81 - Nonalcoholic steatohepatitis (DAUGHERTY); K74.60 - Unspecified cirrhosis of liver Status: Acute Assessment and Plan: Patient has known cirrhosis from DAUGHERTY. LFTs within normal limits except for total bilirubin 4.4. This is chronic finding for him. He also has thrombocytopenia which is also chronic finding for him related to the cirrhosis. He does not have a meld score that qualifies him for liver transplant. -Plt count better at 107K Plan Hyponatremia - Na dropped to 129. Patietn drinking excess free water. He was advised to stop this. Jeremias 100. Fluid restriction ordered. Repeat na still 129. Follow Pulmonary HTN - stable. Sildanifil resumed SATHISH - continue BiPAP Diet: heart healthy DVT prophylaxis: INR therapeutic Code status: Full code Disposition: PT/OT, SNF vs home Subjective Date/time seen: 01/22/23 12:16 Interval history: 63yo male with mechanical AV, pAFib, SATHISH, cirrhosis and HTN here for hip pain after fall and found to have left hip fract
[2023-01-22 14:00] VITALS: BP 125/52; PULSE 90; RESP 22; TEMP 36.2; O2SAT 93
[2023-01-22] MEDS: WARFARIN (*PBKC) 7.5 MG TABLET PO (16:40)
[2023-01-22 18:44] VITALS: PULSE 85
[2023-01-22] MEDS: METOPROLOL SUCCINATE EXT REL 25 MG TABCR 75 MG PO (18:44)
[2023-01-22 22:00] VITALS: BP 106/62; PULSE 85; RESP 14; TEMP 36.1; O2SAT 96
[2023-01-23] MEDS: HYDROcodone/acetaminophen (*CRX) 7.5-325 MG TABLET 1 TAB PO ×6 (00:09→23:54)
[2023-01-23 06:00] VITALS: BP 115/73; PULSE 79; RESP 12; TEMP 36.1; O2SAT 96
[2023-01-23 06:43] LABS: Hematocrit 32.9 % (42.0-52.0); Hemoglobin 10.3 g/dL (14.0-18.0); Mean Corpuscular HGB Conc 31.3 g/dl (32-36); Mean Corpuscular Hemoglobin 25.2 pg (26-34); Mean Corpuscular Volume 80.6 fl (80-100); Mean Platelet Volume 9.1 fl (7.4-10.4); Platelet Count Result 107 k/mm3 (150-375); Red Blood Count 4.08 M/mm3 (4.6-6.20); Red Cell Distribution Width 19.9 % (11.5-14.5); White Blood Count 5.8 K/mm3 (4.5-10.0)
[2023-01-23 06:47] LABS: Anion Gap 7 mmol/L (8-16); Blood Urea Nitrogen 20 mg/dL (9-20); Calcium 8.9 mg/dL (8.4-10.2); Carbon Dioxide 23 mmol/L (22-30); Chloride 99 mmol/L (98-107); Estimated CRCL calculation 108 ml/min; Estimated Glomerular Filt Rate > 60; Glucose 117 mg/dL (65-110); Potassium 4.8 mmol/L (3.4-5.0); Sodium 129 mmol/L (137-145)
[2023-01-23 07:11] LABS: INR 2.4; Prothrombin Time 28.1 Seconds (11.1-14.7)
[2023-01-23] MEDS: SENNA/DOCUSATE SODIUM TABLET 2 TAB PO ×2 (08:59→16:36)
[2023-01-23] MEDS: polyethylene glycoL 3350 17 GM POWD.PACK PO (08:59)
[2023-01-23] MEDS: ATORVASTATIN 10 MG TABLET PO (09:00)
[2023-01-23] MEDS: PANTOPRAZOLE 40 MG TABLET PO (09:00)
[2023-01-23] MEDS: SPIRONOLACTONE 50 MG TABLET PO (09:00)
[2023-01-23] MEDS: BUMETANIDE 0.5 MG TABLET PO (09:00)
[2023-01-23] MEDS: LORATADINE 10 MG TABLET PO (09:01)
[2023-01-23] MEDS: POTASSIUM CHLORIDE 20 MEQ ER TABLET 40 MEQ PO ×2 (09:01→16:36)
[2023-01-23] MEDS: FAMOTIDINE 20 MG TABLET PO ×2 (09:01→20:18)
[2023-01-23] MEDS: SILDENAFIL CITRATE 20 MG TABLET 40 MG PO ×3 (09:08→16:36)
--- NOTE | 2023-01-23 09:39 | PM.IMPN ---
Progress Note: A&P Assessment and Plan (1) Intertrochanteric fracture of left femur: Qualifiers: Encounter type: initial encounter Fracture alignment: displaced Fracture type: closed Qualified Code(s): S72.142A - Displaced intertrochanteric fracture of left femur, initial encounter for closed fracture Code(s): S72.142A - Displaced intertrochanteric fracture of left femur, initial encounter for closed fracture Status: Acute Assessment and Plan: Patient had a mechanical fall resulting in left IT fracture. Patient denies syncope, seizure, LOC or any concerning history prior to the fall. Xray consistent with displaced left intertrochanteric fracture. Spoke with Cardiology who felt patient is okay for surgery. Patient underwent ORIF left IT hip fracture with trochanteric nail 01/18/23 Heparin restarted post-operatively. Coumadin also resumed Left leg edema noted. Doppler negative. Wound has been oozing so will not plan to overlap heparin for a day. INR today is 2.0. 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 Patient states he is INR is usually therapeutic. As above. 01/23: INR 2.4 (3) Atrial fibrillation: Code(s): I48.91 - Unspecified atrial fibrillation Status: Chronic Assessment and Plan: Patient has a history of atrial fibrillation. EKG showing sinus tachycardia with PVCs and incomplete right bundle-branch block. He is on anticoagulation for his mechanical aortic valve. He is on metoprolol for rate control which has been resumed. INR therapeutic. Continue Coumadin (4) H/O mechanical aortic valve replacement: Code(s): Z95.2 - Presence of prosthetic heart valve Status: Chronic Assessment and Plan: Patient has a history of mechanical aortic valve. He has also had a mitral valve repair. Patient states he is due for a ABDIFATAH due to concerns about the mitral valve. However speaking to the putty remover, the ABDIFATAH is actually to review the aortic valve since the most recent surface echo showed increased velocities across the aortic valve consistent with stenosis. This is a new finding which will be evaluated by ABDIFATAH. Turner Off recommended patient be treated as if he has aortic stenosis. Anesthesiology was notified. Turner Off did feel the patient could proceed with this non cardiovascular surgery safely without any further testing. He has tolerated the surgery well. -Coumadin resumed. Home dose 7.5mg daily except 5mg on Saturday and Saturday. -INR therapeutic -Continue Coumadin -plan discharge with Coumadin 7.5mg daily. (5) Liver cirrhosis secondary to nonalcoholic steatohepatitis ([place]UGH[place]): Code(s): K75.81 - Nonalcoholic steatohepatitis ([place]); K74.60 - Unspecified cirrhosis of liver Status: Acute Assessment and Plan: Patient has known cirrhosis from DAUGHERTY. LFTs within normal limits except for total bilirubin 4.4. This is chronic finding for him. He also has thrombocytopenia which is also chronic finding for him related to the cirrhosis. He does not have a meld score that qualifies him for liver transplant. -Plt count better at 107K Plan Hyponatremia -discontinue fluid restriction, recheck sodium tomorrow, start salt tabs Pulmonary HTN - stable. Sildanifil resumed SATHISH - continue BiPAP Diet: heart healthy DVT prophylaxis: INR therapeutic Code status: Full code Disposition: PT/OT, SNF vs home Subjective Date/time seen: 01/23/23 09:39 Interval history: 63yo male with mechanical AV, pAFib, SATHISH, cirrhosis and HTN here for hip pain after fall and found to have left hip fracture. No overnight events noted. No chest pain or shortness
[2023-01-23 09:51] VITALS: O2SAT 95
--- NOTE | 2023-01-23 12:17 | PM.PNORT ---
Progress Note: A&P Assessment and Plan (1) Closed intertrochanteric fracture of left hip: Qualifiers: Encounter type: subsequent encounter Fracture alignment: displaced Fracture healing: with routine healing Qualified Code(s): S72.142D - Displaced intertrochanteric fracture of left femur, subsequent encounter for closed fracture with routine healing Code(s): S72.142A - Displaced intertrochanteric fracture of left femur, initial encounter for closed fracture Status: Acute Plan Making slow steady progress but still has a long way to go. Would absolutely benefit from 1-2 weeks in acute rehab. Continue to mobilize. Following. Subjective Subjective Date/Time Seen: 01/23/23 12:17 Post Op day: 5 Interval history: Postop day five ORIF left IT hip fracture. Moving around a bit better now. Still struggling however to do much walking. Exam Const: General: cooperative and uncomfortable ( Left hip and thigh pain) Extrem: Other: Scant serosanguineous drainage middle wound left thigh. Moderate thigh swelling still. Neurovascular status otherwise unremarkable left lower extremity. Objective Data Vital Signs Vital Signs: Vital Signs - 24 hr 01/22/23 14:00 01/22/23 18:44 01/22/23 22:00 Temperature 97.1 F L 96.9 F L Pulse Rate 90 85 85 Respiratory Rate 22 H 14 Blood Pressure 125/52 L 106/62 Pulse Oximetry 93 96 Oxygen Delivery 01/23/23 06:00 01/23/23 09:51 01/23/23 08:55 Temperature 97.0 F L Pulse Rate 79 Respiratory Rate 12 Blood Pressure 115/73 Pulse Oximetry 96 95 Oxygen Delivery Room Air Room Air Intake/Output Intake/Output: Intake & Output 01/20/23 01/21/23 01/22/23 01/23/23 23:59 23:59 23:59 23:59 Intake Total 2190 / 2190 2148 / 2148 1123 / 1123 118 / 118 Output Total 2100 / 2100 5150 / 5150 2750 / 2750 1000 / 1000 Balance 90 / 90 -3002 / -3002 -1627 / -1627 -882 / -882 Meds/Results Medications: Active Medications Generic Name Dose Route Start Last Admin Trade Name Freq PRN Reason Stop Dose Admin Acetaminophen 650 mg 01/18/23 16:02 Acetaminophen 325 Mg Tablet PO Q6H PRN Mild Pain (1-3) or Fever Hydrocodone Bitart/Acetaminophen 1 tab 01/18/23 16:02 01/23/23 09:07 Hydrocodone/Acetaminophen (*Crx) 7.5-325 Mg Tablet PO 1 tab Q3H PRN Administration Pain Rated 4-6 Hydrocodone Bitart/Acetaminophen 2 tab 01/18/23 16:02 01/22/23 11:53 Hydrocodone/Acetaminophen (*Crx) 7.5-325 Mg Tablet PO 2 tab Q6H PRN Administration Pain Rated 7-10 Albuterol 2 puff 01/16/23 14:07 Albuterol Sulfate (*Sp) Aerosol 1 Puff INHALATION Q4H PRN shortness of breath or wheezing Atorvastatin Calcium 10 mg 01/17/23 09:00 01/23/23 09:00 Atorvastatin 10 Mg Tablet PO 10 mg DAILY SHARDA Administration Benzonatate 200 mg 01/16/23 14:07 Benzonatate 100 Mg Capsule PO TID PRN cough Bumetanide 0.5 mg 01/17/23 09:00 01/23/23 09:00 Bumetanide 0.5 Mg Tablet PO 0.5 mg DAILY SHARDA Administration Famotidine 20 mg 01/18/23 21:00 01/23/23 09:01 Famotidine 20 Mg Tablet PO 20 mg Q12HR SHARDA Administration Fluticasone Propionate 2 spray 01/17/23 09:00 01/23/23 09:02 Fluticasone Propionate 0.05% Na Spr 16 Gm Btl (*Bkc) NASAL Not Given DAILY SHARDA Loratadine 10 mg 01/17/23 09:00 01/23/23 09:01 Loratadine 10 Mg Tablet PO 10 mg QAM SHARDA Administration Metoprolol Succinate 75 mg 01/16/23 18:00 01/22/23 18:44 Metoprolol Succinate Ext Rel 25 Mg Tabcr PO 75 mg QPM SHARDA Administration Naloxone HCl 0.1 mg 01/18/23 16:02 Naloxone Hcl 0.4 Mg/Ml Vial IV PUSH Q2M PRN Opiate Reversal Ondansetron HCl 4 mg 01/16/23 10:41 Ondansetron Inj 4 Mg/2 Ml Vial IV PUSH Q4H PRN Nausea Pantoprazole Sodium 40 mg 01/17/23 09:00 01/23/23 09:00 Pantoprazole 40 Mg Tablet PO 40 mg QAM SHARDA Administration Polyethylene Glycol 17 gm 09
[2023-01-23 14:00] VITALS: BP 109/54; PULSE 86; RESP 12; TEMP 36.3; O2SAT 96
[2023-01-23] MEDS: SODIUM CHLORIDE 1 GM TABLET PO ×2 (15:51→20:18)
[2023-01-23] MEDS: WARFARIN (*PBKC) 7.5 MG TABLET PO (16:36)
[2023-01-23 17:34] VITALS: PULSE 85
[2023-01-23] MEDS: METOPROLOL SUCCINATE EXT REL 25 MG TABCR 75 MG PO (17:34)
[2023-01-23] MEDS: WATER FOR IRRIGATION, STERILE 1,000 ML BOTTLE 1000 ML (20:18)
--- NOTE | 2023-01-23 20:19 | PC.NURSE ---
Shawna Sam provided care for this patient on 01/23/23. I agree with her assessments.
[2023-01-23 22:00] VITALS: BP 116/62; PULSE 78; RESP 18; TEMP 36.6; O2SAT 96
[2023-01-24] MEDS: HYDROcodone/acetaminophen (*CRX) 7.5-325 MG TABLET 1 TAB PO ×5 (03:43→20:54)
[2023-01-24 06:00] VITALS: BP 107/52; PULSE 73; RESP 18; TEMP 35.9; O2SAT 96
[2023-01-24 06:47] LABS: INR 2.6; Prothrombin Time 29.8 Seconds (11.1-14.7)
[2023-01-24 06:50] LABS: Alanine Aminotransferase 18 U/L (6-50); Albumin Level 3.9 g/dL (3.5-5.1); Alkaline Phosphatase 80 U/L (38-126); Anion Gap 7 mmol/L (8-16); Aspartate Amino Transferase 31 U/L (17-59); Bilirubin,Total 4.8 mg/dL (0.2-1.3); Blood Urea Nitrogen 19 mg/dL (9-20); Carbon Dioxide 24 mmol/L (22-30); Chloride 95 mmol/L (98-107); Estimated CRCL calculation 95 ml/min; Estimated Glomerular Filt Rate > 60; Glucose 115 mg/dL (65-110); Potassium 4.8 mmol/L (3.4-5.0); Sodium 126 mmol/L (137-145)
[2023-01-24 06:55] LABS: Basophils Absolute Auto 0.1 K/mm3 (0.0-0.1); Basophils Percent Auto 0.9 % (0.2-1.2); Eosinophils Absolute Auto 0.3 K/mm3 (0-0.3); Eosinophils Percent Auto 4.5 % (0-4.4); Hematocrit 34.2 % (42.0-52.0); Hemoglobin 10.8 g/dL (14.0-18.0); Immature Granulocyte Absolute 0.11 K/mm3 (0.00-0.031); Immature Granulocyte Percent A 1.9 % (0-0.5); Lymphocytes Absolute Auto 1.07 K/mm3 (0.9-3.2); Lymphocytes Percent Auto 18.7 % (18.3-44.2); Mean Corpuscular HGB Conc 31.6 g/dl (32-36); Mean Corpuscular Hemoglobin 25.6 pg (26-34); Mean Platelet Volume 9.1 fl (7.4-10.4); Monocytes Absolute Auto 0.9 K/mm3 (0.1-0.6); Neutrophils Absolute Auto 3.4 K/mm3 (1.3-6.7); Platelet Count Result 117 k/mm3 (150-375); Red Blood Count 4.22 M/mm3 (4.6-6.20); Red Cell Distribution Width 19.4 % (11.5-14.5); White Blood Count 5.7 K/mm3 (4.5-10.0)
--- NOTE | 2023-01-24 08:39 | PM.IMPN ---
Progress Note: A&P Assessment and Plan (1) Intertrochanteric fracture of left femur: Qualifiers: Encounter type: initial encounter Fracture alignment: displaced Fracture type: closed Qualified Code(s): S72.142A - Displaced intertrochanteric fracture of left femur, initial encounter for closed fracture Code(s): S72.142A - Displaced intertrochanteric fracture of left femur, initial encounter for closed fracture Status: Acute Assessment and Plan: Patient had a mechanical fall resulting in left IT fracture. Patient denies syncope, seizure, LOC or any concerning history prior to the fall. Xray consistent with displaced left intertrochanteric fracture. Spoke with Cardiology who felt patient is okay for surgery. Patient underwent ORIF left IT hip fracture with trochanteric nail 01/18/23 Heparin restarted post-operatively. Coumadin also resumed Left leg edema noted. Doppler negative. Wound has been oozing so will not plan to overlap heparin for a day. INR today is 2.0. 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 Patient states he is INR is usually therapeutic. As above. 01/23: INR 2.4 (3) Atrial fibrillation: Code(s): I48.91 - Unspecified atrial fibrillation Status: Chronic Assessment and Plan: Patient has a history of atrial fibrillation. EKG showing sinus tachycardia with PVCs and incomplete right bundle-branch block. He is on anticoagulation for his mechanical aortic valve. He is on metoprolol for rate control which has been resumed. INR therapeutic. Continue Coumadin (4) H/O mechanical aortic valve replacement: Code(s): Z95.2 - Presence of prosthetic heart valve Status: Chronic Assessment and Plan: Patient has a history of mechanical aortic valve. He has also had a mitral valve repair. Patient states he is due for a ABDIFATAH due to concerns about the mitral valve. However speaking to the carport erector, the ABDIFATAH is actually to review the aortic valve since the most recent surface echo showed increased velocities across the aortic valve consistent with stenosis. This is a new finding which will be evaluated by ABDIFATAH. Vice Chancellor recommended patient be treated as if he has aortic stenosis. Anesthesiology was notified. Vice Chancellor did feel the patient could proceed with this non cardiovascular surgery safely without any further testing. He has tolerated the surgery well. -Coumadin resumed. Home dose 7.5mg daily except 5mg on Saturday and Saturday. -INR therapeutic -Continue Coumadin -plan discharge with Coumadin 7.5mg daily. (5) Liver cirrhosis secondary to nonalcoholic steatohepatitis ([place]UGH[place]): Code(s): K75.81 - Nonalcoholic steatohepatitis ([place]UGH[place]); K74.60 - Unspecified cirrhosis of liver Status: Acute Assessment and Plan: Patient has known cirrhosis from [place]UGHERTY. LFTs within normal limits except for total bilirubin 4.4. This is chronic finding for him. He also has thrombocytopenia which is also chronic finding for him related to the cirrhosis. He does not have a meld score that qualifies him for liver transplant. -Plt count better at 107K Plan Hyponatremia -discontinue fluid restriction, appreciate nephrology consult, continue salt tabs Pulmonary HTN - stable. Sildanifil resumed SATHISH - continue BiPAP Diet: heart healthy DVT prophylaxis: INR therapeutic Code status: Full code Disposition: PT/OT, SNF vs home Subjective Date/time seen: 01/24/23 08:39 Interval history: 63yo male with mechanical AV, pAFib, SATHISH, cirrhosis and HTN here for hip pain after fall and found to have left hip fracture. No overnight events noted. No chest pain or s
[2023-01-24] MEDS: polyethylene glycoL 3350 17 GM POWD.PACK PO (09:41)
[2023-01-24] MEDS: POTASSIUM CHLORIDE 20 MEQ ER TABLET 40 MEQ PO ×2 (09:42→16:42)
[2023-01-24] MEDS: FAMOTIDINE 20 MG TABLET PO ×2 (09:42→20:54)
[2023-01-24] MEDS: ATORVASTATIN 10 MG TABLET PO (09:43)
[2023-01-24] MEDS: SENNA/DOCUSATE SODIUM TABLET 2 TAB PO ×2 (09:43→16:42)
[2023-01-24] MEDS: LORATADINE 10 MG TABLET PO (09:43)
[2023-01-24] MEDS: SODIUM CHLORIDE 1 GM TABLET PO ×3 (09:43→20:54)
[2023-01-24] MEDS: PANTOPRAZOLE 40 MG TABLET PO (09:44)
[2023-01-24] MEDS: SILDENAFIL CITRATE 20 MG TABLET 40 MG PO ×3 (09:47→16:42)
[2023-01-24] MEDS: SPIRONOLACTONE 50 MG TABLET PO (09:54)
[2023-01-24] MEDS: BUMETANIDE 0.5 MG TABLET PO (09:54)
--- NOTE | 2023-01-24 12:05 | PM.PNORT ---
Progress Note: A&P Assessment and Plan (1) Closed intertrochanteric fracture of left hip: Qualifiers: Encounter type: subsequent encounter Fracture alignment: displaced Fracture healing: with routine healing Qualified Code(s): S72.142D - Displaced intertrochanteric fracture of left femur, subsequent encounter for closed fracture with routine healing Code(s): S72.142A - Displaced intertrochanteric fracture of left femur, initial encounter for closed fracture Status: Acute Assessment and Plan: No change in activities or management plan. Going to rehab soon. We will cover with Keflex well he has serosanguineous drainage. Continue with hip spica dressing as well. Subjective Subjective Date/Time Seen: 01/24/23 12:05 Post Op day: POD 6 Interval history: 63-year-old male postop day six ORIF left IT hip fracture Exam Const: General: cooperative and uncomfortable (Has left hip and thigh discomfort) Extrem: Other: Still has swelling in the left thigh with moderate bruising. Central wound still with scant serosanguineous drainage. Neurovascular status unremarkable otherwise left lower extremity Objective Data Vital Signs Vital Signs: Vital Signs - 24 hr 01/23/23 14:00 01/23/23 17:34 01/23/23 22:00 Temperature 97.3 F L 97.8 F Pulse Rate 86 85 78 Respiratory Rate 12 18 Blood Pressure 109/54 L 116/62 Pulse Oximetry 96 96 01/24/23 06:00 Temperature 96.7 F L Pulse Rate 73 Respiratory Rate 18 Blood Pressure 107/52 L Pulse Oximetry 96 Intake/Output Intake/Output: Intake & Output 01/21/23 01/22/23 01/23/23 01/24/23 23:59 23:59 23:59 23:59 Intake Total 2148 / 2148 1123 / 1123 1058 / 1058 918 / 918 Output Total 5150 / 5150 2750 / 2750 1650 / 1650 1200 / 1200 Balance -3002 / -3002 -1627 / -1627 -592 / -592 -282 / -282 Meds/Results Medications: Active Medications Generic Name Dose Route Start Last Admin Trade Name Freq PRN Reason Stop Dose Admin Acetaminophen 650 mg 01/18/23 16:02 Acetaminophen 325 Mg Tablet PO Q6H PRN Mild Pain (1-3) or Fever Hydrocodone Bitart/Acetaminophen 1 tab 01/18/23 16:02 01/24/23 09:41 Hydrocodone/Acetaminophen (*Crx) 7.5-325 Mg Tablet PO 1 tab Q3H PRN Administration Pain Rated 4-6 Hydrocodone Bitart/Acetaminophen 2 tab 01/18/23 16:02 01/22/23 11:53 Hydrocodone/Acetaminophen (*Crx) 7.5-325 Mg Tablet PO 2 tab Q6H PRN Administration Pain Rated 7-10 Albuterol 2 puff 01/16/23 14:07 Albuterol Sulfate (*Sp) Aerosol 1 Puff INHALATION Q4H PRN shortness of breath or wheezing Atorvastatin Calcium 10 mg 01/17/23 09:00 01/24/23 09:43 Atorvastatin 10 Mg Tablet PO 10 mg DAILY SHARDA Administration Benzonatate 200 mg 01/16/23 14:07 Benzonatate 100 Mg Capsule PO TID PRN cough Bumetanide 0.5 mg 01/17/23 09:00 01/24/23 09:54 Bumetanide 0.5 Mg Tablet PO 0.5 mg DAILY SHARDA Administration Famotidine 20 mg 01/18/23 21:00 01/24/23 09:42 Famotidine 20 Mg Tablet PO 20 mg Q12HR SHARDA Administration Fluticasone Propionate 2 spray 01/17/23 09:00 01/24/23 09:45 Fluticasone Propionate 0.05% Na Spr 16 Gm Btl (*Bkc) NASAL Not Given DAILY SHARDA Loratadine 10 mg 01/17/23 09:00 01/24/23 09:43 Loratadine 10 Mg Tablet PO 10 mg QAM SHARDA Administration Metoprolol Succinate 75 mg 01/16/23 18:00 01/23/23 17:34 Metoprolol Succinate Ext Rel 25 Mg Tabcr PO 75 mg QPM SHARDA Administration Naloxone HCl 0.1 mg 01/18/23 16:02 Naloxone Hcl 0.4 Mg/Ml Vial IV PUSH Q2M PRN Opiate Reversal Ondansetron HCl 4 mg 01/16/23 10:41 Ondansetron Inj 4 Mg/2 Ml Vial IV PUSH Q4H PRN Nausea Pantoprazole Sodium 40 mg 01/17/23 09:00 01/24/23 09:44 Pantoprazole 40 Mg Tablet PO 40 mg QAM SHARDA Administration Polyethylene Glycol 17 gm 01/19/23 09:00 09/07/23 09:41 Polyethylene Glycol 3350 17 Gm Powd.Pack PO 17 g
[2023-01-24 14:00] VITALS: BP 108/61; PULSE 95; RESP 22; TEMP 36.9; O2SAT 96
--- NOTE | 2023-01-24 14:00 | PM.CNNEP ---
Assessment and Plan Assessment and plan (1) Hyponatremia: Code(s): E87.1 - Hypo-osmolality and hyponatremia Status: Acute Assessment and Plan: acute on chronic issues with low sodium since April 2022 sodium runs ~ 131 - 136mmol/L; best sodium noted was 137mmol/L in that time frame admission sodium 134; dropped to 126 by AM labs today (01/24/23) risk factors for low sodium: liver disease history of CHF need for chronic diuretics possible excess free water intake pain pain medications/narcotics PPI use currently on salt tabs and bumex consider re-instituting fluid restriction if sodium continues to drop check TSH, cortisol, SPEP, UPEP, and serum/urine osmolality check urine electrolytes (but interpretation maybe limited since already on diuretics) follow trend of repeat sodium levels (2) Closed intertrochanteric fracture of left hip: Qualifiers: Encounter type: subsequent encounter Fracture alignment: displaced Fracture healing: with routine healing Qualified Code(s): S72.142D - Displaced intertrochanteric fracture of left femur, subsequent encounter for closed fracture with routine healing Code(s): S72.142A - Displaced intertrochanteric fracture of left femur, initial encounter for closed fracture Status: Acute Assessment and Plan: as noted by admission imaging s/p ORIF with trochanteric nail (on 01/18/23) Orthopedics following pain control PT/OT as tolerated I will continue to follow the patient with you while he remains hospitalized and make further recommendations as needed. Thank you for allowing me to participate in the care this patient. History of Present Illness Reason for Consult Consult date: 01/24/23 Reason for consult: hyponatremia Chief Complaint Chief complaint: hip fractuure,subtherapeitic inr History of Present Illness Narrative: The patient is a 63-year-old male with a past medical history as outlined below who presented to [facility] Emergency Room via EMS after sustaining a fall with resultant left hip pain. The patient was apparently walking and tripped over a crate and landed on his left side. He denies any dizziness, shortness of breath loss of consciousness head trauma or chest pain prior to or after the fall. After he sustained a fall, he noted immediate pain in his left leg and was unable to ambulate or move. EMS was called and he was subsequently transferred to the emergency room for further assessment. Workup and evaluation emergency room demonstrated the patient be hemodynamically stable. Imaging studies demonstrated a displaced intratrochanteric fracture of the proximal left femur. Routine blood tests were within normal limits although his iron was subtherapeutic (he is on anticoagulation for his mechanical heart valve) so he was started on heparin drip type for ongoing anticoagulation. Orthopedics was consulted for further evaluation with the tentative plan for surgery the following day. He was subsequent admitted to the hospital for further evaluation therapy Since his admission, he successfully underwent ORIF and nailing with regard to his left hip fracture by Orthopedic surgery on 01/18/2023. He is since been working with PT note he has tolerated although he does have some chronic gait issues/pr comes with lower extremity edema more so on the left side than right. Renal consultation was requested due to his hyponatremia that was noted in the last several days and was somewhat worse by a.m. labs today. From review his records, the patient has issues with chronic hyponatremia that date back to as far as April of 2022 with his baseline sodium level running anywhere 131-136 millimoles per L although the best sodium level active fine was 137 millimoles per L. he does have multiple risk factors for hyponatremia including known liver cirrhosis, known congestive heart failure, known chronic iron therapy
[2023-01-24 15:21] LABS: Anion Gap 13 mmol/L (8-16); Blood Urea Nitrogen 19 mg/dL (9-20); Carbon Dioxide 21 mmol/L (22-30); Chloride 95 mmol/L (98-107); Estimated CRCL calculation 95 ml/min; Estimated Glomerular Filt Rate > 60; Glucose 113 mg/dL (65-110); Potassium 4.7 mmol/L (3.4-5.0); Sodium 129 mmol/L (137-145)
[2023-01-24] MEDS: WARFARIN (*PBKC) 7.5 MG TABLET PO (16:45)
[2023-01-24 17:54] LABS: Creatinine Urine 77.9 mg/dL
[2023-01-24 18:05] LABS: Creatinine Urine 78.9 mg/dL; Urea Random Urine 619 MG/DL
[2023-01-24 18:06] LABS: Sodium Urine Random 82 meq/L
[2023-01-24 18:07] LABS: Total Protein Urine Random < 5 mg/dL; Ur Ttl Prot Creatinine Ratio < 0.06 mg/mg (0-0.20)
--- NOTE | 2023-01-24 18:25 | PC.NURSE ---
On 01/24/23, the FARMWORKER MACHINE, Shawna Sam, provided care and completed [employer] documentation on this patient. I have reviewed the FARMWORKER MACHINE's documentation and agree with the findings.
[2023-01-24 18:55] VITALS: PULSE 85
[2023-01-24] MEDS: METOPROLOL SUCCINATE EXT REL 25 MG TABCR 75 MG PO (18:55)
[2023-01-24 20:10] VITALS: PULSE 86; RESP 16; O2SAT 98
[2023-01-24 22:00] VITALS: BP 122/60; PULSE 86; RESP 16; TEMP 36.6; O2SAT 98
[2023-01-25] MEDS: HYDROcodone/acetaminophen (*CRX) 7.5-325 MG TABLET 1 TAB PO ×5 (01:49→20:27)
[2023-01-25 05:29] VITALS: BP 120/66; PULSE 77; RESP 18; TEMP 36.3; O2SAT 98
[2023-01-25 05:53] LABS: Basophils Percent Auto 0.7 % (0.2-1.2); Eosinophils Absolute Auto 0.2 K/mm3 (0-0.3); Eosinophils Percent Auto 4.5 % (0-4.4); Hematocrit 34.6 % (42.0-52.0); Hemoglobin 10.9 g/dL (14.0-18.0); Immature Granulocyte Percent A 1.9 % (0-0.5); Lymphocytes Percent Auto 18.6 % (18.3-44.2); Mean Corpuscular HGB Conc 31.5 g/dl (32-36); Mean Corpuscular Hemoglobin 25.2 pg (26-34); Mean Corpuscular Volume 80.1 fl (80-100); Mean Platelet Volume 8.8 fl (7.4-10.4); Monocytes Absolute Auto 0.9 K/mm3 (0.1-0.6); Neutrophils Absolute Auto 3.1 K/mm3 (1.3-6.7); Neutrophils Percent Auto 58.3 % (45.5-73.1); Platelet Count Result 116 k/mm3 (150-375); Red Blood Count 4.32 M/mm3 (4.6-6.20); Red Cell Distribution Width 19.2 % (11.5-14.5); White Blood Count 5.4 K/mm3 (4.5-10.0)
[2023-01-25 06:05] LABS: Alanine Aminotransferase 19 U/L (6-50); Albumin Level 3.9 g/dL (3.5-5.1); Alkaline Phosphatase 90 U/L (38-126); Anion Gap 8 mmol/L (8-16); Aspartate Amino Transferase 32 U/L (17-59); Bilirubin,Total 4.5 mg/dL (0.2-1.3); Blood Urea Nitrogen 19 mg/dL (9-20); Carbon Dioxide 23 mmol/L (22-30); Chloride 96 mmol/L (98-107); Estimated CRCL calculation 108 ml/min; Estimated Glomerular Filt Rate > 60; Glucose 112 mg/dL (65-110); Potassium 4.6 mmol/L (3.4-5.0); Sodium 127 mmol/L (137-145)
[2023-01-25 06:07] LABS: INR 2.7; Prothrombin Time 30.5 Seconds (11.1-14.7)
[2023-01-25] MEDS: SPIRONOLACTONE 50 MG TABLET PO (08:15)
[2023-01-25] MEDS: POTASSIUM CHLORIDE 20 MEQ ER TABLET 40 MEQ PO ×2 (08:16→17:01)
[2023-01-25] MEDS: LORATADINE 10 MG TABLET PO (08:16)
[2023-01-25] MEDS: ATORVASTATIN 10 MG TABLET PO (08:16)
[2023-01-25] MEDS: SILDENAFIL CITRATE 20 MG TABLET 40 MG PO ×3 (08:16→17:01)
[2023-01-25] MEDS: BUMETANIDE 0.5 MG TABLET PO ×2 (08:16→17:01)
[2023-01-25] MEDS: PANTOPRAZOLE 40 MG TABLET PO (08:16)
[2023-01-25] MEDS: SENNA/DOCUSATE SODIUM TABLET 2 TAB PO ×2 (08:16→17:02)
[2023-01-25] MEDS: FAMOTIDINE 20 MG TABLET PO ×2 (08:16→20:23)
--- NOTE | 2023-01-25 11:14 | PM.PNORT ---
Progress Note: A&P Assessment and Plan (1) Closed intertrochanteric fracture of left hip: Qualifiers: Encounter type: subsequent encounter Fracture alignment: displaced Fracture healing: with routine healing Qualified Code(s): S72.142D - Displaced intertrochanteric fracture of left femur, subsequent encounter for closed fracture with routine healing Code(s): S72.142A - Displaced intertrochanteric fracture of left femur, initial encounter for closed fracture Status: Acute Plan Postop day seven ORIF left ID hip fracture. Continue therapy. Nora will be removed a week. He will continue with his current touchdown weight-bearing status for a minimum of eight weeks using a walker. INR is therapeutic. Subjective Subjective Date/Time Seen: 01/25/23 11:14 Post Op day: 7 Interval history: 63-year-old male postop day seven ORIF left ID in fracture. Seems to do a little better each day. Awaiting transfer. Exam Const: General: cooperative and comfortable Extrem: Other: Left hip wounds dry. Hip spica reapplied. Neurovascular status intact left lower extremity. Less swelling left thigh. Objective Data Vital Signs Vital Signs: Vital Signs - 24 hr 01/24/23 14:00 01/24/23 18:55 01/24/23 22:00 Temperature 98.5 F 97.8 F Pulse Rate 95 85 86 Respiratory Rate 22 H 16 Blood Pressure 108/61 122/60 Pulse Oximetry 96 98 Oxygen Delivery 01/24/23 20:10 01/25/23 05:29 01/25/23 08:00 Temperature 97.3 F L Pulse Rate 86 77 Respiratory Rate 16 18 Blood Pressure 120/66 Pulse Oximetry 98 98 Oxygen Delivery Room Air Room Air Intake/Output Intake/Output: Intake & Output 01/22/23 01/23/23 01/24/23 01/25/23 23:59 23:59 23:59 23:59 Intake Total 1123 / 1123 1058 / 1058 3176 / 3176 710 / 710 Output Total 2750 / 2750 1650 / 1650 4905 / 4905 1800 / 1800 Balance -1627 / -1627 -592 / -592 -1729 / -1729 -1090 / -1090 Meds/Results Medications: Active Medications Generic Name Dose Route Start Last Admin Trade Name Freq PRN Reason Stop Dose Admin Acetaminophen 650 mg 01/18/23 16:02 Acetaminophen 325 Mg Tablet PO Q6H PRN Mild Pain (1-3) or Fever Hydrocodone Bitart/Acetaminophen 1 tab 01/18/23 16:02 01/25/23 08:15 Hydrocodone/Acetaminophen (*Crx) 7.5-325 Mg Tablet PO 1 tab Q3H PRN Administration Pain Rated 4-6 Hydrocodone Bitart/Acetaminophen 2 tab 01/18/23 16:02 01/22/23 11:53 Hydrocodone/Acetaminophen (*Crx) 7.5-325 Mg Tablet PO 2 tab Q6H PRN Administration Pain Rated 7-10 Albuterol 2 puff 01/16/23 14:07 Albuterol Sulfate (*Sp) Aerosol 1 Puff INHALATION Q4H PRN shortness of breath or wheezing Atorvastatin Calcium 10 mg 01/17/23 09:00 01/25/23 08:16 Atorvastatin 10 Mg Tablet PO 10 mg DAILY SHARDA Administration Benzonatate 200 mg 01/16/23 14:07 Benzonatate 100 Mg Capsule PO TID PRN cough Bumetanide 0.5 mg 01/17/23 09:00 01/25/23 08:16 Bumetanide 0.5 Mg Tablet PO 0.5 mg DAILY SHARDA Administration Famotidine 20 mg 01/18/23 21:00 01/25/23 08:16 Famotidine 20 Mg Tablet PO 20 mg Q12HR SHARDA Administration Fluticasone Propionate 2 spray 01/17/23 09:00 01/25/23 08:16 Fluticasone Propionate 0.05% Na Spr 16 Gm Btl (*Bkc) NASAL Not Given DAILY SHARDA Loratadine 10 mg 01/17/23 09:00 01/25/23 08:16 Loratadine 10 Mg Tablet PO 10 mg QAM SHARDA Administration Metoprolol Succinate 75 mg 01/16/23 18:00 01/24/23 18:55 Metoprolol Succinate Ext Rel 25 Mg Tabcr PO 75 mg QPM SHARDA Administration Naloxone HCl 0.1 mg 01/18/23 16:02 Naloxone Hcl 0.4 Mg/Ml Vial IV PUSH Q2M PRN Opiate Reversal Ondansetron HCl 4 mg 01/16/23 10:41 Ondansetron Inj 4 Mg/2 Ml Vial IV PUSH Q4H PRN Nausea Pantoprazole Sodium 40 mg 01/17/23 09:00 01/25/23 08:16 Pantoprazole 40 Mg Tablet PO 40 mg QAM SHARDA Administration Polyethylene Glycol 1
--- NOTE | 2023-01-25 12:40 | P.PNNP_ITS ---
Progress Note: A&P Assessment and Plan (1) Hyponatremia: Code(s): E87.1 - Hypo-osmolality and hyponatremia Status: Acute Assessment and Plan: * acute on chronic * issues with low sodium since April 2022 * sodium runs ~ 131 - 136mmol/L; best sodium noted was 137mmol/L in that time frame * admission sodium 134; dropped to 126 by on 01/24/23 * risk factors for low sodium: * liver disease * history of CHF (preserved EF noted by last Echo) * need for chronic diuretics * possible excess free water intake * pain * pain medications/narcotics * PPI use * currently on salt tabs and bumex * evalutation to date: * urine electrolytes barely prerenal (by FeUrea) * TSH okay * cortisol lower side of normal (consider stim test if sodium fails to improve) * SPEP/UPEP pending * serum/urine osmolality pending * head CT and CXR on this admission noted * re-institute fluid restriction * change bumex to bid frequency * follow trend of repeat sodium levels (2) Closed intertrochanteric fracture of left hip: Qualifiers: Encounter type: subsequent encounter Fracture alignment: displaced Fracture healing: with routine healing Qualified Code(s): S72.142D - Displaced intertrochanteric fracture of left femur, subsequent encounter for closed fracture with routine healing Code(s): S72.142A - Displaced intertrochanteric fracture of left femur, initial encounter for closed fracture Status: Acute Assessment and Plan: * as noted by admission imaging * s/p ORIF with trochanteric nail (on 01/18/23) * Orthopedics following * pain control * PT/OT as tolerated (3) Liver cirrhosis secondary to nonalcoholic steatohepatitis (DAUGHERTY): Code(s): K75.81 - Nonalcoholic steatohepatitis (DAUGHERTY); K74.60 - Unspecified cirrhosis of liver Status: Chronic Assessment and Plan: * chronic issues * seems stable/compensated * LFTs stabe aside from elevated bilirubin * continue supportive therapy (4) Atrial fibrillation: Code(s): I48.91 - Unspecified atrial fibrillation Status: Chronic Assessment and Plan: * rate control strategy * on anticoagulation (5) Obstructive sleep apnea: Code(s): G47.33 - Obstructive sleep apnea (adult) (pediatric) Status: Chronic Assessment and Plan: * continue CPAP Will continue to follow. Subjective Date/time seen: 01/25/23 12:40 Interval history: Follow-up for acute on chronic hyponatremia. No new issues or problems voiced at the time of my visit; pain control seems adequate; working with PT/OT as tolerated; no other issues/events overnight; sodium level still fluctuating (but no worse). Exam Narrative: General: WD/WN male in NAD Heart: normal S1 and S2; no rub Lungs: clear to auscultation Abdomen: soft, nontender, nondistended, positive bowel sounds Extremities: no cyanosis or clubbing; 1+ edema in LLE Skin: warm and dry Objective Data Vital Signs Vital Signs: Vital Signs Temp Pulse Resp BP Pulse Ox O2 Del Method 01/25/23 12:40 97.6 F 102 H 17 111/57 L 97 01/25/23 08:00 Room Air 01/25/23 05:29 97.3 F L 77 18 120/66 98 01/24/23 20:10 86 16 98 Room Air 01/24/23 22:00 97.8 F 86 16 122/60 98 01/24/23 18:55 85 Intake/
--- NOTE | 2023-01-25 12:40 | PM.PNNEP ---
Progress Note: A&P Assessment and Plan (1) Hyponatremia: Code(s): E87.1 - Hypo-osmolality and hyponatremia Status: Acute Assessment and Plan: acute on chronic issues with low sodium since April 2022 sodium runs ~ 131 - 136mmol/L; best sodium noted was 137mmol/L in that time frame admission sodium 134; dropped to 126 by on 01/24/23 risk factors for low sodium: liver disease history of CHF (preserved EF noted by last Echo) need for chronic diuretics possible excess free water intake pain pain medications/narcotics PPI use currently on salt tabs and bumex evalutation to date: urine electrolytes barely prerenal (by FeUrea) TSH okay cortisol lower side of normal (consider stim test if sodium fails to improve) SPEP/UPEP pending serum/urine osmolality pending head CT and CXR on this admission noted re-institute fluid restriction change bumex to bid frequency follow trend of repeat sodium levels (2) Closed intertrochanteric fracture of left hip: Qualifiers: Encounter type: subsequent encounter Fracture alignment: displaced Fracture healing: with routine healing Qualified Code(s): S72.142D - Displaced intertrochanteric fracture of left femur, subsequent encounter for closed fracture with routine healing Code(s): S72.142A - Displaced intertrochanteric fracture of left femur, initial encounter for closed fracture Status: Acute Assessment and Plan: as noted by admission imaging s/p ORIF with trochanteric nail (on 01/18/23) Orthopedics following pain control PT/OT as tolerated (3) Liver cirrhosis secondary to nonalcoholic steatohepatitis ([place]UGH[place]): Code(s): K75.81 - Nonalcoholic steatohepatitis ([place]UGHERTY); K74.60 - Unspecified cirrhosis of liver Status: Chronic Assessment and Plan: chronic issues seems stable/compensated LFTs stabe aside from elevated bilirubin continue supportive therapy (4) Atrial fibrillation: Code(s): I48.91 - Unspecified atrial fibrillation Status: Chronic Assessment and Plan: rate control strategy on anticoagulation (5) Obstructive sleep apnea: Code(s): G47.33 - Obstructive sleep apnea (adult) (pediatric) Status: Chronic Assessment and Plan: continue CPAP Will continue to follow. Subjective Date/time seen: 01/25/23 12:40 Interval history: Follow-up for acute on chronic hyponatremia. No new issues or problems voiced at the time of my visit; pain control seems adequate; working with PT/OT as tolerated; no other issues/events overnight; sodium level still fluctuating (but no worse). Exam Narrative: General: WD/WN male in NAD Heart: normal S1 and S2; no rub Lungs: clear to auscultation Abdomen: soft, nontender, nondistended, positive bowel sounds Extremities: no cyanosis or clubbing; 1+ edema in LLE Skin: warm and dry Objective Data Vital Signs Vital Signs: Vital Signs Temp Pulse Resp BP Pulse Ox O2 Del Method 01/25/23 12:40 97.6 F 102 H 17 111/57 L 97 01/25/23 08:00 Room Air 01/25/23 05:29 97.3 F L 77 18 120/66 98 01/24/23 20:10 86 16 98 Room Air 01/24/23 22:00 97.8 F 86 16 122/60 98 01/24/23 18:55 85 Intake/Output Intake/Output: Intake & Output 01/22/23 01/23/23 01/24/23 01/25/23 23:59 23:59 23:59 23:59 Intake Total 1123 1058 3176 950 Output Total 2750 1650 4745 1800 [facility] [phone] Meds/Results Medications: Active Medications Generic Name Dose Route Start Last Admin Trade Name Freq PRN Reason Stop Dose Admin Acetaminophen 650 mg 01/18/23 16:02 Acetaminophen 325 Mg Tablet PO Q6H PRN Mild Pain (1-3) or Fever Hydrocodone Bitart/Acetaminophen 1 tab 01/18/23 16:02 01/25/23 12:00 Hydrocodone/Acetaminophen (*Crx) 7.5-325 Mg Tablet PO 1 tab Q3H PRN Administration Pain Rated 4-6 Hydrocodone Bitart/Acetamin
[2023-01-25] MEDS: SODIUM CHLORIDE 1 GM TABLET PO ×2 (13:15→20:23)
[2023-01-25 14:41] VITALS: BP 111/57; PULSE 102; RESP 17; TEMP 36.4; O2SAT 97
--- NOTE | 2023-01-25 15:32 | PM.IMPN ---
Progress Note: A&P Assessment and Plan (1) Intertrochanteric fracture of left femur: Qualifiers: Encounter type: initial encounter Fracture type: closed Fracture alignment: displaced Qualified Code(s): S72.142A - Displaced intertrochanteric fracture of left femur, initial encounter for closed fracture Code(s): S72.142A - Displaced intertrochanteric fracture of left femur, initial encounter for closed fracture Status: Acute Assessment and Plan: Patient had a mechanical fall resulting in left IT fracture. Patient denies syncope, seizure, LOC or any concerning history prior to the fall. Xray consistent with displaced left intertrochanteric fracture. Spoke with Cardiology who felt patient is okay for surgery. Patient underwent ORIF left IT hip fracture with trochanteric nail 01/18/23 Heparin restarted post-operatively. Coumadin also resumed Left leg edema noted. Doppler negative. Wound has been oozing so will not plan to overlap heparin for a day. INR today is 2.0 -continue Coumadin -pain better controlled; continue current pain management as written -PT/OT (2) Subtherapeutic anticoagulation: Code(s): Z51.81 - Encounter for therapeutic drug level monitoring; Z79.01 - predatory animal exterminator (current) use of anticoagulants Status: Acute Assessment and Plan: INR 1.7 on admission. Patient states he is INR is usually therapeutic. As above. (3) Atrial fibrillation: Code(s): I48.91 - Unspecified atrial fibrillation Status: Chronic Assessment and Plan: Patient has a history of atrial fibrillation. EKG showing sinus tachycardia with PVCs and incomplete right bundle-branch block. He is on anticoagulation for his mechanical aortic valve. He is on metoprolol for rate control which has been resumed. INR therapeutic. Continue Coumadin (4) H/O mechanical aortic valve replacement: Code(s): Z95.2 - Presence of prosthetic heart valve Status: Chronic Assessment and Plan: Patient has a history of mechanical aortic valve. He has also had a mitral valve repair. Patient states he is due for a ABDIFATAH due to concerns about the mitral valve. However speaking to the special education assistant, the ABDIFATAH is actually to review the aortic valve since the most recent surface echo showed increased velocities across the aortic valve consistent with stenosis. This is a new finding which will be evaluated by ABDIFATAH. Christmas Tree Grader recommended patient be treated as if he has aortic stenosis. Anesthesiology was notified. Christmas Tree Grader did feel the patient could proceed with this non cardiovascular surgery safely without any further testing. He has tolerated the surgery well. -Coumadin resumed. Home dose 7.5mg daily except 5mg on Saturday and Saturday. -INR therapeutic -Continue Coumadin -plan discharge with Coumadin 7.5mg daily. (5) Liver cirrhosis secondary to nonalcoholic steatohepatitis (DAUGHERTY): Code(s): K75.81 - Nonalcoholic steatohepatitis ([place]UGHERTY); K74.60 - Unspecified cirrhosis of liver Status: Acute Assessment and Plan: Patient has known cirrhosis from DAUGHERTY. LFTs within normal limits except for total bilirubin 4.4. This is chronic finding for him. He also has thrombocytopenia which is also chronic finding for him related to the cirrhosis. He does not have a meld score that qualifies him for liver transplant. -Plt count better at 107K Plan Hyponatremia -stable, barely changed, appreciate nephrology consult, continue salt tabs Pulmonary HTN - stable. Sildanifil resumed SATHISH - continue BiPAP Diet: heart healthy DVT prophylaxis: INR therapeutic Code status: Full code Disposition: PT/OT, SNF vs home Subjective Date/time seen: 01/25/23 15:32 Interval history: 63yo male with mechanical AV, pAFib, SATHISH, cirrhosis and HTN here for hip pain after fall and found to have left hip fracture. No overnight events noted. No chest pain or shortness of breath. No nausea, vomiting
[2023-01-25 17:01] VITALS: PULSE 94
[2023-01-25] MEDS: METOPROLOL SUCCINATE EXT REL 25 MG TABCR 75 MG PO (17:01)
[2023-01-25] MEDS: WARFARIN (*PBKC) 7.5 MG TABLET PO (17:01)
[2023-01-25 21:38] VITALS: BP 109/85; PULSE 89; RESP 18; TEMP 37.2; O2SAT 92
[2023-01-26] MEDS: HYDROcodone/acetaminophen (*CRX) 7.5-325 MG TABLET 1 TAB PO ×5 (01:27→21:11)
[2023-01-26] MEDS: SODIUM CHLORIDE 1 GM TABLET PO ×3 (05:31→21:10)
--- NOTE | 2023-01-26 05:50 | PC.NURSE ---
This nurse has reviewed Vivienne Galvez's (license pending) charting and agrees with all entries for 01-25-23 and 01-26-23.
[2023-01-26 05:56] VITALS: BP 103/61; PULSE 81; RESP 16; TEMP 36.9; O2SAT 95
[2023-01-26 06:22] LABS: Basophils Absolute Auto 0.1 K/mm3 (0.0-0.1); Basophils Percent Auto 1.1 % (0.2-1.2); Eosinophils Absolute Auto 0.2 K/mm3 (0-0.3); Eosinophils Percent Auto 2.9 % (0-4.4); Hematocrit 34.6 % (42.0-52.0); Immature Granulocyte Absolute 0.13 K/mm3 (0.00-0.031); Immature Granulocyte Percent A 2.1 % (0-0.5); Lymphocytes Absolute Auto 0.99 K/mm3 (0.9-3.2); Lymphocytes Percent Auto 15.9 % (18.3-44.2); Mean Corpuscular HGB Conc 31.8 g/dl (32-36); Mean Corpuscular Hemoglobin 25.4 pg (26-34); Mean Corpuscular Volume 79.9 fl (80-100); Monocytes Percent Auto 15.9 % (2.6-8.5); Neutrophils Absolute Auto 3.9 K/mm3 (1.3-6.7); Neutrophils Percent Auto 62.1 % (45.5-73.1); Platelet Count Result 131 k/mm3 (150-375); Red Blood Count 4.33 M/mm3 (4.6-6.20); Red Cell Distribution Width 19.1 % (11.5-14.5); White Blood Count 6.2 K/mm3 (4.5-10.0)
[2023-01-26 06:31] LABS: INR 2.8; Prothrombin Time 31.7 Seconds (11.1-14.7)
[2023-01-26 06:51] LABS: Alanine Aminotransferase 19 U/L (6-50); Albumin Level 3.9 g/dL (3.5-5.1); Alkaline Phosphatase 110 U/L (38-126); Anion Gap 8 mmol/L (8-16); Aspartate Amino Transferase 35 U/L (17-59); Blood Urea Nitrogen 22 mg/dL (9-20); Carbon Dioxide 24 mmol/L (22-30); Chloride 98 mmol/L (98-107); Estimated CRCL calculation 85 ml/min; Estimated Glomerular Filt Rate > 60; Glucose 121 mg/dL (65-110); Potassium 4.6 mmol/L (3.4-5.0); Sodium 130 mmol/L (137-145)
[2023-01-26] MEDS: PANTOPRAZOLE 40 MG TABLET PO (08:08)
[2023-01-26] MEDS: LORATADINE 10 MG TABLET PO (08:08)
[2023-01-26] MEDS: FAMOTIDINE 20 MG TABLET PO ×2 (08:08→21:11)
[2023-01-26] MEDS: ATORVASTATIN 10 MG TABLET PO (08:08)
[2023-01-26] MEDS: BUMETANIDE 0.5 MG TABLET PO ×2 (08:08→17:09)
[2023-01-26] MEDS: SPIRONOLACTONE 50 MG TABLET PO (08:08)
[2023-01-26] MEDS: SILDENAFIL CITRATE 20 MG TABLET 40 MG PO ×3 (08:08→17:09)
[2023-01-26] MEDS: POTASSIUM CHLORIDE 20 MEQ ER TABLET 40 MEQ PO ×2 (08:08→17:09)
[2023-01-26] MEDS: SENNA/DOCUSATE SODIUM TABLET 2 TAB PO ×2 (08:08→17:10)
--- NOTE | 2023-01-26 12:26 | PM.IMPN ---
Progress Note: A&P Assessment and Plan (1) Intertrochanteric fracture of left femur: Qualifiers: Encounter type: initial encounter Fracture alignment: displaced Fracture type: closed Qualified Code(s): S72.142A - Displaced intertrochanteric fracture of left femur, initial encounter for closed fracture Code(s): S72.142A - Displaced intertrochanteric fracture of left femur, initial encounter for closed fracture Status: Acute Assessment and Plan: Patient had a mechanical fall resulting in left IT fracture. Patient denies syncope, seizure, LOC or any concerning history prior to the fall. Xray consistent with displaced left intertrochanteric fracture. Spoke with Cardiology who felt patient is okay for surgery. Patient underwent ORIF left IT hip fracture with trochanteric nail 01/18/23 Heparin restarted post-operatively. Coumadin also resumed Left leg edema noted. Doppler negative. Wound has been oozing so will not plan to overlap heparin for a day. INR today is 2.0 -continue Coumadin -pain better controlled; continue current pain management as written -PT/OT (2) Subtherapeutic anticoagulation: Code(s): Z51.81 - Encounter for therapeutic drug level monitoring; Z79.01 - rn long term care (current) use of anticoagulants Status: Acute Assessment and Plan: INR 1.7 on admission. Patient states he is INR is usually therapeutic. As above. (3) Atrial fibrillation: Code(s): I48.91 - Unspecified atrial fibrillation Status: Chronic Assessment and Plan: Patient has a history of atrial fibrillation. EKG showing sinus tachycardia with PVCs and incomplete right bundle-branch block. He is on anticoagulation for his mechanical aortic valve. He is on metoprolol for rate control which has been resumed. INR therapeutic. Continue Coumadin (4) H/O mechanical aortic valve replacement: Code(s): Z95.2 - Presence of prosthetic heart valve Status: Chronic Assessment and Plan: Patient has a history of mechanical aortic valve. He has also had a mitral valve repair. Patient states he is due for a ABDIFATAH due to concerns about the mitral valve. However speaking to the historical guide, the ABDIFATAH is actually to review the aortic valve since the most recent surface echo showed increased velocities across the aortic valve consistent with stenosis. This is a new finding which will be evaluated by ABDIFATAH. Film Mounter recommended patient be treated as if he has aortic stenosis. Anesthesiology was notified. Film Mounter did feel the patient could proceed with this non cardiovascular surgery safely without any further testing. He has tolerated the surgery well. -Coumadin resumed. Home dose 7.5mg daily except 5mg on Saturday and Saturday. -INR therapeutic -Continue Coumadin -plan discharge with Coumadin 7.5mg daily. (5) Liver cirrhosis secondary to nonalcoholic steatohepatitis (DAUGHERTY): Code(s): K75.81 - Nonalcoholic steatohepatitis (DAUGHERTY); K74.60 - Unspecified cirrhosis of liver Status: Acute Assessment and Plan: Patient has known cirrhosis from DAUGHERTY. LFTs within normal limits except for total bilirubin 4.4. This is chronic finding for him. He also has thrombocytopenia which is also chronic finding for him related to the cirrhosis. He does not have a meld score that qualifies him for liver transplant. -Plt count better Plan Hyponatremia -improved to 130 9/9 with fluid restriction and salt tabs Pulmonary HTN - stable. Sildanifil resumed SATHISH - continue BiPAP Diet: heart healthy DVT prophylaxis: INR therapeutic Code status: Full code Disposition: PT/OT, SNF vs home Subjective Date/time seen: 01/26/23 12:26 Interval history: 63yo male with mechanical AV, pAFib, SATHISH, cirrhosis and HTN here for hip pain after fall and found to have left hip fracture. No overnight events noted. No chest pain or shortness of breath. No nausea, vomiting or diarrhea. No fevers
--- NOTE | 2023-01-26 13:48 | P.PNNP_ITS ---
Progress Note: A&P Assessment and Plan (1) Hyponatremia: Code(s): E87.1 - Hypo-osmolality and hyponatremia Status: Acute Assessment and Plan: * improving * acute on chronic * issues with low sodium since April 2022 * sodium runs ~ 131 - 136mmol/L; best sodium noted was 137mmol/L in that time frame * admission sodium 134; dropped to 126 by labs on 01/24/23 * risk factors for low sodium: * liver disease * history of CHF (preserved EF noted by last Echo) * need for chronic diuretics * possible excess free water intake * pain * pain medications/narcotics * PPI use * evalutation to date: * urine electrolytes barely prerenal (by FeUrea) * TSH okay * cortisol lower side of normal * SPEP/UPEP pending * serum osmolality pending; urine osmolality noted * head CT and CXR on this admission noted * interventions to date: * on salt tabs (1gm tid) and bumex (o.5mg bid) * fluid restriction (1500cc/day) * follow trend of repeat sodium levels * given hx of CHF and liver disease, consider weaning salt tabs as tolerated (2) Closed intertrochanteric fracture of left hip: Qualifiers: Encounter type: subsequent encounter Fracture alignment: displaced Fracture healing: with routine healing Qualified Code(s): S72.142D - Displaced intertrochanteric fracture of left femur, subsequent encounter for closed fracture with routine healing Code(s): S72.142A - Displaced intertrochanteric fracture of left femur, initial encounter for closed fracture Status: Acute Assessment and Plan: * as noted by admission imaging * s/p ORIF with trochanteric nail (on 01/18/23) * Orthopedics following * pain control * PT/OT as tolerated (3) Liver cirrhosis secondary to nonalcoholic steatohepatitis (DAUGHERTY): Code(s): K75.81 - Nonalcoholic steatohepatitis (DAUGHERTY); K74.60 - Unspecified cirrhosis of liver Status: Chronic Assessment and Plan: * chronic issues * seems stable/compensated * LFTs stabe aside from elevated bilirubin * continue supportive therapy (4) Atrial fibrillation: Code(s): I48.91 - Unspecified atrial fibrillation Status: Chronic Assessment and Plan: * rate control strategy * on anticoagulation (5) Obstructive sleep apnea: Code(s): G47.33 - Obstructive sleep apnea (adult) (pediatric) Status: Chronic Assessment and Plan: * continue CPAP Will continue to follow. Subjective Date/time seen: 01/26/23 13:48 Interval history: Follow-up for acute on chronic hyponatremia. Sodium continues to improve with current interventions/therapy (fluid restriction, salt tabs, and diuretics); no apparent distress voiced at this time; major complaint is that of feeling thirsty. Exam Narrative: General: WD/WN male in NAD Heart: normal S1 and S2; no rub Lungs: clear to auscultation Abdomen: soft, nontender, nondistended, positive bowel sounds Extremities: no cyanosis or clubbing; trace edema in LLE Skin: warm and intact Objective Data Vital Signs Vital Signs: Vital Signs Temp Pulse Resp BP Pulse Ox O2 Del Method 01/26/23 08:10 Room Air 01/26/23 05:56 98.4 F 81 16 103/61 95 01/25/23 21:38 98.9 F 89 18 109/85 92 01/25/23 17:01 94 Intake/Output Intake/Output:
--- NOTE | 2023-01-26 13:48 | PM.PNNEP ---
Progress Note: A&P Assessment and Plan (1) Hyponatremia: Code(s): E87.1 - Hypo-osmolality and hyponatremia Status: Acute Assessment and Plan: improving acute on chronic issues with low sodium since April 2022 sodium runs ~ 131 - 136mmol/L; best sodium noted was 137mmol/L in that time frame admission sodium 134; dropped to 126 by labs on 01/24/23 risk factors for low sodium: liver disease history of CHF (preserved EF noted by last Echo) need for chronic diuretics possible excess free water intake pain pain medications/narcotics PPI use evalutation to date: urine electrolytes barely prerenal (by FeUrea) TSH okay cortisol lower side of normal SPEP/UPEP pending serum osmolality pending; urine osmolality noted head CT and CXR on this admission noted interventions to date: on salt tabs (1gm tid) and bumex (o.5mg bid) fluid restriction (1500cc/day) follow trend of repeat sodium levels given hx of CHF and liver disease, consider weaning salt tabs as tolerated (2) Closed intertrochanteric fracture of left hip: Qualifiers: Encounter type: subsequent encounter Fracture alignment: displaced Fracture healing: with routine healing Qualified Code(s): S72.142D - Displaced intertrochanteric fracture of left femur, subsequent encounter for closed fracture with routine healing Code(s): S72.142A - Displaced intertrochanteric fracture of left femur, initial encounter for closed fracture Status: Acute Assessment and Plan: as noted by admission imaging s/p ORIF with trochanteric nail (on 01/18/23) Orthopedics following pain control PT/OT as tolerated (3) Liver cirrhosis secondary to nonalcoholic steatohepatitis ([place]UGH[place]): Code(s): K75.81 - Nonalcoholic steatohepatitis ([place]); K74.60 - Unspecified cirrhosis of liver Status: Chronic Assessment and Plan: chronic issues seems stable/compensated LFTs stabe aside from elevated bilirubin continue supportive therapy (4) Atrial fibrillation: Code(s): I48.91 - Unspecified atrial fibrillation Status: Chronic Assessment and Plan: rate control strategy on anticoagulation (5) Obstructive sleep apnea: Code(s): G47.33 - Obstructive sleep apnea (adult) (pediatric) Status: Chronic Assessment and Plan: continue CPAP Will continue to follow. Subjective Date/time seen: 01/26/23 13:48 Interval history: Follow-up for acute on chronic hyponatremia. Sodium continues to improve with current interventions/therapy (fluid restriction, salt tabs, and diuretics); no apparent distress voiced at this time; major complaint is that of feeling thirsty. Exam Narrative: General: WD/WN male in NAD Heart: normal S1 and S2; no rub Lungs: clear to auscultation Abdomen: soft, nontender, nondistended, positive bowel sounds Extremities: no cyanosis or clubbing; trace edema in LLE Skin: warm and intact Objective Data Vital Signs Vital Signs: Vital Signs Temp Pulse Resp BP Pulse Ox O2 Del Method 01/26/23 08:10 Room Air 01/26/23 05:56 98.4 F 81 16 103/61 95 01/25/23 21:38 98.9 F 89 18 109/85 92 01/25/23 17:01 94 Intake/Output Intake/Output: Intake & Output 01/23/23 01/24/23 01/25/23 01/26/23 23:59 23:59 23:59 23:59 Intake Total 1058 3176 1070 440 Output Total 1650 4905 3400 800 Balance -592 -1729 -2330 -360 Meds/Results Medications: Active Medications Generic Name Dose Route Start Last Admin Trade Name Garrickq PRN Reason Stop Dose Admin Acetaminophen 650 mg 01/18/23 16:02 Acetaminophen 325 Mg Tablet PO Q6H PRN Mild Pain (1-3) or Fever Hydrocodone Bitart/Acetaminophen 1 tab 01/18/23 16:02 01/26/23 11:32 Hydrocodone/Acetaminophen (*Crx) 7.5-325 Mg Tablet PO 1 tab Q3H PRN Administration Pain Rated 4-6 Hydrocodone Bitart/Acetaminophen 2 tab
[2023-01-26 14:00] VITALS: BP 118/65; PULSE 95; RESP 16; TEMP 37; O2SAT 94
[2023-01-26 17:09] VITALS: PULSE 80
[2023-01-26] MEDS: METOPROLOL SUCCINATE EXT REL 25 MG TABCR 75 MG PO (17:09)
[2023-01-26] MEDS: WARFARIN (*PBKC) 7.5 MG TABLET PO (17:10)
[2023-01-26] MEDS: SALIVA SUBSTITUTE COMBO RINSE 237 ML BOTTLE 15 ML PO (17:35)
[2023-01-26 22:00] VITALS: BP 109/66; PULSE 52; RESP 14; TEMP 36.4; O2SAT 95
[2023-01-26 23:07] LABS: Osmolality, Urine 547 mOsm/kg (50-1200)
[2023-01-27 06:00] VITALS: BP 115/64; PULSE 76; RESP 14; TEMP 36.1; O2SAT 93
[2023-01-27] MEDS: HYDROcodone/acetaminophen (*CRX) 7.5-325 MG TABLET 1 TAB PO ×4 (06:04→20:55)
[2023-01-27] MEDS: SODIUM CHLORIDE 1 GM TABLET PO ×3 (06:04→20:22)
[2023-01-27 06:07] LABS: Basophils Absolute Auto 0.1 K/mm3 (0.0-0.1); Basophils Percent Auto 1.1 % (0.2-1.2); Eosinophils Absolute Auto 0.2 K/mm3 (0-0.3); Eosinophils Percent Auto 2.6 % (0-4.4); Hematocrit 34.2 % (42.0-52.0); Hemoglobin 10.8 g/dL (14.0-18.0); Immature Granulocyte Percent A 1.8 % (0-0.5); Lymphocytes Percent Auto 15.8 % (18.3-44.2); Mean Corpuscular HGB Conc 31.6 g/dl (32-36); Mean Corpuscular Hemoglobin 25.4 pg (26-34); Mean Corpuscular Volume 80.5 fl (80-100); Mean Platelet Volume 8.8 fl (7.4-10.4); Monocytes Percent Auto 17.3 % (2.6-8.5); Neutrophils Absolute Auto 3.5 K/mm3 (1.3-6.7); Neutrophils Percent Auto 61.4 % (45.5-73.1); Platelet Count Result 129 k/mm3 (150-375); Red Blood Count 4.25 M/mm3 (4.6-6.20); Red Cell Distribution Width 19.4 % (11.5-14.5); White Blood Count 5.7 K/mm3 (4.5-10.0)
[2023-01-27 06:17] LABS: INR 2.9; Prothrombin Time 32.3 Seconds (11.1-14.7)
[2023-01-27 06:25] LABS: Alanine Aminotransferase 18 U/L (6-50); Albumin Level 3.9 g/dL (3.5-5.1); Alkaline Phosphatase 108 U/L (38-126); Anion Gap 9 mmol/L (8-16); Aspartate Amino Transferase 36 U/L (17-59); Bilirubin,Total 3.9 mg/dL (0.2-1.3); Blood Urea Nitrogen 24 mg/dL (9-20); Calcium 9.1 mg/dL (8.4-10.2); Carbon Dioxide 24 mmol/L (22-30); Chloride 99 mmol/L (98-107); Estimated CRCL calculation 85 ml/min; Estimated Glomerular Filt Rate > 60; Glucose 124 mg/dL (65-110); Potassium 4.4 mmol/L (3.4-5.0); Sodium 132 mmol/L (137-145)
[2023-01-27 08:00] VITALS: PULSE 76; RESP 14; O2SAT 93
[2023-01-27] MEDS: LORATADINE 10 MG TABLET PO (08:42)
[2023-01-27] MEDS: FAMOTIDINE 20 MG TABLET PO ×2 (08:43→20:22)
[2023-01-27] MEDS: polyethylene glycoL 3350 17 GM POWD.PACK PO (08:43)
[2023-01-27] MEDS: SPIRONOLACTONE 50 MG TABLET PO (08:43)
[2023-01-27] MEDS: SENNA/DOCUSATE SODIUM TABLET 2 TAB PO ×2 (08:43→16:46)
[2023-01-27] MEDS: ATORVASTATIN 10 MG TABLET PO (08:43)
[2023-01-27] MEDS: PANTOPRAZOLE 40 MG TABLET PO (08:43)
[2023-01-27] MEDS: BUMETANIDE 0.5 MG TABLET PO ×2 (08:43→16:46)
[2023-01-27] MEDS: SILDENAFIL CITRATE 20 MG TABLET 40 MG PO ×3 (08:43→16:45)
[2023-01-27] MEDS: POTASSIUM CHLORIDE 20 MEQ ER TABLET 40 MEQ PO ×2 (08:43→16:45)
[2023-01-27] MEDS: HYDROcodone/acetaminophen (*CRX) 7.5-325 MG TABLET 2 TAB PO (08:47)
--- NOTE | 2023-01-27 11:27 | PM.IMPN ---
Progress Note: A&P Assessment and Plan (1) Intertrochanteric fracture of left femur: Qualifiers: Encounter type: initial encounter Fracture type: closed Fracture alignment: displaced Qualified Code(s): S72.142A - Displaced intertrochanteric fracture of left femur, initial encounter for closed fracture Code(s): S72.142A - Displaced intertrochanteric fracture of left femur, initial encounter for closed fracture Status: Acute Assessment and Plan: Patient had a mechanical fall resulting in left IT fracture. Patient denies syncope, seizure, LOC or any concerning history prior to the fall. Xray consistent with displaced left intertrochanteric fracture. Spoke with Cardiology who felt patient is okay for surgery. Patient underwent ORIF left IT hip fracture with trochanteric nail 01/18/23 Heparin restarted post-operatively. Coumadin also resumed Left leg edema noted. Doppler negative. Wound has been oozing so will not plan to overlap heparin for a day. -continue Coumadin -pain better controlled; continue current pain management as written -PT/OT (2) Subtherapeutic anticoagulation: Code(s): Z51.81 - Encounter for therapeutic drug level monitoring; Z79.01 - [facility] (current) use of anticoagulants Status: Acute Assessment and Plan: INR 1.7 on admission. Patient states he is INR is usually therapeutic. As above. (3) Atrial fibrillation: Code(s): I48.91 - Unspecified atrial fibrillation Status: Chronic Assessment and Plan: Patient has a history of atrial fibrillation. EKG showing sinus tachycardia with PVCs and incomplete right bundle-branch block. He is on anticoagulation for his mechanical aortic valve. He is on metoprolol for rate control which has been resumed. INR therapeutic. Continue Coumadin (4) H/O mechanical aortic valve replacement: Code(s): Z95.2 - Presence of prosthetic heart valve Status: Chronic Assessment and Plan: Patient has a history of mechanical aortic valve. He has also had a mitral valve repair. Patient states he is due for a ABDIFATAH due to concerns about the mitral valve. However speaking to the sourcing specialist, the ABDIFATAH is actually to review the aortic valve since the most recent surface echo showed increased velocities across the aortic valve consistent with stenosis. This is a new finding which will be evaluated by ABDIFATAH. Die Machine Operator recommended patient be treated as if he has aortic stenosis. Anesthesiology was notified. Die Machine Operator did feel the patient could proceed with this non cardiovascular surgery safely without any further testing. He has tolerated the surgery well. -Coumadin resumed. Home dose 7.5mg daily except 5mg on Saturday and Saturday. -INR therapeutic -Continue Coumadin -plan discharge with Coumadin 7.5mg daily. (5) Liver cirrhosis secondary to nonalcoholic steatohepatitis ([place]UGH[place]): Code(s): K75.81 - Nonalcoholic steatohepatitis ([place]); K74.60 - Unspecified cirrhosis of liver Status: Chronic Assessment and Plan: Patient has known cirrhosis from DAUGHERTY. LFTs within normal limits except for total bilirubin 4.4. This is chronic finding for him. He also has thrombocytopenia which is also chronic finding for him related to the cirrhosis. He does not have a meld score that qualifies him for liver transplant. -Plt count better Plan Hyponatremia -improved to 130 9/9 with fluid restriction and salt tabs Pulmonary HTN - stable. Sildanifil resumed SATHISH - continue BiPAP Diet: heart healthy DVT prophylaxis: INR therapeutic Code status: Full code Disposition: PT/OT, SNF vs home Subjective Date/time seen: 01/27/23 11:27 Interval history: 63yo male with mechanical AV, pAFib, SATHISH, cirrhosis and HTN here for hip pain after fall and found to have left hip fracture. No overnight events noted. No chest pain or shortness of breath. No nausea, vomiting or diarrhea. No fevers or chills. Pain
--- NOTE | 2023-01-27 13:11 | PM.PNNEP ---
Progress Note: A&P Assessment and Plan (1) Hyponatremia: Code(s): E87.1 - Hypo-osmolality and hyponatremia Status: Acute Assessment and Plan: improving acute on chronic issues with low sodium since April 2022 sodium runs ~ 131 - 136mmol/L; best sodium noted was 137mmol/L in that time frame admission sodium 134; dropped to 126 by labs on 01/24/23 risk factors for low sodium: liver disease history of CHF (preserved EF noted by last Echo) need for chronic diuretics possible excess free water intake pain pain medications/narcotics PPI use evalutation to date: urine electrolytes barely prerenal (by FeUrea) TSH okay cortisol lower side of normal SPEP/UPEP pending serum osmolality pending; urine osmolality noted (elevated) head CT and CXR on this admission noted interventions to date: on salt tabs (1gm tid) and bumex (0.5mg bid) fluid restriction (1500cc/day) follow trend of repeat sodium levels given hx of CHF and liver disease, consider weaning salt tabs as tolerated (2) Closed intertrochanteric fracture of left hip: Qualifiers: Encounter type: subsequent encounter Fracture alignment: displaced Fracture healing: with routine healing Qualified Code(s): S72.142D - Displaced intertrochanteric fracture of left femur, subsequent encounter for closed fracture with routine healing Code(s): S72.142A - Displaced intertrochanteric fracture of left femur, initial encounter for closed fracture Status: Acute Assessment and Plan: as noted by admission imaging s/p ORIF with trochanteric nail (on 01/18/23) Orthopedics following pain control PT/OT as tolerated (3) Liver cirrhosis secondary to nonalcoholic steatohepatitis ([place]): Code(s): K75.81 - Nonalcoholic steatohepatitis ([place]); K74.60 - Unspecified cirrhosis of liver Status: Chronic Assessment and Plan: chronic issues seems stable/compensated LFTs stabe aside from elevated bilirubin continue supportive therapy (4) Atrial fibrillation: Code(s): I48.91 - Unspecified atrial fibrillation Status: Chronic Assessment and Plan: rate control strategy on anticoagulation (5) Obstructive sleep apnea: Code(s): G47.33 - Obstructive sleep apnea (adult) (pediatric) Status: Chronic Assessment and Plan: continue CPAP Will continue to follow. Subjective Date/time seen: 01/27/23 13:11 Interval history: Follow-up for acute on chronic hyponatremia. No apparent distress noted at the time of my visit; sodium continues to improve with current therapy/interventions; not very happy about the fluid restriction as he maintains that he is still thirsty; pain control seems satisfactory; no other issues/events overnight or earlier this morning. Exam Narrative: General: WD/WN male in NAD Heart: normal S1 and S2; no rub Lungs: clear to auscultation Abdomen: soft, nontender, nondistended, positive bowel sounds Extremities: no cyanosis or clubbing; trace edema in LLE Skin: no rash Objective Data Vital Signs Vital Signs: Vital Signs Temp Pulse Resp BP Pulse Ox O2 Del Method 01/27/23 08:00 76 14 93 Room Air 01/27/23 06:00 97 F L 76 14 115/64 93 01/26/23 22:00 97.6 F 52 L 14 109/66 95 01/26/23 20:00 Room Air 01/26/23 17:09 80 Intake/Output Intake/Output: Intake & Output 01/24/23 01/25/23 01/26/23 01/27/23 23:59 23:59 23:59 23:59 Intake Total 3176 1070 950 870 Output Total 4905 3400 1750 700 Balance -1729 -2330 -800 170 Meds/Results Medications: Active Medications Generic Name Dose Route Start Last Admin Trade Name Freq PRN Reason Stop Dose Admin Acetaminophen 650 mg 01/18/23 16:02 Acetaminophen 325 Mg Tablet PO Q6H PRN Mild Pain (1-3) or Fever Hydrocodone Bitart/Acetaminophen 1 tab 01/18/23 16:02 01/27/23 11:48 Hydrocodone/Aceta
--- NOTE | 2023-01-27 13:11 | P.PNNP_ITS ---
Progress Note: A&P Assessment and Plan (1) Hyponatremia: Code(s): E87.1 - Hypo-osmolality and hyponatremia Status: Acute Assessment and Plan: * improving * acute on chronic * issues with low sodium since April 2022 * sodium runs ~ 131 - 136mmol/L; best sodium noted was 137mmol/L in that time frame * admission sodium 134; dropped to 126 by labs on 01/24/23 * risk factors for low sodium: * liver disease * history of CHF (preserved EF noted by last Echo) * need for chronic diuretics * possible excess free water intake * pain * pain medications/narcotics * PPI use * evalutation to date: * urine electrolytes barely prerenal (by FeUrea) * TSH okay * cortisol lower side of normal * SPEP/UPEP pending * serum osmolality pending; urine osmolality noted (elevated) * head CT and CXR on this admission noted * interventions to date: * on salt tabs (1gm tid) and bumex (0.5mg bid) * fluid restriction (1500cc/day) * follow trend of repeat sodium levels * given hx of CHF and liver disease, consider weaning salt tabs as tolerated (2) Closed intertrochanteric fracture of left hip: Qualifiers: Encounter type: subsequent encounter Fracture alignment: displaced Fracture healing: with routine healing Qualified Code(s): S72.142D - Displaced intertrochanteric fracture of left femur, subsequent encounter for closed fr acture with routine healing Code(s): S72.142A - Displaced intertrochanteric fracture of left femur, initial encounter for closed fracture Status: Acute Assessment and Plan: * as noted by admission imaging * s/p ORIF with trochanteric nail (on 01/18/23) * Orthopedics following * pain control * PT/OT as tolerated (3) Liver cirrhosis secondary to nonalcoholic steatohepatitis ([place]UGH[place]): Code(s): K75.81 - Nonalcoholic steatohepatitis ([place]); K74.60 - Unspecified cirrhosis of liver Status: Chronic Assessment and Plan: * chronic issues * seems stable/compensated * LFTs stabe aside from elevated bilirubin * continue supportive therapy (4) Atrial fibrillation: Code(s): I48.91 - Unspecified atrial fibrillation Status: Chronic Assessment and Plan: * rate control strategy * on anticoagulation (5) Obstructive sleep apnea: Code(s): G47.33 - Obstructive sleep apnea (adult) (pediatric) Status: Chronic Assessment and Plan: * continue CPAP Will continue to follow. Subjective Date/time seen: 01/27/23 13:11 Interval history: Follow-up for acute on chronic hyponatremia. No apparent distress noted at the time of my visit; sodium continues to improve with current therapy/interventions; not very happy about the fluid restriction as he maintains that he is still thirsty; pain control seems satisfactory; no other issues/events overnight or earlier this morning. Exam Narrative: General: WD/WN male in NAD Heart: normal S1 and S2; no rub Lungs: clear to auscultation Abdomen: soft, nontender, nondistended, positive bowel sounds Extremities: no cyanosis or clubbing; trace edema in LLE Skin: no rash Objective Data Vital Signs Vital Signs: Vital Signs Temp Pulse Resp BP Pulse Ox O2 Del Method 01/27/23 08:00 76 14 93 Room Air 01/27/23 06:00 97 F L 76 14 115/64 93 01/26/23 22:00 97.6 F 52 L 1
[2023-01-27 14:00] VITALS: BP 101/52; PULSE 82; RESP 14; TEMP 37; O2SAT 94
[2023-01-27] MEDS: WARFARIN (*PBKC) 7.5 MG TABLET PO (16:46)
[2023-01-27] MEDS: METOPROLOL SUCCINATE EXT REL 25 MG TABCR 75 MG PO (16:49)
[2023-01-27 22:00] VITALS: BP 104/54; PULSE 81; RESP 16; TEMP 36.3; O2SAT 94
[2023-01-28] MEDS: HYDROcodone/acetaminophen (*CRX) 7.5-325 MG TABLET 1 TAB PO ×6 (02:49→20:43)
[2023-01-28] MEDS: SODIUM CHLORIDE 1 GM TABLET PO ×2 (05:55→13:07)
[2023-01-28 06:00] VITALS: BP 106/51; PULSE 72; RESP 16; TEMP 37.1; O2SAT 96
[2023-01-28 06:58] LABS: Basophils Absolute Auto 0.1 K/mm3 (0.0-0.1); Basophils Percent Auto 1.2 % (0.2-1.2); Eosinophils Absolute Auto 0.2 K/mm3 (0-0.3); Eosinophils Percent Auto 4.5 % (0-4.4); Hematocrit 34.2 % (42.0-52.0); Hemoglobin 10.7 g/dL (14.0-18.0); Immature Granulocyte Absolute 0.09 K/mm3 (0.00-0.031); Immature Granulocyte Percent A 1.9 % (0-0.5); Lymphocytes Absolute Auto 0.87 K/mm3 (0.9-3.2); Lymphocytes Percent Auto 17.9 % (18.3-44.2); Mean Corpuscular HGB Conc 31.3 g/dl (32-36); Mean Corpuscular Hemoglobin 25.2 pg (26-34); Mean Corpuscular Volume 80.7 fl (80-100); Mean Platelet Volume 8.6 fl (7.4-10.4); Monocytes Absolute Auto 0.8 K/mm3 (0.1-0.6); Monocytes Percent Auto 17.1 % (2.6-8.5); Neutrophils Absolute Auto 2.8 K/mm3 (1.3-6.7); Neutrophils Percent Auto 57.4 % (45.5-73.1); Platelet Count Result 125 k/mm3 (150-375); Red Blood Count 4.24 M/mm3 (4.6-6.20); Red Cell Distribution Width 19.3 % (11.5-14.5); White Blood Count 4.9 K/mm3 (4.5-10.0)
[2023-01-28 07:08] LABS: Alanine Aminotransferase 18 U/L (6-50); Albumin Level 3.6 g/dL (3.5-5.1); Alkaline Phosphatase 100 U/L (38-126); Anion Gap 9 mmol/L (8-16); Aspartate Amino Transferase 30 U/L (17-59); Bilirubin,Total 3.7 mg/dL (0.2-1.3); Blood Urea Nitrogen 25 mg/dL (9-20); Calcium 8.9 mg/dL (8.4-10.2); Carbon Dioxide 24 mmol/L (22-30); Chloride 100 mmol/L (98-107); Estimated CRCL calculation 85 ml/min; Estimated Glomerular Filt Rate > 60; Glucose 113 mg/dL (65-110); Potassium 4.4 mmol/L (3.4-5.0); Sodium 133 mmol/L (137-145)
[2023-01-28] MEDS: ATORVASTATIN 10 MG TABLET PO (09:16)
[2023-01-28] MEDS: BUMETANIDE 0.5 MG TABLET PO ×2 (09:16→17:03)
[2023-01-28] MEDS: SENNA/DOCUSATE SODIUM TABLET 2 TAB PO (09:17)
[2023-01-28] MEDS: SPIRONOLACTONE 50 MG TABLET PO (09:17)
[2023-01-28] MEDS: SILDENAFIL CITRATE 20 MG TABLET 40 MG PO ×3 (09:17→17:03)
[2023-01-28] MEDS: FAMOTIDINE 20 MG TABLET PO ×2 (09:17→20:42)
[2023-01-28] MEDS: PANTOPRAZOLE 40 MG TABLET PO (09:17)
[2023-01-28] MEDS: POTASSIUM CHLORIDE 20 MEQ ER TABLET 40 MEQ PO ×2 (09:17→17:03)
[2023-01-28] MEDS: LORATADINE 10 MG TABLET PO (09:18)
--- NOTE | 2023-01-28 10:25 | PM.PNNEP ---
Progress Note: A&P Assessment and Plan (1) Hyponatremia: Code(s): E87.1 - Hypo-osmolality and hyponatremia Status: Acute Assessment and Plan: improving acute on chronic issues with low sodium since April 2022 sodium runs ~ 131 - 136mmol/L; best sodium noted was 137mmol/L in that time frame admission sodium 134; dropped to 126 by labs on 01/24/23 risk factors for low sodium: liver disease history of CHF (preserved EF noted by last Echo) need for chronic diuretics possible excess free water intake pain pain medications/narcotics PPI use evalutation to date: urine electrolytes barely prerenal (by FeUrea) TSH okay cortisol lower side of normal SPEP/UPEP pending serum osmolality pending; urine osmolality noted (elevated) head CT and CXR on this admission noted interventions to date: on salt tabs (1gm tid) and bumex (0.5mg bid) fluid restriction (1500cc/day) follow trend of repeat sodium levels given hx of CHF and liver disease, consider weaning salt tabs as tolerated (2) Closed intertrochanteric fracture of left hip: Qualifiers: Encounter type: subsequent encounter Fracture alignment: displaced Fracture healing: with routine healing Qualified Code(s): S72.142D - Displaced intertrochanteric fracture of left femur, subsequent encounter for closed fracture with routine healing Code(s): S72.142A - Displaced intertrochanteric fracture of left femur, initial encounter for closed fracture Status: Acute Assessment and Plan: as noted by admission imaging s/p ORIF with trochanteric nail (on 01/18/23) Orthopedics following pain control PT/OT as tolerated (3) Liver cirrhosis secondary to nonalcoholic steatohepatitis ([place]): Code(s): K75.81 - Nonalcoholic steatohepatitis ([place]); K74.60 - Unspecified cirrhosis of liver Status: Chronic Assessment and Plan: chronic issues seems stable/compensated LFTs stabe aside from elevated bilirubin continue supportive therapy (4) Atrial fibrillation: Code(s): I48.91 - Unspecified atrial fibrillation Status: Chronic Assessment and Plan: rate control strategy on anticoagulation (5) Obstructive sleep apnea: Code(s): G47.33 - Obstructive sleep apnea (adult) (pediatric) Status: Chronic Assessment and Plan: continue CPAP Will continue to follow. Subjective Date/time seen: 01/28/23 10:25 Interval history: Follow-up for acute on chronic hyponatremia. Sodium continues to improve/stabilized with current treatment/therapy; still not very happy about fluid restriction (always thirsty and is a big water drinker); pain control seems reasonable; no issues/events overnight or earlier this morning. Exam Narrative: General: WD/WN male in NAD Heart: normal S1 and S2; no rub Lungs: clear to auscultation Abdomen: soft, nontender, nondistended, positive bowel sounds Extremities: no cyanosis or clubbing; trace edema in LLE Skin: no nodules Objective Data Vital Signs Vital Signs: Vital Signs Temp Pulse Resp BP Pulse Ox O2 Del Method 01/28/23 06:00 98.7 F 72 16 106/51 L 96 01/27/23 20:00 Room Air 01/27/23 22:00 97.4 F L 81 16 104/54 L 94 01/27/23 14:00 98.6 F 82 14 101/52 L 94 Intake/Output Intake/Output: Intake & Output 01/25/23 01/26/23 01/27/23 01/28/23 23:59 23:59 23:59 23:59 Intake Total 3658 580 1551 236 Output Total 3400 1750 1400 475 Balance -2330 -800 430 -239 Meds/Results Medications: Active Medications Generic Name Dose Route Start Last Admin Trade Name Freq PRN Reason Stop Dose Admin Acetaminophen 650 mg 01/18/23 16:02 Acetaminophen 325 Mg Tablet PO Q6H PRN Mild Pain (1-3) or Fever Hydrocodone Bitart/Acetaminophen 1 tab 01/18/23 16:02 01/28/23 09:14 Hydrocodone/Acetaminophen (*Crx) 7.5-325 Mg Tablet PO 1 tab Q3H PRN Admi
--- NOTE | 2023-01-28 10:25 | P.PNNP_ITS ---
Progress Note: A&P Assessment and Plan (1) Hyponatremia: Code(s): E87.1 - Hypo-osmolality and hyponatremia Status: Acute Assessment and Plan: * improving * acute on chronic * issues with low sodium since April 2022 * sodium runs ~ 131 - 136mmol/L; best sodium noted was 137mmol/L in that time frame * admission sodium 134; dropped to 126 by labs on 01/24/23 * risk factors for low sodium: * liver disease * history of CHF (preserved EF noted by last Echo) * need for chronic diuretics * possible excess free water intake * pain * pain medications/narcotics * PPI use * evalutation to date: * urine electrolytes barely prerenal (by FeUrea) * TSH okay * cortisol lower side of normal * SPEP/UPEP pending * serum osmolality pending; urine osmolality noted (elevated) * head CT and CXR on this admission noted * interventions to date: * on salt tabs (1gm tid) and bumex (0.5mg bid) * fluid restriction (1500cc/day) * follow trend of repeat sodium levels * given hx of CHF and liver disease, consider weaning salt tabs as tolerated (2) Closed intertrochanteric fracture of left hip: Qualifiers: Encounter type: subsequent encounter Fracture alignment: displaced Fracture healing: with routine healing Qualified Code(s): S72.142D - Displaced intertrochanteric fracture of left femur, subsequent encounter for closed fracture with routine healing Code(s): S72.142A - Displaced intertrochanteric fracture of left femur, initial encounter for closed fracture Status: Acute Assessment and Plan: * as noted by admission imaging * s/p ORIF with trochanteric nail (on 01/18/23) * Orthopedics following * pain control * PT/OT as tolerated (3) Liver cirrhosis secondary to nonalcoholic steatohepatitis ([place]UGH[place]): Code(s): K75.81 - Nonalcoholic steatohepatitis ([place]UGH[place]); K74.60 - Unspecified cirrhosis of liver Status: Chronic Assessment and Plan: * chronic issues * seems stable/compensated * LFTs stabe aside from elevated bilirubin * continue supportive therapy (4) Atrial fibrillation: Code(s): I48.91 - Unspecified atrial fibrillation Status: Chronic Assessment and Plan: * rate control strategy * on anticoagulation (5) Obstructive sleep apnea: Code(s): G47.33 - Obstructive sleep apnea (adult) (pediatric) Status: Chronic Assessment and Plan: * continue CPAP Will continue to follow. Subjective Date/time seen: 01/28/23 10:25 Interval history: Follow-up for acute on chronic hyponatremia. Sodium continues to improve/stabilized with current treatment/therapy; still not very happy about fluid restriction (always thirsty and is a big water drinker); pain control seems reasonable; no issues/events overnight or earlier this morning. Exam Narrative: General: WD/WN male in NAD Heart: normal S1 and S2; no rub Lungs: clear to auscultation Abdomen: soft, nontender, nondistended, positive bowel sounds Extremities: no cyanosis or clubbing; trace edema in LLE Skin: no nodules Objective Data Vital Signs Vital Signs: Vital Signs Temp Pulse Resp BP Pulse Ox O2 Del Method 01/28/23 06:00 98.7 F 72 16 106/51 L 96 01/27/23 20:00 Room Air 01/27/23 22:00 97.4 F L 81 16 104/54 L 94 01/27/23 14:00 98.6 F
[2023-01-28] MEDS: FLUTICASONE PROPIONATE 0.05% NA SPR 16 GM BTL (*BKC) 2 SPRAY NASAL (10:53)
[2023-01-28 13:47] VITALS: BP 114/52; PULSE 65; RESP 16; TEMP 36.7; O2SAT 93
[2023-01-28 15:57] LABS: Albumin 3.5 g/dL (3.8-4.8); Alpha 1 Globulin 0.3 g/dL (0.2-0.3); Alpha 2 Globulin 0.7 g/dL (0.5-0.9); Beta 1 Globulin 0.5 g/dL (0.4-0.6); Gamma Globulin 0.7 g/dL (0.8-1.7); Protein, Total 6.1 g/dL (6.1-8.1)
--- NOTE | 2023-01-28 16:49 | PM.IMPN ---
Progress Note: A&P Assessment and Plan (1) Intertrochanteric fracture of left femur: Qualifiers: Encounter type: initial encounter Fracture alignment: displaced Fracture type: closed Qualified Code(s): S72.142A - Displaced intertrochanteric fracture of left femur, initial encounter for closed fracture Code(s): S72.142A - Displaced intertrochanteric fracture of left femur, initial encounter for closed fracture Status: Acute Assessment and Plan: Patient had a mechanical fall resulting in left IT fracture. Patient denies syncope, seizure, LOC or any concerning history prior to the fall. Xray consistent with displaced left intertrochanteric fracture. Spoke with Cardiology who felt patient is okay for surgery. Patient underwent ORIF left IT hip fracture with trochanteric nail 01/18/23 Heparin restarted post-operatively. Coumadin also resumed Left leg edema noted. Doppler negative. Wound has been oozing so will not plan to overlap heparin for a day. -continue Coumadin -pain better controlled; continue current pain management as written -PT/OT (2) Subtherapeutic anticoagulation: Code(s): Z51.81 - Encounter for therapeutic drug level monitoring; Z79.01 - correction (current) use of anticoagulants Status: Acute Assessment and Plan: INR 1.7 on admission. Patient states his INR is usually therapeutic. As above. (3) Atrial fibrillation: Code(s): I48.91 - Unspecified atrial fibrillation Status: Chronic Assessment and Plan: Patient has a history of atrial fibrillation. EKG showing sinus tachycardia with PVCs and incomplete right bundle-branch block. He is on anticoagulation for his mechanical aortic valve. He is on metoprolol for rate control which has been resumed. INR therapeutic. Continue Coumadin (4) H/O mechanical aortic valve replacement: Code(s): Z95.2 - Presence of prosthetic heart valve Status: Chronic Assessment and Plan: Patient has a history of mechanical aortic valve. He has also had a mitral valve repair. Patient states he is due for a ABDIFATAH due to concerns about the mitral valve. However speaking to the director of retail operations, the ABDIFATAH is actually to review the aortic valve since the most recent surface echo showed increased velocities across the aortic valve consistent with stenosis. This is a new finding which will be evaluated by ABDIFATAH. Aquatics Coordinator recommended patient be treated as if he has aortic stenosis. Anesthesiology was notified. Aquatics Coordinator did feel the patient could proceed with this non cardiovascular surgery safely without any further testing. He has tolerated the surgery well. -Coumadin resumed. Home dose 7.5mg daily except 5mg on Saturday and Saturday. -INR therapeutic -Continue Coumadin -plan discharge with Coumadin 7.5mg daily. (5) Liver cirrhosis secondary to nonalcoholic steatohepatitis (DAUGHERTY): Code(s): K75.81 - Nonalcoholic steatohepatitis (DAUGHERTY); K74.60 - Unspecified cirrhosis of liver Status: Chronic Assessment and Plan: Patient has known cirrhosis from DAUGHERTY. LFTs within normal limits except for total bilirubin 4.4. This is chronic finding for him. He also has thrombocytopenia which is also chronic finding for him related to the cirrhosis. He does not have a meld score that qualifies him for liver transplant. -Plt count better Plan Hyponatremia -improved to 130 9/9 with fluid restriction and salt tabs Pulmonary HTN - stable. Sildanifil resumed SATHISH - continue BiPAP Diet: heart healthy DVT prophylaxis: INR therapeutic Code status: Full code Disposition: PT/OT, SNF vs home Subjective Date/time seen: 01/28/23 16:49 Interval history: 63yo male with mechanical AV, pAFib, SATHISH, cirrhosis and HTN here for hip pain after fall and found to have left hip fracture. No overnight events noted. No chest pain or shortness of breath. No nausea, vomiting or diarrhea. No fevers or chills. Pain c
--- NOTE | 2023-01-28 16:52 | PM.DS ---
DS: Summary Time Spent with Patient Time attestation: Total time spent providing and/or coordinating discharge services: DS: Data Data Completed and Pending Labs on day of discharge: Labs from last 24 hours 01/28/23 01/25/23 06:35 05:36 WBC 4.9 RBC 4.24 L Hgb 10.7 L Hct 34.2 L MCV 80.7 MCH 25.2 L MCHC 31.3 L RDW 19.3 H Plt Count 125 L MPV 8.6 Immature Gran % (Auto) 1.9 H Neut % (Auto) 57.4 Lymph % (Auto) 17.9 L [place] % (Auto) 17.1 H Eos % (Auto) 4.5 H Baso % (Auto) 1.2 Lymph # (Auto) 0.87 L [place] # (Auto) 0.8 H Eos # (Auto) 0.2 Baso # (Auto) 0.1 Abs Immat Gran (auto) 0.09 H Absolute Neuts (auto) 2.8 Absolute Nucleated RBC 0.0 Nucleated RBC % 0.0 Sodium 133 L Potassium 4.4 Chloride 100 Carbon Dioxide 24 Anion Gap 9 BUN 25 H Creatinine 0.90 Estim Creat Clear Calc 85 Estimated GFR > 60 Glucose 113 H Calcium 8.9 Total Bilirubin 3.7 H AST 30 ALT 18 Alkaline Phosphatase 100 Total Protein 7.0 6.1 Albumin 3.6 3.5 L Zdxil-1-Qitsakmtw 0.3 Ltvtf-4-Lwyerhhaj 0.7 Mrgd-2-Hosftouf 0.5 Bzua-3-Gnkkhack 0.3 Gamma Globulins 0.7 L Abnorm Protein Band 1 see below Abnorm Protein Band 3 Not Reportable PEP Interpretation see below Discharge Plan Discharge Attending physician on discharge: Bettina Garcia Consulting providers: Ra Peter; Mira Olvera Discharging Clinician: Bettina Garcia Patient Disposition: Home Health Service Activity: as tolerated Diet: as tolerated Discharge Instructions: Dr. Peter: Please call [facility] at as soon as possible to arrange for follow-up appointment to be seen in 2 weeks. Also, call the office with any orthopedic/surgical related questions prior to follow-up. If he is in rehab, the mitali can be removed on January 31, 2023. No change in weight-bearing status. He is to be touchdown weight-bearing about 5% body weight left lower extremity for two months. Patient Instructions: Antibiotic Form, Warfarin (By mouth), Hip Fracture (GEN) Stand Alone Forms: General Discharge Information Follow-up/Referrals: Mira Olvera MD [Physician] - Ra Peter MD [Physician] - Stephan Love MD [Primary Care Provider] - Discharge Medications: New cephalexin 500 mg capsule 1,000 mg PO Q12H 10 Days Qty: 40 0RF No Action bumetanide 0.5 mg tablet 0.5 mg PO .QD benzonatate 100 mg capsule 200 mg PO TID PRN (Reason: cough) Qty: 60 0RF atorvastatin 10 mg tablet 10 mg PO DAILY sildenafil (pulm.hypertension) 20 mg tablet 40 mg PO TID Patient Comments: last taken this morning Rx Instructions: administer doses at least 4-6 hours apart metoprolol succinate [Toprol XL] 25 mg Tablet Extended Release 24 Hr 75 mg PO QPM Qty: 90 0RF potassium chloride 10 mEq tablet extended release 40 meq PO BID Rx Instructions: patient states he splits dose throughout the day warfarin 5 mg tablet 7.5 mg PO DAILY Hold Instructions: Resume on 12/30/19. Restart warfarin on December 30, 2019 Rx Instructions: 7.5mg every day except saturday and saturday take 5mg PO fexofenadine [Danae Allergy] 180 mg Tablet 180 mg PO DAILY fluticasone propionate [Flonase Allergy Relief] 50 mcg/actuation [place],Suspension 2 spray INTRANASAL DAILY spironolactone 50 mg tablet 50 mg PO DAILY midodrine 10 mg tablet 10 mg PO TID albuterol sulfate 90 mcg/actuation HFA aerosol inhaler 2 inhalation INHALATION Q4H PRN (Reason: shortness of breath or wheezing) pantoprazole 40 mg tablet,delayed release (DR/EC) 40 mg PO QAM Qty: 90 1RF Date of admission: 01/16/23 10:43 Primary Care Provider: Stephan Love Admitting Provider: Kirill Rojas Attending physician on admission: Kirill Rojas Condition: Stable
[2023-01-28 17:02] VITALS: PULSE 94
[2023-01-28] MEDS: METOPROLOL SUCCINATE EXT REL 25 MG TABCR 75 MG PO (17:02)
[2023-01-28] MEDS: WARFARIN (*PBKC) 7.5 MG TABLET PO (17:03)
[2023-01-28] MEDS: WATER FOR IRRIGATION, STERILE 1,000 ML BOTTLE 1000 ML (19:24)
[2023-01-28] MEDS: SALIVA SUBSTITUTE COMBO RINSE 237 ML BOTTLE 15 ML PO (20:43)
[2023-01-28 22:00] VITALS: BP 96/45; PULSE 83; RESP 18; TEMP 36.7; O2SAT 97
[2023-01-28 23:52] LABS: Kappa\\Lambda Light Chains 1.46 (0.26-1.65); Lambda Light Chain 22.3 mg/L (5.7-26.3)
[2023-01-29] MEDS: HYDROcodone/acetaminophen (*CRX) 7.5-325 MG TABLET 1 TAB PO ×4 (05:19→20:18)
[2023-01-29 06:00] VITALS: BP 95/50; PULSE 78; RESP 18; TEMP 36.7; O2SAT 96
[2023-01-29 06:47] LABS: Basophils Absolute Auto 0.1 K/mm3 (0.0-0.1); Basophils Percent Auto 1.7 % (0.2-1.2); Eosinophils Absolute Auto 0.2 K/mm3 (0-0.3); Eosinophils Percent Auto 4.1 % (0-4.4); Hematocrit 34.5 % (42.0-52.0); Hemoglobin 10.8 g/dL (14.0-18.0); Immature Granulocyte Absolute 0.08 K/mm3 (0.00-0.031); Immature Granulocyte Percent A 1.9 % (0-0.5); Lymphocytes Absolute Auto 0.73 K/mm3 (0.9-3.2); Lymphocytes Percent Auto 17.4 % (18.3-44.2); Mean Corpuscular HGB Conc 31.3 g/dl (32-36); Mean Corpuscular Hemoglobin 25.5 pg (26-34); Mean Corpuscular Volume 81.4 fl (80-100); Monocytes Absolute Auto 0.7 K/mm3 (0.1-0.6); Monocytes Percent Auto 16.7 % (2.6-8.5); Neutrophils Absolute Auto 2.4 K/mm3 (1.3-6.7); Neutrophils Percent Auto 58.2 % (45.5-73.1); Platelet Count Result 131 k/mm3 (150-375); Red Blood Count 4.24 M/mm3 (4.6-6.20); Red Cell Distribution Width 18.7 % (11.5-14.5); White Blood Count 4.2 K/mm3 (4.5-10.0)
[2023-01-29 06:57] LABS: Alanine Aminotransferase 18 U/L (6-50); Albumin Level 3.6 g/dL (3.5-5.1); Alkaline Phosphatase 105 U/L (38-126); Anion Gap 11 mmol/L (8-16); Aspartate Amino Transferase 31 U/L (17-59); Bilirubin,Total 3.6 mg/dL (0.2-1.3); Blood Urea Nitrogen 25 mg/dL (9-20); Carbon Dioxide 23 mmol/L (22-30); Chloride 98 mmol/L (98-107); Estimated CRCL calculation 77 ml/min; Estimated Glomerular Filt Rate > 60; Glucose 115 mg/dL (65-110); Potassium 4.2 mmol/L (3.4-5.0); Sodium 132 mmol/L (137-145)
[2023-01-29] MEDS: SILDENAFIL CITRATE 20 MG TABLET 40 MG PO ×3 (09:59→17:53)
[2023-01-29] MEDS: FAMOTIDINE 20 MG TABLET PO ×2 (09:59→20:18)
[2023-01-29] MEDS: SODIUM CHLORIDE 1 GM TABLET PO (09:59)
[2023-01-29] MEDS: ATORVASTATIN 10 MG TABLET PO (09:59)
[2023-01-29] MEDS: POTASSIUM CHLORIDE 20 MEQ ER TABLET 40 MEQ PO ×2 (10:00→17:53)
[2023-01-29] MEDS: FLUTICASONE PROPIONATE 0.05% NA SPR 16 GM BTL (*BKC) 2 SPRAY NASAL (10:00)
[2023-01-29] MEDS: LORATADINE 10 MG TABLET PO (10:00)
[2023-01-29] MEDS: polyethylene glycoL 3350 17 GM POWD.PACK PO (10:00)
[2023-01-29] MEDS: SENNA/DOCUSATE SODIUM TABLET 2 TAB PO ×2 (10:00→17:53)
[2023-01-29] MEDS: BUMETANIDE 0.5 MG TABLET PO ×2 (10:00→17:53)
[2023-01-29] MEDS: PANTOPRAZOLE 40 MG TABLET PO (10:00)
[2023-01-29] MEDS: SPIRONOLACTONE 50 MG TABLET PO (10:00)
[2023-01-29 11:06] LABS: INR 3.2; Prothrombin Time 35.2 Seconds (11.1-14.7)
--- NOTE | 2023-01-29 11:15 | PM.PNNEP ---
Progress Note: A&P Assessment and Plan (1) Hyponatremia: Code(s): E87.1 - Hypo-osmolality and hyponatremia Status: Acute Assessment and Plan: improving acute on chronic issues with low sodium since April 2022 sodium runs ~ 131 - 136mmol/L; best sodium noted was 137mmol/L in that time frame admission sodium 134; dropped to 126 by labs on 01/24/23 risk factors for low sodium: liver disease history of CHF (preserved EF noted by last Echo) need for chronic diuretics possible excess free water intake pain pain medications/narcotics PPI use evalutation to date: urine electrolytes barely prerenal (by FeUrea) TSH okay cortisol lower side of normal SPEP/UPEP pending serum osmolality pending; urine osmolality noted (elevated) head CT and CXR on this admission noted interventions to date: on salt tabs and bumex (0.5mg bid) fluid restriction -- will slowly ease up on this follow trend of repeat sodium levels wean salt tabs as tolerated (2) Closed intertrochanteric fracture of left hip: Qualifiers: Encounter type: subsequent encounter Fracture alignment: displaced Fracture healing: with routine healing Qualified Code(s): S72.142D - Displaced intertrochanteric fracture of left femur, subsequent encounter for closed fracture with routine healing Code(s): S72.142A - Displaced intertrochanteric fracture of left femur, initial encounter for closed fracture Status: Acute Assessment and Plan: as noted by admission imaging s/p ORIF with trochanteric nail (on 01/18/23) Orthopedics following pain control PT/OT as tolerated (3) Liver cirrhosis secondary to nonalcoholic steatohepatitis (DAUGHERTY): Code(s): K75.81 - Nonalcoholic steatohepatitis (DAUGHERTY); K74.60 - Unspecified cirrhosis of liver Status: Chronic Assessment and Plan: chronic issues seems stable/compensated LFTs stabe aside from elevated bilirubin continue supportive therapy (4) Atrial fibrillation: Code(s): I48.91 - Unspecified atrial fibrillation Status: Chronic Assessment and Plan: rate control strategy on anticoagulation (5) Obstructive sleep apnea: Code(s): G47.33 - Obstructive sleep apnea (adult) (pediatric) Status: Chronic Assessment and Plan: continue CPAP Not much else to really add -- will continue to follow from a distance. Subjective Date/time seen: 01/29/23 11:15 Interval history: Follow-up for acute on chronic hyponatremia. Sodium remains relatively stable with therapy/interventions to date; continues to voice his frustration with fluid restriction that the is on; no other acute concerns voiced at this time; no events overnight or earlier this AM. Exam Narrative: General: WD/WN male in NAD Heart: normal S1 and S2; no rub Lungs: clear to auscultation Abdomen: soft, nontender, nondistended, positive bowel sounds Extremities: no cyanosis or clubbing; trace edema in LLE Skin: warm and dry Objective Data Vital Signs Vital Signs: Vital Signs Temp Pulse Resp BP Pulse Ox O2 Del Method 01/29/23 08:00 Room Air 01/29/23 06:00 98.1 F 78 18 95/50 L 96 01/28/23 22:00 98.0 F 83 18 96/45 L 97 01/28/23 17:02 94 01/28/23 13:47 98.1 F 65 16 114/52 L 93 Intake/Output Intake/Output: Intake & Output 01/26/23 01/27/23 01/28/23 01/29/23 23:59 23:59 23:59 23:59 Intake Total 950 1830 1088 1432 Output Total 1750 1400 1700 200 Balance -800 430 -612 1232 Meds/Results Medications: Active Medications Generic Name Dose Route Start Last Admin Trade Name Freq PRN Reason Stop Dose Admin Acetaminophen 650 mg 01/18/23 16:02 Acetaminophen 325 Mg Tablet PO Q6H PRN Mild Pain (1-3) or Fever Hydrocodone Bitart/Acetaminophen 1 tab 01/28/23 16:27 01/29/23 09:59 Hydrocodone/Acetaminophen (*Crx) 7.5-325 Mg Tablet PO 1 tab
--- NOTE | 2023-01-29 11:15 | P.PNNP_ITS ---
Progress Note: A&P Assessment and Plan (1) Hyponatremia: Code(s): E87.1 - Hypo-osmolality and hyponatremia Status: Acute Assessment and Plan: * improving * acute on chronic * issues with low sodium since April 2022 * sodium runs ~ 131 - 136mmol/L; best sodium noted was 137mmol/L in that time frame * admission sodium 134; dropped to 126 by labs on 01/24/23 * risk factors for low sodium: * liver disease * history of CHF (preserved EF noted by last Echo) * need for chronic diuretics * possible excess free water intake * pain * pain medications/narcotics * PPI use * evalutation to date: * urine electrolytes barely prerenal (by FeUrea) * TSH okay * cortisol lower side of normal * SPEP/UPEP pending * serum osmolality pending; urine osmolality noted (elevated) * head CT and CXR on this admission noted * interventions to date: * on salt tabs and bumex (0.5mg bid) * fluid restriction -- will slowly ease up on this * follow trend of repeat sodium levels * wean salt tabs as tolerated (2) Closed intertrochanteric fracture of left hip: Qualifiers: Encounter type: subsequent encounter Fracture alignment: displaced Fracture healing: with routine healing Qualified Code(s): S72.142D - Displaced intertrochanteric fracture of left femur, subsequent encounter for closed fracture with routine healing Code(s): S72.142A - Displaced intertrochanteric fracture of left femur, initial encounter for closed fracture Status: Acute Assessment and Plan: * as noted by admission imaging * s/p ORIF with trochanteric nail (on 01/18/23) * Orthopedics following * pain control * PT/OT as tolerated (3) Liver cirrhosis secondary to nonalcoholic steatohepatitis (DAUGHERTY): Code(s): K75.81 - Nonalcoholic steatohepatitis (DAUGHERTY); K74.60 - Unspecified cirrhosis of liver Status: Chronic Assessment and Plan: * chronic issues * seems stable/compensated * LFTs stabe aside from elevated bilirubin * continue supportive therapy (4) Atrial fibrillation: Code(s): I48.91 - Unspecified atrial fibrillation Status: Chronic Assessment and Plan: * rate control strategy * on anticoagulation (5) Obstructive sleep apnea: Code(s): G47.33 - Obstructive sleep apnea (adult) (pediatric) Status: Chronic Assessment and Plan: * continue CPAP Not much else to really add -- will continue to follow from a distance. Subjective Date/time seen: 01/29/23 11:15 Interval history: Follow-up for acute on chronic hyponatremia. Sodium remains relatively stable with therapy/interventions to date; continues to voice his frustration with fluid restriction that the is on; no other acute concerns voiced at this time; no events overnight or earlier this AM. Exam Narrative: General: WD/WN male in NAD Heart: normal S1 and S2; no rub Lungs: clear to auscultation Abdomen: soft, nontender, nondistended, positive bowel sounds Extremities: no cyanosis or clubbing; trace edema in LLE Skin: warm and dry Objective Data Vital Signs Vital Signs: Vital Signs Temp Pulse Resp BP Pulse Ox O2 Del Method 01/29/23 08:00 Room Air 01/29/23 06:00 98.1 F 78 18 95/50 L 96 01/28/23 22:00 98.0 F 83 18 96/45 L 97 01/28/23 17:02 94
--- NOTE | 2023-01-29 12:12 | PM.IMPN ---
Progress Note: A&P Assessment and Plan (1) Intertrochanteric fracture of left femur: Qualifiers: Encounter type: initial encounter Fracture alignment: displaced Fracture type: closed Qualified Code(s): S72.142A - Displaced intertrochanteric fracture of left femur, initial encounter for closed fracture Code(s): S72.142A - Displaced intertrochanteric fracture of left femur, initial encounter for closed fracture Status: Acute Assessment and Plan: Patient had a mechanical fall resulting in left IT fracture. Patient denies syncope, seizure, LOC or any concerning history prior to the fall. Xray consistent with displaced left intertrochanteric fracture. Spoke with Cardiology who felt patient is okay for surgery. Patient underwent ORIF left IT hip fracture with trochanteric nail 01/18/23 Heparin restarted post-operatively. Coumadin also resumed Left leg edema noted. Doppler negative. Wound has been oozing so will not plan to overlap heparin for a day. -continue Coumadin -pain better controlled; continue current pain management as written -PT/OT (2) Subtherapeutic anticoagulation: Code(s): Z51.81 - Encounter for therapeutic drug level monitoring; Z79.01 - longterm (current) use of anticoagulants Status: Acute Assessment and Plan: INR 1.7 on admission. Patient states his INR is usually therapeutic. As above. (3) Atrial fibrillation: Code(s): I48.91 - Unspecified atrial fibrillation Status: Chronic Assessment and Plan: Patient has a history of atrial fibrillation. EKG showing sinus tachycardia with PVCs and incomplete right bundle-branch block. He is on anticoagulation for his mechanical aortic valve. He is on metoprolol for rate control which has been resumed. INR therapeutic. Continue Coumadin (4) H/O mechanical aortic valve replacement: Code(s): Z95.2 - Presence of prosthetic heart valve Status: Chronic Assessment and Plan: Patient has a history of mechanical aortic valve. He has also had a mitral valve repair. Patient states he is due for a ABDIFATAH due to concerns about the mitral valve. However speaking to the gas engineer, the ABDIFATAH is actually to review the aortic valve since the most recent surface echo showed increased velocities across the aortic valve consistent with stenosis. This is a new finding which will be evaluated by ABDIFATAH. Chain Saw Driver recommended patient be treated as if he has aortic stenosis. Anesthesiology was notified. Chain Saw Driver did feel the patient could proceed with this non cardiovascular surgery safely without any further testing. He has tolerated the surgery well. -Coumadin resumed. Home dose 7.5mg daily except 5mg on Saturday and Saturday. -INR therapeutic -Continue Coumadin -plan discharge with Coumadin 7.5mg daily. 01/29: INR creeping up, give coumadin 5 mg tomorrow, then back to home dose (5) Liver cirrhosis secondary to nonalcoholic steatohepatitis (DAUGHERTY): Code(s): K75.81 - Nonalcoholic steatohepatitis (DAUGHERTY); K74.60 - Unspecified cirrhosis of liver Status: Chronic Assessment and Plan: Patient has known cirrhosis from DAUGHERTY. LFTs within normal limits except for total bilirubin 4.4. This is chronic finding for him. He also has thrombocytopenia which is also chronic finding for him related to the cirrhosis. He does not have a meld score that qualifies him for liver transplant. -Plt count better Plan Hyponatremia -improved to 130 01/26 with fluid restriction and salt tabs Pulmonary HTN - stable. Sildanifil resumed SATHISH - continue BiPAP Diet: heart healthy DVT prophylaxis: INR therapeutic Code status: Full code Disposition: PT/OT, SNF vs home Subjective Date/time seen: 01/29/23 12:12 Interval history: 63yo male with mechanical AV, pAFib, SATHISH, cirrhosis and HTN here for hip pain after fall and found to have left hip fracture. No overnight events noted. No chest pain or shortn
[2023-01-29 13:56] VITALS: BP 119/63; PULSE 96; RESP 18; TEMP 37.3; O2SAT 97
[2023-01-29] MEDS: METOPROLOL SUCCINATE EXT REL 25 MG TABCR 75 MG PO (17:53)
[2023-01-29] MEDS: WARFARIN (*PBKC) 5 MG TABLET PO (17:57)
[2023-01-29 22:00] VITALS: BP 98/57; PULSE 71; RESP 18; TEMP 36.9; O2SAT 96
[2023-01-30 00:08] LABS: Creatinine, Random Urine 78 mg/dL (20-320); Total Protein/Creatinine Ratio 77 mg/g creat (25-148)
[2023-01-30] MEDS: HYDROcodone/acetaminophen (*CRX) 7.5-325 MG TABLET 1 TAB PO ×3 (03:22→14:27)
[2023-01-30 05:44] VITALS: BP 104/61; PULSE 75; RESP 16; TEMP 36.9; O2SAT 96
[2023-01-30 06:36] LABS: Basophils Absolute Auto 0.1 K/mm3 (0.0-0.1); Basophils Percent Auto 1.4 % (0.2-1.2); Eosinophils Absolute Auto 0.1 K/mm3 (0-0.3); Eosinophils Percent Auto 3.3 % (0-4.4); Hematocrit 33.1 % (42.0-52.0); Hemoglobin 10.5 g/dL (14.0-18.0); Immature Granulocyte Absolute 0.06 K/mm3 (0.00-0.031); Immature Granulocyte Percent A 1.4 % (0-0.5); Lymphocytes Absolute Auto 0.81 K/mm3 (0.9-3.2); Lymphocytes Percent Auto 19.1 % (18.3-44.2); Mean Corpuscular HGB Conc 31.7 g/dl (32-36); Mean Corpuscular Hemoglobin 25.4 pg (26-34); Mean Corpuscular Volume 80.1 fl (80-100); Mean Platelet Volume 8.6 fl (7.4-10.4); Monocytes Absolute Auto 0.6 K/mm3 (0.1-0.6); Monocytes Percent Auto 14.9 % (2.6-8.5); Neutrophils Absolute Auto 2.5 K/mm3 (1.3-6.7); Neutrophils Percent Auto 59.9 % (45.5-73.1); Platelet Count Result 124 k/mm3 (150-375); Red Blood Count 4.13 M/mm3 (4.6-6.20); Red Cell Distribution Width 18.6 % (11.5-14.5); White Blood Count 4.2 K/mm3 (4.5-10.0)
[2023-01-30 06:52] LABS: Alanine Aminotransferase 19 U/L (6-50); Albumin Level 3.6 g/dL (3.5-5.1); Alkaline Phosphatase 108 U/L (38-126); Anion Gap 8 mmol/L (8-16); Aspartate Amino Transferase 36 U/L (17-59); Bilirubin,Total 3.4 mg/dL (0.2-1.3); Blood Urea Nitrogen 23 mg/dL (9-20); Carbon Dioxide 25 mmol/L (22-30); Chloride 99 mmol/L (98-107); Estimated CRCL calculation 85 ml/min; Estimated Glomerular Filt Rate > 60; Glucose 109 mg/dL (65-110); INR 3.2; Potassium 4.1 mmol/L (3.4-5.0); Prothrombin Time 35.3 Seconds (11.1-14.7); Sodium 132 mmol/L (137-145)
[2023-01-30] MEDS: BUMETANIDE 0.5 MG TABLET PO (08:07)
[2023-01-30] MEDS: ATORVASTATIN 10 MG TABLET PO (08:07)
[2023-01-30] MEDS: SENNA/DOCUSATE SODIUM TABLET 2 TAB PO (08:07)
[2023-01-30] MEDS: SILDENAFIL CITRATE 20 MG TABLET 40 MG PO ×2 (08:08→12:03)
[2023-01-30] MEDS: POTASSIUM CHLORIDE 20 MEQ ER TABLET 40 MEQ PO (08:08)
[2023-01-30] MEDS: PANTOPRAZOLE 40 MG TABLET PO (08:08)
[2023-01-30] MEDS: LORATADINE 10 MG TABLET PO (08:08)
[2023-01-30] MEDS: FAMOTIDINE 20 MG TABLET PO (08:08)
[2023-01-30] MEDS: SODIUM CHLORIDE 1 GM TABLET PO (08:09)
[2023-01-30] MEDS: SPIRONOLACTONE 50 MG TABLET PO (08:09)
[2023-01-30] MEDS: polyethylene glycoL 3350 17 GM POWD.PACK PO (08:09)
[2023-01-30] MEDS: FLUTICASONE PROPIONATE 0.05% NA SPR 16 GM BTL (*BKC) 2 SPRAY NASAL (08:09)
[2023-01-30 08:10] VITALS: O2SAT 96
[2023-01-30] MEDS: SALIVA SUBSTITUTE COMBO RINSE 237 ML BOTTLE 15 ML PO (08:13)
[2023-01-30 08:25] VITALS: BP 105/60; PULSE 68; O2SAT 96
[2023-01-30 14:00] VITALS: BP 110/56; PULSE 86; RESP 16; TEMP 36.6; O2SAT 93
--- NOTE | 2023-01-30 14:25 | PM.DS ---
DS: Admitting Diagnosis Discharge Date 01/30/23 Admitting Diagnosis Hip pain after fall and found to have left hip fracture DS: Discharge Diagnosis Discharge Diagnosis (1) Intertrochanteric fracture of left femur: Qualifiers: Encounter type: initial encounter Fracture alignment: displaced Fracture type: closed Qualified Code(s): S72.142A - Displaced intertrochanteric fracture of left femur, initial encounter for closed fracture Code(s): S72.142A - Displaced intertrochanteric fracture of left femur, initial encounter for closed fracture Status: Acute (2) Subtherapeutic anticoagulation: Code(s): Z51.81 - Encounter for therapeutic drug level monitoring; Z79.01 - long term care social worker (current) use of anticoagulants Status: Acute (3) Atrial fibrillation: Code(s): I48.91 - Unspecified atrial fibrillation Status: Chronic Assessment and Plan: Patient has a history of atrial fibrillation. EKG showing sinus tachycardia with PVCs and incomplete right bundle-branch block. He is on anticoagulation for his mechanical aortic valve. He is on metoprolol for rate control which has been resumed. INR therapeutic. Continue Coumadin (4) H/O mechanical aortic valve replacement: Code(s): Z95.2 - Presence of prosthetic heart valve Status: Chronic (5) Liver cirrhosis secondary to nonalcoholic steatohepatitis (DAUGHERTY): Code(s): K75.81 - Nonalcoholic steatohepatitis (DAUGHERTY); K74.60 - Unspecified cirrhosis of liver Status: Chronic (6) Hyponatremia: Code(s): E87.1 - Hypo-osmolality and hyponatremia Status: Acute (7) SATHISH (obstructive sleep apnea): Code(s): G47.33 - Obstructive sleep apnea (adult) (pediatric) Status: Chronic (8) Pulmonary hypertension: Code(s): I27.20 - Pulmonary hypertension, unspecified Status: Chronic (9) Closed intertrochanteric fracture of left hip: Qualifiers: Encounter type: subsequent encounter Fracture alignment: displaced Fracture healing: with routine healing Qualified Code(s): S72.142D - Displaced intertrochanteric fracture of left femur, subsequent encounter for closed fracture with routine healing Code(s): S72.142A - Displaced intertrochanteric fracture of left femur, initial encounter for closed fracture Status: Acute DS: Summary Hospital Course Reason for hospitalization: 63yo male with mechanical AV, pAFib, SATHISH, cirrhosis and HTN here for hip pain after fall and found to have left hip fracture. Please see H&P for details. Hospital Course: Patient had a mechanical fall resulting in left IT fracture. Patient denies syncope, seizure, LOC or any concerning history prior to the fall. Imaging consistent with displaced left intertrochanteric fracture. Spoke with Cardiology about the care of this patient. Patient has a history of mechanical aortic valve.? He has also had a mitral valve repair.? Patient states he is due for a ABDIFATAH due to concerns about the mitral valve.? However speaking to the equipment processer storage, the ABDIFATAH is actually to review the aortic valve since the most recent surface echo showed increased velocities across the aortic valve consistent with stenosis.? This is a new finding which will be evaluated by ABDIFATAH.? Manager Qa recommended patient be treated as if he has aortic stenosis.? Anesthesiology was notified.? Manager Qa did feel the patient could proceed with this non cardiovascular surgery safely without any further testing. Patient also has a history of atrial fibrillation.? EKG showing sinus tachycardia with PVCs and incomplete right bundle-branch block.?He is on metoprolol for rate control which was resumed. INR 1.7 on admission.? Patient states his INR is usually therapeutic. Coumadin held and Heparin drip started. Patient underwent ORIF left IT hip fracture with trochanteric nail 01/18/23. He tolerated the procedure well. Heparin started post-operatively. Coumadin also resumed.
--- NOTE | 2023-01-30 14:47 | PC.NURSE ---
Quality Assurance Analyst spoke with Dr. Peter regarding d/c and pain medication, provider will order pain medications and mitali can be removed by home health nurse on first visit.
== END 2023-01-30 15:50 | disposition home health service (06) | DRG 481 ==
LOC: ANHED 08:52 → ANH3MEDSUR 11:54
PROVIDERS: Internal Medicine Nephrology; Orthopaedic Surgery; Student in an Organized Health Care Education/Training Program; Admitting Provider Internal Medicine; Emergency Provider Emergency Medicine; PCP Family Medicine; Visit Provider Internal Medicine
PROC: 0QS734Z Reposition Left Upper Femur with Internal Fixation Device, Percutaneous Approach (ICD-10-PCS; CPT 27245; principal; 2023-01-18 13:30)
DX: S72.142A Displaced intertrochanteric fracture of left femur, initial encounter for closed fracture (principal); E87.1 Hypo-osmolality and hyponatremia; I48.20 Chronic atrial fibrillation, unspecified; W01.0XXA Fall on same level from slipping, tripping and stumbling without subsequent striking against object, initial encounter; I27.20 Pulmonary hypertension, unspecified; I50.9 Heart failure, unspecified; I11.0 Hypertensive heart disease with heart failure; I48.0 Paroxysmal atrial fibrillation; R79.1 Abnormal coagulation profile; G47.33 Obstructive sleep apnea (adult) (pediatric); K21.9 Gastro-esophageal reflux disease without esophagitis; I45.10 Unspecified right bundle-branch block; I25.10 Atherosclerotic heart disease of native coronary artery without angina pectoris; D69.59 Other secondary thrombocytopenia; K74.60 Unspecified cirrhosis of liver; K75.81 Nonalcoholic steatohepatitis (NASH); E66.9 Obesity, unspecified; Z68.32 Body mass index [BMI] 32.0-32.9, adult; Z51.81 Encounter for therapeutic drug level monitoring; Z95.2 Presence of prosthetic heart valve; Z79.01 Long term (current) use of anticoagulants; Z90.49 Acquired absence of other specified parts of digestive tract
CPT/HCPCS: 36415; 70450; 71045; 73030; 73502; 80048; 80053; 81050; 82533; 82570; 82948; 83883; 83930; 83935; 84155; 84156; 84165; 84166; 84300; 84443; 84540; 85025; 85027; 85055; 85610; 85730; 93005; 93971; 96374; 97110; 97116; 97161; 97165; 97530; 97535; 99199; 99285; A9270; C1713; J0690; J1100; J1170; J1644; J2270; J2405; J3010; J3480; J7120

== ENCOUNTER 2023-02-13 00:50 | Day surgery (SDC) | payer OTHER, SELFPAY ==
[2023-02-13] VITALS (8 sets, daily range): BP systolic 97–105; BP diastolic 53–61; PULSE 66–74; RESP 18–26; TEMP 36.9–37.1; O2SAT 94–98; BMI 29.7
--- NOTE | 2023-02-13 13:57 | WPDTEECHO ---
ABDIFATAH TransEsophageal Echocardiogram Date of procedure: 02/13/23 Procedure Type: Transesophageal echocardiogram Diagnosis: Shortness of breath, CHF, history of mitral valve repair, mechanical aortic valve replacement Indications: Shortness of breath, CHF, mitral valve repair, mechanical aortic valve replacement Image Quality: Acceptable Findings: Patient is a pleasant yet complicated 3-year-old male with a history of mitral valve repair with 30 mm Jose-Choudhary physio 2 annuloplasty ring, 23 mm On X mechanical aortic valve 06/14/2016, history of mild nonobstructive CAD, fatty liver disease and cirrhosis, obstructive sleep apnea on CPAP, GERD, paroxysmal atrial fibrillation, obesity, heart failure with preserved ejection fraction, history of atrial flutter and atrial fibrillation status post cardioversion as well as a diagnosis of portal pulmonary hypertension with worsening shortness of breath and persistent heart failure referred for transesophageal echocardiogram for further evaluation of mitral and aortic valve integrity given abnormal echocardiogram 01/08/2023 with aortic valve prosthesis velocity 4.0 m/sec mean gradient 35 mm Hg valve area 1.0 centimeters sq with trace AI, mean mitral valve gradient 11 mm Hg the valve area calculated 2 centimeter squared and moderate pulmonary hypertension RVSP 54 mm Hg, EF 75%. Procedure in detail: After verbal and written informed consent was obtained the patient risks, benefits, and alternatives explained in detail the patient agreed to proceed with the plan of care as outlined above.? Patient was evaluated at bedside in the endoscopy procedure room.? On examination, neck was supple with normal range of motion, no restrictions to opening of the oral cavity, jaw angle and posterior hypopharynx was clear.? Lungs were clear to auscultation. Patient was placed in appropriate 30 to 45 degree angle in a supine, slight left lateral decubitus position.? Patient was monitored throughout the study with telemetry, oxygen saturation, end-tidal CO2 monitoring, blood pressure, heart rate, and respirations.? Anterior and posterior defibrillator pads placed in the appropriate positions. The posterior hypopharynx was then locally anesthetized with administration of Hurricaine spray.? After local anesthetic of the posterior hypopharynx was achieved and the oral bite block placed.? After adequate sedation administered by Anesthesiology the transesophageal echocardiogram probe was advanced through the oral bite block, into the posterior hypopharynx and into the esophagus easily and without complication.? Multiple, multiplanar echocardiographic images were obtained in multiple standard re-projections.? Pulsed wave, continuous-wave, and color-flow Doppler were utilized in conjunction with this study.? At the conclusion of the study, the transesophageal echocardiogram probe was removed easily and without complication.? Patient tolerated the procedure well without difficulty.? Patient was in atrial fibrillation throughout the study. Sedation: Moderate Sedation/Anesthesia administration: Patient denied previous intolerance or complications with anesthesia/sedation.? Please see Anesthesiology documentation for sedation administration detail and protocols. Findings:?FINDINGS: LEFT VENTRICLE: Size and systolic function were within normal limits without wall motion abnormalities with ejection fraction of 65-70% with paradoxical septal wall motion. Mild concentric left ventricular hypertrophy RIGHT VENTRICLE:? Mild RV enlargement and systolic function within normal limits. LEFT ATRIUM:? Moderate left atrial large. RIGHT ATRIUM:? Mild right atrial enlargement. INTERATRIAL SEPTUM: ? Interatrial septum is anatomically normal without evidence of shunt with color flow Doppler. MITRAL VALVE:? Echogenicity of the mitral annulus consistent with mitral valve annuloplasty ring mild to at most moderate mitral regurgitation with several smaller separate regurg
--- NOTE | 2023-02-13 14:38 | WPDMODSED ---
Moderate Sedation Note-Pt Data Patient Data Diagnosis: CHF, mitral repair, mechanical aortic valve replacement Present Complaint: Shortness of breath Procedure to be performed/Plan: Transesophageal echocardiogram History and physical brief update: Patient is a very pleasant 63-year-old male with past medical history significant for 30 mm mitral repair, 23 mm On-X mechanical aortic valve replacement, nonobstructive CAD, paroxysmal atrial fibrillation, alexis pulmonary hypertension, chronic heart failure with preserved ejection fraction with persistent shortness of breath refractory to medical therapy with prominent V-wave on right heart catheterization concern for mitral valve disease with recommendations for transesophageal echocardiogram for further evaluation. Patient with surface echocardiogram 01/08/2023 which revealed aortic valve peak velocity 4 m/sec with a mean gradient 35 mm Hg and a valve area 1 cm2 with trace AI. Mean gradient of the mitral valve with 11 mm Hg the calculated valve area of 2 centimeters squared. Calculated DVI by surface echo 12/2022 0.33. Impression/plan of care: 1. Heart failure with preserved ejection fraction 2.Status post mitral valve repair 3.Mechanical aortic valve replacement 4.Nonobstructive CAD 5.Alexis pulmonary hypertension Recommendations: Transesophageal echocardiogram Allergies Allergy/AdvReac Type Severity Reaction Status Date / Time No Known Allergies Allergy Verified 02/13/23 13:18 Home Medications Medication Instructions Recorded Confirmed Type potassium chloride 10 mEq 20 meq PO TID 12/15/19 02/12/23 History tablet,extended release warfarin 5 mg tablet 7.5 mg PO DAILY 12/15/19 02/12/23 History fexofenadine 180 mg tablet 180 mg PO DAILY 12/25/19 02/12/23 History (Danae Allergy) fluticasone propionate 50 2 spray intranasal DAILY PRN 12/25/19 02/12/23 History mcg/actuation nasal Allergy Symptoms spray,suspension (Flonase Allergy Relief) atorvastatin 10 mg tablet 10 mg PO DAILY 10/10/21 02/13/23 History sildenafil (pulm.hypertension) 20 40 mg PO TID 05/03/22 02/12/23 History mg tablet metoprolol succinate 25 mg 75 mg PO QPM #90 tabs 05/24/22 02/12/23 Rx tablet,extended release 24 hr (Toprol XL) albuterol sulfate 90 mcg/actuation 2 inhalation inhalation Q4H PRN 07/10/22 02/12/23 History aerosol inhaler shortness of breath or wheezing spironolactone 50 mg tablet 50 mg PO DAILY 07/10/22 02/12/23 History bumetanide 0.5 mg tablet 0.5 mg PO .QD 08/02/22 02/12/23 History pantoprazole 40 mg tablet,delayed 40 mg PO QAM #90 tabs 09/12/22 02/12/23 Rx release hydrocodone 5 mg-acetaminophen 325 1 tablet PO Q4H PRN pain #30 tabs 01/30/23 02/12/23 Rx mg tablet Current Medications: Active Medications Sodium Chloride (Normal Saline Iv) 1,000 mls @ 30 mls/hr IV CONT .Q24H SHARDA Sedation/Anesthesia: No previous sedation/anesthesia problems (including family history). Please see Anesthesiology documentation. [facility] Past Medical History Medical History Acute blood loss anemia Arthritis BMI greater than 30 Chronic fatigue Compression fracture of L1 vertebra (05/2022) Status post vertebroplasty on 06/22/2022. Congestive heart failure Echo on 06/13/2022: Hyperdynamic LV systolic function with an estimated EF > 70%, mildly enlarged RV chamber with reduced RV systolic function, moderate biatrial enlargement, PASP 70 mmHg. Coronary artery disease Coumadin toxicity Esophageal varices Gastroesophageal reflux disease Gilbert syndrome Hyperlipidemia Hypertension Insomnia Intertrochanteric fracture of left femur Liver cirrhosis secondary to nonalcoholic steatohepatitis ([place]UGH[place]) Patient of Dr. Duffy at [place]. Obstructive sleep apnea Paroxysmal atrial fibrillation Pulmonary hypertension Patient of Dr. Shruthi Zuniga at [place]. Syncope Surgical History Surgical History (Revie
== END 2023-02-13 15:40 | disposition home or self-care (01) ==
PROVIDERS: PCP Family Medicine; Visit Provider Internal Medicine Cardiovascular Disease
PROC: (CPT 93312; principal; 2023-02-13 14:00)
DX: I34.0 Nonrheumatic mitral (valve) insufficiency (principal); Z95.2 Presence of prosthetic heart valve; I25.10 Atherosclerotic heart disease of native coronary artery without angina pectoris; I48.0 Paroxysmal atrial fibrillation; R06.02 Shortness of breath; E78.5 Hyperlipidemia, unspecified; E80.4 Gilbert syndrome; G47.33 Obstructive sleep apnea (adult) (pediatric); K21.9 Gastro-esophageal reflux disease without esophagitis; Z79.51 Long term (current) use of inhaled steroids; Z79.01 Long term (current) use of anticoagulants
CPT/HCPCS: 93312; 93320; 93325; J2001; J2704

== ENCOUNTER 2023-08-01 01:59 | Emergency (ER) | payer OTHER, SELFPAY ==
--- NOTE | ~2023-08-01 | CT_ITS ---
Clinical Indication: Chest pain CT Scan of the Chest with Contrast: Technique: Contiguous sections were acquired throughout the chest after intravenous administration of 100 cc of Omnipaque 350. Dose reduction technique was used on this scan by utilizing automated expos ure control and iterative reconstruction technique. The dose-length product (DLP) was 559.30 mGy-cm. COMPARISON: 06/12/2022 Findings: There is no evidence of any significant mediastinal, hilar or axillary lymphadenopathy. There is no f illing defect in the pulmonary arterial tree to suggest pulmonary embolus. There is no evidence of ao rtic dissection or aneurysm. No pericardial effusion. There are minimal pleural effusions bilaterally with mild bibasilar atelectasis. Images through the upper abdomen reveal multiple visceral artery aneurysms, which appear predominantl y arising from branches of the SMA, largest individual aneurysm which appears to measure 2.3 cm in di ameter (axial image 264). Probable cirrhotic change of the liver with left upper quadrant varices. L2 compression fracture with vertebroplasty cement noted. Impression: No evidence of pulmonary embolus, aortic dissection, or aortic aneurysm. Minimal pleural fluid and minimal bibasilar atelectasis. Cirrhotic change with coronary varices as well as multiple visceral artery aneurysms, predominantly a rising from branches of the SMA. Reviewed, dictated and finalized at location . Impression: No evidence of pulmonary embolus, aortic dissection, or aortic aneurysm. Minimal pleural fluid and minimal bibasilar atelectasis. Cirrhotic change with coronary varices as well as multiple visceral artery aneu rysms, predominantly arising from branches of the SMA.
--- NOTE | ~2023-08-01 | XR_ITS ---
Portable chest x-ray Comparison: 01/16/2023 Clinical History: Chest pain Findings: Mild central congestive change present. No consolidation or pleural effusion otherwise. C ardiomediastinal silhouette is stable, status post valve replacement. Bones and soft tissues are unre markable. Impression: Mild central congestive change. Cardiomegaly, status post valve replacement. Reviewed, dictated and finalized at location M. Impression: Mild central congestive change. Cardiomegaly, status post valve replacement.
--- NOTE | 2023-08-01 02:01 | ECG_ITS ---
Measurements Intervals [place] Rate: 69 P: 94 CT: 144 QRS: -1 QRSD: 106 T: 62 QT: 418 QTc: 448 Interpretive Statements SINUS RHYTHM ATRIAL PREMATURE COMPLEXES INCOMPLETE RIGHT BUNDLE BRANCH BLOCK BORDERLINE ST-T WAVE ABNORMALITY- HIGH LATERAL LEADS BASELINE ARTIFACT- V6 BORDERLINE ECG COMPARED TO ECG 01/16/2023 08:36:15 SINUS RHYTHM NOW PRESENT Electronically Signed On 08-01-2023 6:23:19 CDT by Bernardino Austin D.O.
[2023-08-01 02:03] VITALS: BP 130/75; PULSE 71; RESP 12; TEMP 36.9; O2SAT 95
[2023-08-01] MEDS: ASPIRIN 81 MG CHEWABLE TABLET 324 MG PO (02:10)
[2023-08-01 02:21] LABS: Basophils Percent Auto 0.6 % (0.2-1.2); Eosinophils Absolute Auto 0.1 K/mm3 (0-0.3); Eosinophils Percent Auto 2.1 % (0-4.4); Hematocrit 42.3 % (42.0-52.0); Hemoglobin 13.9 g/dL (14.0-18.0); Immature Granulocyte Absolute 0.04 K/mm3 (0.00-0.031); Immature Granulocyte Percent A 0.9 % (0-0.5); Immature Platelet Fraction Pct 1.7 % (0.9-11.2); Lymphocytes Absolute Auto 0.92 K/mm3 (0.9-3.2); Lymphocytes Percent Auto 19.6 % (18.3-44.2); Mean Corpuscular HGB Conc 32.9 g/dl (32-36); Mean Corpuscular Hemoglobin 28.4 pg (26-34); Mean Corpuscular Volume 86.3 fl (80-100); Mean Platelet Volume 9.1 fl (7.4-10.4); Monocytes Absolute Auto 0.6 K/mm3 (0.1-0.6); Monocytes Percent Auto 11.7 % (2.6-8.5); Neutrophils Absolute Auto 3.1 K/mm3 (1.3-6.7); Neutrophils Percent Auto 65.1 % (45.5-73.1); Platelet Count Result 91 k/mm3 (150-375); Red Cell Distribution Width 16.1 % (11.5-14.5); White Blood Count 4.7 K/mm3 (4.5-10.0)
[2023-08-01 02:30] LABS: INR 1.2
[2023-08-01 02:31] LABS: Alanine Aminotransferase 26 U/L (6-50); Albumin Level 4.2 g/dL (3.5-5.1); Alkaline Phosphatase 83 U/L (38-126); Anion Gap 4 mmol/L (8-16); Aspartate Amino Transferase 38 U/L (17-59); Bilirubin,Total 5.8 mg/dL (0.2-1.3); Blood Urea Nitrogen 14 mg/dL (9-20); Calcium 9.7 mg/dL (8.4-10.2); Carbon Dioxide 25 mmol/L (22-30); Chloride 104 mmol/L (98-107); Estimated CRCL calculation 120 ml/min; Estimated Glomerular Filt Rate > 60; Glucose 106 mg/dL (65-110); Lipase 89 U/L (23-300); Partial Thromboplastin Time 31.5 Seconds (22.3-36.8); Potassium 4.1 mmol/L (3.4-5.0); Sodium 133 mmol/L (137-145)
--- NOTE | 2023-08-01 02:37 | ED.GENADULT ---
HPI - General Adult General Chief complaint: Chest Pain Stated complaint: chest pain Time Seen by Provider: 08/01/23 02:08 History of Present Illness HPI narrative: This is a 63-year-old male with comorbidities presenting with chest pain. Patient says he has been having intermittent Dull achy chest pains in the center of chest x1 week. He has been taking Tylenol with some relief. The pains last for anywhere from 5-30 minutes at a time before they resolve. They are not associated with exertion, diaphoresis or vomiting. No fevers chills cough or URI symptoms. no lower extremity edema. Patient is intermittently compliant with his pulmonary hypertension meds because they give him a headache. Patient stops taking his anticoagulation 5 day give days ago in preparation for EGD to get scheduled banding of esophageal varices which she underwent yesterday. Patient states that the pain had been occurring before he had stopped taking his anticoagulation. patient's biggest concern is having a heart attack. Related Data Home Medications Medication Instructions Recorded Confirmed potassium chloride 10 mEq 20 meq PO TID 12/15/19 07/18/23 tablet,extended release warfarin 5 mg tablet 7.5 mg PO DAILY 12/15/19 07/18/23 fexofenadine 180 mg tablet 180 mg PO DAILY 12/25/19 07/18/23 (Danae Allergy) fluticasone propionate 50 2 spray intranasal DAILY PRN 12/25/19 07/18/23 mcg/actuation nasal Allergy Symptoms spray,suspension (Flonase Allergy Relief) atorvastatin 10 mg tablet 10 mg PO DAILY 10/10/21 07/18/23 sildenafil (pulm.hypertension) 20 40 mg PO TID 05/03/22 07/18/23 mg tablet albuterol sulfate 90 mcg/actuation 2 inhalation inhalation Q4H PRN 07/10/22 07/18/23 aerosol inhaler shortness of breath or wheezing spironolactone 50 mg tablet 50 mg PO DAILY 07/10/22 07/18/23 bumetanide 0.5 mg tablet 0.5 mg PO .QD 08/02/22 07/18/23 treprostinil 1.74 mg/2.9 mL (0.6 1 inh inhalation Q4H 03/20/23 07/18/23 mg/mL) solution for nebulization (Tyvaso) empagliflozin 10 mg tablet 10 mg PO DAILY 04/16/23 07/18/23 (Jardiance) ferrous sulfate 325 mg (65 mg 325 mg PO DAILY 04/16/23 07/18/23 iron) tablet (Feosol) trazodone 50 mg tablet 50 mg PO QHS PRN 04/16/23 07/18/23 triamcinolone acetonide 0.1 % topical 04/16/23 07/18/23 topical ointment Allergies Allergy/AdvReac Type Severity Reaction Status Date / Time No Known Allergies Allergy Verified 08/01/23 02:10 [facility] Past Medical History Medical History Acute blood loss anemia Arthritis BMI greater than 30 Chronic fatigue Compression fracture of L1 vertebra (05/2022) Status post vertebroplasty on 06/22/2022. Congestive heart failure Echo on 06/13/2022: Hyperdynamic LV systolic function with an estimated EF > 70%, mildly enlarged RV chamber with reduced RV systolic function, moderate biatrial enlargement, PASP 70 mmHg. Coronary artery disease Coumadin toxicity Esophageal varices Gastroesophageal reflux disease Gilbert syndrome Hyperlipidemia Hypertension Insomnia Intertrochanteric fracture of left femur Liver cirrhosis secondary to nonalcoholic steatohepatitis ([place]UGH[place]) Patient of Dr. Duffy at [place]. Obstructive sleep apnea Paroxysmal atrial fibrillation Pulmonary hypertension Patient of Dr. Shruthi Zuniga at [place]. Syncope Surgical History Surgical History Closed intertrochanteric fracture of left hip ORIF left that hip fracture January 18, 2023 History of arthroscopy of both knees (2012) History of cholecystectomy (06/2011) History of mechanical aortic valve replacement (05/2016) On-X valve, done at [facility]. History of mitral valve repair (05/2016) History of sinus surgery (2013) History of tonsillectomy History of vertebroplasty (06/2022) Family History Family History Sibling He
[2023-08-01] MEDS: oxyCODONE HCL (*CRX) 5 MG TAB IR PO (02:41)
[2023-08-01] MEDS: ACETAMINOPHEN 500 MG TABLET 1000 MG PO (02:41)
[2023-08-01 02:42] VITALS: BP 130/66; PULSE 76; RESP 20; O2SAT 96
[2023-08-01 02:43] LABS: Troponin I < 0.012 ng/mL (0.000-0.034)
[2023-08-01 03:20] VITALS: BP 116/68; PULSE 78; RESP 22; O2SAT 95
--- NOTE | 2023-08-01 05:28 | ECG_ITS ---
Measurements Intervals [place] Rate: 68 P: 79 MI: 172 QRS: -1 QRSD: 110 T: 66 QT: 437 QTc: 466 Interpretive Statements SINUS RHYTHM INCOMPLETE RIGHT BUNDLE BRANCH BLOCK BORDERLINE ECG COMPARED TO ECG 08/01/2023 02:07:32 NO SIGNIFICANT CHANGES Electronically Signed On 08-01-2023 6:27:36 CDT by Bernardino Austin D.O.
[2023-08-01 05:29] VITALS: BP 105/59; PULSE 69; RESP 16; O2SAT 92
[2023-08-01 06:01] LABS: Troponin I < 0.012 ng/mL (0.000-0.034)
[2023-08-01] MEDS: HYDROmorphone HCL INJ (*CRX) 1 MG/ML SYR (06:21)
--- NOTE | 2023-08-01 06:22 | PC.NURSE ---
EDP Dr. Colón ordered 0.5mg dilauded. Ordered under 2mg vial which is not available in [facility]. 1mg dilauded overrode at [facility], wasted with WALE barton. Pt recieved 0.5mg dilauded IVP as ordered.
[2023-08-01 08:00] VITALS: BP 113/63; PULSE 74; RESP 24; TEMP 36.6; O2SAT 98
== END 2023-08-01 08:00 | disposition home or self-care (01) ==
PROVIDERS: Emergency Provider Emergency Medicine; PCP Family Medicine
DX: R07.89 Other chest pain (principal); I11.0 Hypertensive heart disease with heart failure; I50.9 Heart failure, unspecified; I25.10 Atherosclerotic heart disease of native coronary artery without angina pectoris; I48.0 Paroxysmal atrial fibrillation; I27.20 Pulmonary hypertension, unspecified; E11.9 Type 2 diabetes mellitus without complications; E78.5 Hyperlipidemia, unspecified; G47.33 Obstructive sleep apnea (adult) (pediatric); K74.60 Unspecified cirrhosis of liver; K75.81 Nonalcoholic steatohepatitis (NASH); K21.9 Gastro-esophageal reflux disease without esophagitis; M19.90 Unspecified osteoarthritis, unspecified site; Z95.2 Presence of prosthetic heart valve; Z90.49 Acquired absence of other specified parts of digestive tract; Z79.01 Long term (current) use of anticoagulants; Z79.84 Long term (current) use of oral hypoglycemic drugs; I49.1 Atrial premature depolarization; I45.10 Unspecified right bundle-branch block; R94.31 Abnormal electrocardiogram [ECG] [EKG]
CPT/HCPCS: 36415; 71045; 71275; 80053; 83690; 84484; 85025; 85055; 85610; 85730; 93005; 96374; 99284; A9270; J1170; Q9967

== ENCOUNTER 2023-09-09 14:17 | Outpatient (CLI) | payer OTHER, SELFPAY ==
--- NOTE | ~2023-09-09 | MMUS_ITS ---
EXAMINATION: MM diagnostic roby LT w christiana, US breast LT complete HISTORY: Left breast lump TECHNIQUE: Bilateral MLO views, left ML and CC views.. CAD analysis was submitted and interpreted. Hi gh resolution complete left breast ultrasound examination including all 4 quadrants and subareolar ar ea was performed. COMPARISON: None BREAST PARENCHYMAL COMPOSITION: There are scattered areas of fibroglandular density. FINDINGS: MAMMOGRAPHIC FINDINGS: There is asymmetric increased density in the left subareolar area measuring up to approximately 2.1 x 2.7 cm overall dimension. Differential diagnosis includes gynecomastia versus left breast malignancy . ULTRASOUND: There is an approximately 4.9 x 8.7 mm irregular hypoechoic area. There is internal vascularity with a prominent feeding vessel. The findings are of concern for possible malignancy. Ultrasound-guided bi opsy is recommended. IMPRESSION: 1. Suspicious irregular hypoechoic vascular lesion in the subareolar area 2. Ultrasound-guided biopsy of left subareolar mass is recommended BI-RADS category 4, suspicious findings. Telephoned the report and ultrasound-guided biopsy recommendation of left subareolar breast mass on September 09, 2023 at 1615 hours to Nurse Carmel Practitioner. Reviewed, dictated and finalized at location A. IMPRESSION: 1. Suspicious irregular hypoechoic vascular lesion in the subareolar area 2. Ultrasound-guided biopsy of left subareolar mass is recommended BI-RADS category 4, suspicious findings. Telephoned the report and ultrasound-guided biopsy recommendation of left s ubareolar breast mass on September 09, 2023 at 1615 hours to Nurse Max Burt IMPRESSION: 1. Suspicious irregular hypoechoic vascular lesion in the subareolar area 2. Ultrasound-guided biopsy of left subareolar mass is recommended BI-RADS category 4, suspicious findings. Telephoned the report and ultrasound-guided biopsy recommendation of left s ubareolar breast mass on September 09, 2023 at 1615 hours to Nurse Max Burt.
== END 2023-09-09 14:18 | disposition home or self-care (01) ==
LOC: ANHIMG 14:33
PROVIDERS: PCP Family Medicine; Visit Provider Nurse Practitioner Family
DX: N63.0 Unspecified lump in unspecified breast (principal); R92.8 Other abnormal and inconclusive findings on diagnostic imaging of breast
CPT/HCPCS: 76641; 77061; 77065; G0279

== ENCOUNTER 2023-09-24 20:06 | Emergency (ER) | payer OTHER, SELFPAY ==
--- NOTE | ~2023-09-24 | XR_ITS ---
EXAMINATION: XR chest 2V Exam Date/Time: 09/24/2023 21:32 CDT HISTORY: FALL. LEFT MID RIB PAIN Comparison: 08/01/2023. RESULT: Lines, tubes, and devices: Intact sternotomy wires. Abandoned epicardial pacing leads. Cardiac valve replacements. Cholecystectomy clips. Lungs and pleura: Mild diffuse reticular opacities. Streaky and subsegmental bibasilar opacities. Mi ld right costophrenic angle blunting. Cardiomediastinal silhouette: Stable. Other: No acute osseous or upper abdominal finding. IMPRESSION: Subsegmental bibasilar atelectasis/consolidation. Mild interstitial edema. Small right pleural effusi on. Reviewed, dictated and finalized at location K. IMPRESSION: Subsegmental bibasilar atelectasis/consolidation. Mild interstitial edema. Smal l right pleural effusion.
[2023-09-24 20:07] VITALS: BP 128/74; PULSE 89; RESP 26; TEMP 37; O2SAT 97
== END 2023-09-24 23:40 | disposition left against medical advice (07) ==
LOC: ANHED 23:52
PROVIDERS: Emergency Provider Emergency Medicine; PCP Family Medicine
DX: R07.81 Pleurodynia (principal)
CPT/HCPCS: 71046; 99199

== ENCOUNTER 2023-10-01 12:03 | Outpatient (CLI) | payer OTHER, SELFPAY ==
--- NOTE | ~2023-10-01 | XR_ITS ---
AP and lateral views of the left hip Clinical history: Pain COMPARISON: 05/21/2023 Findings: No acute fracture or dislocation is seen. Patient is again status post ORIF of the proximal femur. Soft tissues are unremarkable. Impression: Status post ORIF of the proximal left femur. Stable osseous and orthopedic hardware alignment. Reviewed, dictated and finalized at [facility]. Impression: Status post ORIF of the proximal left femur. Stable osseous and orthopedic hard holland alignment.
== END 2023-10-01 12:04 | disposition home or self-care (01) ==
LOC: ANHIMG 12:05
PROVIDERS: PCP Family Medicine; Visit Provider Nurse Practitioner Adult Health
DX: M25.552 Pain in left hip (principal)
CPT/HCPCS: 73502

== ENCOUNTER 2023-10-09 09:32 | Outpatient (CLI) | payer OTHER, SELFPAY ==
--- NOTE | ~2023-10-09 | US_ITS ---
US breast LT limited 10/09/2023 10:00 Indication: Unspecified lump left breast. Biopsy recommended. Procedure: High-resolution Limited ultrasound of the left breast with comparison images of the right breast. Dr. Parry was personally present during the examination. Comparison: Ultrasound dated 09/09/2023 Findings: There is bilateral heterogeneous subareolar fibroglandular tissue, left greater than right, consistent with bilateral asymmetric gynecomastia. No suspicious discrete mass identified to suggest malignancy. Impression: 1: Probable benign bilateral asymmetric gynecomastia. Biopsy canceled. Findings discussed with the jihan orona at the time of the examination. BI-RADS CATEGORY 3-PROBABLY BENIGN FINDING RECOMMENDATION: Six-month follow-up diagnostic left mammogram and ultrasound recommended. Reviewed, dictated and finalized at location A. Impression: 1: Probable benign bilateral asymmetric gynecomastia. Biopsy canceled. Findings discussed with the patient at the time of the examination. BI-RADS CATEGORY 3-PROBABLY BENIGN FINDING RECOMMENDATION: Six-month follow-up diagnostic left mammogram and ultrasound re commended.
== END 2023-10-09 09:33 | disposition home or self-care (01) ==
PROVIDERS: PCP Family Medicine; Visit Provider Nurse Practitioner Family
DX: N63.20 Unspecified lump in the left breast, unspecified quadrant (principal); R92.8 Other abnormal and inconclusive findings on diagnostic imaging of breast
CPT/HCPCS: 76642

== ENCOUNTER 2024-04-14 11:19 | Outpatient (CLI) | payer MEDICARE, SELFPAY ==
--- NOTE | ~2024-04-14 | MM_ITS ---
EXAMINATION: MM diagnostic [facility] BI w [facility] HISTORY: Gynecomastia. Prior history of open heart surgery and patient on blood thinners. Patient on transplant list. TECHNIQUE: Additional 3-D tomosynthesis images of the breasts were performed and synthetic 2-D images were generated. CAD analysis was submitted and interpreted. COMPARISON: 10/09/2023 BREAST PARENCHYMAL COMPOSITION: Not dense: There are scattered areas of fibroglandular density. FINDINGS: There are no suspicious masses, calcifications or architectural distortion. There is bilate ral gynecomastia. IMPRESSION: 1. No evidence for malignancy in either breast. Gynecomastia. 2. Recommend follow-up clinical management for gynecomastia. BI-RADS Category 2: Benign finding(s). Reviewed, dictated and finalized at location B. RY BAKER
== END 2024-04-14 11:20 | disposition home or self-care (01) ==
LOC: ANHIMG 11:20
PROVIDERS: PCP Family Medicine; Visit Provider Nurse Practitioner Family
DX: R92.8 Other abnormal and inconclusive findings on diagnostic imaging of breast (principal)
CPT/HCPCS: 77062; 77066; G0279

== ENCOUNTER 2024-05-18 11:00 | Outpatient (RCR) | payer MEDICARE, SELFPAY ==
--- NOTE | 2024-03-03 08:57 | OPREHPOC ---
Outpatient Therapy Plan of Care This is a Multidisciplinary Plan of Care that may contain components documented by all disciplines (PT, OT, and ST.) PT Problem 1 PT Problem #1 Knowledge Deficit PT Goal 1 Goal / Goal Update *indep with HEP * correct body mechanics with lifting from floor Target Visit 10 PT Problem 2 PT Problem #2 Pain PT Goal 1 Goal / Goal Update 1* decrease pain rating to 4/10 at worst 2* self assessment Oswestry rating of 30% limitation in activity level Target Visit 10 PT Problem 3 PT Problem #3 Impaired Flexibility PT Goal 1 Goal / Goal Update increase flexibility of trunk and hips, to improve spinal positioning anterior hip/quad length with prone knee flexion 1* R 110' 2* L 110' hamstring length with supine SLR 3* R 70' 4* L 80' Target Visit 10 PT Problem 4 PT Problem #4 Impaired Strength PT Goal 1 Goal / Goal Update increase trunk and hip strength, to improve stability to spine single leg standing with good stability x 30 seconds 1* R 2* L 3* pt perform R and L mat exercises x 20 reps with good stability 4* 2 minute walking test distance of 520' Target Visit 10
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
--- NOTE | 2024-04-02 08:54 | OPREHPOC ---
Outpatient Therapy Plan of Care This is a Multidisciplinary Plan of Care that may contain components documented by all disciplines (PT, OT, and ST.) PT Problem 1 PT Problem #1 Knowledge Deficit PT Goal 1 Goal / Goal Update *indep with HEP * correct body mechanics with lifting from floor Target Visit 10 Progress Met PT Goal 2 Goal / Goal Update 04-02-24 progress goals met continue towards goals to progress education and HEP Target Visit 16 PT Problem 2 PT Problem #2 Pain PT Goal 1 Goal / Goal Update 1* decrease pain rating to 4/10 at worst 2* self assessment Oswestry rating of 30% limitation in activity level Target Visit 10 Progress Not Met PT Goal 2 Goal / Goal Update 04-02-24 progress goals not met, continue towards Target Visit 16 PT Problem 3 PT Problem #3 Impaired Flexibility PT Goal 1 Goal / Goal Update increase flexibility of trunk and hips, to improve spinal positioning anterior hip/quad length with prone knee flexion 1* R 110' 2* L 110' hamstring length with supine SLR 3* R 70' 4* L 80' Target Visit 10 Progress Partially Met PT Goal 2 Goal / Goal Update 04-02-24 progress goal 3 met continue towards goals Target Visit 16 PT Problem 4 PT Problem #4 Impaired Strength PT Goal 1 Goal / Goal Update increase trunk and hip strength, to improve stability to spine single leg standing with good stability x 30 seconds 1* R 2* L 3* pt perform R and L mat exercises x 20 reps with good stability 4* 2 minute walking test distance of 520' Target Visit 10 Progress Not Met PT Goal 2 Goal / Goal Update 04-02-24 progress goals not met, but improved with all; able to achieve 20 reps with some mat exercises continue towards goals Target Visit 16
--- NOTE | 2024-04-02 08:54 | PTOPPROG ---
Assessment and note entered by Taylor Maya, PT Progress Report Assessment Status Progress ICD-10 Condition Codes (PT) Pain in low back M54.50 Onset August 2023 Subjective Information feel like the exercises and stretches are helping his back; is having more overall body pain, due to progression of his medical illness; he is #4 on the liver transplant list; PAIN: range in the past week 0-7/10; increase pain: end of day, increased activity decrease pain: lie down, tylenol PRN; sitting sometimes bothers him, previously did not bother him; Assessment PT Clinical Summary Abelino has received 10 PT sessions. Compared to the initial evaluation: pain at worst rating same at 7/10, with lesser rating from 4/10 to now 0/10; self assessment Oswestry rating from 38 to 42% limitation in activity level; increase flexibility of R hamstring and L anterior hip/ quad; increase strength of trunk and hips; 2 minute walking test distance was 10' less, reported SOB with walking and back pain same; education for HEP and pain management. The goals were partially met. Continue PT treatment. Plan of Care Interventions Electrical Stimulation,Hot Pack/Cold Pack,Manual Therapy,Mechanical Traction,Neuro Re-education, Patient/Caregiver Education,Therapeutic Activities, Therapeutic Exercise,Ultrasound,Other Other Interventions taping PT Services Indicated Yes Treatment Frequency and 2x/wk for 6 visits Duration These treatments will address the objective and functional deficits as defined above. The patient will be advanced safely and appropriately in order for the patient to progress towards his/her prior level of function. Additional exercises will be introduced and as well as a comprehensive home exercise program upon discharge, if needed, ?to ensure carryover of functional gains achieved in the clinic. This treatment plan has been reviewed and agreement upon by the patient.
--- NOTE | 2024-05-18 11:44 | PTOPDC ---
Assessment and note entered by Taylor Maya, PT Assessment Status Discharge ICD-10 Condition Codes (PT) Pain in low back M54.50 Onset August 2023 Subjective Information have more pain in back, saw and have new prescription med and it is helping me sleep; still on list for liver transplant; have not been doing the stretches and exercises due to more pain; also taking vitamin C and E from orders; back said I need surgery on my back, but need to get the liver transplant first; agree to d/c PT at this time, keep up with exercises at home. Reported Pain Level Pain Score Self Report Additional Pain Score Comments pain range in the past week of 2-8/10; in R and L low back; no pain into hips or legs, but have cramps in legs; decrease pain: tylenol, heat and new med from helping sleeping; hold hand on his back for support have a brace but not wearing today increase pain with sitting 30 minutes; Assessment PT Clinical Summary Abelino has received 16 PT sessions. Compared to the last progress report: pain rating from 0-7/10 to 2-8/10; no radicular pain into LE' s; self assessment Oswestry from 42 to 58% limitation in activity level; sitting limited to 30 minutes; strength in R and L LE is about the same, but single leg standing on L less due to back pain; 2 minute walking test distance from 450' to 375'; flexibility of R and L hamstring and anterior hip/quad is about the same, within 5'+/- education completed for HEP, body mechanics self management of pain. The goals were partially met. Discharge PT. He is to continue with his HEP and pain control for back. Plan of Care PT Services Indicated No
== END 2024-05-18 13:39 | disposition home or self-care (01) ==
LOC: ANHPT 11:00
PROVIDERS: PCP Family Medicine
DX: M54.50 Low back pain, unspecified (principal)
CPT/HCPCS: 97110; 97140; 97161; 97530